=== PATIENT | male | born 1955 | race Caucasian/White ===

== ENCOUNTER 2022-02-06 08:40 | Outpatient (CLI) | payer MEDICARE, BC, SELFPAY ==
--- NOTE | ~2022-02-06 | PE_ITS ---
EXAMINATION: PET skull to mid thigh DATE: 02/06/2022 10:18 INDICATION: Abnormal finding of lung field. TECHNIQUE: Blood glucose level was 129 mg/dL. 6.556 mCi of 18-fluorodeoxyglucose (18-FDG) was adminis tered i.v. Low dose computed tomography (CT) images were acquired from the base of the brain to the p roximal thighs for attenuation correction and anatomic localization. Positron emission tomography (PE T) images were acquired in the same distribution beginning 50 minutes after injection. Images includi ng fused PET/CT images were reconstructed in axial, coronal, and sagittal planes. Automated exposure control technique was employed. The dose-length product was 1156.69mGy-cm. COMPARISON: None FINDINGS: Head/neck: There is symmetric increased activity in the oral cavity and ocular muscles without CT correlate, lik adrian physiologic. Bilateral severe multilevel cervical facet osteoarthritis with linear increased upta ke extending along the left C4-C5 facet joint where there are erosive changes on both sides of the yoav int space No pathologically enlarged cervical lymphadenopathy or suspicious foci of increased FDG upt elena in the visualized head or neck. Chest: 8 x 5 mm subpleural nodule at the anterior right apex without discernible FDG activity. There is a se cond 12 x 9 mm subpleural nodule at the posterior basilar segment of the right lower lobe which is al so without discernible FDG activity. Borderline heart size. No pericardial effusion. Thoracic aorta i s normal in caliber. No pathologically enlarged or FDG avid thoracic lymphadenopathy. No suspicious l ytic, blastic or FDG avid bone lesions. Abdomen/pelvis/proximal thighs: Physiologic renal accumulation and excretion of FDG activity in the kidneys, bladder and along portio ns of ureters. Bilateral low-attenuation renal cysts, the largest on the right measuring up to 6.1 cm and the largest on the left measuring up to 2.3 cm. Normal degree and heterogenous pattern of increa sed uptake throughout the liver without radiologic correlate or dominant FDG avid lesion. The gallbla dder, pancreas, spleen and bilateral adrenal glands are normal. Mild uptake scattered throughout the bowels without radiologic correlate, also likely physiologic. Moderate scattered colonic diverticulos is without adjacent inflammatory change to suggest diverticulitis. Small fat-containing umbilical her toño. Prostatomegaly measuring 5.2 x 4.2 cm. No other abnormal foci of increased FDG uptake or patholo gically enlarged lymphadenopathy in the abdomen, pelvis or proximal thighs. Posterior spinal fusion w ith bilateral vertical tiago and pedicle screw fixation extending from L2 through S1 on the right and t hrough L5 with additional more caudal iliac screw on the left. There is anterior fusion at L2-L3 and with interbody fusion device at L3-L4. There are associated laminectomies at L3-L5. Bone graft harves t site along the right posterior iliac spine. Mild left and moderate right hip osteoarthritis. No florina picious lytic, blastic or FDG avid bone lesions. IMPRESSION: 1. No evident FDG activity associated with a couple subpleural nodules measuring 8 x 5 mm the right a pex and 12 x 9 mm in the right lower lobe. While reassuring would recommend 12 month follow-up low-do se noncontrast chest CT. Provided history suggest that there has been prior outside imaging which carlyn uld be obtained comparison with follow-up imaging given the small amount of respiratory motion limiti ng position of measurement on the current study. 2. No other FDG avid lesions suspicious for malignancy/metastatic disease. Line 3. Prostatomegaly. 4. Diverticulosis. 5. Likely inflammatory mild FDG uptake associated with severe osteoarthritis with erosive changes at the left C4-C5 facet joint. Reviewed, dictated and finalized at location A. Samanta
[2022-02-06 09:01] LABS: Glucose Point of Care 129 mg/dl (65-105)
== END 2022-02-06 08:41 | disposition home or self-care (01) ==
PROVIDERS: PCP Internal Medicine; Visit Provider Internal Medicine
DX: R91.1 Solitary pulmonary nodule (principal); N40.0 Benign prostatic hyperplasia without lower urinary tract symptoms; K57.90 Diverticulosis of intestine, part unspecified, without perforation or abscess without bleeding
CPT/HCPCS: 78815; A9552

== ENCOUNTER 2023-07-30 11:22 | Outpatient (CLI) | payer MEDICARE, BC, SELFPAY ==
--- NOTE | ~2023-07-30 | US_ITS ---
Duplex Sonography of the right extremity: Indication: Swelling Findings: Sagittal and transverse B-mode images as well as color-flow imaging were performed on the r ight femoral and popliteal veins. B-mode examination was done without and with compression in the tr ansverse plane. There is good visualization of the common femoral, proximal profunda femoral, superf icial femoral, greater saphenous, and popliteal veins Normal color flow and compressibility/waveforms identified in the right common femoral vein, right pr ofunda femoral vein, and right superficial femoral vein. There is thrombosis of the right popliteal vein which is noncompressible with absence of flow. The do se propagates distally into the gastrocnemius, posterior tibial, and peroneal veins. Impression: DVT involving the right popliteal vein, with distal propagation into the gastrocnemius, posterior tib ial, and peroneal veins. Reviewed, dictated and finalized at location . [employer] F[employer]GG Impression: DVT involving the right popliteal vein, with distal propagation into the gastro cnemius, posterior tibial, and peroneal veins.
== END 2023-07-30 11:23 | disposition home or self-care (01) ==
PROVIDERS: PCP Internal Medicine; Visit Provider Orthopaedic Surgery
DX: R60.0 Localized edema (principal); I82.431 Acute embolism and thrombosis of right popliteal vein; I82.461 Acute embolism and thrombosis of right calf muscular vein; I82.441 Acute embolism and thrombosis of right tibial vein; I82.451 Acute embolism and thrombosis of right peroneal vein
CPT/HCPCS: 93971

== ENCOUNTER 2023-07-30 12:28 | Emergency (ER) | payer MEDICARE, BC, SELFPAY ==
[2023-07-30 12:29] VITALS: BP 144/89; PULSE 99; RESP 17; TEMP 36.7; O2SAT 96
[2023-07-30 12:58] LABS: Basophils Absolute Auto 0.1 K/mm3 (0.0-0.1); Basophils Percent Auto 0.8 % (0.2-1.2); Eosinophils Absolute Auto 0.2 K/mm3 (0-0.3); Eosinophils Percent Auto 1.8 % (0-4.4); Hematocrit 47.5 % (42.0-52.0); Hemoglobin 15.5 g/dL (14.0-18.0); Immature Granulocyte Absolute 0.08 K/mm3 (0.00-0.031); Immature Granulocyte Percent A 0.9 % (0-0.5); Lymphocytes Absolute Auto 2.01 K/mm3 (0.9-3.2); Lymphocytes Percent Auto 22.3 % (18.3-44.2); Mean Corpuscular HGB Conc 32.6 g/dl (32-36); Mean Corpuscular Hemoglobin 29.6 pg (26-34); Mean Corpuscular Volume 90.8 fl (80-100); Mean Platelet Volume 9.7 fl (7.4-10.4); Monocytes Absolute Auto 0.8 K/mm3 (0.1-0.6); Monocytes Percent Auto 9.1 % (2.6-8.5); Neutrophils Absolute Auto 5.9 K/mm3 (1.3-6.7); Neutrophils Percent Auto 65.1 % (45.5-73.1); Platelet Count Result 221 k/mm3 (150-375); Red Blood Count 5.23 M/mm3 (4.6-6.20); Red Cell Distribution Width 13.9 % (11.5-14.5)
[2023-07-30 13:07] LABS: Alanine Aminotransferase 27 U/L (6-50); Albumin Level 4.5 g/dL (3.5-5.1); Alkaline Phosphatase 76 U/L (38-126); Anion Gap 8 mmol/L (8-16); Aspartate Amino Transferase 24 U/L (17-59); Bilirubin,Total 0.6 mg/dL (0.2-1.3); Blood Urea Nitrogen 15 mg/dL (9-20); Calcium 9.1 mg/dL (8.4-10.2); Carbon Dioxide 25 mmol/L (22-30); Chloride 104 mmol/L (98-107); Estimated CRCL calculation 103 ml/min; Estimated Glomerular Filt Rate > 60; Glucose 112 mg/dL (65-110); Potassium 4.1 mmol/L (3.4-5.0); Sodium 137 mmol/L (137-145)
[2023-07-30 13:10] LABS: INR 0.8; Prothrombin Time 11.7 Seconds (11.1-14.7)
[2023-07-30 13:11] LABS: Partial Thromboplastin Time 28.8 SECONDS (22.3-36.8)
--- NOTE | 2023-07-30 14:24 | ED.EXTPRO ---
HPI - Extremity Problem General Chief complaint: Extremity Problem,Nontraumatic Stated complaint: dvt right leg Time Seen by Provider: 07/30/23 14:00 History of Present Illness HPI Narrative: Patient is a 60-year-old male who presents ER with diagnosis of DVT. He has been having swelling in his right leg and pain in his calf for 1 and half weeks. He started physical therapy today for chronic knee issues. No chest pain or shortness of breath. No hemoptysis. No dark black stools. No history of malignancy. Related Data Allergies Allergy/AdvReac Type Severity Reaction Status Date / Time No Known Allergies Allergy Verified 07/30/23 14:18 Review of Systems Cardiovascular: Cardiovascular: Reports no additional cardiovascular complaints Respiratory: Respiratory: Reports no additional respiratory complaints Musculoskeletal: Musculoskeletal: Denies arthralgias and Denies joint swelling Comments: Right calf pain and swelling Neurologic: Reports system reviewed and no additional complaints, except as documented PMFSH Past Medical History Medical History (Updated 07/30/23 @ 14:28 by Torsten Hager MD) BPH (benign prostatic hyperplasia) Diabetes Hyperlipidemia Hypertension Surgical History Surgical History (Updated 07/30/23 @ 14:27 by Torsten Hager MD) H/O arthroscopic knee surgery Exam Narrative: GENERAL: Well-appearing, well-nourished, and in no acute distress. HEAD: Normocephalic, atraumatic. CHEST: Clear to auscultation. No respiratory distress. HEART: Regular rate and rhythm. N Normal peripheral pulses. EXTREMITIES: Normal range of motion. Right lower extremity swelling below the knee of the right leg compared to left. 1+ edema. SKIN: Warm, dry, no rash. NEURO: Alert and oriented x3. PSYCH: Normal mood and affect. Course Course Emergency Course: Discussed bleeding precautions and trauma precautions were being on Xarelto. Discussed case with patient's PCP in you like the patient to receive a 10 day supply and he will provide him with additional medication prescriptions as required. Patient aware of treatment plan. Discharged home. Vital Signs Vital signs: Vital Signs Temperature 98.1 F 07/30/23 12:29 Pulse Rate 99 07/30/23 12:29 Respiratory Rate 17 07/30/23 12:29 Blood Pressure 144/89 H 07/30/23 12:29 Pulse Oximetry 96 07/30/23 12:29 Oxygen Delivery Room Air 07/30/23 12:29 Temperature 98.1 F 07/30/23 12:29 Pulse Rate 99 07/30/23 12:29 Respiratory Rate 17 07/30/23 12:29 Blood Pressure 144/89 H 07/30/23 12:29 Pulse Oximetry 96 07/30/23 12:29 Oxygen Delivery Room Air 07/30/23 12:29 MDM - Extremity (Nontraumatic) Lab Data 07/30/23 12:52 07/30/23 12:52 Labs: Lab Results 07/30/23 Range/Units 12:52 WBC 9.0 (4.5-10.0) K/mm3 RBC 5.23 (4.6-6.20) M/mm3 Hgb 15.5 (14.0-18.0) g/dL Hct 47.5 (42.0-52.0) % MCV 90.8 (80-100) fl MCH 29.6 (26-34) pg MCHC 32.6 (32-36) g/dl RDW 13.9 (11.5-14.5) % Plt Count 221 (150-375) k/mm3 MPV 9.7 (7.4-10.4) fl Immature Gran % (Auto) 0.9 H (0-0.5) % Neut % (Auto) 65.1 (45.5-73.1) % Lymph % (Auto) 22.3 (18.3-44.2) % [place] % (Auto) 9.1 H (2.6-8.5) % Eos % (Auto) 1.8 (0-4.4) % Baso % (Auto) 0.8 (0.2-1.2) % Lymph # (Auto) 2.01 (0.9-3.2) K/mm3 [place] # (Auto) 0.8 H (0.1-0.6) K/mm3 Eos # (Auto) 0.2 (0-0.3) K/mm3 Baso # (Auto) 0.1 (0.0-0.1) K/mm3 Abs Immat Gran (auto) 0.08 H (0.00-0.031) K/mm3 Absolute Neuts (auto) 5.9 (1.3-6.7) K/mm3 Absolute Nucleated RBC 0.0 (0.0-0.012) K/mm3 Nucleated RBC % 0.0 (0.0-0.2) % PT 11.7 (11.1-14.7) Seconds INR 0.8 APTT 28.8 (22.3-36.8) SECONDS Sodium 137 (137-145) mmol/L Potassium 4.1 (3.4-5.0) mmol/L Chloride 104 (98-107) mmol/L Carbon Dioxide 25 (22-30) mmol/L Anion Gap 8 (8-16) mmol/L BUN 15 (9-20) mg/dL Creatinine 0.70 (0.7-1.3) mg/dL
[2023-07-30 14:42] VITALS: BP 158/100; PULSE 96; RESP 19; O2SAT 96
== END 2023-07-30 14:43 | disposition home or self-care (01) ==
PROVIDERS: Emergency Provider Emergency Medicine; PCP Internal Medicine
DX: I82.401 Acute embolism and thrombosis of unspecified deep veins of right lower extremity (principal); N40.0 Benign prostatic hyperplasia without lower urinary tract symptoms; E11.9 Type 2 diabetes mellitus without complications; E78.5 Hyperlipidemia, unspecified; I10 Essential (primary) hypertension
CPT/HCPCS: 36415; 80053; 85025; 85610; 85730; 93971; 99283

== ENCOUNTER 2023-12-18 08:50 | Outpatient (CLI) | payer MEDICARE, BC, SELFPAY ==
--- NOTE | ~2023-12-18 | US_ITS ---
EXAMINATION: US venous doppler LE RT DATE: 12/18/2023 09:52 INDICATION: Deep vein thrombosis of right lower extremity. TECHNIQUE: Grayscale ultrasound images without and with compression and Doppler ultrasound images of the right lower extremity veins were obtained. COMPARISON: Ultrasound 07/30/2023 FINDINGS: The visualized portions of right common femoral vein, profunda (deep) femoral vein, femoral vein, pop liteal vein, peroneal veins, posterior tibial veins, and greater saphenous vein outflow are patent. T here is a large Mauricio's cyst. IMPRESSION: 1. No deep venous thrombosis. 2. Large right Mauricio's cyst. Reviewed, dictated and finalized at location A.
== END 2023-12-18 08:51 | disposition home or self-care (01) ==
PROVIDERS: PCP Internal Medicine; Visit Provider Internal Medicine
DX: M71.21 Synovial cyst of popliteal space [Baker], right knee (principal); I82.401 Acute embolism and thrombosis of unspecified deep veins of right lower extremity
CPT/HCPCS: 93971

== ENCOUNTER 2024-09-16 08:59 | Outpatient (CLI) | payer MEDICARE, BC, SELFPAY ==
--- NOTE | ~2024-09-16 | XR_ITS ---
EXAMINATION: XR cervical spine 4-5V DATE: 09/16/2024 09:28 INDICATION: Neck pain. TECHNIQUE: 5 views of cervical spine including flexion and extension views were obtained. COMPARISON: None. FINDINGS: There is 7 degrees levocurvature of cervicothoracic spine. There is hypomobility of upper c ervical spine. Vertebral body heights are normal. There is mildly decreased disc height at C3-C4 and moderately decreased disc height at C5-C6 and C6-C7. There is multilevel facet joint osteoarthritis, severe on the right at C2-C3 and on the left at C3-C4 and C4-C5. No central canal stenosis or prevert ebral soft tissue swelling. IMPRESSION: 1. Moderate cervical spondylosis. Reviewed, dictated and finalized at location A. WIRE BUILDER
--- OUTSIDE RECORDS SUMMARY | 2024-09-16 09:23 | XMS_ITS | Clinical Summary ---
Author Organization [facility] Address [address] [place] [address] Phone Care Team Providers Care Braider Operator Name Role Phone Robel Prasad MD Primary Care Provider [phone] Allergies No known active allergies Social History Tobacco Use Types Packs/Day Years Used Date Smoking Tobacco: Never Assessed Sex and Gender Information Value Date Recorded Sex Assigned at Not on file Legal Sex Male 8:10 PM CDT Gender Identity Not on file Sexual Orientation Not on file Last Filed Vital Signs Vital Sign Reading Time Taken Comments Blood Pressure - - Pulse - - Temperature - - Respiratory Rate - - Oxygen Saturation - - Inhaled Oxygen Concentration - - Weight 103 kg (227 lb) 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 Height 177.8 cm (5' 10 ) 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 Body Mass Index 32.57 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 Plan of Treatment Health Maintenance Due Date Last Done Comments Hepatitis C Virus (HCV) Screening 1955 TdaP Immunization 1955 Colonoscopy 02/03/2000 Colorectal Cancer Screening 02/03/2000 Cologuard 2005 Immunochemical Fecal Occult Blood 2005 Pneumococcal Immunization (5 0+ years) (1 of 1 - PCV) 2005 Zoster Immunization (1 of 2) 2005 PSA Discussion 2010 Influenza Immunization (#1) 2024 SARS-COV-2 Immunization (2023- season) 2024 Respiratory Syncytial Virus (RSV) Immunization (Adult) (1 - 1-dose 75+ series) 2030 Hepatitis B Immunization Aged Out No longer eligible based on patient's age to complete this topic Meningococcal Immunization (ACWY) Aged Out No longer eligible based on patient's age to complete this topic Rotavirus Immunization Aged Out No lo nger eligible based on patient's age to complete this topic Insurance [facility] [place] MEDIC[facility] Care Teams Braider Operator Relationship Specialty Start Date End Date Robel Prasad MD PCP - General Internal Medicine 07/22/16
--- OUTSIDE RECORDS SUMMARY | 2024-09-16 09:23 | XMS_ITS | Encounter Summary ---
Author Organization [facility] Address [address] [place] [address] Phone Care Team Providers Care Plant Attendant Or Assistant Operator Name Role Phone Jose Rodriguez MD Primary Care Provider [phone] Reason for Visit * Reason Comments Med Refill Encounter Details Date Type Department Care Team (Late st Contact Info) Description 04/22/2021 Refill [facility], [address] [place] [address] Vimal Peacock DO [address] [facility] [address] [place] [address] Social History Tobacco Use Types Packs/Day Years Used Date Smoking Tobacco: Never Alcohol Use Standard Drinks/Week Comments No 0 (1 standard drink = 0.6 oz pur e alcohol) Sex and Gender Information Value Date Recorded Sex Assigned at Not on file Legal Sex Male 2:49 PM EDT Gender Identity Not on file Sexual Orientation Not on file documented as of this encounter Plan of Treatment Upcoming Encounters Date Type Department Care Team (Late st Contact Info) Description 09/20/2024 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
--- OUTSIDE RECORDS SUMMARY | 2024-09-16 09:24 | XMS_ITS | CONTINUITY OF CARE DOCUMENT ---
Author Name ryan, ryan Address Unknown Organization [facility] Address [address] [place] [address] Phone [phone] Care Team Providers Care Protocol Manager Name Role Phone Emil SCHMIDT, Franko Unavailable KATINA CARRILLO MD Unavailable KATINA CARRILLO MD Unavailable PROBLEMS Condition Status Date Provider Notes CHEST PAIN-ABNL STRESS TEST 10/17 NL CATH 11/17 active ? Franko Stein MD Hypercholesterolemia, mixed active Aster Gr uenenfelder BACK PAIN active Franko Stein MD Increased blood lead level active Franko bernabe MD Obesity active Franko Stein MD Abdominal aortic aneurysm - 2.9cm, 09/2022 active aSúl Baptiste Cardiology examination completed 5 - Franko Stein MD Cardiology examination active Saúl Baptiste DVT active Franko Stein MD PREOPERATIVE CARDIOVASCULAR EXAMINATION completed - Franko Stein MD HTN-10/17 CATH EF 60 NO CAD active ? Delio valenzuela RN ENCOUNTERS Date Type Provider Location Encounter Diag nosis - In-person encounter Office Visit Franko Stein MD [facility] Cardiology examination - In-person encounter Office Visit Franko Stein MD [facility] DVT - In-person encounter Office Visit Franko Stein MD [facility] Abdominal aortic aneurysm - 2.9cm, ardiology examination - In-person encounter Office Visit Franko Stein MD [facility] - In-person encounter Office Visit Franko Stein MD [facility] - In-person encounter Office Visit Franko Stein MD [facility] - In-person encounter Office Visit Franko Stein MD [facility] - In-person encounter Office Visit Franko Stein MD [facility] Abdominal aortic aneurysm - 2.9cm, 09/2022 - In-person encounter Office Visit Franko Stein MD [facility] Obesity - In-person encounter Office Visit Franko Stein MD [facility] - In-person encounter Office Visit Franko Stein MD [facility] - In-person encounter Office Visit Franko Stein MD [facility] BACK PAINIncreased blood lead level - In-person encounter Office Visit Franko Stein MD [facility] - In-person encounter Office Visit Franko Stein MD [facility] PREOPERATIVE CARDIOVASCULAR EXAMINATION - In-person encounter Office Visit Franko Stein MD [facility] - In-person encounter Office Visit Franko Stein MD [facility] CHEST PAIN-ABNL STRESS TEST 3/10 NL CATH 11/17 - In-person encounter Office Visit Franko Stein MD [facility] - In-person encounter Office Visit Franko Stein MD [facility] CHEST PAIN-ABNL STRESS TEST 3/10 NL CATH 11/17HTN-10/17 CATH EF 60 NO CADHypercholesterolemi a, mixed VITAL SIGNS Date Observation Value Provider Body Mass Index (Ratio) 33.14 kg/m2 Andrea Stein MD oxygen saturation, oximetry 96 % Carrie Ram pulse rate 81 /min Carrie Ram blood pressure, cuff size regular Raj barksdale Ram blood pressure, diastolic 98 mm[Hg] Ta shamir [facility] blood pressure, systolic 148 mm[Hg] Tab letha Ram weight E&M 231 [lb_av] Carrie Ram respiratory rate E&M 12 /min Carrie Ram height E&M 70 [in_i] Carrie [facility] Body Mass Index (Ratio) 32.85 kg/m2 Andrea Stein MD blood pressure, cuff size regular [facility] blood pressure, diastolic 85 mm[Hg] [facility] blood pressure, systolic 135 mm[Hg] [facility] pulse rate 92 /min Ricki y oxygen saturation, oximetry 96 % Ricki respiratory rate E&M 12 /min Ricki weight E&M 229 [lb_av] Ricki y height E&M 70 [in_i] Ricki y Body Mass Index (Ratio) 33.00 kg/m2 Andrea Stein MD blood pressure, diastolic 100 mm[Hg] Aydin Dooley blood pressure, systolic 157 mm[Hg] [facility] harmony Dooley oxygen saturation, oximetry 97 % Mere Dooley pulse rate 78 /min Mere Dooley respiratory rate E&M 20 /min Mere Dooley blood pressure, cuff size regular faisal Dooley weight E&M 230 [lb_av] Mere Dooley height E&M 70 [in_i] Mere Dooley Body Mass Index (Ratio) 33.86 kg/m2 Andrea Stein MD blood pressure, diastolic 113 mm[Hg] Ri hitesh Bean blood pressure, systolic 164 mm[Hg] Aramis moshe Bean oxygen saturation, oximetry 97 % Rosalind Bean respiratory rate E&M 16 /min Ricardo Bean pulse rate 80 /min Rosalind Mo son weight E&M 236 [lb_av] Rosalind Mo son blood pressure, cuff size large Ri hitesh Bean height E&M 70 [in_i] Rosalind gu Body Mass Index (Ratio) 34.29 kg/m2 Andrea Stein MD blood pressure, diastolic 95 mm[Hg] Ca therine Hardin blood pressure, systolic 165 mm[Hg] Cat herine Keegan oxygen saturation, oximetry 98 % Danyell Hardin pulse rate 78 /min Danyell Hardin respiratory rate E&M 14 /min Catheri ne Hardin weight E&M 239 [lb_av] Danyell Hardin blood pressure, cuff size regular Ca therine Keegan height E&M 70 [in_i] Danyell Hardin Body Mass Index (Ratio) 33.43 kg/m2 Andrea Stein MD blood pressure, cuff size regular Sa ra Perez blood pressure, diastolic 107 mm[Hg] Sa ra Perez blood pressure, systolic 184 mm[Hg] Barak a Perez oxygen saturation, oximetry 96 % Thelma Perez respiratory rate E&M 18 /min Thelma Si ms pulse rate 92 /min Thelma Perez weight E&M 233 [lb_av] Thelma Perez height E&M 70 [in_i] Thelma Perez Body Mass Index (Ratio) 34.00 kg/m2 Andrea Stein MD blood pressure, cuff size large Ke rri Gruenenfelder blood pressure, diastolic 80 mm[Hg] Ke rri Gruenenfelder blood pressure, systolic 150 mm[Hg] Ker ri Gruenenfelder oxygen saturation, oximetry 98 % Aster Gruenenfelder respiratory rate E&M 16 /min Aster G ruenenfelder pulse rate 85 /min Aster Gruenenfe lder weight E&M 237 [lb_av] Aster Gruenenfe lder height E&M 70 [in_i] Aster Gruenenfe er Body Mass Index (Ratio) 34.15 kg/m2 Andrea Stein MD blood pressure, cuff size large Ke rri Gruenenfelder blood pressure, diastolic 100 mm[Hg] Ke rri Gruenenfelder blood pressure, systolic 162 mm[Hg] Ker ri Gruenenfelder oxygen saturation, oximetry 98 % Aster Gruenenfelder respiratory rate E&M 16 /min Aster G ruenenfelder pulse rate 98 /min Aster Gruenenfe lder weight E&M 238 [lb_av] Aster Gruenenfe lder height E&M 70 [in_i] Aster Gruenenfe lder Body Mass Index (Ratio) 33.57 kg/m2 Dulce Maria Aguilar respiratory rate E&M 18 /min Oralia Gutierrez blood pressure, diastolic 101 mm[Hg] Cy kylee Gutierrez blood pressure, systolic 158 mm[Hg] Steffany Gutierrez blood pressure, cuff size regular Cy kylee Gutierrez pulse rate 77 /min Oralia mac oxygen saturation, oximetry 97 % Oralia Gutierrez weight E&M 234 [lb_av] Oralia Velazco l height E&M 70 [in_i] Oralia Bustamantebel l Body Mass Index (Ratio) 34.58 kg/m2 Andrea Stein MD blood pressure, diastolic 100 mm[Hg] [facility], systolic 160 mm[Hg] Vanita collazo [place] oxygen saturation, oximetry 98 % [facility] E&M 16 /min [facility] pulse rate 105 /min [facility] weight E&M 241 [lb_av] [place] Jung height E&M 70 [in_i] [place] Jung Body Mass Index (Ratio) 33.57 kg/m2 Andrea Stein MD blood pressure, cuff size large Ke rri Adamneelroy blood pressure, diastolic 90 mm[Hg] Ke rri Kirit blood pressure, systolic 140 mm[Hg] Ferny ri Kirit oxygen saturation, oximetry 97 % Aster Kirit respiratory rate E&M 20 /min Aster G ruenenfshmuel pulse rate 92 /min Aster Michelle lder weight E&M 234 [lb_av] Aster Gruenenfe lder height E&M 70 [in_i] Aster Kevinuenenfe lder Body Mass Index (Ratio) 34.00 kg/m2 Andrea Stein MD blood pressure, cuff size large Ke rri Adamnepippaaakasher blood pressure, diastolic 100 mm[Hg] Ke rri Kevinuenenfelder blood pressure, systolic 162 mm[Hg] Ferny kang Kirit oxygen saturation, oximetry 98 % Aster Brownyadielpippashmuel respiratory rate E&M 18 /min Aster G savannahnfshmuel pulse rate 101 /min Aster Adamsavagee lder weight E&M 237 [lb_av] Aster Grrickinenfe lder height E&M 70 [in_i] Aster Kevinrickinenfe lder blood pressure, diastolic 99 mm[Hg] Me cassie Mandel blood pressure, systolic 174 mm[Hg] Eunice juan Mandel pulse rate 84 /min Asuncion Mandel oxygen saturation, oximetry 97 % Asuncion Mandel respiratory rate E&M 15 /min Asuncion Mandel Body Mass Index (Ratio) 34.72 kg/m2 Bibiana ssa Mandel weight E&M 242 [lb_av] Asuncion Mandel Body Mass Index (Ratio) 34.43 kg/m2 Krissy sylvester Kirit blood pressure, diastolic 91 mm[Hg] Ke rrnga Kirit blood pressure, systolic 150 mm[Hg] Ferny kang [facility]irit pulse rate 106 /min Aster Geoffe lder oxygen saturation, oximetry 98 % Aster Kirit respiratory rate E&M 16 /min Aster Linares neyda weight E&M 240 [lb_av] Aster Kevinuenenfe lder height E&M 70 [in_i] Aster Kevinuenenfe lder blood pressure, diastolic 98 mm[Hg] Me cassie Mandel blood pressure, systolic 149 mm[Hg] Eunice juan Mandel pulse rate 82 /min Asuncion Mandel oxygen saturation, oximetry 98 % Asuncion Mandel respiratory rate E&M 14 /min Asuncion Mandel weight E&M 241 [lb_av] Asuncion Mandel blood pressure, diastolic, left arm 91 mm [Hg] Allyson Pal blood pressure, systolic, left arm 11 mm[ Hg] Allyson Pal blood pressure, diastolic, right arm 71 m m[Hg] Allyson Pal blood pressure, systolic, right arm 127 m m[Hg] Allyson Pal blood pressure, diastolic 71 mm[Hg] Dorsey blood pressure, systolic 127 mm[Hg] Ron Pal pulse rate 107 /min Allyson Pal oxygen saturation, oximetry 97 % Allyson Pal respiratory rate E&M 16 /min Allyson Pal weight E&M 234 [lb_av] Allyson Pal blood pressure, diastolic, right arm 72 m m[Hg] Eric [place] blood pressure, systolic, right arm 113 m m[Hg] Eric [place] blood pressure, diastolic 72 mm[Hg] Jaz davis [place] blood pressure, systolic 113 mm[Hg] Luis Armando tolentino [place] pulse rate 77 /min Eric [place] oxygen saturation, oximetry 97 % Eric [place] respiratory rate E&M 16 /min Eric [place] weight E&M 224 [lb_av] Eric Trevinoacop blood pressure, diastolic 101 mm[Hg] Luigi Campos RN blood pressure, systolic 155 mm[Hg] Delio Campos RN pulse rate 94 /min Delio Campos RN oxygen saturation, oximetry 99 % Delio Campos RN respiratory rate E&M 18 /min Delio silvas RN weight E&M 230 [lb_av] Delio Beth RN blood pressure, diastolic 100 mm[Hg] Narinder Umana blood pressure, systolic 152 mm[Hg] Bob danuta Dong ALLERGIES Allergy Name Onset Date Reaction Criticality Status SEASONAL Low Criticality active RESULTS Date Observation Value Provider Reference Range Interpretation Location triglyceride, serum, fasting 203 mg/dL [facility] HDL cholesterol, serum 32 mg/dL [facility] lipoprotein, beta, serum, point, quantitative, calculated 119 mg/dL [facility] cholesterol, serum 192 mg/dL [facility] alanine aminotransferase (SGPT), serum 29 1/L [facility] aspartate aminotransferase (SGOT), serum 19 1/L [facility] blood glucose, random 110 mg/dL [facility] creatinine, serum 0.84 mg/dL [facility] urea nitrogen, blood 13 mg/dL [facility] potassium, serum 4.2 mmol/L [facility] sodium, serum 142 mmol/L [facility] international normalized ratio (INR) 1.0 [facility] prothrombin time (patient) 9.6 s [facility] anion gap, serum 12 [facility] globulins, serum, total 3.7 g/dL [facility] albumin/globulin ratio, serum 1.6 [facility] protein, total, serum 7.0 g/dL [facility] albumin, serum 4.3 g/dL [facility] bilirubin, serum, total 0.9 mg/dL [facility] alkaline phosphatase, serum 68 1/L [facility] alanine aminotransferase (SGPT), serum 32 1/L [facility] aspartate aminotransferase (SGOT), serum 18 1/L [facility] calcium, serum 10.0 mg/dL [facility] blood glucose, fasting 105 mg/dL [facility] creatinine, serum 1.0 mg/dL [facility] urea nitrogen, blood 16 mg/dL [facility] carbon dioxide, serum, total 29 mmol/L [facility] chloride, serum 105 mmol/L [facility] potassium, serum 4.4 mmol/L [facility] sodium, serum 142 mmol/L [facility] platelet count 258 10*3/uL [facility] red blood cell distribution width 12.7 % Symone Pineda mean corpuscular hemoglobin concentration, RBC 34.1 g/dL Symone Pineda mean corpuscular hemoglobin, RBC 30.5 pg [facility] mean corpuscular volume, RBC 89.6 fL [facility] hematocrit, blood 46.0 % [facility] hemoglobin, blood 15.7 g/dL [facility] erythrocyte (RBC) count 5.13 10*6/mm3 [facility] monocytes as percent of blood leukocytes 7.3 % [facility] lymphocytes as percent of blood leukocytes 25.3 % [facility] leukocyte count, blood 10.0 10*3/mm3 Symone Pineda HISTORY OF MEDICATION USE Medication Status Instructions Dates Provider Indications Com ments nifedipine 90 mg tablet extended release active Take 1 tablet by mouth once daily Saúl Baptiste losartan-hydroc hlorothiazide 100-12.5 mg tablet active Take 1 tablet by mouth once a day Saúl Baptiste Vascepa 1 gram capsule active Saúl Baptiste Xarelto 20 mg tablet completed TAKE 1 TABLET BY MOUTH EVERY DAY - Saúl Baptiste nifedipine 90 mg tablet extended release completed Take 1 tablet by mouth once a day - Saúl Baptiste Ozempic 0.25 mg or 0.5 mg(2 mg/1.5 mL) pen injector completed - Saúl Baptiste tamsulosin 0.4 mg capsule active Danyell Keegan carvedilol 25 mg tablet active Danyell Hardin nifedipine 90 mg tablet extended release completed Take 1 tablet by mouth once daily - Aster Beth rosuvastatin 40 mg tablet active Take 1 tablet by mouth once daily Ricki Elaine tramadol 50 mg tablet completed as needed - Saúl Baptiste nifedipine 90 mg tablet extended release completed 1 tablet once a day - Renetta Spaulding VITAMIN C CAPSULE active once a day Aster Beth metformin 500 mg tablet extended release 24hr active Take 1 tablet twice a day Oralia Gutierrez TAMSULOSIN HCL 0.4 MG ORAL CAPSULE completed take 1 tab twice a day - Aster Beth loratadine 10 mg tablet active Take 1 tablet once a day [facility], 30 days supply, Prescribed by KATINA CARRILLO, Filled 12/14/2018 omeprazole 20 mg capsule,delayed release(DR/EC) active Take 1 capsule by mouth once a day as needed [facility] #90, 90 days supply, Prescribed by KATINA CARRILLO, Filled 01/09/2019 AMLODIPINE BESYLATE 10 MG ORAL TABLET completed take 1 tab dialy - [facility] METFORMIN HCL 500 MG ORAL TABLET completed take one pill twice a day - Samson Jung Coreg 25 mg tablet completed 1 tablet twice a day - Saúl Baptiste losartan 100 mg tablet completed Take 1 tablet once a day - Saúl Baptiste VITAMIN D (ERGOCALCIFEROL ) 15407 UNIT ORAL CAPSULE completed take once a week for 8 weeks - Aster Beth Crestor 40 mg tablet completed 1 tablet once a day - Cassie Jeff fluticasone propionate 50 mcg/actuation spray,suspensio n completed once a day - Saúl Baptiste CHLOR - TRIMETON completed take one pill a day as needed - Aster Beth VITAMIN D CAPS active Take 1 once a day Aster Beth finasteride 5 mg tablet active once a day Asuncion Mandel Flomax 0.4 mg capsule completed 2 tablet once a day - Saúl Baptiste IMITREX TABLET completed as needed 50mg for migrains - Samson Jung TRAMADOL HCL TABLET completed 50mg twice daily - Aster Beth NEURONTIN CAPSULE completed 300mg twice daily - Samson Jung NIASPAN 500 MG ORAL TABLET EXTENDED RELEASE completed ONE TAB. AT BEDTIME - Dispense as written - Franko Stein MD QUINAPRIL HCL 20 MG ORAL TABLET completed ONE TAB. DAILY - Franko Stein MD VERAPAMIL HCL ER 360 MG ORAL CAPSULE EXTENDED RELEASE 24 HOUR completed ONE TAB. DAILY - Aster Beth GEMFIBROZIL 600 MG ORAL TABLET completed ONE TAB TWICE DAILY - Asuncion Mandel VITAMIN C TABS completed - Aster Beth Fish Oil 340-1,000 mg capsule completed 2 tablet twice a day - Saúl Baptiste SOCIAL HISTORY Date Observation Value Provider drug use none Saúl Baptiste alcohol use no Saúl Baptiste smoking status Never smoker Saúl Baptiste drug use none Saúl Baptiste alcohol use no Saúl Baptiste smoking status Never smoker aSúl Baptiste smoking status Never smoker Mere Dooley social history reviewed E&M revi ewed - no changes required Saúl Baptiste social history E&M Marital Statu s: L amelia with family/friends E thnicity: Smoking History: P atient is a former smoker. Franko Stein MD physical exercise, f requency, days per week no Rosalind Bean caffeine use, averag e drinks per day yes Rosalind Bean number of years as a smoker 25 a Rosalind Bean smoking history, tot al pack/day 2 Rosalind Bean cigarette use yes Rosalind Kohli rson smoking status Former smoker Rosalind mendoza social history reviewed E&M revi ewed - no changes required Franko Stein MD social history E&M Marital Statu s: L amelia with family/friends E thnicity: Smoking History: P atient is a former smoker. Saúl Baptiste social history reviewed E&M revi ewed - no changes required Saúl Baptiste physical exercise, f requency, days per week no Danyell Keegan caffeine use, averag e drinks per day yes Danyell Keegan number of years as a smoker 25 a Danyell Hardin smoking history, tot al pack/day 2 Danyell Keegan cigarette use yes Danyell Hardin smoking status Former smoker Danyell Ot is social history reviewed E&M revi ewed - no changes required Saúl Baptiste social history E&M Marital Statu s: L amelia with family/friends E thnicity: Smoking History: P atient is a former smoker. Cassie Aguilar social history reviewed E&M revi ewed - no changes required Cassie Aguilar physical exercise, f requency, days per week no Aster Beth caffeine use, averag e drinks per day yes Aster Beth number of years as a smoker 25 a Aster Beth smoking history, tot al pack/day 2 Aster Beth cigarette use yes Aster mi smoking status Former smoker Aster abbasi social history reviewed E&M revi ewed - no changes required Kodak Baker physical exercise, f requency, days per week no Aster Beth caffeine use, averag e drinks per day yes Aster Beth number of years as a smoker 25 a Aster Beth smoking history, tot al pack/day 2 Aster Beth cigarette use yes Aster mi smoking status Former smoker Aster abbasi social history E&M Marital Statu s: Dionne cisneros with family/friends E thnicity: Smoking History: Stephany mcfarland is a former smoker. Cassie Aguilar social history reviewed E&M revi ewed - no changes required Cassie Aguilar physical exercise, f requency, days per week no Oralia Gutierrez caffeine use, averag e drinks per day yes Oralia Gutierrez number of years as a smoker 25 a Oralia Gutierrez smoking history, tot al pack/day 2 Oralia Gutierrez cigarette use yes Oralia almaraz smoking status Former smoker Oralia griffin social history reviewed E&M revi ewed - no changes required Franko Stein MD social history E&M Marital Statu s: Dionne cisneros with family/friends E thnicity: Smoking History: Stephany mcfarland is a former smoker. Franko Stein MD physical exercise, f requency, days per week no Samson Jung alcohol use, average drinks per day none [place] [facility] alcohol use no Samson Jung caffeine use, averag e drinks per day yes Samson Jung drug use none [place] [facility] number of years as a smoker 25 a Samson Jung smoking history, tot al pack/day 2 Samson Jung cigarette use yes [place] Jung smoking status Former smoker [facility] number of grandchildren Franko Stein MD T sam Stein MD social history reviewed E&M revi ewed - no changes required Franko Stein MD physical exercise, f requency, days per week no Aster Gruenenfelder alcohol use, average drinks per day none Aster Gruenenfelder alcohol use no Aster Gruenenfe lder caffeine use, averag e drinks per day yes Aster Gruenenfelder drug use none Aster Gruenenfe lder number of years as a smoker 25 a Aster Gruenepippaelder smoking history, tot al pack/day 2 Aster Gruenenfelder cigarette use yes Aster Gruenenf elder smoking status Former smoker Aster Gruene nfelder social history reviewed E&M revi ewed - no changes required Franko Stein MD physical exercise, f requency, days per week no Aster Gruenenfelder alcohol use, average drinks per day none Aster Gruenenfelder alcohol use no Aster Gruenenfe lder caffeine use, averag e drinks per day yes Aster Gruenenfelder drug use none Aster Geoffe lder number of years as a smoker 25 a Aster Luceroer smoking history, tot al pack/day 2 Aster Luceroer cigarette use yes Aster Tellez elder smoking status Former smoker Aster Cosme nfelder social history reviewed E&M revi ewed - no changes required Franko Stein MD physical exercise, f requency, days per week no [facility] alcohol use, average drinks per day none [facility] alcohol use no [facility] caffeine use, averag e drinks per day yes [facility] drug use none [facility] number of years as a smoker 25 a Asuncion Mandel smoking history, tot al pack/day 2 Asuncion Mandel cigarette use yes Asuncion Mandel smoking status Former smoker [facility] Dhruv iglesias social history reviewed E&M revi ewed - no changes required Franko Stein MD alcohol use no Aster Martinez lder number of years as a smoker 25 a Aster Beth smoking history, tot al pack/day 2 Aster Geoffaakasher cigarette use yes Aster Geoff elder smoking status Former smoker Aster Cosme nfelder drug use none Franko Stein MD social history reviewed E&M reviewed rFanko Stein MD smoking status former smoker Asuncion Barnettedd nn social history reviewed E&M reviewed Delio Campos RN social history reviewed E&M reviewed Delio Campos RN social history E&M Marital Statu s: L amelia with family/friends E thnicity: Delio Campos RN social history reviewed E&M reviewed Delio Campos RN physical exercise, f requency, days per week no [employer] caffeine use, averag e drinks per day yes [employer] alcohol use, average drinks per day none [employer] number of years as a smoker 10 years or m ore [employer] smoking status Quit [employer]Log smoking status quit Sam Umana FUNCTIONAL STATUS Date Observation Value Provider periodic limb movement index absent (0) Mike Carbajal MD MENTAL STATUS Date Observation Value Provider assessment of judgme nt and insight E&M Alert and oriented to time, place and person. Mood and affect are normal. Franko Stein MD assessment of judgme nt and insight E&M Alert and oriented to time, place and person. Mood and affect are normal. Delio Campos RN assessment of judgme nt and insight E&M Alert and oriented to time, place and person. Mood and affect are normal. Delio Campos RN assessment of judgme nt and insight E&M Alert and oriented to time, place and person. Mood and affect are normal. Delio Campos RN FAMILY HISTORY Family Member Condition Father Negative FH of Coron michael Artery Disease Mother Negative FH of Coron michael Artery Disease Mother Family History of Hy pertension: Mother Family History of Di abetes: INSURANCE PROVIDERS Payer name Policy type / Coverage type [facility] ID [place] Medicare [id number] [facility] [id number] ADVANCE DIRECTIVES Name Date DISCUSSED - NO DECISION MADE TREATMENT PLAN Date Name Performer [id number],SSaúl i [id number],Saúl Valenzuela i [id number],Saúl Valenzuela i [id number],SSaúl i [id number],Saúl Valenzuela i [id number],Saúl Valenzuela i [id number],B, [facility] [id number],S, [facility] i [id number],S, [facility] i [id number],S, [facility] [id number],S, [facility] [id number],S, [facility] i [id number],S, [facility] [id number],S, [facility] [id number],B, [facility] Cardiology [facility] Cardiology [facility] Cardiology: H is updated medication list for this problem includes: Nifedipine 90 Mg Tablet Extended Release (Nifedipine) ..... Take 1 tablet by mouth once a day Carvedilol 25 Mg Tablet (Carvedilol) [facility] Cardiology: B P today: 148/98 P rior BP: 135/85 (08/18/2023) Prior 10 Yr Risk Heart Disease: Not enough information (01/02/2009) Labs Reviewed: C reat: 0.84 (08/05/2013) Chol: 192 (08/05/2013) HDL: 32 (08/05/2013) LDL: 119 (08/05/2013) T (08/05/2013) His updated medication list for this problem includes: Nifedipine 90 Mg Tablet Extended Release (Nifedipine) ..... Take 1 tablet by mouth once a day Carvedilol 25 Mg Tablet (Carvedilol) Losartan 100 Mg Tablet (Losartan) ..... Take 1 tablet once a day [facility] Cardiology [facility] Cardiology: H is updated medication list for this problem includes: Rosuvastatin 40 Mg Tablet (Rosuvastatin) ..... Take 1 tablet by mouth once daily [facility] Card[facility] Card[facility] Cardiology [facility] Cardiology [facility] Cardiology [facility] Cardiology [facility] Cardiology [facility] Cardiology [facility] Cardiology [facility] Cardiology [facility] Cardiology [facility] Cardiology [facility] Cardiology [facility] Cardiology [facility] Cardiology [facility] Cardiology [facility] Cardiology [facility]health Franko Stein MD Telehealth Franko Stein MD Telehealth Franko Stein MD Cardiology Follow up Franko sanchez MD Cardiology Follow up Franko sanchez MD Cardiology Follow up Franko sanchez MD Cardiology Follow up Franko sanchez MD Telehealth Franko Stein MD Telehealth Franko Stein MD Telehealth Franko Stein MD Telehealth Franko Stein MD Cardiology - Follow up Franko bernabe MD Cardiology - Follow up Franko bernabe MD Cardiology - Follow up Franko bernabe MD Cardiology - Follow up:will schedule repat ultrasound in a year Franko Stein MD Cardiology follow up Franko sanchez MD Cardiology follow up Franko sanchez MD Cardiology follow up Franko sanchez MD Cardiology follow up Franko sanchez MD Cardiology Franko Stein MD Cardiology Franko Stein MD Cardiology Franko Stein MD Cardiology Franko Stein MD Cardiology Follow up Franko sanchez MD Cardiology Follow up Franko sanchez MD Cardiology Follow up Franko sanchez MD Cardiology Follow up Franko sanchez MD Cardiology Follow up Franko sanchez MD Cardiology Follow up Franko sanchez MD Cardiology Follow up : H is updated medication list for this problem includes: Crestor 20 Mg Oral Tabs (Rosuvastatin calcium) ..... Take one pill a day Franko Stein MD Cardiology Follow up Franko sanchez MD Cardiology Follow up : T he following medications were removed from the medication list: Quinapril Hcl 20 Mg Tabs (Quinapril hcl) ..... One tab. daily His updated medication list for this problem includes: Hyzaar 100-12.5 Mg Oral Tabs (Losartan potassium-hctz) ..... Po daily Verapamil Hcl Cr 360 Mg Cp24 (Verapamil hcl) ..... One tab. daily Franko Stein MD Cardiology Franko Stein MD Cardiology Franko Stein MD Cardiology Franko Stein MD follow up: H is updated medication list for this problem includes: Verapamil Hcl Cr 240 Mg Tbcr (Verapamil hcl) ..... One tab. daily Quinapril Hcl 20 Mg Tabs (Quinapril hcl) ..... One tab. daily BP today: 127/71 P rior BP: 113/72 (11/13/2009) Prior 10 Yr Risk Heart Disease: Not enough information (01/02/2009) Labs Reviewed: C reat: 1.0 (10/18/2009) Franko Stein MD follow up: H is updated medication list for this problem includes: Gemfibrozil 600 Mg Tabs (Gemfibrozil) ..... One tab twice daily Niaspan 500 Mg Tbcr (Niacin (antihyperlipidemic)) ..... One tab. at bedtime - dispense as written BP today: 127/71 Prior BP: 113/72 (11/13/2009) Franko Stein MD follow up: H is updated medication list for this problem includes: Verapamil Hcl Cr 240 Mg Tbcr (Verapamil hcl) ..... One tab. daily Quinapril Hcl 20 Mg Tabs (Quinapril hcl) ..... One tab. daily BP today: 127/71 Prior BP: 113/72 (11/13/2009) S tress Test: Normal-no evidence of ischemia by ST analysis G ood functional capacity. Normotensive response to exercise N ormal exercise stress EKG. [facility] (01/02/2009) N uclear Stress Findings: 1. Regadenoson mediated myocardial perfusion study 2 . Normal left ventricular systolic function with a calculated ejection fraction of 56%. 3 . Myocardial scintigraphy demonstrates small reversible inferior wall defect consistent with ischemia. GC (10/25/2009) C ardiac Cath: LV systolic function EF 60%. No MR. No , RCA is the dominant vessel and is free of stenosis. LAD, circumflex and left main are free of stenosis. CH (11/01/2009) H gb: 15.7 (10/18/2009) HCT: 46.0 (10/18/2009) RBC: 5.13 (10/18/2009) WBC: 10.0 (10/18/2009) B UN: 16 (10/18/2009) Creat: 1.0 (10/18/2009) Glucose: 105 (10/18/2009) N a+: 142 (10/18/2009) K+: 4.4 (10/18/2009) Cl: 105 (10/18/2009) PT: 9.6 (10/31/2009) INR: 1.0 (10/31/2009) Orders: E KG ([id number]) Franko Stein MD Follow-up s/p cath: H is updated medication list for this problem includes: Verapamil Hcl Cr 240 Mg Tbcr (Verapamil hcl) ..... One tab. daily Quinapril Hcl 20 Mg Tabs (Quinapril hcl) ..... One tab. daily BP today: 113/72 Prior BP: 155/101 (10/29/2009) S tress Test: Normal-no evidence of ischemia by ST analysis G ood functional capacity. Normotensive response to exercise N ormal exercise stress EKG. [facility] (01/02/2009) N uclear Stress Findings: 1. Regadenoson mediated myocardial perfusion study 2 . Normal left ventricular systolic function with a calculated ejection fraction of 56%. 3 . Myocardial scintigraphy demonstrates small reversible inferior wall defect consistent with ischemia. GC (10/25/2009) C ardiac Cath: LV systolic function EF 60%. No MR. No , RCA is the dominant vessel and is free of stenosis. LAD, circumflex and left main are free of stenosis. CH (11/01/2009) H gb: 15.7 (10/18/2009) HCT: 46.0 (10/18/2009) RBC: 5.13 (10/18/2009) WBC: 10.0 (10/18/2009) B UN: 16 (10/18/2009) Creat: 1.0 (10/18/2009) Glucose: 105 (10/18/2009) N a+: 142 (10/18/2009) K+: 4.4 (10/18/2009) Cl: 105 (10/18/2009) PT: 9.6 (10/31/2009) INR: 1.0 (10/31/2009) Franko Stein MD Follow-up s/p cath: H is updated medication list for this problem includes: Verapamil Hcl Cr 240 Mg Tbcr (Verapamil hcl) ..... One tab. daily Quinapril Hcl 20 Mg Tabs (Quinapril hcl) ..... One tab. daily BP today: 113/72 P rior BP: 155/101 (10/29/2009) Prior 10 Yr Risk Heart Disease: Not enough information (01/02/2009) Labs Reviewed: C reat: 1.0 (10/18/2009) Franko Stein MD Follow-up s/p cath: H is updated medication list for this problem includes: Gemfibrozil 600 Mg Tabs (Gemfibrozil) ..... One tab twice daily Niaspan 500 Mg Tbcr (Niacin (antihyperlipidemic)) ..... One tab. at bedtime - dispense as written BP today: 113/72 Prior BP: 155/101 (10/29/2009) Franko Stein MD Follow-up s/p cath: H is updated medication list for this problem includes: Verapamil Hcl Cr 240 Mg Tbcr (Verapamil hcl) ..... One tab. daily Quinapril Hcl 20 Mg Tabs (Quinapril hcl) ..... One tab. daily BP today: 113/72 Prior BP: 155/101 (10/29/2009) S tress Test: Normal-no evidence of ischemia by ST analysis G ood functional capacity. Normotensive response to exercise N ormal exercise stress EKG. [facility] (01/02/2009) N uclear Stress Findings: 1. Regadenoson mediated myocardial perfusion study 2 . Normal left ventricular systolic function with a calculated ejection fraction of 56%. 3 . Myocardial scintigraphy demonstrates small reversible inferior wall defect consistent with ischemia. GC (10/25/2009) C ardiac Cath: LV systolic function EF 60%. No MR. No , RCA is the dominant vessel and is free of stenosis. LAD, circumflex and left main are free of stenosis. CH (11/01/2009) H gb: 15.7 (10/18/2009) HCT: 46.0 (10/18/2009) RBC: 5.13 (10/18/2009) WBC: 10.0 (10/18/2009) B UN: 16 (10/18/2009) Creat: 1.0 (10/18/2009) Glucose: 105 (10/18/2009) N a+: 142 (10/18/2009) K+: 4.4 (10/18/2009) Cl: 105 (10/18/2009) PT: 9.6 (10/31/2009) INR: 1.0 (10/31/2009) Franko Stein MD Date Name Complete Echo Aorta Duplex Ultraso und CT Angio Chest (Aort a) Cardiac Cath - HISTORY OF PROCEDURES Procedure Date Procedure Name Provider Procedure Notes S tatus Complex e/m visit add on Franko Stein MD completed EKG Franko Stein MD completed EKG Franko Stein MD completed EKG Franko Stein MD completed EKG Franko Stein MD completed EKG Franko Stein MD completed EKG Franko Stein MD completed SNOMED-CT: 86362827 Physical Exam, Performed: Pulse Exam of Foot Franko Stein MD completed EKG Franko Stein MD completed SNOMED-CT: [id number] Current Medications Documented Franko Stein MD completed SNOMED-CT: 80670801 Physical Exam, Performed: Pulse Exam of Foot Franko Stein MD completed SNOMED-CT: [id number] Current Medications Documented Franko Stein MD completed EKG Franko Stein MD completed EKG Franko Stein MD completed EKG Franko Stein MD completed
--- OUTSIDE RECORDS SUMMARY | 2024-09-16 09:24 | XMS_ITS | Clinical Summary ---
Author Organization [facility] Address [address] [place] [address] Care Team Providers Care Drafter Topographical Name Role Phone Will Rodriguez MD Primary Care Provide r Allergies Active Allergy Reactions Criticality Noted Date Comments Hydromorphone Vomiting Reaction: VOMITING, Nsaids (Non-Steroidal Anti-Inflammatory Drug) Other (See comments) Reaction: GI, Medications chlorthalidone 25 mg tablet 06/09/2017 Active finasteride (PROSCAR) 5 mg tablet 07/27/2017 Active losartan (COZAAR) 100 mg tablet 06/09/2017 Activ e traMADol (ULTRAM) 50 mg tablet 07/01/2017 Active tamsulosin (FLOMAX) 0.4 mg capsule,extended release 24hr 08/16/2017 Active rosuvastatin (CRESTOR) 20 mg tablet 07/27/2017 Active amLODIPine (NORVASC) 10 mg tablet 07/01/2017 Active verapamil ER (VERELAN) 360 mg 24 hr capsule 06/08/2017 Activ e SUMAtriptan (IMITREX) 100 mg tabletIndications: Migraine 07/29/2017 Active Active Problems Problem Noted Date Diagnosed Date s/p L4-S1 posterior spinal fusion 08/26/2017 Surgical History Surgery Date Site/Laterality Comments BACK SURGERY HERNIA REPAIR 80's KNEE SURGERY 08/10/2012 - 08/09/2013 Left Social History Tobacco Use Types Packs/Day Years Used Date Smoking Tobacco: Former Smokeless Tobacco: Never Personal Safety Answer Date Recorded Getting School Help Needed Not on file 10/22 Sex and Gender Information Value Date Recorded Sex Assigned at Not on file Legal Sex Male 8:43 PM 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[employer]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[employer] Gender Identity Not on file Sexual Orientation Not on file Obstetrics History Last Filed Vital Signs Vital Sign Reading Time Taken Comments Blood Pressure 118/72 08/26/2017 8:30 AM 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 Pulse 69 11/13/2016 12:00 PM CDT Temperature - - Respiratory Rate - - Oxygen Saturation 96% 11/13/2016 12:00 PM CDT Inhaled Oxygen Concentration - - Weight 101.2 kg (223 lb) 08/26/2017 8:30 AM 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 Height 177.8 cm (5' 10 ) 08/26/2017 8:30 AM 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 Body Mass Index 32 08/26/2017 8:30 AM 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 Plan of Treatment Health Maintenance Due Date Last Done Comments Colon Cancer Screening-Colonoscopy 1955 Depression Screening 1955 Fall Risk Assessment 1955 Hepatitis C Screening 1955 Prostate Cancer Screening-PSA 1955 Hepatitis B Screening 1973 Zoster Vaccine (2 of 3) 09/15/2014 07/21/2014 DTaP/Tdap/Td Vaccine (1 - Tdap) 08/11/2016 7 Abdominal Aortic Aneurysm (A AA) Screen 02/03/2020 Well Visit 65+ 02/03/2020 Covid-19 Vaccine (3 - 2023-2 5 season) 2024 04/01/2021, 03/04/2021 Influenza Vaccine (#1) 2024 0, 07/11/2019, 06/16/2018, Additional history exists Pneumococcal vaccine 65+ Completed 04/08/2021, 03/10 Insurance MEDICARE [employer] Care Teams Drafter Topographical Relationship Specialty Start Date End Date Will Rodriguez MD [address] [id number] PCP - General 05/11/17
--- OUTSIDE RECORDS SUMMARY | 2024-09-16 09:24 | XMS_ITS | Encounter Summary ---
Author Organization [facility] Address [address] 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
--- OUTSIDE RECORDS SUMMARY | 2024-09-16 09:24 | XMS_ITS | Referral Summary ---
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 Gender Identity Not on file Sexual Orientation Not on file Last Filed Vital Signs Vital Sign Reading Time Taken Comments Blood Pressure 118/72 08/26/2017 8:30 AM BEAD PREPARER Pulse 69 11/13/2016 12:00 PM CDT Temperature - - Respiratory Rate - - Oxygen Saturation 96% 11/13/2016 12:00 PM CDT Inhaled Oxygen Concentration - - Weight 101.2 kg (223 lb) 08/26/2017 8:30 AM BEAD PREPARER Height 177.8 cm (5' 10 ) 08/26/2017 8:30 AM BEAD PREPARER Body Mass Index 32 08/26/2017 8:30 AM BEAD PREPARER Plan of Treatment Not on file Insurance MEDICARE [facility] Care Teams Terrapin Fisher Relationship Specialty Start Date End Date Will Rodriguez MD [address] [id number] PCP - General 05/11/17
--- OUTSIDE RECORDS SUMMARY | 2024-09-16 09:24 | XMS_ITS | Data Portability ---
Author Organization [facility], Main Office Address [address] [place] [address] Care Team Providers Care Real Estate Sales Associate Name Role Phone KATINA RODRIGUEZ Primary Care Provider [phone] KATINA RODRIGUEZ Referring Provider FRANKO STEIN Tack Welder CAT VAZQUEZ Operations Administrative Assistant [phone] ZORAN PELAYO Civilian Technician Assessment Encounter Date Assessment Date Assessment LastModified by Organization Details LastModified Time 02/22/2024 02/22/2024 Assessment: Nicotine smoke: 2 ppd [id number] = 20 pack years Dyspnea Right pulmonary nodules Asbestos exposure Plan: The following were reviewed and explained to the patient: primary care/referral note Chest CT 10/18/21 6 mm RUL nodule, 11 mm RLL nodule PET/CT 03/08/22 8 x 5 mm RUL nodule and 12 x 9 mm RLL nodule with no FDG activity Chest CT 12/15/23 9 mm RLL nodule, 3 mm RLL nodule Differential diagnoses for pulmonary nodule: 1. malignant tumor 2. benign tumor 3. inflammatory processes 4. infectious process (viral, atypical bacterial, fungal, atypical mycobacterial) The Fleischner Society pulmonary nodule recommendations below pertain to the follow-up and management of indeterminate pulmonary nodules detected incidentally on CT and are published by the Fleischner Society. The guideline does not apply to lung cancer screening, patients younger than 35 years, or patients with a history of primary cancer or immunosuppression. These recommendations reflect the 2017 revision 4, which supersedes prior versions published in 2005 and 2013. Multiple solid nodules <6 mm (<100 mm3) *low-risk patients: no routine follow-up required *high-risk patients: optional CT at 12 months Multiple solid nodules >6 mm (>100 mm3) *low-risk patients: CT at 3-6 months, then consider CT at 18-24 months *high-risk patients: CT at 3-6 months, then CT at 18-[address] 06/2024. Dyspnea/Pulm nodules workup will be done as follows: Respiratory allergen panel for [facility] Serum IgE Serum total IgG, IgG1, IgG2, IgG3, IgG4 Hshqo-3-ovatuwzilx n phenotype and level TB stimulated gamma interferon B-type natriuretic peptide (BNP) Eosinophil count Hypersensitivity pneumonitis profile ANCA MERCEDES NOEMY levels RF CCP SSA SSB Scl 70 Centromere B Yoav-1 Myositis panel Complete PFT Advised to continue not to smoke. Adherence to therapy is advocated. Nonadherence may lead to treatment failure, further progression of the condition, and other complications. Hospitals admissions are often the result of individuals not taking prescription medications accurately. Alternatively, greater adherence to medication regimens have shown to lower rates of hospitalization and decrease total medical costs in patients with chronic medical conditions. Advocated influenza vaccination annually and pneumonia vaccination LANDON. Advocated weight loss through diet and exercise. Patient's ideal body weight according to height and gender is up to 165 lbs. Encouraged patient to adjust caloric intake to maintain/achieve ideal body weight, emphasizing on fruits, vegetables, whole grains, and fat-free or low-fat products. These include lean meats, poultry, fish, beans, eggs, and nuts and foods that are low in saturated fats, trans-fats, cholesterol, salt (sodium), and glycemic index. Stressed the importance of regular exercise up to the patient's capacity limits. In this case, we recommend 20 min daily walking, 2 days a week of resistance training. Patient to monitor BP daily and bring records to PCP for further management. Follow-up: 1 week after PFT Not available 02/22/2024 11:25:50 03/23/2024 03/23/2024 02/05/2022: A1C 6.5 Urine micro alb 24.6 CBC: WNL CMP: Gluc 108, glob 2.0, TP WNL Chol 89, TG 193, HDL 37, LDL 13 12/01/2022: PSA 2.60 A1C 6.6 Urine micro alb 33.6 Gluc 126, glob 2.5L HDL 39 12/15/2023: BLL 26.4<- 17.2 07/16/2023 A1C 6.0 TG 423 03/21/2024: BLL 21.0 Chol 216, TG 715 Gluc 150H A1C 6.6 40 minutes spent with the patient john Not available 03/23/2024 10:18:31 05/30/2024 05/30/2024 Assessment: Nicotine smoke: 2 ppd [id number] = 20 pack years Hypogammaglobuline ivett Right pulmonary nodules Asbestos exposure Plan: The following were reviewed and explained to the patient: Chest CT 10/18/21 6 mm RUL nodule, 11 mm RLL nodule PET/CT 03/08/22 8 x 5 mm RUL nodule and 12 x 9 mm RLL nodule with no FDG activity Chest CT 12/15/23 9 mm RLL nodule, 3 mm RLL nodule Lab data 02/22/24 low IgG3 PFT 05/09/24 nl FEV1/FVC, FEV1 3.23 L (98%), BD 50 mL = 2%, TLC 7.01 L (107%), RV 2.66 L (105%), DLCO 77%, DLCO/VA 89% Patient may need gammaglobulin infusions during times of infection. Differential diagnoses for pulmonary nodule: 1. malignant tumor 2. benign tumor 3. inflammatory processes 4. infectious process (viral, atypical bacterial, fungal, atypical mycobacterial) The Fleischner Society pulmonary nodule recommendations below pertain to the follow-up and management of indeterminate pulmonary nodules detected incidentally on CT and are published by the Fleischner Society. The guideline does not apply to lung cancer screening, patients younger than 35 years, or patients with a history of primary cancer or immunosuppression. These recommendations reflect the 2017 revision 4, which supersedes prior versions published in 2005 and 2013. Multiple solid nodules <6 mm (<100 mm3) *low-risk patients: no routine follow-up required *high-risk patients: optional CT at 12 months Multiple solid nodules >6 mm (>100 mm3) *low-risk patients: CT at 3-6 months, then consider CT at 18-24 months *high-risk patients: CT at 3-6 months, then CT at 18-24 months Dyspnea/Pulm nodules workup will be done as follows: Methacholine challenge testing Chest CT 06/2024 Advised to continue not to smoke. Adherence to therapy is advocated. Nonadherence may lead to treatment failure, further progression of the condition, and other complications. Hospitals admissions are often the result of individuals not taking prescription medications accurately. Alternatively, greater adherence to medication regimens have shown to lower rates of hospitalization and decrease total medical costs in patients with chronic medical conditions. Advocated influenza vaccination annually and pneumonia vaccination LANDON. Advocated weight loss through diet and exercise. Patient's ideal body weight according to height and gender is up to 165 lbs. Encouraged patient to adjust caloric intake to maintain/achieve ideal body weight, emphasizing on fruits, vegetables, whole grains, and fat-free or low-fat products. These include lean meats, poultry, fish, beans, eggs, and nuts and foods that are low in saturated fats, trans-fats, cholesterol, salt (sodium), and glycemic index. Stressed the importance of regular exercise up to the patient's capacity limits. In this case, we recommend 20 min daily walking, 2 days a week of resistance training. Patient to monitor BP daily and bring records to PCP for further management. Follow-up: 1 week after methacholine challenge testing and chest CT Not available 05/30/2024 10:31:40 07/25/2024 07/25/2024 02/05/2022: A1C 6.5 Urine micro alb 24.6 CBC: WNL CMP: Gluc 108, glob 2.0, TP WNL Chol 89, TG 193, HDL 37, LDL 13 12/01/2022: PSA 2.60 A1C 6.6 Urine micro alb 33.6 Gluc 126, glob 2.5L HDL 39 12/15/2023: BLL 26.4<- 17.2 07/16/2023 A1C 6.0 TG 423 03/21/2024: BLL 21.0 Chol 216, TG 715 Gluc 150H A1C 6.6 07/20/2024: BLL 14.4<- 21 03/21/2024 A1C 7.5 Gluc 156 TG 210 40 minutes spent with the patient, labs updated, chart updated [email or web address] [email or web address] Not available 07/25/2024 11:27:50 08/17/2024 08/17/2024 Assessment: Nicotine smoke: 2 ppd 5453-6917 = 20 pack years Hypogammaglobuline ivett Right pulmonary nodules Asbestos exposure [id number] Plan: The following were reviewed and explained to the patient: Chest CT 10/18/21 6 mm RUL nodule, 11 mm RLL nodule PET/CT 03/08/22 8 x 5 mm RUL nodule and 12 x 9 mm RLL nodule with no FDG activity Chest CT 12/15/23 9 mm RLL nodule, 3 mm RLL nodule Chest CT 07/06/24 stable 9 mm RLL nodule, 3 mm RLL nodule and 3 mm RIGOBERTO nodule Lab data 02/22/24 low IgG3 PFT 05/09/24 nl FEV1/FVC, FEV1 3.23 L (98%), BD 50 mL = 2%, TLC 7.01 L (107%), RV 2.66 L (105%), DLCO 77%, DLCO/VA 89% Patient may need gammaglobulin infusions during times of infection. Differential diagnoses for pulmonary nodule: 1. malignant tumor 2. benign tumor 3. inflammatory processes 4. infectious process (viral, atypical bacterial, fungal, atypical mycobacterial) The Fleischner Society pulmonary nodule recommendations below pertain to the follow-up and management of indeterminate pulmonary nodules detected incidentally on CT and are published by the Fleischner Society. The guideline does not apply to lung cancer screening, patients younger than 35 years, or patients with a history of primary cancer or immunosuppression. These recommendations reflect the 2017 revision 4, which supersedes prior versions published in 2005 and 2013. Multiple solid nodules <6 mm (<100 mm3) *low-risk patients: no routine follow-up required *high-risk patients: optional CT at 12 months Multiple solid nodules >6 mm (>100 mm3) *low-risk patients: CT at 3-6 months, then consider CT at 18-24 months *high-risk patients: CT at 3-6 months, then CT at 18-[address] 07/2025 Advised to continue not to smoke. Adherence to therapy is advocated. Nonadherence may lead to treatment failure, further progression of the condition, and other complications. Hospitals admissions are often the result of individuals not taking prescription medications accurately. Alternatively, greater adherence to medication regimens have shown to lower rates of hospitalization and decrease total medical costs in patients with chronic medical conditions. Advocated influenza vaccination annually and pneumonia vaccination LANDON. Advocated weight loss through diet and exercise. Patient's ideal body weight according to height and gender is up to 165 lbs. Encouraged patient to adjust caloric intake to maintain/achieve ideal body weight, emphasizing on fruits, vegetables, whole grains, and fat-free or low-fat products. These include lean meats, poultry, fish, beans, eggs, and nuts and foods that are low in saturated fats, trans-fats, cholesterol, salt (sodium), and glycemic index. Stressed the importance of regular exercise up to the patient's capacity limits. In this case, we recommend 20 min daily walking, 2 days a week of resistance training. Patient to monitor BP daily and bring records to PCP for further management. Follow-up: 1 year, August 2025 Not available 08/17/2024 10:59:30 Plan of Treatment Reminders Order Date Submit Date Provider Last Modified By Organization Details Last Modified Time Details Appointments Any 2024 09:15A Luis Angel yusuf MD Not available Not available Not available Follow Up 2025 07:30A Luis Angel Pelayo MD Not available Not available Not available Lab alpha-1 -antitr ypsin (aat) phenoty pe, serum 2023 024 [email or web address] 2 [facility], [address] [place], [address], 07/20/2024 12:51:26 BNP (B-type natriur etic peptide ), serum or plasma 2023 024 ALICE [facility], [address] [place], [address], 02/22/2024 17:30:33 ige, total, serum 2023 024 [email or web address] 2 [facility], [address] [place], [address], 07/20/2024 12:51:26 tb (Luis Angel tubercwilbur frazier), ifn-vel ma patricia, blood 2023 024 2 [facility], [address] [place], [address], 07/20/2024 12:51:26 eosinop hil count, manual, blood (OBS) 2023 024 [email or web address] 2 [facility], [address] [place], [address], 07/20/2024 12:51:26 igg subclas ses 1+2+3+4 , serum 2023 024 [email or web address] 2 [facility], [address] [place], [address], 07/20/2024 12:51:26 respira tory allerge n panel - [facility] a 2023 024 [email or web address] 2 [facility], [address] [place], [address], 07/20/2024 12:51:27 respira tory allerge n panel - [facility] b 2023 024 [email or web address] 2 [facility], [address] [place], [address], 07/20/2024 12:51:27 hyperse nsitivi ty pneumon itis profile , serum 2023 024 2 [facility], [address] [place], [address], 07/20/2024 12:51:27 anca panel, serum 2023 024 2 [facility], [address] [place], [address], 07/20/2024 12:51:27 MERCEDES (antinu clear antibod ies) screen, serum 2023 024 2 [facility], [address] [place], [address], 07/20/2024 12:51:27 NOEMY (angiot ensin-c onverti ng enzyme) , serum 2023 024 [email or web address] 2 [facility], [address] [place], [address], 07/20/2024 12:51:27 rf (rheuma toid factor) , serum 2023 024 ALICE [facility], [address] [place], [address], 02/22/2024 17:30:33 ccp (cyclic citrull inated peptide ) iga+igg , serum 2023 024 [email or web address] 2 [facility], [address] [place], [address], 07/20/2024 12:51:28 ssa Ab, serum 2023 024 2 [facility], [address] [place], [address], 07/20/2024 12:51:28 ssa Ab, serum 2023 024 [email or web address] 2 [facility], [address] [place], [address], 07/20/2024 12:51:28 yoav-1 Ab, serum 2023 024 [email or web address] 2 [facility], [address] [place], [address], 07/20/2024 12:51:28 centrom ere B Ab, serum 2023 024 [email or web address] 2 [facility], [address] [place], [address], 07/20/2024 12:51:28 sclerod eyad (SCL-70 ) autoant ibodies , serum 2023 024 [email or web address] 2 [facility], [address] [place], [address], 07/20/2024 12:51:28 myositi s autoant ibody panel, serum or plasma [email or web address] [facility], [address] [place], [address], 07/20/2024 12:51:29 histopl asma Ab, serum 2023 024 [email or web address] 2 [facility], [address] [place], [address], 07/20/2024 12:51:29 Blastom yces dermati tidis Ab, qual ID, serum [address] [facility], [address] [place], [address], 07/20/2024 12:51:29 coccidi oides Ab, serum [address] - Outpatient Lab, [address] [place], [address], 07/20/2024 12:51:29 lead, blood 2023 024 [email or web address] Not available 03/23/2024 10:48:53 lipid panel, serum 2023 024 ALICE Not available 03/25/2024 11:21:12 CMP, serum or plasma 2023 024 ALICE Not available 03/25/2024 11:21:11 CBC w/ auto diff 2023 024 ALICE Not available 03/25/2024 11:21:10 TSH + free T4, serum 2023 024 [email or web address] Not available 03/23/2024 10:48:54 PSA, serum or plasma 2023 024 [email or web address] [facility], [address] [place], [address], 04/28/2024 12:47:40 noninva sive colorec lynne cancer DNA + occult blood screeni ng, QL, stool 2023 024 ALICE [facility] (Cologuard Orders Only), [address], [address], [place], [address], 04/27/2024 10:03:20 microal bumin, urine 2023 024 ALICE Not available 03/25/2024 11:21:12 glycohe moglobi n, total, blood 2023 024 ALICE Not available 03/25/2024 11:21:11 lipid panel, serum 2023 024 Not available 07/25/2024 11:38:48 CMP, serum or plasma 2023 024 [email or web address] Not available 07/25/2024 11:38:49 CBC w/ auto diff 2023 024 [email or web address] Not available 07/25/2024 11:38:49 TSH + free T4, serum 2023 024 Not available 07/25/2024 11:38:49 microal bumin, urine 2023 024 [email or web address] Not available 07/25/2024 11:38:49 glycohe moglobi n, total, blood 2023 024 [email or web address] Not available 07/25/2024 11:38:50 Referral cardiol ogist referra l 2023 024 [place], [address], [address], [place], [address], 03/23/2024 10:51:[address] referra l 2023 024 [email or web address] Con Redding MD, [address] [facility] [address], [place], [address], 05/19/2024 08:54:40 nephrol ogist referra l 2023 024 [place], [address], [address], [place], [address], 03/23/2024 10:50:19 gastroe nterolo gist referra l 2023 024 MANFRED Vazquez MD, [address], [address], [place], [address], 03/23/2024 10:50:33 pulmono logist referra l 2023 024 [email or web address] Pelayo MD, [address] [place], [address], 04/21/2024 15:01:25 podiatr ist referra l 2023 024 ALICE Encarnacion DPM, [address] [facility], [address], [place], [address], 03/25/2024 14:46:[address] referra l - Please call patient to schedul e. 2023 024 MANFRED Redding MD, [address], [address], [place], [address], 08/02/2024 13:50:28 nephrol ogist referra l - Please call patient to schedul e. 2023 024 [place], [address], [address], [place], [address], 08/02/2024 14:05:21 gastroe nterolo gist referra l 2023 024 [email or web address] Cat Vazquez MD, [address], [address], [place], [address], 07/25/2024 18:25:36 pain managem ent referra l - Please call patient to schedul e. 2023 024 ALICE [facility], [address], [address], [place], [address], 08/29/2024 13:10:33 hand surgeon referra l - Please call patient to schedul e. 2023 024 MANFRED Torres MD, [address], [address], [place], [address], 08/02/2024 13:35:18 cardiol ogist referra l 2023 024 [email or web address] [place], [address] [facility], [address], [place], [address], 07/25/2024 18:25:35 pulmono logist referra l 2023 024 Zoran Pelayo MD, [address] [place], [address], 07/25/2024 18:25:37 podiatr ist referra l - Please call patient to schedul e. 2023 024 ALICE Kodak Encarnacion DPLuis Angel, [address] [facility], [address], [place], [address], 08/18/2024 10:49:06 Procedures upper endosco py procedu re (EGD) (PROC) 2023 024 [email or web address] Geoff Tyler MD, [address], [address], [place], [address], 04/21/2024 16:09:04 upper endosco py procedu re (EGD) (PROC) 2023 024 [email or web address] Geoff Tyler MD, [address], [address], [place], [address], 07/25/2024 18:24:51 Surgeries None recorde d. Imaging CT, chest, w/o contras t 2023 024 [facility] (Imaging), [address], [place], [address], 03/23/2024 10:55:29 CT, chest, w/o contras t - Please call patient to schedul e.Due on or around 0[address] ([facility]), [address] [place], [address], 07/04/2024 17:44:50 CT, chest, w/o contras t - Please call patient to schedul e.Due on or around 5 2024 025 juan c Not available 08/17/2024 14:34:43 Medication Orders rosuvas tatin 40 mg tablet 2023 024 [facility] [place], [address], 03/23/2024 10:48:23 Vascepa 1 gram capsule 2023 024 [facility], [address] [place], [address], 03/23/2024 10:48:24 Patient TargetsNo targets recorded. Patient Instructions Encounter Date Encounter Id Patient Instructions Last Modified By Organization Details Last Modified Time 02/22/2024 [id number] complete PFT w/ post bronchodilator spirometry* ALICE Not available 05/30/2024 09:26:27 03/23/2024 [id number] dementia rating scale-2* [email or web address] Not available 03/23/2024 11:22:33 alcohol misuse* [email or web address] 2 Not available 03/23/2024 18:01:59 depression screening* [email or web address] 2 Not available 03/23/2024 18:01:59 multi-dimensiona l health assessment questionnaire* [email or web address] Not available 03/23/2024 11:21:59 advance care planning: care instructions jaylon Doyle Not available 03/23/2024 18:01:59 advance directiv es: care instructions jaylon 2 Not available 03/23/2024 18:01:59 [place] Advance Directives jaylon 2 Not available 03/23/2024 18:01:59 Personalized Hea lt Plan and Screening Recommendations Advance Directives - Do you have one? No You have indicated that you are capable of preparing your advance care directive Advance Directives - Do we have your advance directive on file in your health record? Primary Prevention/Interven tion (prevents or decreases the chance of common diseases from occurring) Smoking Risk: Non Smoker Alcohol Misuse Screening: Negative Weight: Appropriate Overwei ght continue your current weight loss efforts try to lose 5% of your body weight try to lose 10% of your body weight Physical activity: Appropriate physical activity minimum of 10-20 minutes of activity that causes mild breathlessness/day minimum of 20-30 minutes activity that causes mild breathlessness/day Nutrition: Good Average Refer to attached handout Heart-Healthy Diet: After Your Visit Fall Risk (screened today): Low Refer to attached handout Preventing Falls: After your Visit Vaccines Pneumococcal: Ordered Recommended today Recommended today, but you have declined Influenza: Your next one in the fall of this year Chronic Disease Risks Stroke: Low Risk Heart Attack: Low risk Intermediate Risk Clogging of the Arteries: Low risk Intermediate Risk Diabetes: Low Risk I have no recommendations Secondary Prevention/Interven tion (detects treatable diseases before they may cause symptoms, disability, or ) Prostate Cancer Screening: Colon Cancer Screening: Colonoscopy Date Screening Last Performed:Ordered Eye Disease Screening: Ordered Recommended today Dementia Risk: Low I have no recommendations Depression Screening: Negative [email or web address] Not available 03/23/2024 11:29:48 05/30/2024 [id number] methacholine challenge* - Please call patient to schedule. KING [id number]. [email or web address] Not available 07/04/2024 17:45:39 Reason for Referral Tack Welder Referral for Ab dominal aortic aneurysm Referring Physician: Katina Rodriguez, Internal Medicine, Encounter Date: 03/23/2024 Nail Mill Worker Referral for Le ad screening Referring Physician: Alia Caro Medicine, Encounter Date: 03/23/2024 Government Teacher Referral for Type 2 diabetes mellitus without complication Referring Physician: Alia Caro Medicine, Encounter Date: 03/23/2024 Operations Administrative Assistant Referral for Steatosis of liver Referring Physician: Alia Caro Medicine, Encounter Date: 03/23/2024 Urologist Referral for Benig n prostatic hyperplasia without outflow obstruction Referring Physician: Alia Caro Medicine, Encounter Date: 03/23/2024 Civilian Technician Referral for E xposure to asbestos Referring Physician: lAia Caro, Encounter Date: 03/23/2024 Tack Welder Referral for Ab dominal aortic aneurysm Referring Physician: Alia Caro Medicine, Encounter Date: 07/25/2024 Nail Mill Worker Referral for Le ad screening Please call patient to schedule. Referring Physician: Alia Caro, Encounter Date: 07/25/2024 Government Teacher Referral for Type 2 diabetes mellitus without complication Please call patient to schedule. Referring Physician: Alia Caro, Encounter Date: 07/25/2024 Operations Administrative Assistant Referral for Steatosis of liver Referring Physician: Alia Caro Medicine, Encounter Date: 07/25/2024 Urologist Referral for Benig n prostatic hyperplasia without outflow obstruction Please call patient to schedule. Referring Physician: Alia Caro, Encounter Date: 07/25/2024 Civilian Technician Referral for E xposure to asbestos Referring Physician: Alia Caro, Encounter Date: 07/25/2024 Hand Surgeon Referral for Pa in in right hand Please call patient to schedule. Referring Physician: Katina Rodriguez, Internal Medicine, Encounter Date: 07/25/2024 Pain Management Referral for Chronic pain Please call patient to schedule. Referring Physician: Katina Rodriguez, Internal Medicine, Encounter Date: 07/25/2024 Results Created Date Observation Date Name Description Value Unit Range Abnormal Flag Note LastModifiedBy Organization Detail LastModifiedTime 03/21/20 24 03/21/2024 CBC/C OMPLE TE BLD COUNT W/DIF F white blood cells 7.1 x10'3 /uL 4.2-10 .8 Not Available [facility] (Lab) [address] [place], [address], 03/21/2024 14:07:51 03/21/20 24 03/21/2024 CBC/C OMPLE TE BLD COUNT W/DIF F red blood cells 4.84 x10'6 /uL 4.10-5 .80 Not Available [facility] (Lab) [address] [place], [address], 03/21/2024 14:07:51 03/21/20 24 03/21/2024 CBC/C OMPLE TE BLD COUNT W/DIF F hemoglobin 15.1 g/dL 13.2-1 7.0 Not Available [facility] (Lab) [address] [place], [address], 03/21/2024 14:07:51 03/21/20 24 03/21/2024 CBC/C OMPLE TE BLD COUNT W/DIF F hematocrit 43.1 % 39.3-5 0.0 Not Available [facility] (Lab) [address] [place], [address], 03/21/2024 14:07:51 03/21/20 24 03/21/2024 CBC/C OMPLE TE BLD COUNT W/DIF F mean red cell volume 89.0 fL 80.0-9 7.0 Not Available [facility] (Lab) [address] [place], [address], 03/21/2024 14:07:51 03/21/20 24 03/21/2024 CBC/C OMPLE TE BLD COUNT W/DIF F mean red cell hemoglobin 31.2 pg 27.0-3 3.0 Not Available [facility] (Lab) [address] [place], [address], 03/21/2024 14:07:51 03/21/20 24 03/21/2024 CBC/C OMPLE TE BLD COUNT W/DIF F mean RBC HGB concentratio n 35.0 g/dL 31.0-3 6.0 Not Available [facility] (Lab) [address] [place], [address], 03/21/2024 14:07:51 03/21/20 24 03/21/2024 CBC/C OMPLE TE BLD COUNT W/DIF F red cell distribution width 13.2 % 11.8-1 5.5 Not Available [facility] (Lab) [address] [place], [address], 03/21/2024 14:07:51 03/21/20 24 03/21/2024 CBC/C OMPLE TE BLD COUNT W/DIF F platelets 245 x10'3 /uL 150-40 0 Not Available [facility] (Lab) [address] [place], [address], 03/21/2024 14:07:51 03/21/20 24 03/21/2024 CBC/C OMPLE TE BLD COUNT W/DIF F mean platelet volume 10.9 fL 9.0-12 .4 Not Available [facility] (Lab) [address] [place], [address], 03/21/2024 14:07:51 03/21/20 24 03/21/2024 CBC/C OMPLE TE BLD COUNT W/DIF F neutrophils 64.0 % 39.0-7 2.0 Not Available [facility] (Lab) [address] [place], [address], 03/21/2024 14:07:51 03/21/20 24 03/21/2024 CBC/C OMPLE TE BLD COUNT W/DIF F lymphocytes 23.2 % 16.0-4 7.0 Not Available [facility] (Lab) [address] [place], [address], 03/21/2024 14:07:51 03/21/20 24 03/21/2024 CBC/C OMPLE TE BLD COUNT W/DIF F monocytes 9.3 % 5.0-12 .0 Not Available [facility] (Lab) [address] [place], [address], 03/21/2024 14:07:51 03/21/20 24 03/21/2024 CBC/C OMPLE TE BLD COUNT W/DIF F eosinophils 1.7 % 1.0-7. 0 Not Available [facility] (Lab) [address] [place], [address], 03/21/2024 14:07:51 03/21/20 24 03/21/2024 CBC/C OMPLE TE BLD COUNT W/DIF F basophils 0.7 % 0.0-2. 0 Not Available [facility] (Lab) [address] [place], [address], 03/21/2024 14:07:51 03/21/20 24 03/21/2024 CBC/C OMPLE TE BLD COUNT W/DIF F immature granulocytes 1.1 % 0.00-0 .50 high Not Available [facility] (Lab) [address] [place], [address], 03/21/2024 14:07:51 03/21/20 24 03/21/2024 CBC/C OMPLE TE BLD COUNT W/DIF F neutrophils, absolute count 4.54 x10'3 /uL 1.5-8. 0 Not Available [facility] (Lab) [address] [place], [address], 03/21/2024 14:07:51 03/21/20 24 03/21/2024 CBC/C OMPLE TE BLD COUNT W/DIF F lymphocytes, absolute count 1.65 x10'3 /uL 1.07-3 .43 Not Available [facility] (Lab) [address] [place], [address], 03/21/2024 14:07:51 03/21/20 24 03/21/2024 CBC/C OMPLE TE BLD COUNT W/DIF F monocytes, absolute count 0.66 x10'3 /uL 0.29-0 .99 Not Available [facility] (Lab) [address] [place], [address], 03/21/2024 14:07:51 03/21/20 24 03/21/2024 CBC/C OMPLE TE BLD COUNT W/DIF F eosinophils, absolute count 0.12 x10'3 /uL 0.02-0 .53 Not Available [facility] (Lab) [address] [place], [address], 03/21/2024 14:07:51 03/21/20 24 03/21/2024 CBC/C OMPLE TE BLD COUNT W/DIF F basophils, absolute count 0.05 x10'3 /uL 0.01-0 .08 Not Available [facility] (Lab) [address] [place], [address], 03/21/2024 14:07:51 03/21/20 24 03/21/2024 CBC/C OMPLE TE BLD COUNT W/DIF F immature granulocytes ,absolute 0.08 x10'3 /uL 0.00-0 .05 high Not Available [facility] (Lab) [address] [place], [address], 03/21/2024 14:07:51 03/21/20 24 03/21/2024 CBC/C OMPLE TE BLD COUNT W/DIF F nucleated red blood cells 0.0 % -0 Not Available [facility] (Lab) [address] [place], [address], 03/21/2024 14:07:51 03/21/20 24 03/21/2024 CBC/C OMPLE TE BLD COUNT W/DIF F NRBC# 0.00 x10'3 /uL Not Available [facility] (Lab) [address] [place], [address], 03/21/2024 14:07:51 03/21/20 24 03/21/2024 HEMOG LOBIN A1C HA1C 6.6 % 4.0-6. 0 high Diabe arie Scree junior Crite jeffy: <5.7% Consi stent with absen ce of diabe arie 5.7-6 .4% Consi stent with incre ased risk for diabe arie (pred iabet es) >OR=6 .5% Consi stent with diabe arie REFER ENCE: Diabe arie Care 2016, 39(Carpenter ppl.1 ):s13 -s22 Not Available [facility] (Lab) [address] [place], [address], 03/21/2024 14:38:09 03/21/20 24 03/21/2024 LIPID PANEL cholesterol 216 mg/dL 140-19 9 high NIH SHANNAN NSUS RECOM MENDA TION FOR BLAYNE STERO L: ADULT CHILD LOW RISK: <200 <170 BORDE RLINE : <200- 239 ----- HIGH RISK: >240 >200 Not Available [facility] (Lab) [address] [place], [address], 03/21/2024 19:43:03 03/21/20 24 03/21/2024 LIPID PANEL triglyceride s 715 mg/dL 0-150 high NIH SHANNAN NSUS REPOR T RECOM MENDA TION FOR TRIGL YCERI SERGIO: ADULT CHILD LOW RISK: <150 ----- BODER LINE: 150-1 99 ----- HIGH RISK: >200 ----- Not Available [facility] (Lab) [address] [place], [address], 03/21/2024 19:43:03 03/21/20 24 03/21/2024 LIPID PANEL HDL cholesterol 30 mg/dL 40- low Not Available [facility] (Lab) [address] [place], [address], 03/21/2024 19:43:03 03/21/20 24 03/21/2024 COMPR EHENS DIAMOND METAB OLIC PANEL sodium 137 mmol/ L 137-14 5 Not Available [facility] (Lab) [address] [place], [address], 03/21/2024 19:25:51 03/21/20 24 03/21/2024 COMPR EHENS DIAMOND METAB OLIC PANEL potassium 3.8 mmol/ L 3.5-5. 1 Not Available [facility] (Lab) [address] [place], [address], 03/21/2024 19:25:51 03/21/20 24 03/21/2024 COMPR EHENS DIAMOND METAB OLIC PANEL chloride 106 mmol/ L 98-107 Not Available [facility] (Lab) [address] [place], [address], 03/21/2024 19:25:51 03/21/20 24 03/21/2024 COMPR EHENS DIAMOND METAB OLIC PANEL carbon dioxide 29 mmol/ L 22-30 Not Available [facility] (Lab) [address] [place], [address], 03/21/2024 19:25:51 03/21/20 24 03/21/2024 COMPR EHENS DIAMOND METAB OLIC PANEL anion gap 5.8 mmol/ L 14-22 low Not Available [facility] (Lab) [address] [place], [address], 03/21/2024 19:25:51 03/21/20 24 03/21/2024 COMPR EHENS DIAMOND METAB OLIC PANEL glucose 150 mg/dL 70-99 high Not Available [facility] (Lab) [address] [place], [address], 03/21/2024 19:25:51 03/21/20 24 03/21/2024 COMPR EHENS DIAMOND METAB OLIC PANEL BUN 15 mg/dL 8-19 Not Available [facility] (Lab) [address] [place], [address], 03/21/2024 19:25:51 03/21/20 24 03/21/2024 COMPR EHENS DIAMOND METAB OLIC PANEL creatinine 0.85 mg/dL 0.66-1 .25 Not Available [facility] (Lab) [address] [place], [address], 03/21/2024 19:25:51 03/21/20 24 03/21/2024 COMPR EHENS DIAMOND METAB OLIC PANEL GFR >60 Refer ence Range : [place] ge GFR Healt hy Adult : >60 mL/mi n/1.7 3 m2 Chron ic Kidne y Disea se: 15-60 mL/mi n/1.7 3 m2 Kidne y Failu re: <15/m L/min /1.73 m2 www.n iddk. nih.g ov The MDRD study equat ion has not been valid ated in child genoveva <18 years of age; pregn ant women ; the elder ly >85 years of age; or in some racia l or ethni c subgr oups, such as Hispa nics. Outsi de the valid ated rodrigo eters , estim ated GFR is less accur ate, requi ring clini sumaya judgm ent on a case- by-ca se basis . Clini sumaya inter preta tion for other races and ages must be made by the clini syed. The MDRD study equat ion has not been valid ated for the evalu ation of serum creat inine relat ed to nutri jonas l statu s or medic ation usage . For perso ns <18 years of age, a pedia tric GFR calcu bon is avail able on the [facility] websi te: https ://driss nur.o john/pr ofess ional s/kdo qi/gf r_cal culat or Not Available [facility] (Lab) [address] [place], [address], 03/21/2024 19:25:51 03/21/20 24 03/21/2024 COMPR EHENS DIAMOND METAB OLIC PANEL alkaline phosphatase 77 U/L 38-126 Not Available [facility] (Lab) [address] [place], [address], 03/21/2024 19:25:51 03/21/20 24 03/21/2024 COMPR EHENS DIAMOND METAB OLIC PANEL alanine aminotransfe rase 25 U/L 0-50 Not Available [facility] (Lab) [address] [place], [address], 03/21/2024 19:25:51 03/21/20 24 03/21/2024 COMPR EHENS DIAMOND METAB OLIC PANEL aspartate aminotransfe rase 24 U/L 15-46 Not Available [facility] (Lab) [address] [place], [address], 03/21/2024 19:25:51 03/21/20 24 03/21/2024 COMPR EHENS DIAMOND METAB OLIC PANEL bilirubin, total 0.60 mg/dL 0.20-1 .30 Not Available [facility] (Lab) [address] [place], [address], 03/21/2024 19:25:51 03/21/20 24 03/21/2024 COMPR EHENS DIAMOND METAB OLIC PANEL calcium 9.6 mg/dL 8.4-10 .2 Not Available [facility] (Lab) [address] [place], [address], 03/21/2024 19:25:51 03/21/20 24 03/21/2024 COMPR EHENS DIAMOND METAB OLIC PANEL total protein 6.8 g/dL 6.3-8. 2 Not Available [facility] (Lab) [address] [place], [address], 03/21/2024 19:25:51 03/21/20 24 03/21/2024 COMPR EHENS DIAMOND METAB OLIC PANEL albumin 4.1 g/dL 3.0-4. 4 Not Available [facility] (Lab) [address] [facility], [address], 03/21/2024 19:25:51 03/21/20 24 03/21/2024 COMPR EHENS DIAMOND METAB OLIC PANEL globulin 2.7 g/dL 2.6-4. 2 Not Available [facility] (Lab) [address] [place], [address], 03/21/2024 19:25:51 03/21/20 24 03/21/2024 COMPR EHENS DIAMOND METAB OLIC PANEL A/G ratio 1.5 ratio 1.0-2. 0 Not Available [facility] (Lab) [address] [place], [address], 03/21/2024 19:25:51 03/21/20 24 03/21/2024 MICRO ALBUM IN RANDO M URINE microalbumin , urine <6.0 mg/L 0.0-16 .6 Not Available [facility] (Lab) [address] [place], [address], 03/21/2024 20:14:00 03/21/20 24 03/21/2024 T4 FREE free T4 1.05 NG/dL 0.78-2 .19 Not Available [facility] (Lab) [address] [place], [address], 03/21/2024 21:51:56 03/21/20 24 03/21/2024 TSH thyroid-stim ulating hormone 0.835 uIU/m L 0.465- 4.680 Not Available [facility] (Lab) [address] [place], [address], 03/21/2024 22:12:58 03/21/20 24 03/23/2024 LEAD, BLOOD (ADUL T) lead, blood (adult) 21.0 ug/dL 0.0-3. 4 high Test( s) 96075 1-Nola d, Blood (Adul t) was devel oped and its perfo rmanc e ofe cteri stics deter mined by [facility]. It has not been clear ed or appro estela by the Food and Drug Admin istra tion. Testi ng perfo rmed by Induc david y coupl ed plasm a/Mas s Spect romet ry. [place] ified by repea t joelle sis Joelle sis by wilian hernandez y coupl ed plasm a/mas s spect romet ry (ICP/ MS) Envir onmen lynne Expos ure: WHO Recom menda tion <5.0 Occup ation al Expos ure: OSHA Lead Std 40.0 KIMBERLY 30.0 . Detec tion Limit = 1.0 Perfo rmed at: - [facility] [address] [id number] Lab Direc tor: Ramakrishna tony PhD, Phone : [phone] Not Available [facility] (Lab) [address] [place], [address], 03/23/2024 08:21:14 04/21/20 24 04/21/2024 COLOG UARD cologuard result reportable NEGATI VE negati ve normal NEGAT DIAMOND TEST RESUL T. A negat diamond Colog uard resul t indic ates a low likel ihood that a color ectal cance r (CRC) or advan damián adeno ma (alvaro omato us polyp s with more advan damián pre-m align ant featu res) is prese nt. The chanc e that a perso n with a negat diamond Colog uard test has a color ectal cance r is less than 1 in 1500 (nega tive predi ctive value >99.9 %) or has an advan damián adeno ma is less than 5.3% (nega tive predi ctive value 94.7% ). These data are based on a prosp ectiv e cross -sect ional study of 10,00 0 indiv idual s at [place] risk for color ectal cance r who were scree rocío with both Colog uard and colon oscop y. (Kirstene hailey Louis et al, N Engl J Med 2014; 370(1 4):12 86-12 97) The latesha l value (refe rence range ) for this assay is negat diamond. COLOG UARD RE-SC REEJONATHAN ARMENDARIZ RECOM MENDA TION: Perio dic color ectal cance r scree junior is an impor tant part of preve ntive healt hcare for asymp tomat ic indiv idual s at [place] risk for color ectal cance r. Follo wing a negat diamond Colog uard resul t, the Ameri can Cance r Socie ty and U.S. Multi -Soci ety Task Force scree junior guide lines recom mend a Colog uard re-sc jolie armendariz inter zo of 3 years . Refer ences : Ameri can Cance r Socie ty Guide line for Color ectal Cance r Scree junior: https ://driss w.can cer.o rg/ca ncer/ colon -rect al-ca ncer/ detec tion- diagn osis- stagi ng/ac s-rec ommen datio ns.ht ml.; Mo CHUN, Brandi marquez CR, Gustavo GRACIA, Color ectal Cance r Scree junior: Recom menda tions for Physi cians and Patie nts from the U.S. Multi -Soci ety Task Force on Color ectal Cance r Scree junior , Am J Gastr oente rolog y 2017; 112:1 016-1 030. TEST DESCR IPTIO N: [place] site algor ithmi c joelle sis of stool DNA-b iomar kers with hemog lobin immun oassa y. Quant itati ve value s of indiv idual bioma rkers are not repor table and are not assoc iated with indiv idual bioma rker resul t refer ence range s. Colog uard is inten ded for color ectal cance r scree junior of adult s of eithe r sex, 45 years or older , who are at [facility] for color ectal cance r (CRC) . Colog uard has been appro estela for use by the U.S. FDA. The perfo rmanc e of Colog uard was estab lishe d in a cross secti onal study of [facility] adult s aged 50-84 . Colog uard perfo rmanc e in patie nts ages 45 to 49 years was estim ated by sub-g roup joelle sis of near- age group s. Colon oscop ies perfo rmed for a posit diamond resul t may find as the most clini gladys signi fican t lesescobar n: color ectal cance r [4.0% ], advan damián adeno ma (incl uding sessi le ivonne el polyp s great er than or equal to 1cm diame ter) [20%] or non- advan damián adeno ma [31%] ; or no color ectal neopl bruce [45%] . These estim ates are deriv ed from a prosp ectiv e cross -sect ional scree junior study of 10,00 0 indiv idual s at [facility] risk for color ectal cance r who were scree rocío with both Colog uard and colon oscop y. (Aspen Swain al, N Engl J Med 2014; 370(1 4):12 86-12 97.) Colog uard may produ ce a false negat diamond or false posit diamond resul t (no color ectal cance r or preca ncero us polyp prese nt at colon oscop y follo w up). A negat diamond Colog uard test resul t does not guara ntee the absen ce of CRC or advan damián adeno ma (pre- cance r). The curre nt Colog uard scree junior inter zo is every 3 years . (Barrie White r Socie ty and U.S. Multi -Soci ety Task Force ). Colog uard perfo rmanc e data in a 10,00 0 patie nt pivot al study using colon oscop y as the refer ence metho d can be acces sed at the follo wing locat ion: www.e xactl abs.c om/re sults . Addit ional descr iptio n of the Colog uard test proce ss, warni ngs and preca ution s can be found at www.c ologu romain.c om. Not Available [facility] (Cologuard Orders Only) [address], [place], [address], 04/27/2024 10:03:20 05/30/20 24 05/09/2024 compl ete PFT w/ post [facility] hodil ator bertha metry * No observ ation record ed. [facility] [address] [place], [address], 05/30/2024 12:17:47 06/14/20 24 06/14/2024 injec tion, hip, fluor o fermin nce (PROC ) No observ ation record ed. [address], [place], [address], 08/16/2024 14:04:44 07/06/20 24 07/06/2024 CT, chest , w/o contr ast No observ ation record ed. [address] [place], [address], 07/06/2024 12:09:52 09/15/19 25 XR, hand, 3 or more view [facility] [address] [place] [address] Patien t Name: RIOS SALDAÑA Dionne Truong Access ion #: [id number] Sex: M : 1954 5 Locati on: RA1 Attend ing Physic eyal: KHALIDA KEVIN Orderi ng Physic eyal: KEVIN TORRES Exam Date: 09/15/19 8:15 AM Exam Name: XR HAND LT 3V Admitt ing Diagno sis(es ): RADIOL OGY REPORT - FINAL EXAM: XR HAND LT 3V HISTOR Y: pain 69-yea r-old male with left hand pain and swelli ng, histor y of arthri tis, no known injury . COMPAR BRUNO: Radiog raphs dated 2022. TECHNI QUE: Three views of the left hand were perfor med. FINDIN GS: No acute fractu re or disloc ation are identi fied about the left hand. There is joint space narrow ing of the 2nd and 3rd MCP joints ,, with small margin al osteop hytes and subcho ndral cystic change s presen t. IMPRES VALERIE: Page 1 of 2 [facility] Patien t Name: RIOS SALDAÑA Access ion #: [id number] Sex: M : 1954 5 Exam Date: 09/15/19 8:15 AM Exam Name: XR HAND LT 3V Admitt ing Diagno sis(es ): 1. No acute fractu re of the left hand. 2. Arthri tic change s of the left 2nd and 3rd MCP joints , simila r to that seen on radiog raphs dated 2022. Create d and electr onical ly signed by: Barney dowd MD Signed Date: 09/15/19 3:54 PM (CT) Dictat ed by: Barney dowd MD (CT) (CT) Page 2 of 2 [facility] (Imaging) [address] [place], [address], 09/15/2024 16:56:32 09/15/19 25 09/15/2024 imagi ng/di agnos tic resul t No observ ation record ed. [facility] [address] [place], [address], 09/15/2024 16:58:40 Result Notes None recorded. Problems Name Problem SNOMED Code Status Onset Date Resolution Date Notes Provider Name and Address Organization Details Recorded Time Steatosis of liver 230848013 Active 2022 Not Available [facility] 3 16:00:48 Migraine 52797415 Active 2022 Not Available [facility] 3 16:00:48 Osteoarth ritis 979119989 Active 2022 GERALD Velez, [facility] 3 08:51:02 Hypertrig lyceridem ia 579834287 Active 2022 Kailee rain, [facility] 3 12:22:11 Deep venous thrombosi s of lower extremity 827125236 Active 2023 Katina puga MD [address] [place], [address] , [facility] 4 10:18:39 Gastroeso phageal reflux disease without esophagit is 173986927 Active 2023 Katina puga MD [address], [place], [address] , [facility] 4 10:21:15 Multiple nodules of lung 767957274 Active 2023 Zoran Pelayo MD [address], [place], [address] , [facility] 4 10:17:39 Upper respirato ry infection 37865098 Active 2024 Katina puga MD [address], [place], [address] , [facility] 5 14:03:41 Bilateral plantar fasciitis 89974961852 794751 Active 2019 Not Available [facility] 3 16:00:48 Benign prostatic hyperplas ia 037693262 Active Not Available [facility] 3 16:00:48 Vitamin D deficienc y 50810137 Active Not Available [facility] 3 16:00:48 Onychomyc osis 605834500 Active Not Available [facility] 3 16:00:48 Streptoco ccal sore throat 22399649 Completed Not Available [facility] 3 04:51:21 Onychogry phosis 37037745 Active Not Available [facility] 3 16:00:48 Essential hypertens ion 15778062 Active Not Available [facility] 3 16:00:48 Foot-drop 4166161 Active Not Available [facility] 3 16:00:48 Diabetes mellitus 86437295 Active Not Available [facility] 3 16:00:48 Notes:Medical History: [place] el lead levels Migraine headaches Bilateral hearing loss/tinnitus Rhinitis Eosinophils 60/uL IgE 17 IU/mL Hypogammaglobulinemia (IgG3) AAT PiMM 119 mg% Right pulmonary nodules Asbestos exposure Hypertension EF 55% Mixed hyperlipidemia T2DM MARY 2.9 cm AAA Hepatic steatosis Diverticulosis Bilateral renal cysts BPH Vit D deficiency Cervical OA Right bilateral meniscal tears Right knee OA Right Mauricio's cyst Right leg DVT on Xarelto Left index and long fingers MCP OA Foot drop Bilateral plantar fasciitis Onychomycosis Onychogryposis Procedure History: Right inguinal herniorrhaphy 1995 Lumbar laminectomy 1997 Lumbar fusions 1999, 2017 Left knee total arthroplasties 2011, 2012 Right 2nd-3rd fingers implants 2021 Right knee arthroscopy 2022 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 Procedures Surgical History Date Name Laterality Status Provider Name and Address Organization Details Recorded Time 03/23/20 24 Medicare Wellness CPT Code, subsequent completed Ha Connors LPN [facility] 03/23/2024 10:40:22 03/23/20 24 Advanced Care Planning completed Ha Connors LPN [facility] 03/23/2024 12:34:05 01/13/20 23 Medicare Wellness CPT Code, subsequent completed Farhana Li RN [facility] 01/12/2023 09:40:59 08/07/20 22 Carpal tunnel surgery completed Thelma Verdugo MA [facility] 01/12/2023 09:26:57 03/05/20 17 Colonoscopy with biopsy completed Not Available [facility] 10/08/2022 04:42:31 Cataract Surgery completed Not Available [facility] 10/08/2022 04:42:31 repair of meniscus completed GERALD Riley [facility] 07/13/2023 09:28:16 Imaging Results Imaging Date Name Status LastModified by Organization Details LastModified Time 05/09/2024 complete PFT w/ post bronchodilator spirometry* completed [address] [place], [address], 05/30/2024 12:17:47 06/14/2024 injection, hip, fluoro guidance (PROC) active [address], [place], [address], 08/16/2024 14:04:44 07/06/2024 CT, chest, w/o contrast completed [address] [place], [address], 07/06/2024 12:09:52 09/15/2024 XR, hand, 3 or more view active INTERFACE [facility] (Imaging) [address] [place], [address], 09/15/2024 16:56:32 09/15/2024 imaging/diagnostic result active [facility] [address] [place], [address], 09/15/2024 16:58:40 Procedure Notes None recorded. Medical Equipment None Reported. Allergies Allergen ID Allergen Name Allergen Category Reaction Reaction Severity Criticality Documentation Date Start Date Code Code System Note Provider Name and Address Organization Details Recorded Time 46242 No known allergy (situatio n) Not available Not available Not available Not available 03/23/2024 86490 6003 SNOMED Cici rain [employer] [facility] 12:28:39 No known drug allergies Medications Name Sig Start Date Stop Date Status Note LastModified by Organization Details LastModified Time cyclobenz aprine 10 mg tablet Take 1 tablet every day by oral route as needed for 30 days. active Not Available Not Available No t Available amoxicill in 500 mg capsule Take 1 capsule 3 times a day by oral route for 10 days. 06/16 completed Not Available Not Available Not Available metformin 500 mg tablet TAKE 1 TABLET BY MOUTH TWICE DAILY active Not Available Not Available No t Available carvedilo l 25 mg tablet TAKE 1 TABLET BY MOUTH TWICE DAILY active Not Available Not Available No t Available carvedilo l 6.25 mg tablet 04/28 completed Not Available Not Available Not Available prednison e 10 mg tablet 10/24 completed Not Available Not Available Not Available gabapenti n 600 mg tablet Take 1 tablet twice a day by oral route for 90 days. 10/24 completed Not Available Not Available Not Available cefuroxim e axetil 250 mg tablet Take 1 tablet every 12 hours by oral route. active Not Available Not Available No t Available carvedilo l 12.5 mg tablet 1 TAB 2 times daily 07/27 completed Not Available Not Available Not Available verapamil ER 360 mg 24 hr capsule,e xtended release Take 1 capsule every day by oral route for 90 days. 10/24 completed Not Available Not Available Not Available azithromy jose 250 mg tablet uud 10/24 completed Not Available Not Available Not Available alprazola m 1 mg tablet 12/15 completed Not Available Not Available Not Available nifedipin e ER 90 mg tablet,ex tended release TAKE 1 TABLET BY MOUTH ONCE DAILY active Not Available Not Available No t Available tizanidin e 4 mg tablet 12/15 completed Not Available Not Available Not Available sumatript an 100 mg tablet 02/07 completed Not Available Not Available Not Available hydrocodo ne 5 mg-acetam inophen 325 mg tablet TAKE 1 TABLET BY MOUTH EVERY 4 HOURS 05/15 completed Not Available Not Available Not Available bupivacai ne HCl 0.5 % (5 mg/mL) injection solution Take 2 mg by injectio n route. 02/12 completed Not Available Not Available Not Available prednison e 20 mg tablet 02/07 completed Not Available Not Available Not Available niacin ER 500 mg tablet,ex tended release 24 hr TAKE ONE TABLET BY MOUTH EVERY DAY. TAKE ONE ASPIRIN 30 MINUTES PRIOR TO TAKING MEDICATI ON 10/24 completed Not Available Not Available Not Available sumatript an 50 mg tablet Take by oral route. 02/13 completed Not Available Not Available Not Available chlorthal idone 25 mg tablet 04/28 completed Taken off by Dr Peacock Not Available Not Available Not Available amlodipin e 5 mg tablet Take 1 tablet every day by oral route. 07/27 completed Not Available Not Available Not Available ciproflox acin 500 mg tablet Take 1 tablet(s ) every 12 hours by oral route starting one day before the procedur e 02/07 completed Not Available Not Available Not Available sulfameth oxazole 800 mg-trimet hoprim 160 mg tablet 10/24 completed Not Available Not Available Not Available hydrocodo ne 10 mg-acetam inophen 325 mg tablet 02/07 completed Not Available Not Available Not Available tramadol 50 mg tablet TAKE 1 TABLET BY MOUTH EVERY 6 HOURS NEEDED FOR PAIN active Not Available Not Available No t Available ciclopiro x 8 % topical solution APPLY TO THE AFFECTED AREA(S) BY TOPICAL ROUTE ONCE DAILY PREFERAB LY AT BEDTIME OR 8 HOURS BEFORE WASHING 10/24 completed Not Available Not Available Not Available meloxicam 7.5 mg tablet Take 1 tablet every day by oral route as needed for 30 days. 07/29 completed Not Available Not Available Not Available nifedipin e ER 60 mg tablet,ex tended release 24 hr Take 1 tablet every day by oral route. 12/28 completed Not Available Not Available Not Available tamsulosi n 0.4 mg capsule Take 2 capsules by mouth once daily 2023 active Not Available Not Available Not Avai lable Kenalog 10 mg/mL suspensio n for injection in office 07/13 completed [facility]: [phone] 4-20 Not Available Not Available Not Available baclofen 10 mg tablet Take 1 tablet twice a day by oral route as directed . 04/20 completed Not Available Not Available Not Available amlodipin e 10 mg tablet Take 1 tablet by mouth once daily 12/28 completed Not Available Not Available Not Available gemfibroz il 600 mg tablet TAKE ONE TABLET BY MOUTH TWICE DAILY 10/24 completed Not Available Not Available Not Available Tylenol 500 mg tablet Take 1 tablet as needed by oral route. 04/24 completed Takes one every am and one every pm Not Available Not Available Not Available hydrocodo ne 7.5 mg-acetam inophen 325 mg tablet TAKE 1 TABLET BY MOUTH EVERY 6 HOURS NEEDED FOR PAIN (MODERAT E (4-6 ON SCALE) 11/13 completed Not Available Not Available Not Available cephalexi n 500 mg capsule TAKE 1 CAPSULE BY MOUTH EVERY 6 HOURS 07/13 completed Not Available Not Available Not Available hydrocodo ne 7.5 mg-acetam inophen 750 mg tablet active Not Available Not Available Not Available lidocaine 5 % topical patch 10/19 completed Not Available Not Available Not Available butalbita l-aspirin -caffeine 50 mg-325 mg-40 mg capsule 12/15 completed Not Available Not Available Not Available gabapenti n 300 mg capsule 04/07 completed Not Available Not Available Not Available omeprazol e 20 mg capsule,d elayed release TAKE 1 CAPSULE BY MOUTH ONCE DAILY NEEDED 2023 active Not Available Not Available Not Avai lable verapamil ER (SR) 240 mg tablet,ex tended release TAKE ONE TABLET BY MOUTH ONCE DAILY 06/05 completed increase dose Not Available Not Available Not Available quinapril 20 mg tablet TAKE ONE TABLET BY MOUTH ONCE DAILY active Not Available Not Available No t Available hydrochlo rothiazid e 25 mg tablet 04/[address] Peacock took him off this Not Available Not Available Not Available gabapenti n 100 mg capsule active Not Available Not Available Not Available Valium 10 mg tablet Take 1 tablet(s ) one hour before procedur e active Not Available Not Available No t Available methylpre dnisolone 4 mg tablets in a dose pack TAKE BY MOUTH DIRECTED ON INSIDE OF PACKAGE 02/21 completed Not Available Not Available Not Available Vitamin D2 1,250 mcg (50,000 unit) capsule Take 1 capsule every week by oral route. 04/28 completed Not Available Not Available Not Available celecoxib 100 mg capsule TAKE 1 CAPSULE BY MOUTH ONCE DAILY BEGIN TAKING AFTER MEDROL DOSE ANOOP IS COMPLETE D 03/23 completed abd pain Not Available Not Available Not Available nifedipin e ER 60 mg tablet,ex tended release 12/28 completed Not Available Not Available Not Available cefdinir 300 mg capsule active Not Available Not Available Not Available losartan 100 mg tablet TAKE 1 TABLET BY MOUTH AT NIGHT 07/25 completed Not Available Not Available Not Available fluticaso ne propionat e 50 mcg/actua tion nasal spray,[place] pension USE 1 TO 2 SPRAY(S) IN EACH NOSTRIL ONCE DAILY NEEDED 07/31 completed Not Available Not Available Not Available metformin ER 500 mg tablet,ex tended release 24 hr Take 1 tablet twice a day by oral route for 90 days. 03/23 completed not on ER Not Available Not Available Not Available finasteri de 5 mg tablet TAKE 1 TABLET BY MOUTH ONCE DAILY active Not Available Not Available No t Available loratadin e 10 mg tablet TAKE 1 TABLET BY MOUTH ONCE DAILY NEEDED active Not Available Not Available No t Available amoxicill in 875 mg-potass ium clavulana te 125 mg tablet TAKE 1 TABLET BY MOUTH EVERY 12 HOURS active Not Available Not Available No t Available oxycodone 5 mg tablet 12/15 completed Not Available Not Available Not Available rosuvasta tin 20 mg tablet TAKE 1 TABLET BY MOUTH ONCE DAILY active Not Available Not Available No t Available rosuvasta tin 40 mg tablet TAKE 1 TABLET BY MOUTH ONCE DAILY active Not Available Not Available No t Available fenofibra te 160 mg tablet TAKE 1 TABLET BY MOUTH ONCE DAILY active Not Available Not Available No t Available losartan 100 mg-hydroc hlorothia zide 12.5 mg tablet TAKE 1 TABLET BY MOUTH ONCE DAILY active Not Available Not Available No t Available Vitamin C active Not Available Not Brittany ilable Not Available Fish Oil 1 cap daily 07/23 completed Not Available Not Available Not Available Vitamin D active Not Available Not Brittany ilable Not Available Glucosami ne bid 07/28 completed Not Available Not Available Not Available nifedipin e 90mg daily 01/[address] Stein [facility] Not Available Not Available Not Available Chlor-Tri meton 06/16 completed Not Available Not Available Not Available lidocaine (PF) 10 mg/mL (1 %) injection solution In office injectio n administ ered by the provider 02/12 completed [facility]: [id number] 6-17 Not Available Not Available Not Available fenofibra te nanocryst allized 48 mg tablet TAKE 1 TABLET BY MOUTH ONCE DAILY FOR 90 DAYS active Not Available Not Available No t Available fenofibra te nanocryst allized 145 mg tablet TAKE 1 TABLET BY MOUTH ONCE DAILY active Not Available Not Available No t Available Zipsor 25 mg capsule Take 1 capsule twice a day by oral route as needed for 30 days. active Not Available Not Available No t Available Suprep Bowel Prep Kit 17.5 gram-3.13 gram-1.6 gram oral solution 04/20 completed Not Available Not Available Not Available ropivacai ne (PF) 5 mg/mL (0.5 %) injection solution in office 07/13 completed [facility] [id number] 11-08 Not Available Not Available Not Available Xarelto 15 mg tablet Take 1 tablet twice a day by oral route for 21 days. 08/26 completed Not Available Not Available Not Available Xarelto 20 mg tablet TAKE 1 TABLET BY MOUTH ONCE DAILY 03/23 completed Not Available Not Available Not Available Vitamin D2 01/12 completed Not Available Not Available Not Available Vascepa 1 gram capsule TAKE 2 CAPSULES BY MOUTH TWICE DAILY active Not Available Not Available No t Available potassium chloride ER 20 mEq tablet,ex tended release Take 1 tablet every day by oral route for 90 days. active Not Available Not Available No t Available Afluria (PF) 45 mcg (15 mcg x 3)/0.5 mL IM syringe active Not Available Not Available Not Available Fish Oil 1,000 mg (120 mg-180 mg) capsule Take 3 capsules every day by oral route. 07/31 completed Not Available Not Available Not Available Fluarix Quad (PF) 60 mcg (15 mcg x 4)/0.5 mL IM syringe 04/20 completed Not Available Not Available Not Available Ozempic 0.25 mg or 0.5 mg (2 mg/1.5 mL) subcutane ous pen injector INJECT 0.5 MG SUBCUTAN EOUSLY ONCE A WEEK 07/13 completed Not Available Not Available Not Available Fluzone Quad (PF) 60 mcg (15 mcg x 4)/0.5 mL IM syringe active Not Available Not Available Not Available Fluzone High-Dose Quad (PF) 240 mcg/0.7 mL IM syringe active Not Available Not Available Not Available Ozempic 0.25 mg or 0.5 mg (2 mg/3 mL) subcutane ous pen injector INJECT 1/2 (ONE-OMAR F) MG SUBCUTAN EOUSLY ONCE A WEEK 12/20 completed GI distress Not Available Not Available Not Available Vitals Date Recorded Body height Body mass index (BMI) Body weight Body temperature Heart rate Oxygen saturation Oxygen saturation in Arterial blood by Pulse oximetry Systolic blood pressure Diastolic blood pressure Provider Name and Address Organization Details Last Updated DateTime 4 172.72 cm 34.7 kg/m2 168107. 06 g 98.1 [degF] 95 /min 97 % 97 % 124 mm[Hg] 80 mm[Hg] Jimmie Loya CMA [employer] [facility] 4 10:57:28 Date Recorded Heart rate Respiratory rate Provider N marquise and Address Organization Details Last Updated DateTime 02/22/2024 95 /min 15 /min Zoran Pelayo MD [address] [facility] [address], [place], [address], [facility] 02/22/2024 11:34:53 Date Recorded Body height Body mass index (BMI) Body weight Body temperature Heart rate Systolic blood pressure Diastolic blood pressure Provider Name and Address Organization Details Last Updated DateTime 4 172.72 cm 34.5 kg/m2 109872. 47 g 97.7 [degF] 90 /min 122 mm[Hg] 60 mm[Hg] [facility] [employer] 4 10:13:02 Date Recorded Pain severity - 0-10 verbal numeric rating [Score] - Reported Provider Name and Address Organization Details Last Updated DateTime 03/23/2024 6 Ha Connors LPN [employer] 03/23/2024 10:40:51 Date Recorded Body height Body mass index (BMI) Body weight Body temperature Heart rate Oxygen saturation Oxygen saturation in Arterial blood by Pulse oximetry Systolic blood pressure Diastolic blood pressure Provider Name and Address Organization Details Last Updated DateTime 4 172.72 cm 35.1 kg/m2 595352. 84 g 97.9 [degF] 79 /min 97 % 97 % 128 mm[Hg] 74 mm[Hg] Thelma Verdugo MA [place] [employer] [facility] 4 09:59:39 Date Recorded Body height Body mass index (BMI) Body weight Body temperature Heart rate Systolic blood pressure Diastolic blood pressure Provider Name and Address Organization Details Last Updated DateTime 4 172.72 cm 35 kg/m2 876309. 25 g 97.6 [degF] 78 /min 126 mm[Hg] 80 mm[Hg] GERALD Riley [facility] 4 10:51:42 Date Recorded Body height Body mass index (BMI) Body weight Body temperature Heart rate Oxygen saturation Oxygen saturation in Arterial blood by Pulse oximetry Systolic blood pressure Diastolic blood pressure Provider Name and Address Organization Details Last Updated DateTime 5 172.72 cm 36.3 kg/m2 044859. 58 g 97.3 [degF] 83 /min 98 % 98 % 138 mm[Hg] 78 mm[Hg] Jo Stover MA [facility] 5 10:44:55 Date Recorded Heart rate Respiratory rate Provider Saba marquise and Address Organization Details Last Updated DateTime 08/17/2024 83 /min 14 /min Zoran Pelayo MD [address] [place] [address], [address], [place] [employer] [facility] 08/17/2024 10:57:59 Social History Question Answer Notes LastModified by Organization Details LastModified Time Tobacco Smoking Status Former Smoker GERALD Riley null, [facility] 07/13/2023 09:19:25 Do You Have An Advance Directive? No Patient Given Informati on. 03/23/24 [email or web address] Information not available 03/23/2024 What Is Your Level Of Alcohol Consumption? None [id number] Information not available 10/08/2022 Do You Wear A Helmet When Biking? No Does Not Bike [email or web address] Information not available 03/23/2024 Are You Blind Or Do You Have Difficulty Seeing? No Information not available 07/13/2023 Is Blood Transfusion Acceptable In An Emergency? Yes [email or web address] Information not available 03/23/2024 What Is Your Level Of Caffeine Consumption? Moderate 2 Cups Daily [id number] Information not available 10/08/2022 In The 14 Days Before Symptom Onset, Have You Had Close Contact With A Laboratory-confi rmed COVID-19 While That Case Was Ill? No Information not available 07/13/2023 In The 14 Days Before Symptom Onset, Have You Had Close Contact With A Person Who Is Under Investigation For COVID-19 While That Person Was Ill? No Information not available 07/13/2023 Are You Currently Employed? No [email or web address] Information not available 03/23/2024 Are You Deaf Or Do You Have Serious Difficulty Hearing? No Information not available 07/13/2023 What Type Of Diet Are You Following? REGULAR [id number] Information not available 10/08/2022 What Is The Highest Grade Or Level Of School You Have Completed Or The Highest Degree You Have Received? [id number] [email or web address] Information not available 03/23/2024 Do You Have An Electrostatic Air Filter? No Information not available 05/30/2024 What Is Your Occupation? Retired Information not available 07/13/2023 How Many Days Of Moderate To Strenuous Exercise, Like A Brisk Walk, Did You Do In The Last 7 Days? 5 Walks 2 Miles Daily [email or web address] Information not available 03/23/2024 On Those Days That You Engage In Moderate To Strenuous Exercise, How Many Minutes, On Average, Do You Exercise? 58 Information not available 03/23/2024 Have You Been Exposed To Chemicals Or Toxins? No Not That Aware Of Information not available 08/17/2024 Have There Been Any Changes To Your Family Or Social Situation? No Information not available 07/13/2023 What Is The Fluoride Status Of Your Home? Unknown Information not available 07/13/2023 When Did You Quit Smoking? 16+yearssincelastc igarette Information not available 07/13/2023 Are There Any Guns Present In Your Home? Yes Information not available 07/13/2023 Do You Have A Humidifier? No Information not available 05/30/2024 Do You Use Insect Repellent Routinely? Yes Information not available 07/13/2023 Where Do You Live? SingleLevelHouse Information not available 07/13/2023 Presence Of Domestic Violence No [email or web address] Information not available 01/12/2023 Guns Present In The Home? Yes [email or web address] Information not available 03/23/2024 Are You Able To Care For Yourself? Yes Information not available 01/12/2023 Are You Blind Or Do Yo Have Difficulty Seeing? No Information not available 01/12/2023 Are You Deaf Or Do You Have Serious Difficulty Hearing? Yes Hard Of Hearing In Both Ears Information not available 01/12/2023 General Stress Level? Low Information not available 01/12/2023 Live Alone Of With Others? Alone [email or web address] Information not available 01/12/2023 Do You Have A Medical Power Of Resident Inspector? No Information not available 07/13/2023 Do You Have Moisture Problems In Your Home? No Information not available 05/30/2024 What Was The Date Of Your Most Recent Tobacco Screening? 08/17/2024 Information not available 08/17/2024 How Many Children Do You Have? 0 [email or web address] Information not available 03/23/2024 What Is Your Current Pack Years? 10-19packyears Information not available 07/13/2023 Do You Have Any Pets? Yes Dog [email or web address] Information not available 03/23/2024 What Is Your Relationship Status? Information not available 03/23/2024 Do You Use Your Seat Belt Or Car Seat Routinely? Yes Information not available 07/13/2023 Are You Sexually Active? No [email or web address] Information not available 03/23/2024 Do You Have Smoke And Carbon Monoxide Detectors In Your Home? Yes Information not available 07/13/2023 At What Age Did You Start Smoking Tobacco? 14 Information not available 07/13/2023 Are You Passively Exposed To Smoke? No Information not available 07/13/2023 Are There Any Smokers In Your House? No Information not available 07/13/2023 What Types Of Sporting Activities Do You Participate In? None Information not available 07/13/2023 Do You Feel Stressed (tense, Restless, Nervous, Or Anxious, Or Unable To Sleep At Night)? [id number] Information not available 07/13/2023 Do You Use Any Illicit Or Recreational Drugs? No Information not available 07/13/2023 Do You Use Sunscreen Routinely? No Information not available 07/13/2023 Has Tobacco Cessation Counseling Been Provided? No N/A Information not available 07/13/2023 How Many Years Have You Smoked Tobacco? 12 Information not available 07/13/2023 Have You Recently Traveled Abroad? No Information not available 07/13/2023 Do You Have Any Dietary Restrictions? No Information not available 07/13/2023 Do You Or Have You Ever Used Any Other Forms Of Tobacco Or Nicotine? Yes Information not available 07/25/2024 Sex: Male Functional Status Question Answer Note LastModified by Organizat ion Details LastModified Time Do you have difficulty walking or climbing stairs? Yes hip and knee pain [email or web address] Information not available 03/23/2024 Do you have transportation difficulties? No Information not available 07/13/2023 Are you able to walk? YESWOREST uses cane at times [email or web address] Information not available 03/23/2024 Do you have difficulty doing errands alone? No Information not available 07/13/2023 Are you able to care for yourself? Yes Information n ot available 07/13/2023 Do you have difficulty dressing or bathing? No Information not available 07/13/2023 What is your exercise level? Occasional Information not available 03/23/2024 Mental Status Question Answer Note LastModified by Organization D etails LastModified Time Do you have difficulty concentrating, remembering or making decisions? No Information no t available 07/13/2023 Family History Relationship Description Onset Age of this Age Resolved Age Notes LastModified by Organization Details LastModified Time Mother Diabetes mellitus [id number] Not available 10/08/2022 04:42:33 Mother Hypertensive disorder [id number] Not available 10/08/2022 04:42:33 Father Felty's syndrome [email or web address] Not available 07/25 10:14:44 Paternal Grandfather Rheumatoid arthritis [email or web address] Not available 07/25 10:14:44 Paternal Grandmother Myocardial infarction Not available 02/21 11:27:12 Paternal Uncle Rheumatoid arthritis [email or web address] Not available 07/25 10:14:44 Paternal Aunt Myocardial infarction Not available 02/21 11:27:54 Mother Lupus erythematosu s [email or web address] Not available 07/25 10:14:44 Medical History Condition Response ARTHRITIS Y USE OF BLOOD THINNERS Y DIABETES, TYPE Y BLOOD CLOTS Y HYPERTENSION Y Immunizations Vaccine Type Date Status Note Provider Nam e and Address Organization Details Recorded Time Influenza, high-dose, quadrivalent, PF 0 completed Marycruz Mattson RMA null, [facility] [employer] [facility] 03/23/2024 10:08:54 COVID-19, mRNA, LNP-S, PF, 100 mcg/0.5mL dose or 50 mcg/0.25mL dose 1 completed Marycruz Mattson RMA null, [facility] [employer] [facility] 03/23/2024 10:08:54 Influenza, split virus, trivalent, PF 7 completed Marycruz Mattson RMA null, [facility] [employer] [facility] 03/23/2024 10:08:54 Influenza, split virus, trivalent, PF 5 completed Marycruz Mattson RMA null, [facility] [employer] [facility] 03/23/2024 10:08:54 Influenza, split virus, quadrivalent, PF 9 completed Marycruz Mattson RMA null, [facility] [employer] [facility] 03/23/2024 10:08:54 Influenza, high-dose, quadrivalent, PF 3 completed Marycruz Mattson RMA null, [facility] [employer] [facility] 07/25/2024 10:48:34 Influenza, high-dose, trivalent, PF 4 completed Marycruz Mattson RMA null, [facility] 07/25/2024 10:49:23 Influenza, split virus, trivalent, preservative 6 completed Marycruz Mattson RMA null, [facility] 03/23/2024 10:08:54 COVID-19, mRNA, LNP-S, PF, 100 mcg/0.5mL dose or 50 mcg/0.25mL dose 1 completed Marycruz Damianham RMA null, [facility] 03/23/2024 10:08:54 COVID-19, mRNA, LNP-S, PF, 100 mcg/0.5mL dose or 50 mcg/0.25mL dose 1 completed Marycruz Mattson RMA null, [facility] 03/23/2024 10:08:54 Influenza, split virus, quadrivalent, preservative 9 completed Marycruz Mattson RMA null, [facility] 03/23/2024 10:08:54 tetanus toxoid, adsorbed 7 completed Not Available [facility] 02/04/2023 16:00:51 Influenza, split virus, trivalent, preservative 5 completed Marycruz Mattson RMA null, [facility] 03/23/2024 10:08:54 Influenza, high-dose, trivalent, PF 0 completed Marycruz Mattson RMA null, [facility] 03/23/2024 10:08:54 influenza, unspecified formulation 7 completed Marycruz Mattson RMA null, [facility] 03/23/2024 10:08:54 varicella 5 completed Not Available [facility] 02/04/2023 16:00:51 Influenza, high-dose, trivalent, PF 5 completed Marycruz Mattson RMA null, [facility] 03/23/2024 10:08:54 Influenza, split virus, trivalent, preservative 3 completed Not Available [facility] 02/04/2023 16:00:51 Influenza, high-dose, quadrivalent, PF 2 completed Not Available [facility] 02/04/2023 16:00:51 pneumococcal polysaccharide PPV23 1 completed Not Available [facility] 02/04/2023 16:00:51 Pneumococcal conjugate PCV 13 0 completed GERALD Riley, [employer] [facility] 03/23/2024 10:08:54 Influenza, split virus, quadrivalent, PF 8 completed Not Available [facility] 02/04/2023 16:00:51 Influenza, split virus, quadrivalent, PF 6 completed Not Available [facility] 02/04/2023 16:00:51 zoster live 4 completed Not Available [facility] 02/04/2023 16:00:51 Influenza, split virus, trivalent, preservative 4 completed GERALD Riley, [facility] 03/23/2024 10:08:54 Past Encounters Encounter ID Performer Location Encounter Start Date Encounter Closed Date Diagnosis/Indication Diagnosis SNOMED-CT Code Diagnosis ICD10 Code Diagnosis Note [id number] [facility] [place] [address] [place] [address] 11/26/2020 00:00:00 11/26/2020 18:26:54 [id number] [facility] [place] [address] [place] [address] 11/27/2020 00:00:00 11/27/2020 12:48:14 [id number] [facility] [place] [address] [place] [address] 01/09/2021 00:00:00 01/09/2021 14:01:46 [id number] [facility] [place] [address] [place] [address] 01/21/2021 00:00:00 01/21/2021 10:19:17 [id number] [facility] [place] [address] , [place] [address] 04/08/2021 00:00:00 04/08/2021 17:34:53 [id number] [facility] [place] [address] [place] [address] 04/09/2021 00:00:00 04/09/2021 15:22:11 [id number] [facility] [place] [address] [place] [address] 08/13/2021 00:00:00 08/13/2021 10:04:57 [id number] [facility] [place] [address] [place] [address] y , [place] [address] 10/09/2021 00:00:00 10/09/2021 10:16:41 [id number] [facility] [place] [address] [place] [address] 11/12/2021 00:00:00 11/12/2021 09:28:57 [id number] [facility] [place] [address] [place] [address] y , [place] [address] 02/12/2022 00:00:00 02/14/2022 16:35:01 [id number] [facility] [place] [address] [place] [address] 02/12/2022 00:00:00 02/12/2022 14:59:05 [id number] [facility] [place] [address] [place] [address] 04/30/2022 00:00:00 04/30/2022 17:28:04 [id number] [facility] [place] [address] [place] [address] y , [place] [address] 07/07/2022 00:00:00 07/07/2022 10:03:14 [id number] [facility] [place] [address] [place] [address] 07/29/2022 00:00:00 07/29/2022 16:49:23 [id number] [facility] [place] [address] [place] [address] 08/19/2022 00:00:00 08/19/2022 15:36:28 [id number] [facility] [place] [address] [place] [address] 08/26/2022 00:00:00 08/26/2022 17:31:21 [id number] [facility] [place] [address] [place] [address] 09/09/2022 00:00:00 09/09/2022 17:11:25 [id number] [facility] [place] [address] [place] [address] 10/07/2022 00:00:00 10/07/2022 17:20:52 [id number] DAVID Sun [facility] [place] [id number] [place] [address] 11/13/2022 08:55:05 11/13/2022 09:36:05 Pain of right knee joint [id number] 41418 M25.561 [id number] DAVID Alcazar [facility] [place] [address] [place] [address] 12/09/2022 15:18:35 12/09/2022 16:31:33 Pain in right hand 7128333469 00621 M79.641 Localized, primary osteoarthritis of the hand 589903739 M19.049 [id number] MD LISA [facility] Internal Med Deidra velazquez [address] [facility] [place] [address] 01/12/2023 09:20:12 01/12/2023 10:00:35 Screening - NAD 561205458 Z13.9 C-scope: Dr Abdirahman maldonado 03/05/17, next in 3-5 years, he states that Gi told him that it is now due in 2 yearsOrder ed 07/23/2020 , and he did call Dr Rodas and will arrange for his c-scope12/2022: He states that he is to schedule this himself as he has to arrange for a ride UTD flu shotTDap 2017UTD zoster 07/21/14, get shingrixPC V #13 03/19/2020 , #23 04/08/2021 UTD on COVID 19 vaccine RTC 4 monthsWith labsEr if any life threatenin g symptomshe did agree with the plan Type 2 jay betes mellitus without complication 425729231 E11.9 Does well On metformin 500mg bidOn ozempic Needs to see eye MDGet labs Essential hypertension 67786644 I10 On coreg 25mg bidOn losartan 100mg dailyOn nifedipine ER 60mg dailyGet labs Hyperlipidemia 03739561 E78.5 On rosuvastat in 40mg dailyGet labs Pain in right hand 58935 28834 63719 M79.641 OV 11/26/2020 :Has seen Dr Juarez take tylenol, NSAIDs, or celebrexHa s taken tramadol in the past, will renew, and he will see Dr Torres OV 01/09/2021 :S/p injection by DAVID Reardon on 11/27/2020 Does well OV 04/08/2021 :Has an apt with Dr Torres on 04/24/2021 Berthay need surgery OV 10/09/2021 :Jc HERNANDEZ 08/13/2021 , s/p injection, next apt 11/12/2021 OV 02/11/2022 :Sees Dr Torres, now may have to do surgery OV 07/07/2022 :On tramadolDr Torres 04/30/2022 , next 07/29/2022 OV 01/12/2023 :S/p injection with Allan HERNANDEZ 12/09/2022 , f/u Dr Torres 03/10/2023 Ex-cigarette smoker 4976 33992 Z87.891 Quit 17 years ago US AAA 08/06/2020 : Border line AAA [facility] Dr Conroy 09/24/2020 , f/u in 3 months US AAA 07/24/2021 : Neg Abdominal aortic aneurysm 479037870 I71.[address] Stein [facility] cardiology , last 02/11/2022 Proteinuria 32608694 R80 .[address] Peacock Steatosis of liver 1007 K76.0 Get labs and US liver Solitary n odule of lung 250331945 R91.1 CT chest: 10/18/[address]: 02/06/2022 : Neg, rec: [address] chest s per radiologis t Benign pro static hyperplasia without outflow obstruction 327938033 N40.[address] Walters, urologyOn finasterid e Migraine 00953038 G43.90 9 Used to be on sumatripta n, not taken since 3 years, but feels that he has a migraine headache d/t his URI, will renew Lead screening 01270263 Z13.88 Get lab, but states that Dr Peacock does also check this Adult heal th examination 219214064 Z00.00 Screening for disorder 001528362 Z13.9 Pain of bi lateral knee joints 9251456945 [address] Myers for R knee pain, s/p injection, now is to get a MRI as per his history 01/12/2023 Addendum: 03/02/2023 :Is to get knee scope done by Dr Griffin cleared for surgery by Dr Stein [facility] on 03/02/2023 , he is also cleared for surgery and will remain a moderate risk [id number] MD ANH GuzmánMilagros [facility] [place] [address] [place] [address] 02/13/2023 09:23:00 02/16/2023 12:24:39 Pain of right knee joint 2852625681 41090 M25.561 [id number] DAVID Sun [facility] [place] [address] [place] [address] 03/11/2023 08:49:09 03/11/2023 09:34:20 Osteoarthritis 197956206 M19.049 [id number] [facility] [place] [address] [place] [address] 04/03/2023 11:18:57 04/03/2023 13:29:18 Postoperative visit 161497740 Z09 [id number] DAVID Sun [facility] [place] [address] [place] [address] 05/15/2023 08:45:33 05/15/2023 09:34:56 Pain of left knee joint 2827801238 74871 M25.667 [id number] Katina puga MD [facility] Deidra velazquez [address] [facility] [place] [address] 07/13/2023 09:18:17 07/13/2023 09:58:39 Screening - NAD 630236099 Z13.9 C-scope: Dr Gary n 03/05/17, next in 3-5 years, he states that Gi told him that it is now due in 2 yearsOrder ed 07/23/2020 , and he did call Dr Rodas and will arrange for his c-scope12/2022: He states that he is to schedule this himself as he has to arrange for a rideReferr ed again 07/13/2023 UTD flu shotTDap 2017UTD zoster 07/21/14, get shingrixPC V #13 03/19/2020 , #23 04/08/2021 UTD on COVID 19 vaccineCan do RSV vaccine RTC 4 monthsWith labsEr if any life threatenin g symptomshe did agree with the plan Type 2 jay betes mellitus without complication 569548258 E11.9 Does well On metformin 500mg bidOn ozempic Needs to see eye MDGet labs Essential hypertension 14846256 I10 ECHO 02/26/2023 : EF 55% Dr Stein [facility] On coreg 25mg bidOn losartan 100mg dailyOn nifedipine ER 60mg dailyGet labs Hyperlipidemia 77938782 E78.5 On rosuvastat in 40mg dailyGet labs Pain in right hand 22651 71248 63712 M79.641 OV 11/26/2020 :Has seen Dr BellCannot take tylenol, NSAIDs, or celebrexHa s taken tramadol in the past, will renew, and he will see Dr Torres OV 01/09/2021 :S/p injection by DAVID Reardon on 11/27/2020 Does well OV 04/08/2021 :Has an apt with Dr Torres on 04/24/2021 Mahy need surgery OV 10/09/2021 :Jc HERNANDEZ 08/13/2021 , s/p injection, next apt 11/12/2021 OV 02/11/2022 :Sees Dr Torres, now may have to do surgery OV 07/07/2022 :On tramadolDr Torres 04/30/2022 , next 07/29/2022 OV 01/12/2023 :S/p injection with Allan HERNANDEZ 12/09/2022 , f/u Dr Torres 03/10/2023 OV 07/13/2023 : Seen by ortho, states that he will make the apt with Dr Torres again himself, 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[place] now Ex-cigarette smoker 2810 54711 Z87.891 Quit 17 years ago AAA 08/06/2020 : Border line AAA [facility] Dr Conroy 09/24/2020 , f/u in 3 months US AAA 07/24/2021 : Neg Abdominal aortic aneurysm 648686608 I71.[address] Stein [facility] cardiology , last 02/11/2022 Proteinuria 00903073 R80 .[address] Peacock Steatosis of liver 1007 K76.0 Get labs and US liver Solitary n odule of lung 302079749 R91.1 CT chest: 10/18/[address]: 02/06/2022 : Neg, rec: [address] chest s per radiologis t Benign pro static hyperplasia without outflow obstruction 108596061 N40.[address] Walters, urologyOn finasterid Chani flomax Migraine 29906495 G43.90 9 Used to be on sumatripta n, not taken since 3 years, but feels that he has a migraine headache d/t his URI, will renew Lead screening 95476768 Z13.88 Get lab, but states that Dr Peacock does also check this Pain of bi lateral knee joints 0832970767 [address] Myers for R knee pain, s/p injection, now is to get a MRI as per his history 01/12/2023 Addendum: 03/02/2023 :Is to get knee scope done by Dr Griffin cleared for surgery by Dr Stein [facility] on 03/02/2023 , he is also cleared for surgery and will remain a moderate risk Joshua HERNANDEZ 05/15/2023 , s/p kenalog Screening for malignant neoplasm of colon 223349891 Z12.11 [id number] Luke Myers MD [facility] [place] [address] [place] [address] 07/31/2023 08:54:01 08/07/2023 11:35:30 Osteoarthritis of right knee joint 9504792816 22414 M17.11 [id number] Katina puga MD [facility] [address] [facility], [facility] [address] [place] [address] 08/26/2023 09:59:27 08/26/2023 10:45:30 Deep venous thrombosis of lower extremity 440724331 I82.[address] [facility] [address] Stein 08/18/2023 , f/u in 6 months, continue with xarelto 20mg daily, will get US prior to next apt in 3 months Hyperlipidemia 72476197 E78.5 On rosuvastat in 40mg dailyWill stop the vascepa as he is on AVOS [facility] [id number] Katina puga MD [facility] [address] [facility] , [place] [address] 12/21/2023 09:53:39 12/21/2023 10:38:52 Deep venous thrombosis of lower extremity 105777236 I82.[address] [facility] [address] Stein 08/18/2023 , f/u in 6 monthsOn xarelto US DVT 12/18/2023 : Neg, Bakers CystCan stop the xarelto once 6 months done at the end or 01/2024 Hyperlipidemia 03989120 E78.5 On rosuvastat in 40mg dailyNot on vascepa, d/t his being on Xarelto, will restart once he stops the xareltoGet labs Screening - NAD 89041493 3 Z13.9 C-scope: Dr Abdirahman maldonado 03/05/17, next in 3-5 years, he states that Gi told him that it is now due in 2 yearsOrder ed 07/23/2020 , and he did call Dr Rodas and will arrange for his c-scope12/2022: He states that he is to schedule this himself as he has to arrange for a rideReferr ed again 07/13/2023 UTD flu shotTDap 2017UTD zoster 07/21/14, get shingrixPC V #13 03/19/2020 , #23 04/08/2021 UTD on COVID 19 vaccineCan do RSV vaccine RTC 4 monthsWith labsEr if any life threatenin g symptomshe did agree with the plan Type 2 jay betes mellitus without complication 660091714 E11.9 Does well On metformin 500mg bidOn ozempic Needs to see eye MDGet labs Essential hypertension 62619779 I10 ECHO 02/26/2023 : EF 55% Dr Stein [facility] On coreg 25mg bidOn losartan 100mg dailyOn nifedipine ER 60mg dailyGet labs Pain in right hand 65186 43949 97609 M79.641 OV 11/26/2020 :Has seen Dr Juarze take tylenol, NSAIDs, or celebrexHa s taken tramadol in the past, will renew, and he will see Dr Torres OV 01/09/2021 :S/p injection by DAVID Reardon on 11/27/2020 Does well OV 04/08/2021 :Has an apt with Dr Torres on 04/24/2021 Berthay need surgery OV 10/09/2021 :Jc HERNANDEZ 08/13/2021 , s/p injection, next apt 11/12/2021 OV 02/11/2022 :Sees Dr Torres, now may have to do surgery OV 07/07/2022 :On tramadolDr Torres 04/30/2022 , next 07/29/2022 OV 01/12/2023 :S/p injection with Allan HERNANDEZ 12/09/2022 , f/u Dr Torres 03/10/2023 OV 07/13/2023 : Seen by ortho, states that he will make the apt with Dr Torres again himself, 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[place] now OV 12/21/2023 : Keep apt with hand surgery Ex-cigarette smoker 3430 18605 Z87.891 Quit 17 years ago AAA 08/06/2020 : Border line AAA [facility] Dr Conroy AAA 07/24/2021 : Neg Abdominal aortic aneurysm 814693503 I71.[address] Stein [facility] cardiology Proteinuria 18795126 R80 .[address] Peacock Steatosis of liver 1007 K76.0 US Liver 12/16/2023 : hepatic steatosis, hepatomega lyNeeds to see GI Solitary n odule of lung 467655307 R91.1 CT chest: 10/18/[address]: 02/06/2022 : Neg, rec: [address] chest s per radiologis tCT Chest: 12/15/2023 : 2 new RLL nodules, CT chest in 6 months, CAD Benign pro static hyperplasia without outflow obstruction 911617673 N40.[address] Walters, urologyOn finasterid Chani flomax Migraine 61511743 G43.90 9 Used to be on sumatripta n, not taken since 3 years, but feels that he has a migraine headache d/t his URI, will renew Lead screening 52939828 Z13.88 Get lab, but states that Dr Peacock does also check thisRefer to Dr Peacock Pain of bi lateral knee joints 3327583253 [address] Myers for R knee pain, s/p injection, now is to get a MRI as per his history 01/12/2023 Addendum: 03/02/2023 :Is to get knee scope done by Dr Griffin cleared for surgery by Dr Stein [facility] on 03/02/2023 , he is also cleared for surgery and will remain a moderate risk Joshua HERNANDEZ 05/15/2023 , s/p Vernell Myers 07/31/2023 ,next apt 05/20/2024 Screening for malignant neoplasm of colon 647962508 Z12.11 Exposure to asbestos 699 332277 Z77.090 Exposure was 20 years ago, will refer to Dr Pelayo pulmonary [id number] Zoran Pelayo MD [facility] Pulmonolo gy [place] [address] [facility], [facility] [address] [place] [address] 02/22/2024 10:46:34 02/22/2024 16:07:53 Dyspnea on exertion 51535203 R06.09 J98.4 D89.9 T78.40XA [id number] Katina puga MD [facility] Internal Med Deidra llnoemí [address] [facility] , [facility] [place] [address] 03/23/2024 10:04:28 03/23/2024 10:49:11 Deep venous thrombosis of lower extremity 612164109 I82.[address] Stein 08/18/2023 , f/u in 6 monthsOn xarelto US DVT 12/18/2023 : Neg, Bakers CystCan stop the xarelto once 6 months done at the end or 01/2024 Not on xarelto 03/23/2024 Hyperlipidemia 77727688 E78.5 On rosuvastat in 40mg dailyNot on vascepa, d/t his being on Xarelto, will restart once he stops the xareltoGet labs OV 03/23/2024 :Was not taking any medsWill restart on rosuvastat in40mg dailyWill restart on vascepa 1gm 2 caps bid Screening - NAD 15360893 3 Z13.9 C-scope: Dr Gary n 03/05/17, next in 3-5 years, he states that Gi told him that it is now due in 2 yearsOrder ed 07/23/2020 , and he did call Dr Rodas and will arrange for his c-scope12/2022: He states that he is to schedule this himself as he has to arrange for a rideReferr ed again 07/13/2023 UTD flu shotTDap 2017UTD zoster 07/21/14, get shingrixPC V #13 03/19/2020 , #23 04/08/2021 UTD on COVID 19 vaccineCan do RSV vaccine RTC 4 monthsWith labsEr if any life threatenin g symptomshe did agree with the plan Type 2 jay betes mellitus without complication 638073678 E11.9 Does well On metformin 500mg bidOn ozempic Needs to see eye MDGet labs Essential hypertension 41209133 I10 ECHO 02/26/2023 : EF 55% Dr Stein [facility] On coreg 25mg bidOn losartan-H CTZ 100-12.5mg dailyOn nifedipine ER 60mg dailyGet labs Dr Stein [facility] 02/16/2024 : Started on losartan-H CTZ and f/u in 6 months Pain in right hand 96736 55235 55680 M79.641 OV 11/26/2020 :Has seen Dr Juarez take tylenol, NSAIDs, or celebrexHa s taken tramadol in the past, will renew, and he will see Dr Torres OV 01/09/2021 :S/p injection by DAVID Reardon on 11/27/2020 Does well OV 04/08/2021 :Has an apt with Dr Torres on 04/24/2021 Mahy need surgery OV 10/09/2021 :Jc HERNANDEZ 08/13/2021 , s/p injection, next apt 11/12/2021 OV 02/11/2022 :Sees Dr Torres, now may have to do surgery OV 07/07/2022 :On tramadolDr Torres 04/30/2022 , next 07/29/2022 OV 01/12/2023 :S/p injection with Allan HERNANDEZ 12/09/2022 , f/u Dr Torres 03/10/2023 OV 07/13/2023 : Seen by ortho, states that he will make the apt with Dr Torres again himself, 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[place] now OV 12/21/2023 : Keep apt with hand surgery OV 03/23/2024 : See Dr Torres Ex-cigarette smoker 2810 82607 Z87.891 Quit 17 years ago AAA 08/06/2020 : Border line AAA [facility] Dr Conroy AAA 07/24/2021 : Neg Abdominal aortic aneurysm 667471209 I71.[address] Stein [facility] cardiology Proteinuria 41250122 R80 .[address] Peacock Steatosis of liver 61000 1007 K76.0 US Liver 12/16/2023 : hepatic steatosis, hepatomega lyNeeds to see GI Solitary n odule of lung 041825076 R91.1 CT chest: 10/18/[address]: 02/06/2022 : Neg, rec: [address] chest s per radiologis tCT Chest: 12/15/2023 : 2 new RLL nodules, CT chest in 6 months, CAD Benign pro static hyperplasia without outflow obstruction 622512972 N40.[address] Walters, urologyOn finasterid Chani flomax Migraine 28883373 G43.90 9 Used to be on sumatripta n, not taken since 3 years, but feels that he has a migraine headache d/t his URI, will renew Lead screening 20134589 Z13.88 Get lab, but states that Dr Peacock does also check thisRefer to Dr Peacock Pain of bi lateral knee joints 2768397300 [address] Myers for R knee pain, s/p injection, now is to get a MRI as per his history 01/12/2023 Addendum: 03/02/2023 :Is to get knee scope done by Dr Griffin cleared for surgery by Dr Stein [facility] on 03/02/2023 , he is also cleared for surgery and will remain a moderate risk Joshua Bhagat PA 05/15/2023 , s/p Vernell Myers 07/31/2023 ,next apt 05/20/2024 Screening for malignant neoplasm of colon 120775490 Z12.11 Exposure to asbestos 699 610070 Z77.090 Exposure was 20 years ago, will refer to Dr Pelayo pulmonary Gastroesop hageal reflux disease without esophagitis 093461115 K21.9 On omeprazole 20mg daily as neededGet EGD done Screening for malignant neoplasm of prostate 626375406 Z12.5 Adult heal th examination 719716906 Z00.00 Screening for disorder 240856150 Z13.9 Advance di rective discussed with patient 926252231 Z71.89 [id number] Zoran Pelayo MD [facility] Pulmonolo gy [address], [facility] [address] [place] [address] 05/30/2024 09:32:13 05/31/2024 15:27:46 Dyspnea on exertion 83524325 R06.09 J98.4 D89.9 T78.40XA Multiple n odules of lung 455791062 R91.8 [id number] Katina puga MD [facility] Kyree velazquez [address] [place] [address] [address] [place] [address] 07/25/2024 10:13:39 07/25/2024 11:38:59 Deep venous thrombosis of lower extremity 408398565 I82.[address] Stein 08/18/2023 , f/u in 6 monthsOn xarelto US DVT 12/18/2023 : Neg, Bakers CystCan stop the xarelto once 6 months done at the end or 01/2024 Not on xarelto 03/23/2024 Hyperlipidemia 60854649 E78.5 On rosuvastat in 40mg dailyNot on vascepa, d/t his being on Xarelto, will restart once he stops the xareltoGet labs OV 03/23/2024 :Was not taking any medsWill restart on rosuvastat in40mg dailyWill restart on vascepa 1gm 2 caps bid OV 07/25/2024 :On rosuvastat in 40mg dailyOn vascepaMor e diet and exercise and repeat the labs Screening - NAD 29176327 3 Z13.9 C-scope: Dr Abdirahman maldonado 03/05/17, next in 3-5 years, he states that Gi told him that it is now due in 2 yearsOrder ed 07/23/2020 , and he did call Dr Rodas and will arrange for his c-scope12/2022: He states that he is to schedule this himself as he has to arrange for a rideReferr ed again 07/13/2023 Cologuard 04/21/2024 : Negative UTD flu shotTDap 2017UTD zoster 07/21/14, get shingrixPC V #13 03/19/2020 , #23 04/08/2021 UTD on COVID 19 vaccineCan do RSV vaccine RTC 4 monthsWith labsEr if any life threatenin g symptomshe did agree with the plan Type 2 jay betes mellitus without complication 544330228 E11.9 Does well On metformin 500mg bidOn ozempic Needs to see eye MDGet labs Essential hypertension 13120967 I10 ECHO 02/26/2023 : EF 55% Dr Stein [facility] On coreg 25mg bidOn losartan-H CTZ 100-12.5mg dailyOn nifedipine ER 60mg dailyGet labs Dr Stein [facility] 02/16/2024 : Started on losartan-H CTZ and f/u in 6 months Pain in right hand 78818 50756 94242 M79.641 OV 11/26/2020 :Has seen Dr Cruznot take tylenol, NSAIDs, or celebrexHa s taken tramadol in the past, will renew, and he will see Dr Torres OV 01/09/2021 :S/p injection by DAVID Reardon on 11/27/2020 Does well OV 04/08/2021 :Has an apt with Dr Torres on 04/24/2021 Mahy need surgery OV 10/09/2021 :Jc HERNANDEZ 08/13/2021 , s/p injection, next apt 11/12/2021 OV 02/11/2022 :Sees Dr Torres, now may have to do surgery OV 07/07/2022 :On tramadolDr Torres 04/30/2022 , next 07/29/2022 OV 01/12/2023 :S/p injection with Allan HERNANDEZ 12/09/2022 , f/u Dr Torres 03/10/2023 OV 07/13/2023 : Seen by ortho, states that he will make the apt with Dr Torres again himself, 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[place] now OV 12/21/2023 : Keep apt with hand surgery OV 03/23/2024 : See Dr Torres OV 07/25/2024 :Referred to Dr Torres Ex-cigarette smoker 2810 15053 Z87.891 Quit 17 years ago AAA 08/06/2020 : Border line AAA [facility] Dr Conroy AAA 07/24/2021 : Neg CT chest 07/06/2024 : Dr Pelayo Abdominal aortic aneurysm 545584041 I71.[address] Stein [facility] cardiology Proteinuria 43390422 R80 .[address] Peacock Steatosis of liver 1007 K76.0 US Liver 12/16/2023 : hepatic steatosis, hepatomega lyNeeds to see GI Solitary n odule of lung 778496093 R91.1 CT chest: 10/18/[address]: 02/06/2022 : Neg, rec: [address] chest s per radiologis tCT Chest: 12/15/2023 : 2 new RLL nodules, CT chest in 6 months, CADCt Chest: 07/06/2024 Benign pro static hyperplasia without outflow obstruction 490693736 N40.[address] Walters, urologyOn finasterid Chani flomax Migraine 35114965 G43.90 9 Used to be on sumatripta n, not taken since 3 years, but feels that he has a migraine headache d/t his URI, will renew Lead screening 17910377 Z13.88 Get lab, but states that Dr Peacock does also check thisRefer to Dr Peacock Pain of bi lateral knee joints 1244768658 [address] Myers for R knee pain, s/p injection, now is to get a MRI as per his history 01/12/2023 Addendum: 03/02/2023 :Is to get knee scope done by Dr Griffin cleared for surgery by Dr Stein [facility] on 03/02/2023 , he is also cleared for surgery and will remain a moderate risk Joshua HERNANDEZ 05/15/2023 , s/p Vernell Myers Exposure to asbestos 699 150368 Z77.090 Exposure was 20 years ago, will refer to Dr Pelayo pulmonary Gastroesop hageal reflux disease without esophagitis 515811703 K21.9 On omeprazole 20mg daily as neededGet EGD done Chronic pain 66243740 G8 9.29 Has R hip pain, sees Dr Webster jostin hand pain, sees Dr Doherty also noted neck painNo weakness in UE or LE, no loss of bowel or bladder controlTak es PRN tramadolWi ll refer to [facility] [id number] Zoran Pelayo MD [facility] Pulmonolo gy [place] [id number] [address] [address] 08/17/2024 10:35:11 08/17/2024 14:34:43 Multiple nodules of lung 379628817 R91.8 Health Concerns Section Related Observation LastModified by Organization Detai ls LastModified Time None Recorded Concern Status LastModified by Organization Details LastModified Time None Recorded Advance Directives Directive N: Patient given information . 03/23/24 Payers Encounter Date Sequence Insurance Name Policy Number Policy Ty Covered Member ID Ty Member ID Guarantor Name 02/22/2024 1 [place] Terry Dionne Nakita [id number] Terry Truong Nakita 02/22/2024 2 [place] [id number] Terry Saldaña [id number] Terry Saldaña 03/23/2024 1 [place] Saldaña [id number] Terry Dionne Nakita 03/23/2024 2 [place] [id number] Terry Saldaña [id number] Terry Saldaña 05/30/2024 1 [place] Saldaña [id number] Terry Dionne [place] 05/30/2024 2 [place] 33D Terry Saldaña [id number] Terry Saldaña 07/25/2024 1 [place] Saldaña [id number] 6 Terry Dionne [place] 07/25/2024 2 [place] 33D Terry Saldaña [id number] Terry Saldaña 08/17/2024 1 [place] Terry Saldaña [id number] 6 Terry Dionne [place] 08/17/2024 2 [place] 33D Terry Saldaña [id number] Terry Saldaña Notes Date Note Type Note Provider Name and Address Organization Details Recorded Time 02/22/2024 text/html Primary care/Ref erring provider: Katina Rodriguez MD Patient is here to go over shortness of breath evaluation/management. Initial development of shortness of breath: 2020 Duration of shortness of breath: 3 years Condition of shortness of breath: stable Timing of shortness of breath: none Frequency: up to 1 time a week Limits activities: yes Aggravating factors: walking up a steep hill, spring and summer Alleviating factors: rest Modified [employer] [place] (mMRC) Dyspnea Scale - Grade 1 Grade 0 I only get breathless with strenuous exercise . Grade 1 I get short of breath when hurrying on the level or walking up a slight hill . Grade 2 I walk slower than people of the same age on the level because of breathlessness or have to stop for breath when walking at my own pace on the level . Grade 3 I stop for breath after walking about 100 yards or after a few minutes on the level . Grade 4 I am too breathless to leave the house or I am breathless when dressing . Treatment history:None Other symptoms: Drooling: no Dysarthria: no Neck pain: no Odynophagia: no Dysphagia: no Weak mastication: no Facial weakness: no Nasal speech: no Protruding tongue: no Productive cough: no Wheezing: no Chest tightness: yes Orthopnea: no Frequent throat clearing or swallowing: no Palpitations: no Heartburn: no Edema: no Environmental exposures: Nicotine smoke: 2 ppd 9749-8102 = 20 pack years Mclean: no Dye: no Dust mites: yes Mold: no Damp basement: no Wood burning stove: no Animal dander: dog Cockroaches: no Pollen: yes Arsenic: no Asbestos: 8808-7208 Beryllium: no Cadmium: no Chromium: no Mcculloch smoke: no Diesel fumes: no Nickel: no Silica: no Soot: no EPWORTH SLEEPINESS SCALE (ESS) CHANCE OF DOZING SCORE 0 = would never doze 1 = slight chance of dozing 2 = moderate chance of dozing 3 = high chance of dozing SITUATION AND CHANCE OF DOZING Sitting and reading - 1 Watching television - 1 Sitting inactive in a public place (e.g. a theater or meeting) - 0 As a passenger in a car for an hour without a break - 0 Lying down to rest in the afternoon when circumstances permit - 1 Sitting and talking to someone - 0 Sitting quietly after lunch without alcohol - 2 In a car, while stopped for a few minutes in the traffic - 0 TOTAL SCORE 5 Subjectively, patient has a slight chance of dozing. Zoran Pelayo MD [address] [place] [address], [facility] [address], [place], [address], [place] [facility] 02/22/2024 11:35:27 03/23/2024 text/html 03/16/17CV: Here with c/o LBPHasNo N/T or weakness in the hand, legs, no B/B sxHe did have a tree fall, in 04/26, and he dragging it and noted some LBP, he did see Dr Manning, and got xrays and was told that his fusion was doing goodHe still has the rib pain, and was told that his back was good by the Dr Manning and was told to follow up hereFeels that the pain is now in the R rib area and the R spinal area, hurts with getting up in the AM and also bumpy car rides, he states that the pain is a 7-8/10, pain is throbbing and feels that when he twists he hurts, other beverly he feels 'great'OV 07/01/17:Here to discuss his BP and his LBP, feels that he is doing well with the tramadol and the flexerill, and is now willing to do PT04/20/17HTNDMII?LBP/ neuropathyBPH:Becca Tata for his follow up, did do the labsOV 07/29/17:Here for his follow up, he did do the labs on 07/27/17, feels that he is doing well, his thoracic pain is betterOV 10/19/17:Here for his 3 months follow upHe states that he feels 'great', all his dizzy spells have resolvedHe has not yet done the labsOV 04/28/18:Here for his 3 month follow upHe has not done the labsNo more apts with Dr Arzola is doing really wellOV 07/28/18:Here for his routine aptHe did his labs on 07/15/18 and is here to review theseOV 09/15/18:ACV:Has a chronic cough, since 'jacquelin'Clear sputum, no bloodNo fevers or chillsNo chest pain, SOB, wheezingNo rash+ve sinus congestionNo rash, no joint painACV: 10/13/18:Here with sinus and nasal congestion+ve cough clear mucusNo fevers no chills,No nausea or vomitingNo chest pain, some SOBNo blood in sputum or thru noseNo rashOV 02/07/19:Here for his routine aptHe states that he is doing really well, he is very active, and in fact walks and works out 2-3 miles a dayHe states that he did not do the labs, he states that he did see his urologistOV 07/27/19:Here for his routine aptHe states that he is doing well, he did do the labs on 07/15/18 and there are no new labs notedHe does have some hip pain, he denies any remote or acute trauma, no N/T or weaknessHe is able to weight bearOV 08/31/2019:Here for his routine aptHe feels really wellHe did do the labs and is here to review theseOV 11/16/2019:telephone visit, and he did agree for this visitHe feels well at this timeNo recent labs notedHis ROS is negativeOV 03/19/2020;Here for his routine aptHe did do the labsHe also has a lesion on the L forearm and wants to discuss his hand pain, noted to have STS on the MCP joints but states that the framing and hanging is goodHe would also like to do his BLL again OV 07/23/2020:Here for his routine aptHe feels well, he does want to do the labs and has already been to Dr Torres and has had shots in the handOV 11/26/2020:Here for his routine aptHe feels wellHe has seen orthoOV 11/26/2020:Here for his routine aptHe feels wellHe did see Dr Marycarmen ROSSHe also did see Dr Torres on 08/07/2020 and did get shots but still has the hand pain, there was some discussion with Dr Torres and him about doing surgery, but he has decided to hold off on thisOV 01/09/2021:Here for his diabetic teaching, labs obtained revealed A1C of 8.3 on 11/22/2020He is doing well otherwiseHe did see Jena HERNANDEZ orthoOV 04/08/2021:Here for his routine aptHe is doing well, but continues to have pain in the R handHe did do the labsHe is here for his MWV alsoOV 10/09/2021:Here for his routine aptHe has done well, now c/o cough, hx of smokingHe did do the labs on 08/08/2021OV 02/12/2022:Here for his routine aptHe feels well, does have more pain in the R hand and is pursuing a surgical option sometime this year, he did see VANDANA and also did do the labsOV 07/07/2022:Here for his f/u apt, no new labs, he did do the PET CT scanHere with sinus and nasal congestion+ve cough clear mucusNo fevers no chills,No nausea or vomitingNo chest pain, some SOBNo blood in sputum or thru noseNo rash OV 01/12/2023:Here for his routine apt and MWV, he feels well, he did do the labs OV 07/13/2023: Here for his f/u apt, he is doing very well today, no new labs and he has not yet done the c-scope OV 08/26/2023: Here for his post Er visit and now diagnosed with a DVT, is doing well today, is on blood thinner xarelto and is tolerating this very well, states that he sat in a deer stand for 4 hours and got the swelling in the R LE, he also has seen Dr Myers for his R knee pain and was seen by PT who noted his R calf was swollen and sent him to the ER OV 12/21/2023: Here for his routine apt, he did do the labs and is very eager to know the report, also would like to know the report for his US liver and CT chest, 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 Initial development of shortness of breath: uration of shortness of breath: 3 yearsCondition of shortness of breath: stableTiming of shortness of breath: noneFrequency: up to 1 time a weekLimits activities: yesAggravating factors: walking up a steep hill, spring and summerAlleviating factors: rest Modified Medical Research [place] (mMRC) Dyspnea Scale - Grade 1Grade 0 I only get breathless with strenuous exercise .Grade 1 I get short of breath when hurrying on the level or walking up a slight hill .Grade 2 I walk slower than people of the same age on the level because of breathlessness or have to stop for breath when walking at my own pace on the level .Grade 3 I stop for breath after walking about 100 yards or after a few minutes on the level .Grade 4 I am too breathless to leave the house or I am breathless when dressing . Treatment history:None Other symptoms:Drooling: noDysarthria: noNeck pain: noOdynophagia: noDysphagia: noWeak mastication: noFacial weakness: noNasal speech: noProtruding tongue: noProductive cough: noWheezing: noChest tightness: yesOrthopnea: noFrequent throat clearing or swallowing: noPalpitations: noHeartburn: noEdema: no Environmental exposures:Nicotine smoke: 2 ppd 5989-4570 = 20 pack yearsPaint: noDye: noDust mites: yesMold: noDamp basement: noWood burning stove: noAnimal dander: dogCockroaches: noPollen: yesArsenic: noAsbestos: 1974-1996Beryllium: noCadmium: noChromium: noCoal smoke: noDiesel fumes: noNickel: noSilica: noSoot: no EPWORTH SLEEPINESS SCALE (ESS) CHANCE OF DOZING SCORE0 = would never doze1 = slight chance of dozing2 = moderate chance of dozing3 = high chance of dozing SITUATION AND CHANCE OF DOZINGSitting and reading - 1Watching television - 1Sitting inactive in a public place (e.g. a theater or meeting) - 0As a passenger in a car for an hour without a break - 0Lying down to rest in the afternoon when circumstances permit - 2Sitting and talking to someone - 0Sitting quietly after lunch without alcohol - 1In a car, while stopped for a few minutes in the traffic - 0TOTAL SCORE 5Subjectively, patient has a slight chance of dozing. Zoran Pelayo MD [address] [place], [place] [address], [address], [place], [address], [place] [facility] 05/30/2024 10:32:17 07/25/2024 text/html 03/16/17CV: Here with c/o LBPHasNo N/T or weakness in the hand, legs, no B/B sxHe did have a tree fall, in 04/26, and he dragging it and noted some LBP, he did see Dr Manning, and got xrays and was told that his fusion was doing goodHe still has the rib pain, and was told that his back was good by the Dr Manning and was told to follow up hereFeels that the pain is now in the R rib area and the R spinal area, hurts with getting up in the AM and also bumpy car rides, he states that the pain is a 7-8/10, pain is throbbing and feels that when he twists he hurts, other beverly he feels 'great'OV 07/01/17:Here to discuss his BP and his LBP, feels that he is doing well with the tramadol and the flexerill, and is now willing to do PT04/20/17HTNDMII?LBP/ neuropathyBPH:Becca Tata for his follow up, did do the labsOV 07/29/17:Here for his follow up, he did do the labs on 07/27/17, feels that he is doing well, his thoracic pain is betterOV 10/19/17:Here for his 3 months follow upHe states that he feels 'great', all his dizzy spells have resolvedHe has not yet done the labsOV 04/28/18:Here for his 3 month follow upHe has not done the labsNo more apts with Dr PeacockHe is doing really wellOV 07/28/18:Here for his routine aptHe did his labs on 07/15/18 and is here to review theseOV 09/15/18:ACV:Has a chronic cough, since 'jacquelin'Clear sputum, no bloodNo fevers or chillsNo chest pain, SOB, wheezingNo rash+ve sinus congestionNo rash, no joint painACV: 10/13/18:Here with sinus and nasal congestion+ve cough clear mucusNo fevers no chills,No nausea or vomitingNo chest pain, some SOBNo blood in sputum or thru noseNo rashOV 02/07/19:Here for his routine aptHe states that he is doing really well, he is very active, and in fact walks and works out 2-3 miles a dayHe states that he did not do the labs, he states that he did see his urologistOV 07/27/19:Here for his routine aptHe states that he is doing well, he did do the labs on 07/15/18 and there are no new labs notedHe does have some hip pain, he denies any remote or acute trauma, no N/T or weaknessHe is able to weight bearOV 08/31/2019:Here for his routine aptHe feels really wellHe did do the labs and is here to review theseOV 11/16/2019:telephone visit, and he did agree for this visitHe feels well at this timeNo recent labs notedHis ROS is negativeOV 03/19/2020;Here for his routine aptHe did do the labsHe also has a lesion on the L forearm and wants to discuss his hand pain, noted to have STS on the MCP joints but states that the framing and hanging is goodHe would also like to do his BLL again OV 07/23/2020:Here for his routine aptHe feels well, he does want to do the labs and has already been to Dr Torres and has had shots in the handOV 11/26/2020:Here for his routine aptHe feels wellHe has seen orthoOV 11/26/2020:Here for his routine aptHe feels wellHe did see Dr Marycarmen ROSSHe also did see Dr Torres on 08/07/2020 and did get shots but still has the hand pain, there was some discussion with Dr Torres and him about doing surgery, but he has decided to hold off on thisOV 01/09/2021:Here for his diabetic teaching, labs obtained revealed A1C of 8.3 on 11/22/2020He is doing well otherwiseHe did see Jena HERNANDEZ orthoOV 04/08/2021:Here for his routine aptHe is doing well, but continues to have pain in the R handHe did do the labsHe is here for his MWV alsoOV 10/09/2021:Here for his routine aptHe has done well, now c/o cough, hx of smokingHe did do the labs on 08/08/2021OV 02/12/2022:Here for his routine aptHe feels well, does have more pain in the R hand and is pursuing a surgical option sometime this year, he did see [facility] and also did do the labsOV 07/07/2022:Here for his f/u apt, no new labs, he did do the PET CT scanHere with sinus and nasal congestion+ve cough clear mucusNo fevers no chills,No nausea or vomitingNo chest pain, some SOBNo blood in sputum or thru noseNo rash OV 01/12/2023:Here for his routine apt and MWV, he feels well, he did do the labs OV 07/13/2023: Here for his f/u apt, he is doing very well today, no new labs and he has not yet done the c-scope OV 08/26/2023: Here for his post Er visit and now diagnosed with a DVT, is doing well today, is on blood thinner xarelto and is tolerating this very well, states that he sat in a deer stand for 4 hours and got the swelling in the R LE, he also has seen Dr Myers for his R knee pain and was seen by PT who noted his R calf was swollen and sent him to the ER OV 12/21/2023: Here for his routine apt, he did do the labs and is very eager to know the report, also would like to know the report for his US liver and CT chest, 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 and the ventilation is not very good especially in the winter months OV 03/23/2024: Here for his f/u apt, and also here for his MWV, he is doing well today, he did do the labs OV 07/25/2024: Here for his f/u apt, he is doing well today, did do the labs, now wants a referral to pain management Katina Rodriguez MD [address] [place] [address], [facility] [address], [place], [address], [place] [facility] [employer] [facility] 07/28/2024 09:22:08/17/2024 text/html Primary care/Ref erring provider: Katina Rodriguez MD Patient is here to go over his chest CT as part of his shortness of breath evaluation/management. Initial development of shortness of breath: uration of shortness of breath: 4 yearsCondition of shortness of breath: stableTiming of shortness of breath: noneFrequency: up to 1 time a weekLimits activities: yesAggravating factors: walking up a steep hill, spring and summerAlleviating factors: rest Modified Medical Research [place] (mMRC) Dyspnea Scale - Grade 1Grade 0 I only get breathless with strenuous exercise .Grade 1 I get short of breath when hurrying on the level or walking up a slight hill .Grade 2 I walk slower than people of the same age on the level because of breathlessness or have to stop for breath when walking at my own pace on the level .Grade 3 I stop for breath after walking about 100 yards or after a few minutes on the level .Grade 4 I am too breathless to leave the house or I am breathless when dressing . Treatment history:None Other symptoms:Drooling: noDysarthria: noNeck pain: noOdynophagia: noDysphagia: noWeak mastication: noFacial weakness: noNasal speech: noProtruding tongue: noProductive cough: noWheezing: noChest tightness: yesOrthopnea: noFrequent throat clearing or swallowing: noPalpitations: noHeartburn: noEdema: no Environmental exposures:Nicotine smoke: 2 ppd 8237-8576 = 20 pack yearsPaint: noDye: noDust mites: yesMold: noDamp basement: noWood burning stove: noAnimal dander: dogCockroaches: noPollen: yesArsenic: noAsbestos: 1974-1997Beryllium: noCadmium: noChromium: noCoal smoke: noDiesel fumes: noNickel: noSilica: noSoot: no EPWORTH SLEEPINESS SCALE (ESS) CHANCE OF DOZING SCORE0 = would never doze1 = slight chance of dozing2 = moderate chance of dozing3 = high chance of dozing SITUATION AND CHANCE OF DOZINGSitting and reading - 2Watching television - 0Sitting inactive in a public place (e.g. a theater or meeting) - 0As a passenger in a car for an hour without a break - 0Lying down to rest in the afternoon when circumstances permit - 2Sitting and talking to someone - 0Sitting quietly after lunch without alcohol - 2In a car, while stopped for a few minutes in the traffic - 0TOTAL SCORE 6Subjectively, patient has a slight chance of dozing. Zoran Pelayo MD [address] [place] [address], [facility] [address], [place], [address], [facility] 08/17/2024 11:23:53
--- OUTSIDE RECORDS SUMMARY | 2024-09-16 09:24 | XMS_ITS | Clinical Summary ---
Author Organization [employer] [facility] Address [address] [facility] [address] [place] [address] Phone Care Team Providers Care Pattern Molder Name Role Phone Jose Rodriguez MD Primary Care Provider [phone] Medications carvedilol (COREG) 12.5 MG tablet Comments: Filled Date: Nov 26 2018 8:53AM Patient Notes: TAKE 1 TABLET BY MOUTH TWICE DAILY 06/03/2018 Active tamsulosin (FLOMAX) 0.4 MG 24 hr capsule Comments: Filled Date: May 17 2020 10:27AM Patient Notes: TAKE 2 CAPSULES BY MOUTH ONCE DAILY AT NIGHT Duration: 90 05/17/2020 Active losartan (COZAAR) 100 MG tablet Take 1 tablet (100 mg total) by mouth 1 (one) time each day 90 tablet 01/17/2021 Active metFORMIN (GLUMETZA) 500 MG 24 hr tablet Take 1 tablet (500 mg total) by mouth in the morning and 1 tablet (500 mg total) in the evening. Do not crush, chew, or split.. 180 tablet 1 12/02/2022 Active Encounters Date Type Department Care Team Description 09/12/2024 Documentation Only [place] [email or web address] [address] [address] Vimal Peacock DO 08/05/2024 Documentation Only [place] [facility] [address] [address] Vimal Peacock DO from Last 3 Months Social History Tobacco Use Types Packs/Day Years [...] Sign Reading Time Taken Comments Blood Pressure 120/62 04/12/2024 12:52 PM CDT Pulse 89 04/12/2024 12:52 PM CDT Temperature 36.1 C (97 F) 04/12/2024 12:52 PM CDT Respiratory Rate 18 04/12/2024 12:52 PM CDT Oxygen Saturation 98% 04/12/2024 12:52 PM CDT Inhaled Oxygen Concentration - - Weight 104 kg (230 lb) 04/12/2024 12:52 PM CDT Height 177.8 cm (5' 10 ) 03/13/2020 12:00 PM CDT Body Mass Index 33 03/13/2020 12:00 PM CDT Plan of Treatment Upcoming Encounters Date Type Department Care Team (Late st Contact Info) Description 09/20/2024 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 Office Visit [facility], [facility] [address] [facility] [address] [place] [address] Vimal Peacock DO [address] [facility] [address] [place] [address] Health Maintenance Due Date Last Done Comments Colorectal Cancer Screening: Annual FOBT 02/03/2004 Colorectal Cancer Screening: Sigmoidoscopy 02/03/2004 Hepatitis B Vaccine (1 of 3 - Risk 3-dose series) 2015 Diabetes: Hemoglobin A1C 07/17/2022 Diabetes: Ophthalmology Exam 07/17/2022 Diabetes: Pedal Pulse Checked 07/17/2022 Diabetes: Sensory Foot Exam 07/17/2022 Diabetes: Visual Foot Exam 07/17/2022 Colorectal Cancer Screening: Colonoscopy 03/05/2027 03/05/2017 Pneumococcal Vaccine: 65+ Years Completed , 03/19/2020 Influenza Vaccine Completed 07/04/2024, , 07/11/2019, Additional history exists Insurance [facility] MEDICARE Care Teams Pattern Molder Relationship Specialty Start Date End Date Jose Rodriguez MD [address] [facility], [address] [place] [address] PCP - General Internal Medicine 07/07/22
== END 2024-09-16 09:00 | disposition home or self-care (01) ==
PROVIDERS: PCP Internal Medicine; Visit Provider Physician Assistant
DX: M47.812 Spondylosis without myelopathy or radiculopathy, cervical region (principal)
CPT/HCPCS: 72050

== ENCOUNTER 2024-09-17 07:40 | Outpatient (CLI) | payer MEDICARE, BC, SELFPAY ==
--- NOTE | ~2024-09-17 | MR_ITS ---
EXAMINATION: MR lumbar spine wo con DATE: 09/17/2024 08:23 INDICATION: Lumbar postlaminectomy syndrome. TECHNIQUE: Magnetic resonance imaging (MRI) of the lumbar spine was performed without intravenous con trast. COMPARISON: None FINDINGS: There is 3 mm retrolisthesis of L2 on L3, L3 on L4, and L4 on L5. There is anterior and pos terior fusion from L2 to S1 with pedicle screws. There is an interbody device at L3-L4. There is mild chronic anterior wedging of T12 and L1 vertebral bodies. Other intervertebral disc heights are latesha l. The distal spinal cord signal intensity is normal. The conus medullaris is at T12-L1. The followin g disc levels are specifically discussed: L1-L2: The disc does not extend beyond the endplate margin. There is mild bilateral facet joint osteo arthritis. There is no neural foraminal stenosis. There is no central canal stenosis. L2-L3: The disc is bulging. There is mild right and moderate left facet joint hypertrophy. There is m ild bilateral neural foraminal stenosis. There is no central canal stenosis. There is posterior decom pression. L3-L4: There is a left foraminal protrusion. There is no facet joint hypertrophy. There is mild left neural foraminal stenosis. There is no central canal stenosis. There is posterior decompression. L4-L5: There is mild bilateral facet joint hypertrophy. There is mild bilateral neural foraminal sten osis. There is no central canal stenosis. There is posterior decompression. L5-S1: The disc is bulging. There is mild bilateral facet joint osteoarthritis. There is mild bilater al neural foraminal stenosis. There is mild central canal stenosis. There is posterior decompression. IMPRESSION: 1. Mild lumbar spondylosis. 2. Anterior and posterior fusion from L2 to S1. Reviewed, dictated and finalized at location A. GING COGNITIVE ENGINEER
--- OUTSIDE RECORDS SUMMARY | 2024-09-17 07:44 | XMS_ITS | Encounter Summary ---
Author Organization [employer] [facility] Address [address] [place] [address] Phone Care Team Providers Care Brand Activation Manager Name Role Phone Jose Rodriguez MD Primary Care Provider [phone] Reason for Visit * Reason Comments Med Refill Encounter Details Date Type Department Care Team (Late st Contact Info) Description 04/22/2021 Refill [place] [facility], [address] [place] [address] Vimal Peacock DO [address] [facility] [address] [place] [address] Social History Tobacco Use Types [...] st Contact Info) Description 09/20/2024 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
--- OUTSIDE RECORDS SUMMARY | 2024-09-17 07:44 | XMS_ITS | Clinical Summary ---
Author Organization [facility] Address [address] [place] [address] Phone Care Team Providers Care Aerospace Mechanic Name Role Phone Robel Prasad MD Primary Care Provider [phone] Allergies No known active allergies Social History [...] 103 kg (227 lb) 07/24/2016 8:19 AM QA TESTER Height 177.8 cm (5' 10 ) 07/24/2016 8:19 AM QA TESTER Body Mass Index 32.57 07/24/2016 8:19 AM QA TESTER Plan of Treatment Health Maintenance Due Date [...] patient's age to complete this topic Insurance [facility] MEDICARE Care Teams Aerospace Mechanic Relationship Specialty Start Date End Date Robel Prasad MD PCP - General Internal Medicine 07/22/16
--- OUTSIDE RECORDS SUMMARY | 2024-09-17 07:44 | XMS_ITS | Clinical Summary ---
Author Organization [employer] [facility] Address [address] [facility] [address] [place] [address] Phone Care Team Providers Care Car Wash Attendant Automatic Name Role Phone Jose Rodriguez MD Primary Care Provider [phone] Medications carvedilol (COREG) 12.5 MG tablet Comments: [...] Department Care Team Description 09/12/2024 Documentation Only [place] [facility] [facility] [address] [address] Vimal Peacock DO 08/05/2024 Documentation Only [place] [facility] [address] [address] Vimal Peacock DO from Last [...] st Contact Info) Description 09/20/2024 3: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
--- OUTSIDE RECORDS SUMMARY | 2024-09-17 07:44 | XMS_ITS | Referral Summary ---
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 Gender Identity Not on file Sexual Orientation Not on file Last Filed Vital Signs Vital Sign Reading Time Taken Comments Blood Pressure 118/72 08/26/2017 8:30 AM TRUCK GUARD Pulse 69 11/13/2016 12:00 PM CDT Temperature - - Respiratory Rate - - Oxygen Saturation 96% 11/13/2016 12:00 PM CDT Inhaled Oxygen Concentration - - Weight 101.2 kg (223 lb) 08/26/2017 8:30 AM TRUCK GUARD Height 177.8 cm (5' 10 ) 08/26/2017 8:30 AM TRUCK GUARD Body Mass Index 32 08/26/2017 8:30 AM TRUCK GUARD Plan of Treatment Not on file Insurance MEDICARE [facility] [place] Care Teams Sales Enablement Manager Relationship Specialty Start Date End Date Will Rodriguez MD [address] [id number] PCP - General 05/11/17
--- OUTSIDE RECORDS SUMMARY | 2024-09-17 07:44 | XMS_ITS | Encounter Summary ---
Author Organization [employer] [facility] Address [address] [facility] [place] [address] Phone Care Team Providers Care School Child Care Attendant Name Role Phone Jose Rodriguez MD Primary Care Provider [phone] Reason for Visit * Reason Comments Med Refill Encounter Details Date Type Department Care Team (Late st Contact Info) Description 04/25/2021 Refill [facility], [address] [place] [address] Vimal Peacock DO [address] [facility] 1 [place] [address] Social History Tobacco Use Types [...] st Contact Info) Description 09/20/2024 3:15 PM GLUER Office Visit [facility] [address] [facility] [address] [place] [address] Vimal Peacock DO [address] [facility] 1 [place] [address] documented as of this encounter Visit Diagnoses Not on filedocumented in this encounter Care Teams School Child Care Attendant Relationship Specialty [place] [address] [place] [address], [address] [place] [address] PCP - General Internal Medicine 07/07/22 documented as of this encounter
--- OUTSIDE RECORDS SUMMARY | 2024-09-17 07:44 | XMS_ITS | CONTINUITY OF CARE DOCUMENT ---
Author Name ryan, ryan Address Unknown Organization [facility] Address [address] [place] [address] Phone [phone] Care Team Providers Care Manager Of Global Name Role Phone Emil SCHMIDT, Franko Unavailable LORENA SCHMIDT, KATINA Unavailable [phone] LORENA SCHMIDT, KATINA Unavailable PROBLEMS Condition Status Date Provider Notes CHEST PAIN-ABNL STRESS TEST 10/17 NL CATH 11/17 active ? Franko Stein MD HTN-10/17 CATH EF 60 NO CAD active ? Delio valenzuela RN Hypercholesterolemia, mixed active Aster vincent PREOPERATIVE CARDIOVASCULAR EXAMINATION completed - Franko Stein MD BACK PAIN active Franko Stein MD Increased blood lead level active Franko bernabe MD Obesity active Franko Stein MD Abdominal aortic aneurysm - 2.9cm, 09/2022 active Saúl Baptiste Cardiology examination completed 5 - Franko Stein MD DVT active Franko Stein MD Cardiology examination active Saúl Baptiste ENCOUNTERS Date Type Provider Location Encounter Diag nosis - In-person encounter Office Visit Franko Stein MD [facility] Cardiology examination - In-person encounter Office Visit Franko Stein MD [facility] DVT - In-person encounter Office Visit Franko Stein MD [facility] Abdominal aortic aneurysm - 2.9cm, ardiology examination - In-person encounter Office Visit Franko Stein MD [facility] - In-person encounter Office Visit Franko Stein MD [facility] - In-person encounter Office Visit Franko Stein MD [facility] - In-person encounter Office Visit Franko Stein MD [facility] - In-person encounter Office Visit Franko Stein MD [facility] Abdominal aortic aneurysm - 2.9cm, 09/2022 - In-person encounter Office Visit Franko Stein MD [facility] Obesity - In-person encounter Office Visit Franko Stein MD [facility] - In-person encounter Office Visit Franko Stein MD [facility] - In-person encounter Office Visit Franko Stein MD [facility] BACK PAINIncreased blood lead level - In-person encounter Office Visit Franko Stein MD [facility] - In-person encounter Office Visit Franko Stein MD [facility] PREOPERATIVE CARDIOVASCULAR EXAMINATION - In-person encounter Office Visit Franko Stein MD [facility] - In-person encounter Office Visit Franko Stein MD [facility] CHEST PAIN-ABNL STRESS TEST 3/10 NL CATH 11/17 - In-person encounter Office Visit Franko Stein MD [facility] - In-person encounter Office Visit Franko Stein MD [facility] CHEST PAIN-ABNL STRESS TEST 3/10 NL CATH 11/17HTN-10/17 CATH EF 60 NO CADHypercholesterolemi a, mixed VITAL SIGNS Date Observation Value Provider Body Mass Index (Ratio) 33.14 kg/m2 Andrea Stein MD oxygen saturation, oximetry 96 % Carrie Ram pulse rate 81 /min Carrie Ram blood pressure, cuff size regular Raj barksdale Ram blood pressure, diastolic 98 mm[Hg] Ta shamir Asbury blood pressure, systolic 148 mm[Hg] Tab letha Ram weight E&M 231 [lb_av] Carrie Ram respiratory rate E&M 12 /min Carrie Ram height E&M 70 [in_i] Carrie Asbury Body Mass Index (Ratio) 32.85 kg/m2 Andrea Stein MD blood pressure, cuff size regular [facility] blood pressure, diastolic 85 mm[Hg] [facility], systolic 135 mm[Hg] [facility] pulse rate 92 /min Ricki y oxygen saturation, oximetry 96 % Ricki respiratory rate E&M 12 /min Ricki weight E&M 229 [lb_av] Ricki y height E&M 70 [in_i] Ricki y Body Mass Index (Ratio) 33.00 kg/m2 Andrea Stein MD blood pressure, diastolic 100 mm[Hg] Aydin Dooley blood pressure, systolic 157 mm[Hg] [facility] harmony Dooley oxygen saturation, oximetry 97 % Mere Dooley pulse rate 78 /min Mere Dooley respiratory rate E&M 20 /min Mere Dooley blood pressure, cuff size regular faisal Dooley weight E&M 230 [lb_av] Mere Dooley height E&M 70 [in_i] eMre Dooley Body Mass Index (Ratio) 33.86 kg/m2 [...] blood pressure, diastolic 95 mm[Hg] Ca therine [place] blood pressure, systolic 165 mm[Hg] Cat herine Keegan oxygen saturation, oximetry 98 % Danyell [place] pulse rate 78 /min Danyell [place] respiratory rate E&M 14 /min Catheri ne [employer] weight E&M 239 [lb_av] Danyell [employer] blood pressure, cuff size regular Ca therine Keegan height E&M 70 [in_i] Danyell [place] Body Mass Index (Ratio) 33.43 kg/m2 Andrea [...] MD blood pressure, diastolic 100 mm[Hg] [facility] blood pressure, systolic 160 mm[Hg] Vanita collazo [place] oxygen saturation, oximetry 98 % [facility] respiratory rate E&M 16 /min [facility] pulse rate 105 /min [facility] weight E&M 241 [lb_av] Liberal Jung height E&M 70 [in_i] Liberal Jung Body Mass Index (Ratio) 33.57 kg/m2 [...] Interpretation Location triglyceride, serum, fasting 203 mg/dL [facility] HDL cholesterol, serum 32 mg/dL [facility] lipoprotein, beta, serum, point, quantitative, calculated 119 mg/dL [facility] cholesterol, serum 192 mg/dL [facility] alanine aminotransferase (SGPT), serum 29 1/L [facility] aspartate aminotransferase (SGOT), serum 19 1/L [facility] blood glucose, random 110 mg/dL [facility] creatinine, serum 0.84 mg/dL [facility] urea nitrogen, blood 13 mg/dL [facility] potassium, serum 4.2 mmol/L [facility] sodium, serum 142 mmol/L [facility] international normalized ratio (INR) 1.0 [facility] prothrombin time (patient) 9.6 s [facility] anion gap, serum 12 [facility] globulins, serum, total 3.7 g/dL [facility] albumin/globulin ratio, serum 1.6 [facility] protein, total, serum 7.0 g/dL [facility] albumin, serum 4.3 g/dL [facility] bilirubin, serum, total 0.9 mg/dL [facility] alkaline phosphatase, serum 68 1/L [facility] alanine aminotransferase (SGPT), serum 32 1/L [facility] aspartate aminotransferase (SGOT), serum 18 1/L [facility] calcium, serum 10.0 mg/dL [facility] blood glucose, fasting 105 mg/dL [facility] creatinine, serum 1.0 mg/dL [facility] urea nitrogen, blood 16 mg/dL [facility] carbon dioxide, serum, total 29 mmol/L [facility] chloride, serum 105 mmol/L [facility] potassium, serum 4.4 mmol/L [facility] sodium, serum 142 mmol/L [facility] platelet count 258 10*3/uL [facility] red blood cell distribution width 12.7 % Symone Pineda mean corpuscular hemoglobin concentration, RBC 34.1 g/dL Symone Pineda mean corpuscular hemoglobin, RBC 30.5 [address] [facility] mean corpuscular volume, RBC 89.6 fL [facility] hematocrit, blood 46.0 % [facility] hemoglobin, blood 15.7 g/dL [facility] erythrocyte (RBC) count 5.13 10*6/mm3 [facility] monocytes as percent of blood leukocytes 7.3 % [facility] lymphocytes as percent of blood leukocytes 25.3 % [facility] leukocyte count, blood 10.0 10*3/mm3 Symone [...] Keegan carvedilol 25 mg tablet active Danyell [facility] [place] nifedipine 90 mg tablet extended release completed [...] - Saúl Baptiste VITAMIN D (ERGOCALCIFEROL ) 78875 UNIT ORAL CAPSULE completed take once a [...] 2 tablet twice a day - Saúl Batpiste SOCIAL HISTORY Date Observation Value Provider drug use none Saúl Baptiste alcohol use no Saúl Baptiste smoking status Never smoker Saúl Baptiste drug use none Saúl Baptiste alcohol use no Saúl Baptiste smoking status Never smoker Saúl Baptiste smoking status Never smoker Mere Dooley [...] years as a smoker 25 a Danyell [employer] smoking history, tot al pack/day 2 Danyell Keegan cigarette use yes Danyell [employer] smoking status Former smoker Danyell Ot is [...] alcohol use, average drinks per day none Liberal Jung alcohol use no Samson Jung caffeine use, averag e drinks per day yes Samson Jung drug use none Liberal Jung number of years as a smoker 25 a Samson Jung smoking history, tot al pack/day 2 Samson Jung cigarette use yes Liberal Jung smoking status Former smoker [facility] number of grandchildren Franko Stein MD [...] f requency, days per week no [facility] alcohol use, average drinks per day none [facility] alcohol use no [facility] caffeine use, averag e drinks per day yes [facility] drug use none [facility] number of years as a smoker 25 [...] Stein MD social history reviewed E&M reviewed Franko Stein MD smoking status former smoker Asuncion [...] Payer name Policy type / Coverage type [facility] ID [place] MED[place] Medicare [id number] [facility] [id number] ADVANCE DIRECTIVES Name Date DISCUSSED - NO DECISION MADE TREATMENT PLAN Date Name Performer [id number],SSaúl i [id number],Saúl Valenzuela i [id number],Saúl Valenzuela i [id number],SSaúl i [id number],Saúl Valenzuela i [id number],Saúl Valenzuela i [id number],B, [facility] [id number],S, [facility] i [id number],S, [facility] i [id number],S, [facility] [id number],S, [facility] [id number],S, [facility] i [id number],S, [facility] [id number],S, [facility] [id number],B, [facility] Cardiology [facility] Cardiology [facility] Cardiology: H is updated medication list for this problem includes: Nifedipine 90 Mg Tablet Extended Release (Nifedipine) ..... Take 1 tablet by mouth once a day Carvedilol 25 Mg Tablet (Carvedilol) [facility] Cardiology: B P today: 148/98 [...] ..... Take 1 tablet once a day [facility] Cardiology [facility] Cardiology: H is updated medication [...] MD Telehealth Franko Stein MD Telehealth Franko Stien MD Cardiology - Follow up Franko redd MD Cardiology - Follow up Franko bernabe [...] Follow up Franko sanchez MD Cardiology Follow u p : T he following medications were removed [...] to exercise N ormal exercise stress EKG. [facility] (01/02/2009) N uclear Stress Findings: 1. Regadenoson [...] (10/31/2009) INR: 1.0 (10/31/2009) Orders: E KG ([id number]) Franko Stein MD Follow-up s/p cath: H [...] to exercise N ormal exercise stress EKG. [facility] (01/02/2009) N uclear Stress Findings: 1. Regadenoson [...] to exercise N ormal exercise stress EKG. [facility] (01/02/2009) N uclear Stress Findings: 1. Regadenoson [...] completed EKG Franko Stein MD completed SNOMED-CT: 53643021 Physical Exam, Performed: Pulse Exam of Foot Franko Stein MD completed EKG Franko Stein MD completed SNOMED-CT: 271443156 [id number] Current Medications Documented Franko Stein MD completed SNOMED-CT: 65100405 Physical Exam, Performed: Pulse Exam of Foot Franko Stein MD completed SNOMED-CT: 972105970 [id number] Current Medications Documented Franko Stein MD completed EKG Franko Stein MD completed EKG Franko Stein MD completed EKG Franko Stein MD completed
--- OUTSIDE RECORDS SUMMARY | 2024-09-17 07:44 | XMS_ITS | Clinical Summary ---
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 Gender Identity Not on file Sexual Orientation Not on file Obstetrics History Last Filed Vital Signs Vital Sign Reading Time Taken Comments Blood Pressure 118/72 08/26/2017 8:30 AM THERMOMETER PRODUCTION WORKER Pulse 69 11/13/2016 12:00 PM CDT Temperature - - Respiratory Rate - - Oxygen Saturation 96% 11/13/2016 12:00 PM CDT Inhaled Oxygen Concentration - - Weight 101.2 kg (223 lb) 08/26/2017 8:30 AM 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
== END 2024-09-17 07:41 | disposition home or self-care (01) ==
PROVIDERS: PCP Internal Medicine; Visit Provider Physician Assistant
DX: M96.1 Postlaminectomy syndrome, not elsewhere classified (principal); M47.896 Other spondylosis, lumbar region
CPT/HCPCS: 72148

== ENCOUNTER 2025-04-24 13:53 | Outpatient (CLI) | payer MEDICARE, BC, SELFPAY ==
--- OUTSIDE RECORDS SUMMARY | 2025-04-24 05:17 | XMS_ITS | Continuity of Care Document ---
Author Organization [facility] Address [address] [place] [address] Phone Care Team Providers Care Railcar Mechanic Name Role Phone Emil SCHMIDT, FACC, Franko Unavailable Unavailab le Allergies, Adverse Reactions, Alerts Substance Reaction Status Criticality pollen extracts Unknown(moderate) Active No Info rmation Medications Medication Instructions Dosage Effective Dates (start - stop) Status Comments nifedipine ER 90 mg tablet,extended release 24 hr take 1 tablet by oral route every day 90 MG - Active clonidine 0.1 mg/24 hr weekly transdermal patch - Active meloxicam 7.5 mg tablet - Ac tive tramadol 50 mg tablet - Acti ve finasteride 5 mg tablet - Ac tive duloxetine 30 mg capsule,delayed release TAKE 1 CAPSULE BY MOUTH TWICE DAILY - Active methylprednisolone 4 mg tablets in a dose pack TAKE BY MOUTH DIRECTED ON INSIDE OF PACKAGE - Active indapamide 2.5 mg tablet - A ctive olmesartan 40 mg tablet TAKE 1 TABLET BY MOUTH ONCE DAILY AT NIGHT - Active Vascepa 1 gram capsule - Act faviola carvedilol 25 mg tablet TAKE 1 TABLET BY MOUTH TWICE DAILY - Active rosuvastatin 40 mg tablet TAKE 1 TABLET BY MOUTH ONCE DAILY - Active omeprazole 20 mg capsule,delayed release TAKE 1 CAPSULE BY MOUTH ONCE DAILY NEEDED Dima-26-2025 - Active tamsulosin 0.4 mg capsule - Active metformin 1,000 mg tablet TAKE 1 TABLET BY MOUTH TWICE DAILY WITH MORNING MEAL AND WITH EVENING MEAL - Active metformin 500 mg tablet TAKE 1 TABLET BY MOUTH TWICE DAILY - Active acetaminophen 300 mg-codeine 30 mg tablet TAKE 1 TABLET BY MOUTH EVERY 6 HOURS - Active amoxicillin 875 mg-potassium clavulanate 125 mg tablet TAKE 1 TABLET BY MOUTH EVERY 12 HOURS - Active losartan 100 mg-hydrochlorothiazide 12.5 mg tablet TAKE 1 TABLET BY MOUTH ONCE DAILY - Active losartan 100 mg tablet TAKE 1 TABLET BY MOUTH AT NIGHT - Active Advance Directives Directive Yes / No Effective Date File Name No Information Encounters Encounter Description Practice Location Reason(s) For Visit Diagnoses Date Provider Providers Copied on Encounter [facility], [address] [place] [address], [id number] , tel: [phone] [facility] [place] No Information Emil Abdul. [address] [place], [place], [id number] , [place]. tel: [phone] [facility], [address] [place] [address], [id number] , tel: [phone] [facility] [place] No Information 5 Emil Abdul. [address] [place], [place], [id number] , . tel: [phone] [facility], [address] [place] [address], [id number] , tel: [phone] [facility] [place] Vein thrombosisAortic aneurysm of unspecified site, without ruptureMixed hyperlipidemiaEssent ial (primary) hypertensionChest pain, unspecified Emil Abdul. [facility] [place], [place], [id number] , . tel: [phone] Family History Family Member Type Diagnosis Age At Onset No Information Payers Payer name Insurance type Covered alliance party ID Authoriza tion(s) No Information Social History Type Description Quantity Date Captured Comments Sex Male Smoking Status No Information Chief Complaint And Reason For Visit No Information Reason For Referral Reason For Referral No Information Plan Of Treatment Date Type Action Status Appointment Terry Mace History Of Present Illness Encounter Date Complaint History Of Prese nt Illness No Information Functional Status Date Functional Assessmen t No Information Instructions Date Instruction Additional Infor mation No Information Assessments Type Assessment Date No Information Patient Care Teams Name Effective Dates (start - stop) Status Members No Information
--- NOTE | 2025-04-24 15:15 | ECG_ITS ---
Test Date: 2025-04-24 15:36:24 Measurements Intervals [place] Rate: 65 P: 34 IL: 184 QRS: -38 QRSD: 106 T: 8 QT: 400 QTc: 416 Interpretive Statements SINUS RHYTHM MARKED LEFT AXIS DEVIATION [QRS AXIS < -30] NONSPECIFIC T-WAVE ABNORMALITY ABNORMAL ECG Electronically Signed On 04-25-2025 08:04:50 CDT by Jefferson Simon M.D.
[2025-04-24 15:49] LABS: Hematocrit 34.9 % (42.0-52.0); Hemoglobin 11.5 g/dL (14.0-18.0); Immature Granulocyte Percent A 0.9 % (0-0.5); Lymphocytes Absolute Auto 2.12 K/mm3 (0.9-3.2); Mean Corpuscular HGB Conc 33.0 g/dl (32-36); Mean Corpuscular Hemoglobin 29.2 pg (26-34); Mean Corpuscular Volume 88.6 fl (80-100); Nucleated Red Blood Cells Absolute Auto 0.000 K/mm3 (0.0-0.012); Nucleated Red Blood Cells Perc 0.0 % (0.0-0.2); Platelet Count Result 236 k/mm3 (150-375); Red Blood Count 3.94 M/mm3 (4.6-6.20); White Blood Count 9.6 K/mm3 (4.5-10.0)
[2025-04-24 16:00] LABS: Hemoglobin A1C 7.6 % (<5.7)
[2025-04-24 16:04] LABS: Albumin Level 4.2 g/dL (3.5-5.1); Anion Gap 7 mmol/L (4-12); Blood Urea Nitrogen 24 mg/dL (9-20); Calcium 8.8 mg/dL (8.4-10.2); Carbon Dioxide 31 mmol/L (22-30); Chloride 101 mmol/L (98-107); Estimated Glomerular Filt Rate 44; Glucose 123 mg/dL (65-110); Potassium 3.7 mmol/L (3.4-5.0); Sodium 139 mmol/L (137-145)
--- OUTSIDE RECORDS SUMMARY | 2025-04-24 16:39 | XMS_ITS | Encounter Summary ---
Author Organization [facility] [facility] Address [address] [facility] [place] [address] Phone Care Team Providers Care Swimming Professor Name Role Phone Jose Rodriguez MD Primary Care Provider [phone] Reason for Visit * Reason Comments Med Refill Encounter Details Date Type Department Care Team (Late st Contact Info) Description 04/22/2021 Refill [facility], [address] [place] [address] Vimal Peacock DO [address] [facility] 1 [place] [address] Social History Tobacco Use Types [...] Care Team (Late st Contact Info) Description 06/06/2025 2:15 PM CDT Office Visit [facility], [facility] [address] [facility] 15 [place] [address] Vimal Peacock DO [address] [facility] 1 [place] [address] documented as of this encounter Visit Diagnoses Not on filedocumented in this encounter Care Teams Swimming Professor Relationship Specialty Start Date End Date Jose Rodriguez MD [address] [facility], [address] [place] [address] PCP - General Internal Medicine 07/07/22 documented as of this encounter
--- OUTSIDE RECORDS SUMMARY | 2025-04-24 16:39 | XMS_ITS | Clinical Summary ---
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 Gender Identity Not on file Sexual Orientation Not on file Obstetrics History Last Filed Vital Signs Vital Sign Reading Time Taken Comments Blood Pressure 118/72 08/26/2017 8:30 AM DIE REAMER Pulse 69 11/13/2016 12:00 PM CDT Temperature - - Respiratory Rate - - Oxygen Saturation 96% 11/13/2016 12:00 PM CDT Inhaled Oxygen Concentration - - Weight 101.2 kg (223 lb) 08/26/2017 8:30 AM DIE REAMER Height 177.8 cm (5' 10) 08/26/2017 8:30 AM DIE REAMER Body Mass Index 32 08/26/2017 8:30 AM DIE REAMER Plan of Treatment Health Maintenance Due Date Last Done Comments Colon Cancer Screening-Colonoscopy 1955 Depression Screening 1955 Fall Risk Assessment 1955 Hepatitis C Screening 1955 Hepatitis B Screening 1973 Zoster Vaccine (2 of 3) 09/15/2014 07/21/2014 DTaP/Tdap/Td Vaccine (1 - Tdap) 08/11/2016 7 Abdominal Aortic Aneurysm (A AA) Screen 02/03/2020 Well Visit 65+ 02/03/2020 Covid-19 Vaccine (3 - 2024-2 6 season) 2025 04/01/2021, 03/04/2021 Influenza Vaccine (#1) 2025 , 05/09/2020, 07/11/2019, Additional history exists Pneumococcal vaccine 65+ Completed 04/08/2021, 03/10 Insurance MEDICARE ANTH TRADITIONAL Care Teams Thoracic Surgeon Relationship Specialty Start Date End Date Will Rodriguez MD [address] [facility] 15 [place] [address] PCP - General 05/11/17
--- OUTSIDE RECORDS SUMMARY | 2025-04-24 16:39 | XMS_ITS | Encounter Summary ---
Author Organization [employer] [facility] Address [address] [facility] [place] [address] Phone Care Team Providers Care Box Stamper Name Role Phone Jose Rodriguez MD Primary Care Provider [phone] Reason for Visit * Reason Comments Med Refill Encounter Details Date Type Department Care Team (Late st Contact Info) Description 04/25/2021 Refill [facility], [address] [place] [address] Vimal Peacock DO [address] [facility] 1 [place] [address] Social History Tobacco Use Types [...] Description 06/06/2025 2:15 PM CDT Office Visit [facility] [address] [facility] 15 [place] [address] Vimal Peacock DO [address] [facility] 1 [place] [address] documented as of this encounter Visit Diagnoses Not on filedocumented in this encounter Care Teams Box Stamper Relationship Specialty Start Date End Date Jose Rodriguez MD [address] [facility], [address] [place] [address] PCP - General Internal Medicine 07/07/22 documented as of this encounter
--- OUTSIDE RECORDS SUMMARY | 2025-04-24 16:39 | XMS_ITS | Clinical Summary ---
Author Organization [facility] Address [address] [address] Phone Care Team Providers Care Trial Attorney Name Role Phone Jose Rodriguez MD Primary Care Provider [phone] Medications carvedilol (COREG) 12.5 MG tablet Comments: Filled Date: Nov 26 2018 8:53AM Patient Notes: TAKE 1 TABLET BY MOUTH TWICE DAILY 06/03/20 18 Active tamsulosin (FLOMAX) 0.4 MG 24 hr capsule Comments: Filled Date: May 17 2020 10:27AM Patient Notes: TAKE 2 CAPSULES BY MOUTH ONCE DAILY AT NIGHT Duration: 90 05/17/20 20 Active losartan (COZAAR) 100 MG tablet Take 1 tablet (100 mg total) by mouth 1 (one) time each day 90 tablet 01/18/20 21 Active metFORMIN (GLUMETZA) 500 MG 24 hr tablet Take 1 tablet (500 mg total) by mouth in the morning and 1 tablet (500 mg total) in the evening. Do not crush, chew, or split.. 180 tablet 1 12/03/19 23 Active metFORMIN (GLUCOPHAGE) 1000 MG tablet Take 1 tablet (1,000 mg total) by mouth in the morning and 1 tablet (1,000 mg total) in the evening. Take with meals. 180 tablet 1 02/01/20 25 026 Active indapamide (LOZOL) 2.5 MG tablet TAKE 1 TABLET BY MOUTH ONCE DAILY IN THE MORNING 90 tablet 03/14/20 25 Active olmesartan (BENICAR) 40 MG tablet TAKE 1 TABLET BY MOUTH ONCE DAILY AT NIGHT 90 tablet 03/14/20 25 Active cloNIDine 0.1 MG/24HR patch weekly APPLY 1 PATCH TOPICALLY ONCE A WEEK 12 patch 04/17/20 25 Active cloNIDine 0.1 MG/24HR patch weekly Place 0.1 mg on the skin per week 12 patch 1 11/02/19 25 025 Discontinued Active Problems Problem Noted Date Diagnosed Date Essential hypertension 11/01/2024 Encounters Date Type Department Care Team Description 04/16/2025 Refill [facility], [facility] [address] [place] [address] Vimal Peacock, 03/13/2025 Refill [facility] [address] [phone] Vimal Peacock, 01/31/2025 2:00 PM CDT Office Visit [employer] [facility] [address] [phone] Vimal Peacock, DO Chronic kidney disease, stage 2 (mild) (Primary Dx); Benign prostatic hyperplasia; 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>; Hypertensive chronic kidney disease; Type 2 diabetes mellitus with diabetic chronic kidney disease (HCC); Pure hypercholesterolemia, not otherwise specified; Secondary hyperparathyroidism (HCC) 01/31/2025 Refill [employer] [facility], [facility] [address] [phone] Beronica Mckinley CMA from Last 3 Months Social History Tobacco [...] Sign Reading Time Taken Comments Blood Pressure 122/60 01/31/2025 2:10 PM CDT Pulse 90 01/31/2025 2:10 PM CDT Temperature 36.1 C (97 F) 09/20/2024 3:10 PM [employer] ARCHIT[employer] Respiratory Rate 18 01/31/2025 2:10 PM CDT Oxygen Saturation 95% 01/31/2025 2:10 PM CDT Inhaled Oxygen Concentration - - Weight 99.8 kg (220 lb) 01/31/2025 2:10 PM CDT Height 177.8 cm (5' 10) 01/31/2025 2:10 PM CDT Body Mass Index 31.57 01/31/2025 2:10 PM CDT Plan of Treatment Upcoming Encounters Date Type Department Care Team (Late st Contact Info) Description 06/06/2025 2:15 PM CDT Office Visit [facility], [facility] [address] [facility] 15 [place] [address] Vimal Peacock, [address] [facility] 1 [place] [address] Health Maintenance Due Date Last Done Comments Colorectal Cancer Screening: Annual FOBT 02/03/2004 Colorectal Cancer Screening: Sigmoidoscopy 02/03/2004 Hepatitis B Vaccine (1 of 3 - Risk 3-dose series) 2015 Diabetes: Hemoglobin A1C 07/17/2022 Diabetes: Ophthalmology Exam 07/17/2022 Diabetes: Pedal Pulse Checked 07/17/2022 Diabetes: Sensory Foot Exam 07/17/2022 Diabetes: Visual Foot Exam 07/17/2022 Influenza Vaccine (#1) 2025 4, 05/09/2020, 07/11/2019, Additional history exists Colorectal Cancer Screening: Colonoscopy 03/05/2027 03/05/2017 Pneumococcal Vaccine: 50+ Years Completed 1, 03/19/2020 Pneumococcal Vaccine: Peds ( 0 to 5 Years) and At-Risk Patients (6 to 49 Years) Discontinued 04/08/2021, 03/19/2020 Insurance [facility] Medicare Care Teams Trial Attorney Relationship Specialty Start Date End Date Jose Rodrigeuz MD [address] [facility], [address] [place] [address] PCP - General Internal Medicine 07/07/22
--- OUTSIDE RECORDS SUMMARY | 2025-04-24 16:39 | XMS_ITS | Clinical Summary ---
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 Plan of Treatment Health Maintenance Due Date Last Done Comments Hepatitis C Virus (HCV) Screening 1955 TdaP Immunization 1955 Cologuard 02/03/2000 Colonoscopy 02/03/2000 Colorectal Cancer Screening 02/03/2000 Immunochemical Fecal Occult Blood 02/03/2000 Pneumococcal Immunization (5 0+ years) (1 of 1 - PCV) 2005 Zoster Immunization (1 of 2) 2005 SARS-COV-2 Immunization (1 - 2023- season) 2024 Influenza Immunization (#1) 2025 Respiratory Syncytial Virus (RSV) Immunization (Adult) (1 - 1-dose 75+ series) 2030 Hepatitis B Immunization Aged Out No longer eligible based on patient's age to complete this topic Human Papillomavirus (HPV) Immunization Aged Out No longer eligible b ased on patient's age to complete this topic Meningococcal Immunization (ACWY) Aged Out No longer eligible based on patient's age to complete this topic Rotavirus Immunization Aged Out No lo nger eligible based on patient's age to complete this topic Insurance [facility] MEDICARE Care Teams Application Internship Relationship Specialty Start Date End Date Robel Prasad MD PCP - General Internal Medicine 07/22/16
== END 2025-04-24 13:54 | disposition home or self-care (01) ==
LOC: ANHSURGERY 13:57
PROVIDERS: PCP Internal Medicine; Visit Provider Orthopaedic Surgery
DX: Z01.818 Encounter for other preprocedural examination (principal); M16.12 Unilateral primary osteoarthritis, left hip; R94.31 Abnormal electrocardiogram [ECG] [EKG]
CPT/HCPCS: 80048; 80307; 82040; 83036; 85025; 87081; 93005

== ENCOUNTER 2025-06-15 00:24 | Day surgery (SDC) | payer MEDICARE, BC, SELFPAY ==
[2025-04-24 14:22] VITALS: BP 131/78; PULSE 73; RESP 16; TEMP 36.9; O2SAT 97; BMI 34.0
--- NOTE | 2025-04-24 14:52 | PC.NURSE ---
Addendum entered by Tram Hernandez RN 04/26/25 10:44: Patient instructed not to remove clonidine patch prior to surgery (per instructions from Dr. Hill). Pt verbalizes understanding. Original Note: Report to the Outpatient Waiting Room, entrance under the green pavilion located off [facility], at time __6:00AM___ on date __05/15/25___. Planned Procedure Time: __7:30AM____.? Time changes happen often and if your time is changed the preop area will call you the afternoon before. - You and your visitor will be asked to self-screen and do not enter if you have any COVID symptoms. Please call surgeon if you need to reschedule. - A mask is optional within the hospital at this time. Patients may have clear liquids (water, carbonated beverages, clear teas, apple juice) until 3 hours prior to surgery (4:30AM) with a maximum of 20 ounces. - No food from midnight until time of surgery and no smoking, or chewing tobacco (or any form of nicotine). No chewing gum, candy or mints. Take only the following medications with a SIP of water on the morning of surgery: __CARVEDILOL, DULOXETINE. MAY TAKE TRAMADOL NEEDED FOR PAIN DO NOT STOP ANY OF YOUR OTHER PRESCRIPTION MEDICATIONS PRIOR TO SURGERY EXCEPT THE FOLLOWING Hold all vitamins and supplements for 3 days per anesthesiologist.- LAST DOSE 05/11/25 Medications to discontinue per physician __HOLD MELOXICAM(ALL NSAIDS) AND VASCEPA 7 DAYS PRE-OP Date to take last dose 05/07/25 Please no make-up, nail french, hairspray, perfume, deodorant, or body powder the day of surgery.? No jewelry (including any body piercings) or valuables the day of surgery, leave them at home.? Please take a shower or bath the night before, or the morning of, surgery with an antibacterial soap.? Wear comfortable, loose fitting clothing.? - Jewelry must be removed prior to entering the operating room.? Rings and piercings that are not removed may be cut off. - The hospital will not accept responsibility for valuables.? - Please leave all valuables, including medications, at home the day of surgery. If you are going home after surgery, a licensed ross carrier driver must drive you home.? - NO public transportation without another adult if you receive anesthesia. - We recommend that an adult stay with you for 24 hours following discharge. - We also recommend that you do not drive, make important decision, drink alcoholic beverages, or take any drugs that were not prescribed by your health care provider for at least 24 hours after your discharge time. Follow any additional instructions given to you from your surgeon. Telephone instructions given to ____PATIENT and asked if any additional questions and then verbalized understanding. Patient advised to call surgeon office or pre surgery nurse liaison [phone] if any additional questions.
--- OUTSIDE RECORDS SUMMARY | 2025-06-08 03:52 | XMS_ITS | Continuity of Care Document ---
Author Organization [facility] Address [address] [place] [address] Phone Care Team Providers Care Nurse Auditor Name Role Phone Emil SCHMIDT, FACC, Franko [...] mg/24 hr weekly transdermal patch - Active tramadol 50 mg tablet - Acti ve finasteride 5 mg tablet - Ac tive duloxetine 30 mg capsule,delayed release TAKE 1 CAPSULE BY MOUTH TWICE DAILY - Active indapamide 2.5 mg tablet - Active olmesartan 40 mg tablet TAKE 1 TABLET BY MOUTH ONCE DAILY AT NIGHT - Active Vascepa 1 gram capsule - Act faviola carvedilol 25 mg tablet TAKE 1 TABLET BY MOUTH TWICE DAILY - Active rosuvastatin 40 mg tablet TAKE 1 TABLET BY MOUTH ONCE DAILY - Active omeprazole 20 mg capsule,delayed release TAKE 1 CAPSULE BY MOUTH ONCE DAILY NEEDED - Active tamsulosin 0.4 mg capsule - Active metformin 1,000 mg tablet TAKE 1 TABLET BY MOUTH TWICE DAILY WITH MORNING MEAL AND WITH EVENING MEAL - Active acetaminophen 300 mg-codeine 30 mg tablet TAKE 1 TABLET BY MOUTH EVERY 6 HOURS - Active Procedures Procedure Date NTRPROF PH1/NTRNET/EHR OFFICE/OUTPATIENT VISIT, EST Advance Directives Directive Yes / No Effective Date File Name No Information Encounters Encounter Description Practice Location Reason(s) For Visit Diagnoses Date Provider Providers Copied on Encounter NTRPROF PH1/NTRNET/E HR [facility], [address] [place] [address], [id number] , tel: [phone] [facility] Worship Encounter for preprocedural cardiovascular exam 5 Emil Abdul. [facility] [address], [place], [place], [id number] , . tel: [phone] Referring Provider: Franko Stein, [address], [place], [address] . tel:[phone] OFFICE/OUTPA TIENT VISIT, EST [facility], [address] [place] [address], [id number] , tel: [phone] [facility] [place] follow up (chief complaint) Body mass index [BMI] 34.0-34.9, adultEssential (primary) hypertensionAortic aneurysm of unspecified site, without ruptureChest pain, unspecifiedHx of DVT 5 Emil Abdul. [address], [place], [place], [id number] , . tel: [phone] Referring Provider: Franko Stein, [address], [place], [address] . tel:[phone] [facility], [address] [place] [address], [id number] , tel: [phone] [facility] [place] No Information 5 Emil Abdul. [facility] [address], [place], [place], [id number] , . tel: [phone] [facility], [address] [place] [address], [id number] , tel: [phone] [facility] No Information Emil Abdul. [address], [place], [place], [id number] , . tel: [phone] [facility], [address] [place], [place], [id number] , tel: [phone] [facility] [place] Vein thrombosisAortic aneurysm of unspecified site, without ruptureMixed hyperlipidemiaEssent ial (primary) hypertensionChest pain, unspecified 5 Emil Abdul. [address], [place], [place], [id number] , [place]. tel: [phone] Family History Family Member Type Diagnosis Age At Onset No Information Payers Payer name Insurance type Covered republican ID Authorkeyaa stashoracio(s) [place] MED[place] CI [id number] [facility] CI [id number] Social History Type Description Quantity Date Captured Comments Alcohol Use Details Unknown Caffeine Use Details Unknown Tobacco Use Status No Information Smoking Status No Information Sex Male Chief Complaint And Reason For Visit No Information Reason For Referral Reason For Referral No Information Plan Of Treatment Date Type Action Status Goal Dietary manageme nt education, guidance, and counseling completed Appointment Terry Mace BOOKED History Of Present Illness Encounter Date Complaint History Of Prese nt Illness follow up Functional Status Date Functional Assessmen t No Information Instructions Date Instruction Additional Infor mation Dietary management e ducation, guidance, and counseling Related to Body mass index [BMI] 34.0-34.9, adult Assessments Type Assessment Date No Information Patient Care Teams Name Effective Dates (start - stop) Status Members No Information
[2025-06-08 10:44] VITALS: BMI 32.8
--- NOTE | 2025-06-08 10:50 | PC.NURSE ---
[facility] has started construction of its new state of the art ER which will open Spring 2026. With this, we anticipate parking may be a challenge for some our surgical patients and families. Parking spaces are limited but are available for all Surgical, obstetrics, and ER patients sharing this lot. If you arrive and find you are having a hard time finding a parking space, please note that we understand the challenges, please drive around the hospital and park near Hospital Entrance 1. When you enter this entrance, you can ask a volunteer to direct or take you back to the surgical waiting area to check in. We appreciate everyone?s understanding of these expected challenges while we build for your future. Report to the Outpatient Waiting Room, entrance under the green pavilion located off [address], at time ___8:30AM___ on date ___06/15/25____. Planned Procedure Time: __10:30AM____.? Time changes happen often and if your time is changed the preop area will call you the afternoon before. - You and your visitor will be asked to self-screen and do not enter if you have any COVID symptoms. Please call surgeon if you need to reschedule. - A mask is optional within the hospital at this time. Patients may have clear liquids (water, carbonated beverages, clear teas, apple juice) until 3 hours prior to surgery (7:30AM) with a maximum of 20 ounces. - No food from midnight until time of surgery and no smoking, or chewing tobacco (or any form of nicotine). No chewing gum, candy or mints. Take only the following medications with a SIP of water on the morning of surgery: ___CARVEDILOL, DULOXETINE. MAY TAKE TRAMADOL NEEDED FOR PAIN. LEAVE CLONIDINE PATCH IN PLACE FOR SURGERY, PER DR LUIS. DO NOT STOP ANY OF YOUR OTHER PRESCRIPTION MEDICATIONS PRIOR TO SURGERY EXCEPT THE FOLLOWING Hold all vitamins and supplements for 3 days per anesthesiologist. LAST DOSE 06/11/25 Medications to discontinue per physician __HOLD VASCEPA 7 DAYS PRE- OP PER DR WORKMAN/PER PATIENT Date to take last dose 06/07/25 Please no make-up, nail citizen of [place], hairspray, perfume, deodorant, or body powder the day of surgery.? No jewelry (including any body piercings) or valuables the day of surgery, leave them at home.? Please take a shower or bath the night before, or the morning of, surgery with an antibacterial soap.? Wear comfortable, loose fitting clothing.? - Jewelry must be removed prior to entering the operating room.? Rings and piercings that are not removed may be cut off. - The hospital will not accept responsibility for valuables.? - Please leave all valuables, including medications, at home the day of surgery. If you are going home after surgery, a licensed driver engineer must drive you home.? - NO public transportation without another adult if you receive anesthesia. - We recommend that an adult stay with you for 24 hours following discharge. - We also recommend that you do not drive, make important decision, drink alcoholic beverages, or take any drugs that were not prescribed by your health care provider for at least 24 hours after your discharge time. Follow any additional instructions given to you from your surgeon. Telephone instructions given to ___PATIENT and asked if any additional questions and then verbalized understanding. Patient advised to call surgeon office or pre surgery nurse liaison [phone] if any additional questions.
--- NOTE | 2025-06-14 16:34 | PM.IMHP ---
H&P: HPI History of Present Illness Date/Time: 06/14/25 16:34 Chief Complaint: Left hip DJD Narrative: 70-year-old male who presents today for left anterior total hip arthroplasty. Patient has been having symptoms for over a year. At that time patient had [id number] osteoarthritis of the hip. He underwent cortisone injection in June of 2024 and did get some good relief. Patient has been seeing pain management for his low back. He has had surgery and continues to have symptoms. They did another injection in the left hip in January of this year. Patient has had continued symptoms of pain in the left groin particular with weight-bearing as well as range of motion. Symptoms are daily and rather severe. Patient has had progression of the osteoarthritis in the hip to the point now read as moderately severe. He was started on low-dose meloxicam 7.5 mg however this caused his creatinine did elevate. Medication was stopped and creatinine returned to normal. Patient this point is fairly miserable with pain emanating from his hip. He feels he is ready proceed with total hip arthroplasty at this point rather than continue nonsurgical treatment. Review of Systems Review of Systems: All systems reviewed & are unremarkable except as noted in HPI and below PMFSH Past Medical History Medical History History of DVT (deep vein thrombosis) Diabetes Hyperlipidemia Hypertension BPH (benign prostatic hyperplasia) Surgical History Surgical History History of hand surgery History of inguinal hernia repair lower right History of total left knee replacement History of lumbosacral spine surgery H/O arthroscopic knee surgery left Family History Family History Father , Felty's syndrome. No problems noted. Mother , Failure to thrive. No problems noted. Sibling Hypertension Hyperlipidemia Social History Social History (Updated 04/20/25 @ 14:35 by Jazmine Jenkins [facility]) Smoking packs per day: 2 Smoking cigarettes per day: 40.0 Years smoked: 20 Smoking pack-years: 40.00 Smoking status: Former smoker Tobacco type: cigarettes Second hand tobacco smoke exposure: Yes Smoking end date: 02/08/80 Alcohol intake: former Alcohol use details: SOMEWHAT HEAVY DRINKER PRIOR TO 1997 Substance use: never Substance use type: does not use Do You Feel Safe in your Home?: Yes Lack of Transportation: No Lack of Food: Never True Current Housing: I Have Housing Concerned About Future Housing: No Difficulty Paying Gas/Electric Bills: No Difficulty Paying for Meds: No Currently Unemployed: No Education: Trade/Vocational Certificate Difficulty w/ Childcare or Family Care: No Living arrangements: alone Additional living arrangements comments: Occupation/Education: retired 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 Gender identity (if verbalized by the patient): Male Spiritual care concerns: No Meds Home Medications and Allergies Home Medications ?Medication ?Instructions ?Recorded ?Confirmed ?Type finasteride 5 mg tablet 5 mg PO DAILY 12/25/23 06/08/25 History nifedipine 90 mg tablet,extended 90 mg PO DAILY 12/25/23 06/08/25 History release tamsulosin 0.4 mg capsule 0.4 mg PO BID 12/25/23 06/08/25 History icosapent ethyl 1 gram capsule 2 g PO BID 02/15/24 06/08/25 History (Vascepa) carvedilol 25 mg tablet 25 mg PO Q12H 03/25/24 06/08/25 History omeprazole 20 mg capsule,delayed 20 mg PO DAILY 03/25/24 06/08/25 History release tramadol 50 mg tablet 50 mg PO Q8H PRN pain #40 tabs 05/02/24 06/08/25 Rx acetaminophen 500 mg tablet 1,000 mg PO Q6H PRN pain 04/24/25 06/08/25 History (Acetaminophen Extra Strength) ascorbic acid (vitamin C) 1,000 mg 1 g PO DAILY 04/24/25 06/08/25 History capsule chlorpheniramine maleate 4 mg 4 mg PO Q12H PRN allergy symptoms 04/24/25 06/08/25 History tablet (Allergy-Time) cholecalciferol (vitamin D3) 50 2,000 unit PO ONCE 04/24/25 06/08/25 History mcg (2,000 unit) capsule clonidine 0.1 mg/24 hr weekly 1 patch topical WEEKLY 04/24/25 06/08/25 History transdermal patch duloxetine 30 mg capsule,delayed 30 mg PO BID 04/24/25 06/08/25 History release indapamide 2.5 mg tablet 2.5 mg PO QAM 04/24/25 06/08/25 History olmesartan 40 mg tablet 40 mg PO QAM 04/24/25 06/08/25 History rosuvastatin 40 mg tablet 40 mg PO DAILY 04/24/25 06/08/25 History magnesium oxide 400 mg PO BID 06/08/25 06/08/25 History metformin 1,000 mg tablet 1,000 mg PO BID 06/08/25 06/08/25 History Allergies Allergy/AdvReac Type Severity Reaction Status Date / Time No Known Allergies Allergy Verified 06/08/25 10:42 Exam Narrative: 70-year-old male he is 5 ft 8 and 220 lb BMI is 32.9. He walks with a prominent limp. He complains pain in the knee and with weight-bearing. Skin around the hip and groin crease are normal. His left hip flexes to 110 which causes anterior groin pain and lateral hip pain. He lacks 10? from neutral for internal rotation which causes moderately severe groin pain. External rotation to 45? which causes no discomfort. Stinchfield maneuver caused moderately severe anterior groin pain. He has a normal abduction strength in lateral position. Mild tenderness over the greater trochanter. No edema in either lower extremity. 2+ dorsalis pedis pulse palpable. Normal sensation left lower extremity. Resp: Auscultation: clear to auscultation bilaterally Cardio: Rate: regular rate Rhythm: regular rhythm Assessment and Plan Assessment and plan (1) Primary osteoarthritis of left hip: Code(s): M16.12 - Unilateral primary osteoarthritis, left hip Status: Acute Plan 7-year-old male who has moderately severe osteoarthritis left hip with severe daily symptoms. At this point patient is ready to proceed with total hip arthroplasty rather continue nonsurgical treatment. Surgical procedures well as risks and complications were discussed in detail and all questions were answered. Patient has seen cardiology and has been cleared without additional testing. He will see his primary care doctor for pre-surgical clearance. His nasal swab was negative. Hemoglobin A1c was 7.6. Hemoglobin 12.6 platelets are 270. Creatinine 0.99.
[2025-06-15] VITALS (12 sets, daily range): BP systolic 90–126; BP diastolic 52–81; PULSE 76–113; RESP 12–20; TEMP 35.8–36.3; O2SAT 93–100
--- NOTE | ~2025-06-15 | XR_ITS ---
EXAM/PROCEDURE: XR hip LT 1V w AP pelvis HISTORY: LEFT TOTAL HIP ARTHROPLASTY ANTERIOR APPROACH, POST-OP COMPARISON: 04/20/2025 TECHNIQUE: Left hip and AP pelvis FINDINGS: Left total hip arthroplasty hardware appears in good position with no gross acute complication. IMPRESSION: Status post left hip arthroplasty. Bones and hardware appear in good alignment. Reviewed, dictated and finalized at location A. GER LANDSCAPE
--- NOTE | ~2025-06-15 | XR_ITS ---
EXAMINATION: X-ray surgery or focal no charge INDICATION: Left total hip arthroplasty. COMPARISON: March 14 TECHNIQUE: 1 fluoroscopic images of the left hip were obtained during total hip arthroplasty. Fluoroscopy exposure time was 41 seconds. Air Kerma 14.04 mGy. DAP 0.3712 mGym2. FINDINGS/IMPRESSION: No radiologist was present or involved at the time of the procedure. Static images were submitted for interpretation. A single image with underpenetration demonstrates placement of total hip arthroplasty. Fluoroscopic documentation of total hip arthroplasty. Please refer to the operative note for complete procedural details Reviewed, dictated and finalized at location A. 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
[2025-06-15] MEDS: ACETAMINOPHEN 500 MG TABLET 1000 MG PO (09:30)
[2025-06-15 09:49] LABS: Hematocrit 39.3 % (42.0-52.0); Hemoglobin 13.0 g/dL (14.0-18.0); Mean Corpuscular HGB Conc 33.1 g/dl (32-36); Mean Corpuscular Hemoglobin 28.7 pg (26-34); Mean Corpuscular Volume 86.8 fl (80-100); Platelet Count Result 266 k/mm3 (150-375); Red Blood Count 4.53 M/mm3 (4.6-6.20); White Blood Count 11.6 K/mm3 (4.5-10.0)
[2025-06-15] MEDS: VANCOMYCIN 1,500 MG/NS 500 ML 1,500 MG/500 ML BAG 250 MG IVPB (10:00)
[2025-06-15] MEDS: LACTATED RINGERS 1,000 ML 30 ML IV CONT ×2 (10:00→15:12)
[2025-06-15] MEDS: TRANEXAMIC ACID 1,000MG/ISO100 1,000 MG/100 ML BAG 200 MG IVPB (10:00)
[2025-06-15 10:07] LABS: Anion Gap 5 mmol/L (4-12); Blood Urea Nitrogen 26 mg/dL (9-20); Calcium 9.8 mg/dL (8.4-10.2); Carbon Dioxide 33 mmol/L (22-30); Chloride 98 mmol/L (98-107); Estimated CRCL calculation 60 ml/min; Estimated Glomerular Filt Rate > 60; Glucose 144 mg/dL (65-110); Potassium 4.2 mmol/L (3.4-5.0); Sodium 136 mmol/L (137-145)
--- NOTE | 2025-06-15 10:14 | WPDHPUPDATE1 ---
History and Physical Update Update Date/Time: 06/15/25 10:14 History and Physical has been reviewed, including an updated exam of the patient. There are NO changes in the patient's condition. Risks, benefits, and alternatives have been discussed and questions answered. Patient agrees to proceed with procedure.
--- NOTE | 2025-06-15 10:30 | WPDANESEPPF ---
Anes - Initial Pre Proc Eval Procedure: Operation Date: 06/15/25 10:30 Proposed Procedures p Left Total Hip Arthroplasty, Anterior Approach - Luke Myers MD Date/Time: 06/15/25 10:30 Surgeon: Luke Myers MD Pre Op Diagnosis: O A Left Hip Patient Data Age: 70 Gender: M Height: 1.73 m Weight: 94.4 kg Last Vital Signs Temp 96.9 F L 06/15/25 09:15 Pulse 83 06/15/25 09:15 Resp 18 06/15/25 09:15 BP 105/67 06/15/25 09:15 Pulse Ox 99 06/15/25 09:15 O2 Del Method Room Air 06/15/25 09:15 Allergies Allergy/AdvReac Type Severity Reaction Status Date / Time No Known Allergies Allergy Verified 06/15/25 09:52 Home Medications ?Medication ?Instructions ?Recorded ?Confirmed ?Type finasteride 5 mg tablet 5 mg PO DAILY 12/25/23 06/15/25 History nifedipine 90 mg tablet,extended 90 mg PO DAILY 12/25/23 06/15/25 History release tamsulosin 0.4 mg capsule 0.4 mg PO BID 12/25/23 06/15/25 History icosapent ethyl 1 gram capsule 2 g PO BID 02/15/24 06/15/25 History (Vascepa) carvedilol 25 mg tablet 25 mg PO Q12H 03/25/24 06/15/25 History omeprazole 20 mg capsule,delayed 20 mg PO DAILY 03/25/24 06/15/25 History release tramadol 50 mg tablet 50 mg PO Q8H PRN pain #40 tabs 05/02/24 06/15/25 Rx acetaminophen 500 mg tablet 1,000 mg PO Q6H PRN pain 04/24/25 06/15/25 History (Acetaminophen Extra Strength) ascorbic acid (vitamin C) 1,000 mg 1 g PO DAILY 04/24/25 06/15/25 History capsule chlorpheniramine maleate 4 mg 4 mg PO Q12H PRN allergy symptoms 04/24/25 06/15/25 History tablet (Allergy-Time) cholecalciferol (vitamin D3) 50 2,000 unit PO ONCE 04/24/25 06/15/25 History mcg (2,000 unit) capsule clonidine 0.1 mg/24 hr weekly 1 patch topical WEEKLY 04/24/25 06/15/25 History transdermal patch duloxetine 30 mg capsule,delayed 30 mg PO BID 04/24/25 06/15/25 History release indapamide 2.5 mg tablet 2.5 mg PO QAM 04/24/25 06/15/25 History olmesartan 40 mg tablet 40 mg PO QAM 04/24/25 06/15/25 History rosuvastatin 40 mg tablet 40 mg PO DAILY 04/24/25 06/15/25 History magnesium oxide 400 mg PO BID 06/08/25 06/15/25 History metformin 1,000 mg tablet 1,000 mg PO BID 06/08/25 06/15/25 History Laboratory Tests 06/15/25 09:42 WBC 11.6 H K/mm3 (4.5-10.0) RBC 4.53 L M/mm3 (4.6-6.20) Hgb 13.0 L g/dL (14.0-18.0) Hct 39.3 L % (42.0-52.0) MCV 86.8 fl (80-100) MCH 28.7 pg (26-34) MCHC 33.1 g/dl (32-36) RDW 14.0 % (11.5-14.5) Plt Count 266 k/mm3 (150-375) MPV 9.2 fl (7.4-10.4) Sodium 136 L mmol/L (137-145) Potassium 4.2 mmol/L (3.4-5.0) Chloride 98 mmol/L (98-107) Carbon Dioxide 33 H mmol/L (22-30) Anion Gap 5 mmol/L (4-12) BUN 26 H mg/dL (9-20) Creatinine 1.16 mg/dL (0.7-1.3) Estim Creat Clear Calc 60 ml/min Estimated GFR > 60 (59 - ) Glucose 144 H mg/dL (65-110) POC Capillary Glucose 149 H mg/dl (65-105) Calcium 9.8 mg/dL (8.4-10.2) Blood Type A Negative Antibody Screen Pending Patient hx anesthesia problems: none Family hx anesthesia problems: none Results Review: All pre-operative results and documents have been reviewed as part of the pre-operative evaluation. [facility] Past Medical History Medical History History of DVT (deep vein thrombosis) Diabetes Hyperlipidemia Hypertension BPH (benign prostatic hyperplasia) Surgical History Surgical History History of hand surgery History of inguinal hernia repair lower right History of total left knee replacement History of lumbosacral spine surgery H/O arthroscopic knee surgery left Family History Family History Father , Felty's syndrome. No problems noted. Mother , Failure to thrive. No problems noted. Sibling Hypertension Hyperlipidemia Social History Social History Smoking packs per day: 2 Smoking cigarettes per day: 40.0 Years smoked: 20 Smoking pack-years: 40.00 Smoking status: Former smoker Tobacco type: cigarettes Second hand tobacco smoke exposure: Yes Smoking end date: 02/08/80 Alcohol intake: former Alcohol use details: SOMEWHAT HEAVY DRINKER PRIOR TO 1997 Substance use: never Substance use type: does not use Do You Feel Safe in your Home?: Yes Lack of Transportation: No Lack of Food: Never True Current Housing: I Have Housing Concerned About Future Housing: No Difficulty Paying Gas/Electric Bills: No Difficulty Paying for Meds: No Currently Unemployed: No Education: Trade/Vocational Certificate Difficulty w/ Childcare or Family Care: No Living arrangements: alone Additional living arrangements comments: Occupation/Education: retired 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 ) Neurological: alert and oriented Last oral intake: >/= 8 hours ASA classification: III Emergent: no Anesthetic plan: proceed Anesthesia type and monitoring: general ETT and standard monitoring Results Review: All pre-operative results and documents have been reviewed as part of the pre-operative evaluation. HTN, hyperlipidemia, DM fsbs 144, appreciate cardio and nephro clearance. Pt denies FEMI or s/s. Informed Consent: The patient's anesthetic plan and its attendant risks and benefits were discussed with the patient/family/POA. Questions were solicited and answers provided to the satisfaction of the patient/family/POA.
[2025-06-15 11:07] LABS: Iron 43 ug/dL (49-181)
[2025-06-15 11:17] LABS: Percent Iron Saturation 15 % (20-50)
[2025-06-15] MEDS: ceFAZolin 2 GM in SODIUM CHLORIDE 0.9% IV 50 ML 100 ML IVPB ×2 (11:20→18:10)
[2025-06-15 11:49] LABS: Ferritin 329.00 ng/mL (11.1-264)
[2025-06-15] MEDS: SODIUM CHLORIDE 0.9% IV 38.7 ML, MORPHINE SULFATE INJ (*CRX) 2 MG, ROPivacaine HCL 1% 2... INFILTRATE (12:22)
[2025-06-15] MEDS: TRANEXAMIC ACID 1,000 MG/10 ML AMPUL 1000 MG IV PUSH (14:27)
[2025-06-15] MEDS: fentaNYL CITRATE INJ (*CRX) 100 MCG/2 ML VIAL 25 MCG IV PUSH ×6 (15:26→15:48)
--- NOTE | 2025-06-15 15:43 | W.PM.PROC2 ---
Procedure Note - Detailed Date of Procedure 06/15/25 Pre-op Diagnosis O A Left Hip Post-op Diagnosis Same Procedure Performed Direct anterior approach left total hip arthroplasty Surgeon Luke Myers MD [employer] [facility] Anesthesia General Description of Procedure Patient was brought to the operating room and general anesthesia was administered. He received 2 g of Ancef weight based vancomycin 1 g of TXA preoperatively. Bergman catheter was placed. The feet were padded and boots applied. SCDs applied to the calves and running during the procedure. He was transferred to the [facility] table and the left hip prepped draped usual fashion. A 10 cm longitudinal incision was made starting 3 cm lateral to the ASIS. Dissection was carried down to the fascia over the tensor fascia oliver which was exposed and longitudinally incised over the midportion of the tensor fascia oliver muscle and elevated off the anterior 1/2 the tensor fascia oliver. Interval between TFL and rectus femoris developed an crossing branches of ascending lateral femoral circumflex vessels were ligated with suture divided. Retractor was placed anteromedial to the capsule. The hip was abducted and the gluteus minimus elevated off the lateral capsule. Inverted T capsulotomy was performed a femoral neck osteotomy made according to preoperative templating. The femoral head measured 52.5 mm in diameter. Acetabulum was exposed and residual its of the labrum excised. The femoral neck cut was assessed fluoroscopically and felt to be a little bit high an additional 5 mm of femoral neck was removed this time. The acetabulum was prepared. We medialized with a 44 Reamer to the medial wall and gradually increased Reamer size to a 54 mm which gave peripheral contact anteriorly and posteriorly. Bone quality is very good. Fifty-four trial had a snug fit. We chose the 54 mm emphasis cup which was impacted at approximately 42.5? of abduction the the the and the anteversion such that the anterior rim of the shell was 2 mm under the anterior rim of the acetabulum and the posterior rim of the shell was about 4 mm proud of the posterior superior acetabular rim about 2 mm proud of posterior rim. Excellent Press-Fit was achieved full seating accomplished a single screw placed in the ilium which obtained excellent purchase per we placed the dual mobility metal liner with the 2 mm lip apex between superior and posterior superior. This was seated fully without difficulty. Leg was externally rotated extended and we broached up to a size 6 which gave a snug fit. I seated that to what I thought was the proper depth and we trialed with the high offset neck 1.5 head in the 44 mm bipolar head. We chose dual mobility in this gentleman because he had L2 to the sacrum fusion and his risk of dislocation is therefore much higher. I could see that we were only about 2 mm under the saddle and radiographically under fluoro where few mm long and it was very difficult to reduce. We calcar planed and countersunk the broach another 3 or 4 mm. We had excellent torsional stability with the size 6 broach. We trialed again with a 1.5 mm head and a this gave ample shuck the and was readily reducible and stable with a longitudinal and lateral traction and we obtained an AP pelvis view with fluoro and saw that we had equal leg lengths unchanged from preoperatively. 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 Final calcar planing was performed and again we confirmed complete torsional stability of the broach in the femur. The Actis stem size 6 high offset was chosen and fully seated with an excellent Press-Fit. No cracks in the calcar bone. His bone quality was excellent. The size 1.5 x 28 mm ceramic head was snapped into the 44 mm dual mobility polyethylene head we confirmed normal spinning of the small head in the bipolar head and this was impacted onto the clean and dried trunnion after thorough irrigation with Ancef solution hip reduced stability reconfirmed. The vertical limb of the arthrotomy was reapproximated with 2. Vicryl stitch. Local anesthetic cocktail without the Toradol was injected in the periarticular soft tissues. The fascia was closed with running 1. Vicryl. Drain was placed deep in the subcu skin closed with 2 subcutaneous Vicryl and glue. Two additional g of Ancef and 1 g of TXA given time wound closure. Cell Saver estimated EBL at 10:50 a.m. and I rounded this up to 400 EBL. Unfortunately not enough Cell Saver blood for the opportunity to transfuse any of that blood back. He was stable during the procedure and transferred to postop recovery will condition. No known complications. [facility] Billing Surgery - Charge Forward: Surgery Billing (Left total hip arthroplasty)
--- OUTSIDE RECORDS SUMMARY | 2025-06-15 15:57 | XMS_ITS | Data Portability ---
Author Organization [place] [facility], Main Office Address [address] [place] [address] Care Team Providers Care Energy Scheduler Name Role Phone KATINA RODRIGUEZ Primary Care Provider KATINA RODRIGUEZ Referring Provider SHAVONNE MUNIZ Dispute Coordinator KATIE VAZQUEZ Bottom Stainer [phone] ZORAN KENDRICK Flight Radio Officer Assessment Encounter Date Assessment Date Assessment LastModified by Organization Details LastModified Time 08/17/2024 08/17/2024 Assessment: Nicotine smoke: 2 ppd [id number] = 20 pack years Hypogammaglobuline ivett Right pulmonary nodules Asbestos exposure [id number] Plan: The following were reviewed and explained [...] year, August 2025 Not available 08/17/2024 10:59:30 10/24/2024 10/24/2024 02/05/2022: A1C 6.5 Urine micro alb 24.6 [...] 03/21/2024 A1C 7.5 Gluc 156 TG 210 10/20/2024: A1C 9.1 TG 297 40 minutes spent with the patient, labs updated, chart updated john Not available 10/23/2024 19:50:30 01/25/2025 01/25/2025 02/05/2022: A1C 6.5 Urine micro alb 24.6 [...] 03/21/2024 A1C 7.5 Gluc 156 TG 210 10/20/2024: A1C 9.1 TG 297 01/16/2025: Gluc 205, BUN 24, Alb 4.7H Urine micro alb 53.5H WBC 11.7H TG 317 Dr Peacock BLL 19.2 Not available 01/25/2025 12:30:55 05/08/2025 05/08/2025 02/05/2022: A1C 6.5 Urine micro alb 24.6 [...] 03/21/2024 A1C 7.5 Gluc 156 TG 210 10/20/2024: A1C 9.1 TG 297 01/16/2025: Gluc 205, BUN 24, Alb 4.7H Urine micro alb 53.5H WBC 11.7H TG 317 Dr Peacock BLL 19.2 Not available 05/08/2025 13:02:16 06/12/2025 06/12/2025 02/05/2022: A1C 6.5 Urine micro alb 24.6 [...] 03/21/2024 A1C 7.5 Gluc 156 TG 210 10/20/2024: A1C 9.1 TG 297 01/16/2025: Gluc 205, BUN 24, Alb 4.7H Urine micro alb 53.5H WBC 11.7H TG 317 Dr Peacock BLL 19.2 06/02/2025: A1C 6.5 Urine micro alb 29.0H Gluc 136, BUN 22 TG 231 H/H 12.8/38.1 BLL 16.9 Not available 06/04/2025 17:02:46 Plan of Treatment Reminders Order Date Submit Date Provider Last Modified By Organization Details Last Modified Time Details Appointments Follow Up 15 2025 07:30A Luis Angel Kendrick MD Not available Not available Not available Follow Up 15 2025 09:00A Luis Angel yusuf MD Not available Not available Not available Lab lipid panel, serum 2024 025 Not available 06/12/2025 12:22:37 CMP, serum or plasma 2024 025 Not available 06/12/2025 12:22:37 CBC w/ auto diff 2024 025 Not available 06/12/2025 12:22:37 TSH + free T4, serum 2024 025 Not available 06/12/2025 12:22:37 CBC w/ auto diff 2024 025 [facility] [place], [address] [place], [address], 06/12/2025 12:22:37 lead, blood 2024 025 [facility], [address] [place], [address], 06/12/2025 12:22:38 microal bumin, urine 2024 025 Not available 06/12/2025 12:22:37 glycohe moglobi n, total, blood 2024 025 Not available 06/12/2025 12:22:37 lipid panel, serum 2024 025 ALICE Not available 05/11/2025 13:34:32 CMP, serum or plasma 2024 025 ALICE Not available 06/02/2025 14:08:38 CBC w/ auto diff 2024 025 ALICE Not available 06/02/2025 13:53:54 TSH + free T4, serum 2024 025 [email or web address] Not available 05/08/2025 13:07:22 CBC w/ auto diff 2024 025 ALICE [facility], [address] [place], [address], 05/11/2025 13:32:59 lead, blood 2024 025 [email or web address] [facility] [place], [address] [place], [address], 05/08/2025 13:07:23 microal bumin, urine 2024 025 ALICE Not available 06/02/2025 15:48:31 glycohe moglobi n, total, blood 2024 025 ALICE Not available 05/11/2025 14:46:41 lipid panel, serum 2024 025 ALICE Not available 06/02/2025 14:08:22 CMP, serum or plasma 2024 025 [email or web address] Not available 01/25/2025 12:49:47 CBC w/ auto diff 2024 025 [email or web address] Not available 01/25/2025 12:49:47 TSH + free T4, serum 2024 025 [email or web address] Not available 01/25/2025 12:49:48 CBC w/ auto diff 2024 025 [email or web address] [facility], [address] [place], [address], 01/25/2025 12:50:28 microal bumin, urine 2024 025 Not available 01/25/2025 12:49:48 glycohe moglobi n, total, blood 2024 025 ALICE Not available 06/02/2025 14:10:18 lipid panel, serum 2024 025 ALICE Not available 01/16/2025 12:20:35 CMP, serum or plasma 2024 025 ALICE Not available 01/16/2025 14:02:15 CBC w/ auto diff 2024 025 ALICE Not available 01/16/2025 12:32:47 TSH + free T4, serum 2024 025 [email or web address] Not available 04/25/2025 18:00:09 microal bumin, urine 2024 025 [email or web address] Not available 04/25/2025 18:00:09 glycohe moglobi n, total, blood 2024 025 [email or web address] Not available 04/25/2025 18:00:[address] referra l 2024 025 [email or web address] Georges Charles MD, [address] [facility], [place], [address], 06/12/2025 16:18:27 hand surgeon referra l 2024 025 ATHENAMATT Not available 06/12/2025 16:26:27 pulmono logist referra l - Please call patient to schedul e an appoint ment. Thank you. 2024 025 Zoran Kendrick MD, [address] [place], [address], 06/12/2025 16:13:32 podiatr ist referra l 2024 025 ALICE Encarnacion DPM, [address] [facility], [place], [address], 06/12/2025 16:33:[address] referra l - Please call patient to schedul e an appoint ment. Thank you. 2024 025 [email or web address] Con Redding MD, [address], [place], [address], 06/12/2025 16:16:03 gastroe nterolo gist referra l - Please call patient to schedul e an appoint ment. Thank you. 2024 025 MANFRED Vazquez MD, [address], [place], [address], 05/15/2025 11:25:22 hand surgeon referra l - Please call patient to schedul e an appoint ment. Thank you. 2024 025 MANFRED Torres MD, [address] [facility], [address], [place], [address], 05/09/2025 10:05:19 pulmono logist referra l - Please call patient to schedul e an appoint ment. Thank you. 2024 025 [email or web address] Zoran Kendrick MD, [address] [place], [address], 05/15/2025 11:04:50 podiatr ist referra l - Please call patient to schedul e an appoint ment. Thank you. 2024 025 ALICE Encarnacion DPM, [address] [facility], [facility] [address], [place], [address], 05/09/2025 10:23:[address] referra l - Please call patient to schedul e an appoint ment. Thank you. 2024 025 [email or web address] Con Redding MD, [address], [place], [address], 06/12/2025 16:16:11 gastroe nterolo gist referra l - Please call patient to schedul e an appoint ment. Thank you. 2024 025 lisa Vazquez MD, [address], [place], [address], 04/27/2025 09:52:23 hand surgeon referra l - Please call patient to schedul e an appoint ment. Thank you. 2024 025 lisa Torres MD, [address] [facility], [address], [place], [address], 04/27/2025 09:52:24 cardiol ogist referra l - Please call patient to schedul e an appoint ment. Thank you. 2024 025 [place], [address], [address], 04/27/2025 09:52:09 pulmono logist referra l - Please call patient to schedul e an appoint ment. Thank you. 2024 025 lisa Kendrick MD, [address] [place], [address], 04/27/2025 09:52:24 podiatr ist referra l - Please call patient to schedul e an appoint ment. Thank you. 2024 025 lisa Encarnacion DPM, [address] [facility], [address], [place], [address], 04/27/2025 09:52:[address] referra l - Please call patient to schedul e an appoint ment. Thank you. 2024 025 lisa [place] MD, [address], [place], [address], 04/24/2025 09:52:23 gastroe nterolo gist referra l - Please call patient to schedul e an appoint ment. Thank you. 2024 025 lisa Vazquez MD, [address], [place], [address], 04/24/2025 09:52:22 pain managem ent referra l - Please call patient to schedul e an appoint ment. Thank you. 2024 025 lisa [facility], [address], [place], [address], 01/23/2025 09:45:32 hand surgeon referra l - Please call patient to schedul e an appoint ment. Thank you. 2024 025 lisa Torres MD, [address] [facility] [address], [address], [place], [address], 04/24/2025 09:52:25 cardiol ogist referra l - Please call patient to schedul e an appoint ment. Thank you. 2024 025 [place], [address] [facility], [address], [place], [address], 01/23/2025 09:44:44 pulmono logist referra l - Please call patient to schedul e an appoint ment. Thank you. 2024 025 lisa Kendrick MD, [address] [place], [address], 04/24/2025 09:52:24 podiatr ist referra l - Please call patient to schedul e an appoint ment. Thank you. 2024 025 lisa GARCIA, [address] [facility], [facility] [address], [place], [address], 04/24/2025 09:52:21 Procedures upper endosco py procedu re (EGD) (PROC) - Please call patient to schedul e an appoint ment. Thank you. 2024 025 MANFRED Vazquez MD, [address], [place], [address], 05/15/2025 11:20:30 upper endosco py procedu re (EGD) (PROC) - Please call patient to schedul e an appoint ment. Thank you. 2024 025 [email or web address] Geoff Tyler MD, [address], [place], [address], 04/27/2025 09:10:55 upper endosco py procedu re (EGD) (PROC) - Please call patient to nahed dunlap appoint ment. Thank you. 2024 025 [email or web address] Geoff Tyler MD, [address], [place], [address], 01/23/2025 09:06:51 Surgeries None recorde d. Imaging CT, chest, w/o contras t - Please call patient to schedul e. Due on or around 5 2024 025 [email or web address] Not available 08/17/2024 14:34:43 Medication Orders None recorde d. Patient TargetsNo targets recorded. Patient Instructions Encounter Date Encounter Id Patient Instructions Last Modified By Organization Details Last Modified Time 01/25/2025 [id number] diabetic eye exam* [email or web address] Not available 01/25/2025 12:49:49 Reason for Referral Dispute Coordinator Referral for Ab dominal aortic aneurysm Please call patient to schedule an appointment. Thank you. Referring Physician: Katina Rodriguez, Internal Medicine, Encounter Date: 10/24/2024 Printing Technician Referral for Type 2 diabetes mellitus without complication Please call patient to schedule an appointment. Thank you. Referring Physician: Katina Rodriguez Internal Medicine, Encounter Date: 10/24/2024 Bottom Stainer Referral for Steatotic liver disease Please call patient to schedule an appointment. Thank you. Referring Physician: Katina Rodriguez, Internal Medicine, Encounter Date: 10/24/2024 Urologist Referral for Benig n prostatic hyperplasia without outflow obstruction Please call patient to schedule an appointment. Thank you. Referring Physician: Katina Rodriguez Internal Medicine, Encounter Date: 10/24/2024 Flight Radio Officer Referral for E xposure to asbestos Please call patient to schedule an appointment. Thank you. Referring Physician: Katina Rodriguez Internal Medicine, Encounter Date: 10/24/2024 Hand Surgeon Referral for Pa in of right hand Please call patient to schedule an appointment. Thank you. Referring Physician: Katina Rodriguez Internal Medicine, Encounter Date: 10/24/2024 Pain Management Referral for Chronic pain Please call patient to schedule an appointment. Thank you. Referring Physician: Katina Rodriguez Internal Medicine, Encounter Date: 10/24/2024 Dispute Coordinator Referral for Ab dominal aortic aneurysm Please call patient to schedule an appointment. Thank you. Referring Physician: Katina Rodriguez Internal Medicine, Encounter Date: 01/25/2025 Printing Technician Referral for Type 2 diabetes mellitus without complication Please call patient to schedule an appointment. Thank you. Referring Physician: Katina Rodriguez Internal Medicine, Encounter Date: 01/25/2025 Bottom Stainer Referral for Steatotic liver disease Please call patient to schedule an appointment. Thank you. Referring Physician: Katina Rodriguez Internal Medicine, Encounter Date: 01/25/2025 Urologist Referral for Benig n prostatic hyperplasia without outflow obstruction Please call patient to schedule an appointment. Thank you. Referring Physician: Katina Rodriguez Internal Medicine, Encounter Date: 01/25/2025 Flight Radio Officer Referral for E xposure to asbestos Please call patient to schedule an appointment. Thank you. Referring Physician: Katina Rodriguez Internal Medicine, Encounter Date: 01/25/2025 Hand Surgeon Referral for Pa in of right hand Please call patient to schedule an appointment. Thank you. Referring Physician: Katina Rodriguez Internal Medicine, Encounter Date: 01/25/2025 Printing Technician Referral for Type 2 diabetes mellitus without complication Please call patient to schedule an appointment. Thank you. Referring Physician: Alia Caro Medicine, Encounter Date: 05/08/2025 Bottom Stainer Referral for Steatotic liver disease Please call patient to schedule an appointment. Thank you. Referring Physician: Katina Rodriguez Internal Medicine, Encounter Date: 05/08/2025 Urologist Referral for Benig n prostatic hyperplasia without outflow obstruction Please call patient to schedule an appointment. Thank you. Referring Physician: Katina Rodriguez Internal Medicine, Encounter Date: 05/08/2025 Flight Radio Officer Referral for E xposure to asbestos Please call patient to schedule an appointment. Thank you. Referring Physician: Katina Rodriguez Internal Medicine, Encounter Date: 05/08/2025 Hand Surgeon Referral for Pa in of right hand Please call patient to schedule an appointment. Thank you. Referring Physician: Katina Rodriguez Internal Medicine, Encounter Date: 05/08/2025 Printing Technician Referral for Type 2 diabetes mellitus without complication Referring Physician: Katina Rodriguez [facility], Encounter Date: 06/12/2025 Urologist Referral for Benig n prostatic hyperplasia without outflow obstruction Referring Physician: Katina Rodriguez Internal Medicine, Encounter Date: 06/12/2025 Flight Radio Officer Referral for E xposure to asbestos Please call patient to schedule an appointment. Thank you. Referring Physician: Katina Rodriguez [facility] Medicine, Encounter Date: 06/12/2025 Hand Surgeon Referral for Pa in of right hand Referring Physician: Katina Rodriguez [facility] Medicine, Encounter Date: 06/12/2025 Results Created Date Observation Date Name Description Value Unit Range Abnormal Flag Note LastModifiedBy Organization Detail LastModifiedTime 09/15/19 25 XR, hand, 3 or more view [facility] [address] [facility] n [facility], [place] [address] Patideon t Name: RIOS SALDAÑA Dionne Truong Access ion #: [id number] Sex: M : 1954 5 Locati on: RA1 Attend ing Physic eyal: TORRES KEVIN Orderi ng Physic eyal: TORRESKEVIN Exam Date: 09/15/19 8:15 AM Exam Name: [...] t. IMPRES VALERIE: Page 1 of [address] [facility] Patien t Name: RIOS SALDAÑA Access ion #: [id number] Sex: M : 1954 5 Exam [...] MD (CT) (CT) Page 2 of [email or web address] [place] [address] (Imaging) [address] [facility] [place], [address], 10/14/2024 11:41:55 09/15/19 25 09/15/2024 imagi ng/di agnos tic resul t No observ ation record ed. [facility] [address] [place], [address], 09/15/2024 16:58:40 09/16/19 25 09/16/2024 imagi ng/di agnos tic resul t No observ ation record ed. [address] [address], [place], [address], 09/16/2024 15:51:24 09/17/19 25 09/17/2024 imagi ng/di agnos tic resul t No observ ation record ed. [address], [place], [address], 09/17/2024 13:01:56 11/15/19 25 11/11/2024 imagi ng/di agnos tic resul t No observ ation record ed. [facility] , [place], [address], 11/14/2024 10:43:32 12/16/19 25 12/15/2024 imagi ng/di agnos tic resul t No observ ation record ed. [facility] [address] [place], [address], 12/15/2024 18:00:35 06/15/20 25 06/15/2025 imagi ng/di agnos tic resul t No observ ation record ed. [address] [address], [place], [address], 06/15/2025 16:33:52 06/15/20 25 06/15/2025 imagi ng/di agnos tic resul t No observ ation record ed. [address], [address], 06/15/2025 16:43:55 Result Notes Documentation Provider Name and Address Organization Details Recorded Time Xr, Hand, 3 Or More View : [facility] [address] [place], [place] [id number] Patient Name: KOFI SALDAÑA Sex: M : 1955 Location: [facility] Attending Physician: KEVIN TORRES Ordering Physician: KEVIN TORRES Exam Date: 09/15/2024 8:15 AM Exam Name: XR HAND LT 3V Admitting Diagnosis(es): RADIOLOGY REPORT - FINAL EXAM: XR HAND LT 3V HISTORY: pain 69-year-old male with left hand pain and swelling, history of arthritis, no known injury. COMPARISON: Radiographs dated 12/09/2022. TECHNIQUE: Three views of the left hand were performed. FINDINGS: No acute fracture or dislocation are identified about the left hand. There is joint space narrowing of the 2nd and 3rd MCP joints,, with small marginal osteophytes and subchondral cystic changes present. IMPRESSION: Page 1 of 2 [facility] Patient Name: KOFI SALDAÑA Sex: M : 1955 Exam Date: 09/15/2024 8:15 AM Exam Name: XR HAND LT 3V Admitting Diagnosis(es): 1. No acute fracture of the left hand. 2. Arthritic changes of the left 2nd and 3rd MCP joints, similar to that seen on radiographs dated 12/09/2022. Created and electronically signed by: Barney Yun MD Signed Date: 09/15/2024 3:54 PM (CT) Dictated by: Barney Yun MD (CT) (CT) Page 2 of 2 [facility] 10/14/2024 11:41:55 Problems Name Problem SNOMED Code Status Onset Date Resolution Date Notes Provider Name and Address Organization Details Recorded Time Benign prostatic hyperplas ia 155819222 Active Not Available [facility] 3 16:00:48 Vitamin D deficienc y 85322545 Active Not Available [employer] 3 16:00:48 Onychomyc osis 599221489 Active Not Available [facility] 3 16:00:48 Streptoco ccal sore throat 08012420 Completed Not Available [facility] 3 04:51:21 Onychogry phosis 82660176 Active Not Available [facility] 3 16:00:48 Essential hypertens ion 31382697 Active Katina puga MD [address], [place], [address] , [employer] [facility] [employer] [facility] 5 12:54:12 Foot-drop 5581310 Active Not Available [facility] 3 16:00:48 Diabetes mellitus 43020358 Active Not Available [facility] 3 16:00:48 Bilateral plantar fasciitis 07274927394 873675 Active 2019 Not Available [facility] 3 16:00:48 Steatotic liver disease 041288912 Active 2022 Katina puga MD [address], [place], [address] , [address] [employer] [facility] 5 12:51:18 Migraine 48691027 Active 2022 Katina puga MD [address], [place], [address] , [address] [facility] 5 12:51:18 Osteoarth ritis 397831438 Active 2022 GERALD Velez, [employer] [facility] [employer] [facility] 3 08:51:02 Hypertrig lyceridem ia 735377254 Active 2022 Kailee rain, [place] [facility] [employer] [facility] 3 12:22:11 Deep venous thrombosi s of lower extremity 426120687 Active 2023 Katina puga MD [address], [place], [address] , [place] [facility] [employer] [facility] 5 12:51:17 Gastroeso phageal reflux disease without esophagit is 909889219 Active 2023 Katina puga MD [address], [place], [address] , [facility] 5 13:06:05 Multiple nodules of lung 126550464 Active 2023 Zoran Kendrick MD [address], [place], [address] , [facility] 4 10:17:39 Upper respirato ry infection 34270357 Active 2024 Katina puga MD [address], [place], [address] , [facility] 5 14:03:41 Hyperlipi demia 97596423 Active 2024 Katina puga MD [address], [place], [address] , [facility] 5 12:52:49 Type 2 diabetes mellitus without complicat ion 265286543 Active 2024 Katina puga MD [address], [place], [address] , [facility] 5 12:53:14 Pain of right hand 84817287885 9109 Active 2024 Katina puga MD [address], [place], [address] , [facility] 5 12:51:17 Abdominal aortic aneurysm 924523064 Active 2024 Katina puga MD [address], [place], [address] , [facility] 5 12:58:27 Proteinur ia 35985532 Active 2024 Katina puga MD [address], [place], [address] , [facility] 5 12:51:18 Solitary nodule of lung 602957767 Active 2024 Katina puga MD [address], [place], [address] , [facility] 5 12:51:18 Benign prostatic hyperplas ia without outflow obstructi on 459371861 Active 2024 Katina puga MD [address], [place], [address] , [facility] 5 12:51:18 Pain of bilateral knee joints 10421735844 4104 Active 2024 Katina puga MD [address], [place], [address] , [facility] 5 12:51:18 Chronic pain 21150818 Active 2024 Katina puga MD [address], [place], [address] , [facility] 5 12:55:40 Leukocyto sis 086001330 Active 2024 Katina puga MD [address], [place], [address] , [facility] 5 12:31:13 Anemia 344534668 Active 2024 Katina puga MD [address], [place], [address] , [facility] 5 16:44:11 Pain of hip region 65530323 Active 2024 Katina puga MD [address], [place], [address] , [facility] 5 12:55:41 Blood lead level above reference range 611489141 Active 2024 Katina pgua MD [address], [place], [address] , [facility] [employer] [facility] 13:06:06 Notes:Medical History: [place] el lead levels Migraine headaches Bilateral hearing [...] Onychomycosis Onychogryposis Procedure History: Right inguinal herniorrhaphy 1994 Lumbar laminectomy 1996 Lumbar fusions 1999, 2017 Left knee total arthroplasties 2011, 2012 Right 2nd-3rd fingers implants 2021 Right knee arthroscopy 2022 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 Procedures Surgical History Date Name Laterality Status Provider Name and Address Organization Details Recorded Time 03/23/20 24 Medicare Wellness CPT Code, subsequent completed Ha Connors LPN OR [employer] [facility] 03/23/2024 10:40:22 03/23/20 24 Advanced Care Planning completed Ha Connors LPN OR [employer] [facility] 03/23/2024 12:34:05 01/13/20 23 Medicare Wellness CPT Code, subsequent completed Farhana Li RN OR [employer] [facility] [employer] [facility] 01/12/2023 09:40:59 08/07/20 22 Carpal tunnel surgery completed Thelma Verdugo MA [employer] [facility] [employer] [facility] 01/12/2023 09:26:57 03/05/20 17 Colonoscopy with biopsy completed Not Available [facility] 10/08/2022 04:42:31 Cataract Surgery completed Not Available [facility] [facility] 10/08/2022 04:42:31 repair of meniscus completed GERALD Riley OR [employer] [facility] [employer] [facility] 07/13/2023 09:28:16 Imaging Results None recorded. Procedure Notes None recorded. Medical Equipment None Reported. Allergies Allergen ID Allergen Name Allergen Category Reaction Reaction Severity Criticality Documentation Date Start Date Code Code System Note Provider Name and Address Organization Details Recorded Time 97222 No known allergy (situatio n) Not available Not available Not available Not available 03/23/2024 [id number] SNKAM Lacey null, [place] - [facility] 4 12:28:39 No known drug allergies Medications Name [...] TAKE 1 TABLET BY MOUTH TWICE DAILY 05/08 completed Not Available Not Available Not Available carvedilo l 25 mg tablet TAKE [...] completed Not Available Not Available Not Available clonidine 0.1 mg/24 hr weekly transderm al patch APPLY 1 PATCH TOPICALL Y ONCE A WEEK active Not Available Not Available No t Available verapamil ER 360 mg 24 hr capsule,e xtended release Take 1 capsule every day by oral route for 90 days. 10/24 completed Not Available Not Available Not Available azithromy jose 250 mg tablet uud 10/24 completed Not Available Not Available Not Available indapamid e 2.5 mg tablet TAKE 1 TABLET BY MOUTH ONCE DAILY IN THE MORNING active Not Available Not Available No t Available alprazola m 1 mg tablet 12/15 completed Not Available Not Available Not Available nifedipin e ER 90 mg tablet,ex tended release TAKE 1 TABLET BY MOUTH ONCE DAILY 05/08 completed Not Available Not Available Not Available tizanidin e 4 mg tablet 12/15 [...] completed Not Available Not Available Not Available acetamino phen 300 mg-codein e 30 mg tablet TAKE 1 TABLET BY MOUTH EVERY 6 HOURS 01/25 completed Not Available Not Available Not Available [...] mg tablet TAKE 1 TABLET BY MOUTH THREE TIMES DAILY active Not Available Not Available No t Available ciclopiro x 8 % topical solution APPLY TO THE AFFECTED AREA(S) BY TOPICAL ROUTE ONCE DAILY PREFERAB LY AT BEDTIME OR 8 HOURS BEFORE WASHING 10/24 completed Not Available Not Available Not Available meloxicam 7.5 mg tablet TAKE 1 TABLET BY MOUTH ONCE DAILY 05/08 completed Not Available Not Available Not Available magnesium oxide 400 mg (241.3 mg magnesium ) tablet TAKE 1 TABLET BY MOUTH IN THE MORNING AND 1 IN THE EVENING active Not Available Not Available No t Available nifedipin e ER 60 mg tablet,ex tended release 24 hr Take 1 tablet every day by oral route. 12/28 completed Not Available Not Available Not Available tamsulosi n 0.4 mg capsule TAKE 2 CAPSULES BY MOUTH ONCE DAILY active Not Available Not Available No t Available Kenalog 10 mg/mL suspensio n for injection in office 07/13 completed [facility] [place]: [phone] 11-27 Not Available Not Available Not Available nifedipin e ER 90 mg tablet,ex tended release 24 hr TAKE 1 TABLET BY MOUTH ONCE DAILY active Not Available Not Available No t Available baclofen 10 mg tablet Take 1 [...] Not Available Not Available Not Available metformin 1,000 mg tablet TAKE 1 TABLET BY MOUTH TWICE DAILY WITH MORNING MEAL AND WITH EVENING MEAL active Not Available Not Available No t Available hydrocodo ne 7.5 mg-acetam inophen 750 [...] 1 CAPSULE BY MOUTH ONCE DAILY NEEDED active Not Available Not Available No t Available verapamil ER (SR) 240 mg tablet,ex tended [...] BY MOUTH DIRECTED ON INSIDE OF PACKAGE 05/08 completed Not Available Not Available Not Available [...] 1 TABLET BY MOUTH EVERY 12 HOURS 10/24 completed Not Available Not Available Not Available oxycodone 5 mg tablet 12/15 completed Not Available Not Available Not Available olmesarta n 40 mg tablet TAKE 1 TABLET BY MOUTH ONCE DAILY AT NIGHT active Not Available Not Available No t Available rosuvasta tin 20 mg tablet TAKE 1 TABLET BY MOUTH ONCE DAILY active Not Available Not Available No t Available rosuvasta tin 40 mg tablet TAKE 1 TABLET BY MOUTH ONCE DAILY active Not Available Not Available No t Available duloxetin e 30 mg capsule,d elayed release TAKE 1 CAPSULE BY MOUTH TWICE DAILY active Not Available Not Available No t Available fenofibra te 160 mg tablet TAKE 1 TABLET BY MOUTH ONCE DAILY active Not Available Not Available No t Available losartan 100 mg-hydroc hlorothia zide 12.5 mg tablet TAKE 1 TABLET BY MOUTH ONCE DAILY 10/[address] Peacock Not Available Not Available Not Available Vitamin C active Not Available Not Brittany ilable Not Available Fish Oil 1 cap daily 07/23 completed Not Available Not Available Not Available Vitamin D active Not Available Not Brittany ilable Not Available Glucosami ne bid 07/28 completed Not Available Not Available Not Available nifedipin e 90mg daily 01/[address] Muniz [facility] Not Available Not Available Not Available Chlor-Tri meton 06/16 completed Not Available Not Available Not Available lidocaine (PF) 10 mg/mL (1 %) injection solution In office injectio n administ ered by the provider 02/12 completed [facility] [place]: [phone] Not Available Not Available Not Available fenofibra [...] %) injection solution in office 07/13 completed [facility] [place] [id number] 4- Not Available Not Available Not Available Xarelto 15 mg tablet Take 1 tablet twice a day by oral route for 21 days. 08/26 completed Not Available Not Available Not Available Xarelto 20 mg tablet TAKE 1 TABLET BY MOUTH ONCE DAILY 08/14 /2024 completed Not Available Not Available Not Available Vitamin D2 01/12 completed Not Available Not Available Not Available Vascepa 1 gram capsule TAKE 2 CAPSULES BY MOUTH TWICE DAILY active On Hold for hip surgery 06/15/25 Not Available Not Available Not Available potassium chloride ER 20 mEq tablet,ex [...] Not Available Not Available Vitals Date Recorded Heart rate Respiratory rate Provider N marquise and Address Organization Details Last Updated DateTime 08/17/2024 83 /min 14 /min Zoran Kendrick MD [address] [facility], [facility] [address], [place], [address], [place] [facility] 08/17/2024 10:57:59 Date Recorded Body height Body mass index (BMI) Body weight Body temperature Heart rate Oxygen saturation Oxygen saturation in Arterial blood by Pulse oximetry Systolic And Diastolic Provider Name and Address Organization Details Last Updated DateTime 01/08/202 5 172.72 cm 36.3 kg/m2 312639. 58 g 97.3 [degF] 83 /min 98 % 98 % 138/78 mm[Hg] Jo Stover MA [email or web address] 5 10:44:55 Date Recorded Body height Body mass index (BMI) Body weight Body temperature Heart rate Systolic And Diastolic Provider Name and Address Organization Details Last Updated DateTime 5 172.72 cm 35.9 kg/m2 779945. 8 g 98.1 [degF] 78 /min 132/68 mm[Hg] MARYCRUZ RileyGail [email or web address] 5 10:40:41 Date Recorded Body height Body mass index (BMI) Body weight Body temperature Heart rate Oxygen saturation Oxygen saturation in Arterial blood by Pulse oximetry Pain severity - 0-10 verbal numeric rating [Score] - Reported Systolic And Diastolic Provider Name and Address Organization Details Last Updated DateTime 5 172.72 cm 33.5 kg/m2 35880.3 2 g 97.7 [degF] 90 /min 97 % 97 % 8 122/78 mm[Hg] Jo Stover MA [email or web address] 5 12:13:15 Date Recorded Body height Body mass index (BMI) Body weight Body temperature Pain severity - 0-10 verbal numeric rating [Score] - Reported Heart rate Oxygen saturation Oxygen saturation in Arterial blood by Pulse oximetry Systolic And Diastolic Provider Name and Address Organization Details Last Updated DateTime 5 172.72 cm 33.1 kg/m2 72050.1 4 g 97.5 [degF] 4 79 /min 96 % 96 % 128/78 mm[Hg] Jo Stvoer MA [email or web address] 5 12:18:28 Date Recorded Body height Body mass index (BMI) Body weight Body temperature Pain severity - 0-10 verbal numeric rating [Score] - Reported Heart rate Oxygen saturation Oxygen saturation in Arterial blood by Pulse oximetry Systolic And Diastolic Provider Name and Address Organization Details Last Updated DateTime 5 172.72 cm 32.4 kg/m2 59196.1 7 g 97.7 [degF] 10 115 /min 95 % 95 % 124/70 mm[Hg] Jo Stover MA [place] [employer] [facility] 09:22:29 Social History Question Answer Notes LastModified by Organization Details LastModified Time Tobacco Smoking Status Former Smoker quit 1979 Jo Stover MA null, [employer] [facility] 05/08/2025 12:20:19 Do You Have An Advance Directive? No Patient Given Informati on. 03/23/24 [email or web address] Information not available 03/23/2024 Do You Wear A Helmet When Biking? No Does Not Bike [email or web address] Information not available 03/23/2024 Are You Blind Or Do You Have Difficulty Seeing? No Information not available 07/13/2023 Is Blood Transfusion Acceptable In An Emergency? Yes [email or web address] Information not available 03/23/2024 What Is Your Level Of Caffeine Consumption? Moderate 2 Cups Daily [id number] Information not available 10/08/2022 In The 14 [...] No Information not available 07/13/2023 Are You Deaf Or Do You Have Serious Difficulty Hearing? No Information not available 07/13/2023 What Type Of Diet Are You Following? REGULAR [id number] [id number] Information not available 10/08/2022 What Is The Highest Grade Or Level Of School You Have Completed Or The Highest Degree You Have Received? [id number] [email or web address] Information not available 03/23/2024 Do You Have An Electrostatic Air Filter? No Information not available 05/30/2024 How Many Days Of Moderate To Strenuous Exercise, Like A Brisk Walk, Did You Do In The Last 7 Days? 5 Walks 2 Miles Daily [email or web address] Information not available 03/23/2024 On Those Days That You Engage In Moderate To Strenuous Exercise, How Many Minutes, On Average, Do You Exercise? 58 [email or web address] Information not available 03/23/2024 Have There Been Any Changes To Your [...] available 07/13/2023 Presence Of Domestic Violence No [email or web address] Information not available 01/12/2023 Guns Present In The Home? Yes [email or web address] Information not available 03/23/2024 Are You Able To Care For Yourself? Yes [email or web address] Information not available 01/12/2023 Are You Blind Or Do Yo Have Difficulty Seeing? No [email or web address] Information not available 01/12/2023 Are You Deaf Or Do You Have Serious Difficulty Hearing? Yes Hard Of Hearing In Both Ears Information not available 01/12/2023 General Stress Level? Low Information not available 01/12/2023 Live Alone Of With Others? Alone Information not available 01/12/2023 Do You Have A Medical Power Of Zinc Miner? No Information not available 07/13/2023 Do You Have Moisture Problems In Your Home? No Information not available 05/30/2024 What Was The Date Of Your Most Recent Tobacco Screening? 06/12/2025 Information not available 06/12/2025 How Many Children Do You Have? 0 [email or web address] Information not available 03/23/2024 What Is Your Current Pack Years? 10-19packyears Information not available 07/13/2023 Do You Have Any Pets? Yes Dog [email or web address] Information not available 03/23/2024 What Is Your Relationship Status? [email or web address] Information not available 03/23/2024 Do You Use Your Seat Belt Or Car Seat Routinely? Yes Information not available 07/13/2023 Are You Sexually Active? No [email or web address] Information not available 03/23/2024 Do You Have Smoke And Carbon Monoxide Detectors In Your Home? Yes Information not available 07/13/2023 At What Age Did You Start Smoking Tobacco? 14 Information not available 07/13/2023 Are You Passively Exposed To Smoke? No Information not available 07/13/2023 Are There Any Smokers In Your House? No Information not available 07/13/2023 How Much Tobacco Do You Smoke? 2 PPD Information not available 05/08/2025 What Types Of Sporting Activities Do You Participate In? None Information not available 07/13/2023 Do You Use Sunscreen Routinely? No Information not available 07/13/2023 Has Tobacco Cessation Counseling Been Provided? No N/A Information not available 07/13/2023 How Many Years Have You Smoked Tobacco? 12 Information not available 07/13/2023 Have You Recently Traveled Abroad? No Information not available 07/13/2023 Do You Have Difficulty Walking Or Climbing Stairs? Yes Hip And Knee Pain [email or web address] Information not available 03/23/2024 Do You Have Any Dietary Restrictions? No Information not available 07/13/2023 Sex: Male Functional Status Question Answer Note LastModified by Organizat ion Details LastModified Time Do you use any illicit or recreational drugs? No Information not available 07/13/2023 Do you or have you ever used any other forms of tobacco or nicotine? Yes Information not available 07/25/2024 What is your level of alcohol consumption? None [id number] Information not available 10/08/2022 Are you currently employed? No Information not available 03/23/2024 Have you been exposed to chemicals or toxins? No not that aware of Information not available 08/17/2024 Do you have transportation difficulties? No Information not available 07/13/2023 Are you able to walk independently without assistance or assistive devices? YESWOREST uses cane at times [email or web address] Information not available 03/23/2024 Do you have difficulty doing errands alone? No Information not available 07/13/2023 Are you able to care for yourself independently? Yes Information not available 07/13/2023 What is your occupation? retired Information not available 07/13/2023 Do you have difficulty dressing, bathing, grooming, or toileting? No Information not available 07/13/2023 What is your exercise level? Occasional Information not available 03/23/2024 Mental Status Question Answer Note LastModified by Organizat ion Details LastModified Time Do you feel stressed (tense, restless, nervous, or anxious, or unable to sleep at night)? [id number] Information not available 07/13/2023 Do you have difficulty concentrating, remembering or making decisions? No Information no t available 07/13/2023 Family History Relationship Description Onset Age of this Age Resolved Age Notes LastModified by Organization Details LastModified Time Mother Diabetes mellitus [id number] Not available 10/08/2022 04:42:33 Mother Hypertensive disorder [id number] Not available 10/08/2022 04:42:33 Father Felty's syndrome Not available 05/08 12:04:24 Paternal Grandfather Rheumatoid arthritis [email or web address] Not available 05/08 12:04:24 Paternal Grandmother Myocardial infarction Not available 02/21 11:27:12 Paternal Uncle Rheumatoid arthritis [email or web address] Not available 05/08 12:04:24 Paternal Aunt Myocardial infarction Not available 02/21 11:27:54 Mother Lupus erythematosu s [email or web address] Not available 05/08 12:04:24 Medical History Condition Response DIABETES, TYPE Y ARTHRITIS Y USE OF BLOOD THINNERS Y BLOOD CLOTS Y HYPERTENSION Y Immunizations Vaccine Type Date Status Note Provider Pavel dowd and Address Organization Details Recorded Time Influenza, high-dose, quadrivalent, PF 0 completed GERALD Riley null, [place] [facility] [place] [facility] 03/23/2024 10:08:54 COVID-19, mRNA, LNP-S, PF, 100 mcg/0.5mL dose or 50 mcg/0.25mL dose 1 completed Marycruz Mattson RMA null, [facility] 03/23/2024 10:08:54 Influenza, split virus, trivalent, PF 7 completed Marycruz Damianham RMA null, [facility] 03/23/2024 10:08:54 Influenza, split virus, trivalent, PF 5 completed Marycruz [place], RMA null, [facility] 03/23/2024 10:08:54 Influenza, split virus, quadrivalent, PF 9 completed Marycruz Mattson RMA null, [facility] 03/23/2024 10:08:54 Influenza, high-dose, quadrivalent, PF 3 completed Marycruz Mattson RMA null, [facility] 07/25/2024 10:48:34 Influenza, high-dose, trivalent, PF 4 completed Marycruz Mattson RMA null, [facility] 07/25/2024 10:49:23 Influenza, split virus, trivalent, preservative 6 completed Marycruz Srinivasan, RMA null, [facility] 03/23/2024 10:08:54 COVID-19, mRNA, LNP-S, PF, 100 mcg/0.5mL dose or 50 mcg/0.25mL dose 1 completed Marycruz Mattson RMA null, [facility] 03/23/2024 10:08:54 COVID-19, mRNA, LNP-S, PF, 100 mcg/0.5mL dose or 50 mcg/0.25mL dose 1 completed Marycruz Mattson RMA null, [facility] 03/23/2024 10:08:54 Influenza, split virus, quadrivalent, preservative 9 completed Marycruz Mattson RMA null, [facility] 03/23/2024 10:08:54 tetanus toxoid, adsorbed 7 completed Not Available [facility] 02/04/2023 16:00:51 Influenza, split virus, trivalent, preservative 5 completed Marycruz Mattson RMA null, [facility] 03/23/2024 10:08:54 Influenza, high-dose, trivalent, PF 0 completed Marycruz Mattson RMA null, [facility] 03/23/2024 10:08:54 influenza, unspecified formulation 7 completed Marycruz Mattson RMA null, [facility] 03/23/2024 10:08:54 varicella 5 completed Not Available [facility] 02/04/2023 16:00:51 Influenza, high-dose, trivalent, PF 5 completed MARYCRUZ RileyA null, [facility] 03/23/2024 10:08:54 Influenza, split virus, trivalent, preservative 3 completed Not Available [facility] 02/04/2023 16:00:51 Influenza, high-dose, quadrivalent, PF 2 completed Not Available [facility] 02/04/2023 16:00:51 pneumococcal polysaccharide PPV23 1 completed Not Available [facility] 02/04/2023 16:00:51 Pneumococcal conjugate PCV 13 0 completed Marycruz Mattson RMA null, [facility] 03/23/2024 10:08:54 Influenza, split virus, quadrivalent, PF 8 completed Not Available [facility] 02/04/2023 16:00:51 Influenza, split virus, quadrivalent, PF 6 completed Not Available [facility] 02/04/2023 16:00:51 zoster live 4 completed Not Available [facility] 02/04/2023 16:00:51 Influenza, split virus, trivalent, preservative 4 completed Marycruz Mattson RMA null, [facility] 03/23/2024 10:08:54 Past Encounters Encounter ID Performer Location Encounter Start Date Encounter Closed Date Diagnosis/Indication Diagnosis SNOMED-CT Code Diagnosis ICD10 Code Diagnosis IMO Codes Diagnosis Note [id number] Katina puga MD [facility] Internal [facility] [place] [address] [facility] [place] [address] 11/26/2020 00:00:00 11/26/2020 18:26:54 [id number] Kevin Torres MD [facility] [place] [address] [place] [address] 11/27/2020 00:00:00 11/27/2020 12:48:14 [id number] Katina puga MD [facility] Internal [place] [address] [place] [address] [place] [address] 01/09/2021 00:00:00 01/09/2021 14:01:46 [id number] S_[facility] ic[facility] [facility] [place] [address] [place] [address] 01/21/2021 00:00:00 01/21/2021 10:19:17 [id number] Katina puga MD [facility] Internal [place] [address] [place] [address] [place] [address] 04/08/2021 00:00:00 04/08/2021 17:34:53 [id number] Kevin Torres MD [facility] [place] [address] [place] [address] 04/09/2021 00:00:00 04/09/2021 15:22:11 [id number] Kevin Torres MD [facility] [place] [address] [place] [address] 08/13/2021 00:00:00 08/13/2021 10:04:57 [id number] Katina puga MD [facility] Internal [place] [address] [facility] [place] [address] 10/09/2021 00:00:00 10/09/2021 10:16:41 [id number] Kevin Torres MD [facility] [place] [address] [place] [address] 11/12/2021 00:00:00 11/12/2021 09:28:57 [id number] Katina puga MD [facility] Internal Med [address] [place] [address] 02/12/2022 00:00:00 02/14/2022 16:35:01 [id number] Kevin Torres MD [facility] [place] [address] [place] [address] 02/12/2022 00:00:00 02/12/2022 14:59:05 [id number] Kevin Torres MD [facility] [place] [address] [place] [address] 04/30/2022 00:00:00 04/30/2022 17:28:04 [id number] Katina puga MD [facility] Internal [address] [place] [address] 07/07/2022 00:00:00 07/07/2022 10:03:14 [id number] Kevin Torres MD [facility] [place] [address] [place] [address] 07/29/2022 00:00:00 07/29/2022 16:49:23 [id number] Kevin Torres MD [facility] [place] [address] [place] [address] 08/19/2022 00:00:00 08/19/2022 15:36:28 [id number] Kevin Torres MD [facility] [place] [address] [place] [address] 08/26/2022 00:00:00 08/26/2022 17:31:21 [id number] Kevin Torres MD [facility] [place] [address] [place] [address] 09/09/2022 00:00:00 09/09/2022 17:11:25 [id number] Kevin Torres MD [facility] [place] [address] [place] [address] 10/07/2022 00:00:00 10/07/2022 17:20:52 [id number] Luke Myers MD [facility] [address] [place] [address] 11/13/2022 08:55:05 11/13/2022 09:36:05 Pain of right knee joint [id number] 67262 M25.561 [id number] Kevin Torres MD [facility] [place] [address] [place] [address] 12/09/2022 15:18:35 12/09/2022 16:31:33 Pain of right hand 9702883823 26217 M79.641 Localized, primary osteoarthritis of the hand 856216739 M19.049 [id number] Katina puga MD [facility] Internal Med [facility] [address] [place] [address] [place] [address] 01/12/2023 09:20:12 01/12/2023 10:00:35 Screening - NAD [id number] Z13.9 C-scope: Dr Gary n 03/05/17, next [...] Type 2 jay betes mellitus without complication 516352082 E11.9 Does well On metformin 500mg bidOn ozempic Needs to see eye MDGet labs Essential hypertension 72280739 I10 On coreg 25mg bidOn losartan 100mg dailyOn nifedipine ER 60mg dailyGet labs Hyperlipidemia 88735750 E78.5 On rosuvastat in 40mg dailyGet labs Pain of right hand 88739 78997 10991 M79.641 OV 11/26/2020 :Has seen Dr Juarez take tylenol, NSAIDs, or celebrexHa s taken tramadol in the past, will renew, and he will see Dr Torres OV 01/09/2021 :S/p injection by DAVID Reardon on 11/27/2020 Does well OV 04/08/2021 :Has an apt with Dr Torres on 04/24/2021 Mahy need surgery OV 10/09/2021 :Jc REDDY 08/13/2021 , s/p injection, next apt 11/12/2021 OV 02/11/2022 :Sees Dr Torres, now may have to do surgery OV 07/07/2022 :On tramadolDr Torres 04/30/2022 , next 07/29/2022 OV 01/12/2023 :S/p injection with Allan REDDY 12/09/2022 , f/u Dr Torres 03/10/2023 Ex-cigarette smoker 2810 69491 Z87.891 Quit 17 years ago [facility] 08/06/2020 : [facility] Dr Conroy 09/24/2020 , f/u in 3 months [facility] 07/24/2021 : Neg Abdominal aortic aneurysm 971195581 I71.[address] Muniz [facility] , last 02/11/2022 Proteinuria 03816879 R80 .[address] Peacock Steatotic liver disease 292223804 K76.0 Get labs and US liver Solitary n odule of lung 950364397 R91.1 CT chest: 10/18/[address]: 02/06/2022 : Neg, rec: [address] chest s per radiologis t Benign pro static hyperplasia without outflow obstruction 896108147 N40.[address] Walters, urologyOn finasterid e Migraine 96738254 G43.90 9 Used to be on sumatripta n, not taken since 3 years, but feels that he has a migraine headache d/t his URI, will renew Lead screening 08636968 Z13.88 Get lab, but states that Dr Peacock does also check this Adult heal th examination 684690298 Z00.00 Screening for disorder 829864180 Z13.9 Pain of bi lateral knee joints 9973712884 [address] Myers for R knee pain, s/p injection, now is to get a MRI as per his history 01/12/2023 Addendum: 03/02/2023 :Is to get knee scope done by Dr Griffin cleared for surgery by Dr Muniz [facility] on 03/02/2023 , he is also cleared for surgery and will remain a moderate risk [id number] Luke Myers MD [facility] [place] [address] [place] [address] 02/13/2023 09:23:00 02/16/2023 12:24:39 Pain of right knee joint [id number] 97500 M25.561 [id number] Luke Myers MD [facility] [place] [address] [place] [address] 03/11/2023 08:49:09 03/11/2023 09:34:20 Osteoarthritis 756836338 M19.049 [id number] Luke yMers MD [facility] [place] [address] [place] [address] 04/03/2023 11:18:57 04/03/2023 13:29:18 Postoperative visit [id number] Z09 [id number] Luke Myers MD [facility] [place] [address] [place] [address] 05/15/2023 08:45:33 05/15/2023 09:34:56 Pain of left knee joint 3017200493 78129 M25.423 [id number] Katina puga MD [facility] Internal Med Deidra orantes [address] [facility] [place] [address] 07/13/2023 09:18:17 07/13/2023 09:58:39 Screening - NAD 692365210 Z13.9 C-scope: Dr Abdirahman maldonado 03/05/17, next [...] Type 2 jay betes mellitus without complication 960755591 E11.9 Does well On metformin 500mg bidOn ozempic Needs to see eye MDGet labs Essential hypertension 84563968 I10 ECHO 02/26/2023 : EF 55% Dr Muniz [facility] On coreg 25mg bidOn losartan 100mg dailyOn nifedipine ER 60mg dailyGet labs Hyperlipidemia 28994487 E78.5 On rosuvastat in 40mg dailyGet labs Pain of right hand 57625 89885 65617 M79.641 OV 11/26/2020 :Has seen Dr Juarez take tylenol, NSAIDs, or celebrexHa s taken tramadol in the past, will renew, and he will see Dr Torres OV 01/09/2021 :S/p injection by DAVID Reardon on 11/27/2020 Does well OV 04/08/2021 :Has an apt with Dr Torres on 04/24/2021 Mahy need surgery OV 10/09/2021 :Jc REDDY 08/13/2021 , s/p injection, next apt 11/12/2021 OV 02/11/2022 :Sees Dr Torres, now may have to do surgery OV 07/07/2022 :On tramadolDr Torres 04/30/2022 , next 07/29/2022 OV 01/12/2023 :S/p injection with Allan REDDY 12/09/2022 , f/u Dr Torres 03/10/2023 OV 07/13/2023 : Seen by ortho, states that he will make the apt with Dr Torres again himself, 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[place], [place]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 Ex-cigarette smoker 2810 45467 Z87.891 Quit 17 years ago AAA 08/06/2020 : Border line AAA [facility] Dr Conroy 09/24/2020 , f/u in 3 months US AAA 07/24/2021 : Neg Abdominal aortic aneurysm [id number] I71.[address] Muniz [facility] cardiology , last 02/11/2022 Proteinuria 27130889 R80 .[address] Peacock Steatotic liver disease 814151448 K76.0 Get labs and US liver Solitary n odule of lung 625776080 R91.1 CT chest: 10/18/[address]: 02/06/2022 : Neg, rec: [address] chest s per radiologis t Benign pro static hyperplasia without outflow obstruction 871008600 N40.[address] Walters, urologyOn finasterid Chani flomax Migraine 85375735 G43.90 9 Used to be on sumatripta n, not taken since 3 years, but feels that he has a migraine headache d/t his URI, will renew Lead screening 54183697 Z13.88 Get lab, but states that Dr Peacock does also check this Pain of bi lateral knee joints 6286667675 [address] Myres for R knee pain, s/p injection, now is to get a MRI as per his history 01/12/2023 Addendum: 03/02/2023 :Is to get knee scope done by Dr Griffin cleared for surgery by Dr Muniz [facility] on 03/02/2023 , he is also cleared for surgery and will remain a moderate risk Joshua REDDY 05/15/2023 , s/p kenalog Screening for malignant neoplasm of colon 042272637 Z12.11 [id number] Luke Myers MD [facility] [place] [address] [place] [address] 07/31/2023 08:54:01 08/07/2023 11:35:30 Osteoarthritis of right knee joint 8719581704 44538 M17.11 [id number] Katina puga MD [facility] Internal Med [facility] [address], [facility] [address] [place] [address] 08/26/2023 09:59:27 08/26/2023 10:45:30 Deep venous thrombosis of lower extremity 868908179 I82.401 [facility] Dr Muniz 08/18/2023 , f/u in 6 months, continue with xarelto 20mg daily, will get US prior to next apt in 3 months Hyperlipidemia 29714686 E78.5 On rosuvastat in 40mg dailyWill stop the vascepa as he is on eliquisGet labs [id number] Katina puga MD [facility] [address] , [place] [address] 12/21/2023 09:53:39 12/21/2023 10:38:52 Deep venous thrombosis of lower extremity 337272421 I82.401 [facility] Dr Muniz 08/18/2023 , f/u in 6 monthsOn xarelto US DVT 12/18/2023 : Neg, Bakers CystCan stop the xarelto once 6 months done at the end or 01/2024 Hyperlipidemia 58702853 E78.5 On rosuvastat in 40mg dailyNot on vascepa, d/t his being on Xarelto, will restart once he stops the xareltoGet labs Screening - NAD 12800734 3 Z13.9 C-scope: Dr Gary n 03/05/17, [...] Type 2 jay betes mellitus without complication 012653296 E11.9 Does well On metformin 500mg bidOn ozempic Needs to see eye MDGet labs Essential hypertension 09517249 I10 ECHO 02/26/2023 : EF 55% Dr Muniz [facility] On coreg 25mg bidOn losartan 100mg dailyOn nifedipine ER 60mg dailyGet labs Pain of right hand 57872 19165 28734 M79.641 OV 11/26/2020 :Has seen Dr Cruznot take tylenol, NSAIDs, or celebrexHa s taken tramadol in the past, will renew, and he will see Dr Torres OV 01/09/2021 :S/p injection by DAVID Reardon on 11/27/2020 Does well OV 04/08/2021 :Has an apt with Dr Torres on 04/24/2021 Mahy need surgery OV 10/09/2021 :Jc REDDY 08/13/2021 , s/p injection, next apt 11/12/2021 OV 02/11/2022 :Sees Dr Torres, now may have to do surgery OV 07/07/2022 :On tramadolDr Torres 04/30/2022 , next 07/29/2022 OV 01/12/2023 :S/p injection with Allan REDDY 12/09/2022 , f/u Dr Torres 03/10/2023 OV 07/13/2023 : Seen by ortho, states that he will make the apt with Dr Torres again himself, 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[place] 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 OV 12/21/2023 : Keep apt with hand surgery Ex-cigarette smoker 2810 30614 Z87.891 Quit 17 years ago US AAA 08/06/2020 : Border line AAA HV Dr Conroy AAA 07/24/2021 : Neg Abdominal aortic aneurysm 333650820 I71.[address] Muniz [facility] cardiology Proteinuria 06616532 R80 .[address] Peacock Steatotic liver disease 823301684 K76.0 US Liver 12/16/2023 : hepatic steatosis, hepatomega lyNeeds to see GI Solitary n odule of lung 325579474 R91.1 CT chest: 10/18/[address]: 02/06/2022 : Neg, rec: [address] chest s per radiologis tCT Chest: 12/15/2023 : 2 new RLL nodules, CT chest in 6 months, CAD Benign pro static hyperplasia without outflow obstruction 266769187 N40.[address] Walters, urologyOn finasterid Chani flomax Migraine 31333181 G43.90 9 Used to be on sumatripta n, not taken since 3 years, but feels that he has a migraine headache d/t his URI, will renew Lead screening 47890035 Z13.88 Get lab, but states that Dr Peacock does also check thisRefer to Dr Peacock Pain of bi lateral knee joints 5435590582 [address] Myers for R knee pain, s/p injection, now is to get a MRI as per his history 01/12/2023 Addendum: 03/02/2023 :Is to get knee scope done by Dr Griffin cleared for surgery by Dr Muniz [facility] on 03/02/2023 , he is also cleared for surgery and will remain a moderate risk Joshua REDDY 05/15/2023 , s/p Vernell Myers 07/31/2023 ,next apt 05/20/2024 Screening for malignant neoplasm of colon 605281341 Z12.11 Exposure to asbestos 699 373774 Z77.090 Exposure was 20 years ago, will refer to Dr Kendrick pulmonary [id number] Zoran Kendrick MD [facility] [place] [address] [facility], [facility] [address] [place] [address] 02/22/2024 10:46:34 02/22/2024 16:07:53 Dyspnea on exertion 24895714 R06.09 J98.4 D89.9 T78.40XA [id number] Katina puga MD [facility] Internal Med De[facility] or[address] , [facility] [place] [address] 03/23/2024 10:04:28 03/23/2024 10:49:11 Deep venous thrombosis of lower extremity 389415469 I82.401 [facility] Dr Muniz 08/18/2023 , f/u in 6 monthsOn xarelto US DVT 12/18/2023 : NegLeninCan stop the xarelto once 6 months done at the end or 01/2024 Not on xarelto 03/23/2024 Hyperlipidemia 68111340 E78.5 On rosuvastat in 40mg dailyNot on vascepa, d/t his being on Xarelto, will restart once he stops the xareltoGet labs OV 03/23/2024 :Was not taking any medsWill restart on rosuvastat in40mg dailyWill restart on vascepa 1gm 2 caps bid Screening - NAD 10836214 3 Z13.9 C-scope: Dr Abdirahman maldonado 03/05/17, [...] Type 2 jay betes mellitus without complication 229329523 E11.9 Does well On metformin 500mg bidOn ozempic Needs to see eye MDGet labs Essential hypertension 65928578 I10 ECHO 02/26/2023 : EF 55% Dr Muniz [facility] On coreg 25mg bidOn losartan-H CTZ 100-12.5mg dailyOn nifedipine ER 60mg dailyGet labs Dr Muniz [facility] 02/16/2024 : Started on losartan-H CTZ and f/u in 6 months Pain of right hand 03537 82829 76626 M79.641 OV 11/26/2020 :Has seen Dr Juarez take tylenol, NSAIDs, or celebrexHa s taken tramadol in the past, will renew, and he will see Dr Torres OV 01/09/2021 :S/p injection by DAVID Reardon on 11/27/2020 Does well OV 04/08/2021 :Has an apt with Dr Torres on 04/24/2021 Mahy need surgery OV 10/09/2021 :Jc REDDY 08/13/2021 , s/p injection, next apt 11/12/2021 OV 02/11/2022 :Sees Dr Torres, now may have to do surgery OV 07/07/2022 :On tramadolDr Torres 04/30/2022 , next 07/29/2022 OV 01/12/2023 :S/p injection with Allan REDDY 12/09/2022 , f/u Dr Torres 03/10/2023 OV 07/13/2023 : Seen by ortho, states that he will make the apt with Dr Torres again himself, 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[place] now OV 12/21/2023 : Keep apt with hand surgery OV 03/23/2024 : See Dr Torres Ex-cigarette smoker 2810 35041 Z87.891 Quit 17 years ago AAA 08/06/2020 : Border line AAA SL Dr Conroy AAA 07/24/2021 : Neg Abdominal aortic aneurysm 809353312 I71.[address] Muniz [facility] cardiology Proteinuria 06514949 R80 .[address] Peacock Steatotic liver disease 017070940 K76.0 Liver 12/16/2023 : hepatic steatosis, hepatomega lyNeeds to see GI Solitary n odule of lung 424280754 R91.1 CT chest: 10/18/[address]: 02/06/2022 : Neg, rec: [address] chest s per radiologis tCT Chest: 12/15/2023 : 2 new RLL nodules, CT chest in 6 months, CAD Benign pro static hyperplasia without outflow obstruction 178902563 N40.[address] Walters, urologyOn finasterid Chani flomax Migraine 11258831 G43.90 9 Used to be on sumatripta n, not taken since 3 years, but feels that he has a migraine headache d/t his URI, will renew Lead screening 02363364 Z13.88 Get lab, but states that Dr Peacock does also check thisRefer to Dr Peacock Pain of bi lateral knee joints 0147911072 [address] Myers for R knee pain, s/p injection, now is to get a MRI as per his history 01/12/2023 Addendum: 03/02/2023 :Is to get knee scope done by Dr Griffin cleared for surgery by Dr Muniz [facility] on 03/02/2023 , he is also cleared for surgery and will remain a moderate risk Joshua REDDY 05/15/2023 , s/p malcolmalogDr Myers 07/31/2023 ,next apt 05/20/2024 Screening for malignant neoplasm of colon 657580449 Z12.11 Exposure to asbestos 699 810580 Z77.090 Exposure was 20 years ago, will refer to Dr Kendrick pulmonary Gastroesop hageal reflux disease without esophagitis 127396231 K21.9 On omeprazole 20mg daily as neededGet EGD done Screening for malignant neoplasm of prostate 598415982 Z12.5 Adult heal th examination 260184781 Z00.00 Screening for disorder 153943332 Z13.9 Advance di rective discussed with patient 753648765 Z71.89 [id number] Zoran Kendrick MD [facility] [address] [place] [address] 05/30/2024 09:32:13 05/31/2024 15:27:46 Dyspnea on exertion 52063370 R06.09 J98.4 D89.9 T78.40XA Multiple n odules of lung 820598665 R91.8 [id number] Katina puga MD [facility] [address] [place] [address] 07/25/2024 10:13:39 07/25/2024 11:38:59 Deep venous thrombosis of lower extremity 162641760 I82.401 [facility] Dr Muniz 08/18/2023 , f/u in 6 monthsOn xarelto US DVT 12/18/2023 : Neg, Bakers CystCan stop the xarelto once 6 months done at the end or 01/2024 Not on xarelto 03/23/2024 Hyperlipidemia 42495347 E78.5 On rosuvastat in 40mg dailyNot on vascepa, d/t his being on Xarelto, will restart once he stops the xareltoGet labs OV 03/23/2024 :Was not taking any medsWill restart on rosuvastat in40mg dailyWill restart on vascepa 1gm 2 caps bid OV 07/25/2024 :On rosuvastat in 40mg dailyOn vascepaMor e diet and exercise and repeat the labs Screening - NAD [id number] 3 Z13.9 C-scope: Dr Gary n 03/05/17, [...] Type 2 jay betes mellitus without complication 919327353 E11.9 Does well On metformin 500mg bidOn ozempic Needs to see eye MDGet labs Essential hypertension 53066726 I10 ECHO 02/26/2023 : EF 55% Dr Muniz [facility] On coreg 25mg bidOn losartan-H CTZ 100-12.5mg dailyOn nifedipine ER 60mg dailyGet labs Dr Emil ROSS 02/16/2024 : Started on losartan-H CTZ and f/u in 6 months Pain of right hand 68266 18246 66371 M79.641 OV 11/26/2020 :Has seen Dr Juarez take tylenol, NSAIDs, or celebrexHa s taken tramadol in the past, will renew, and he will see Dr Torres OV 01/09/2021 :S/p injection by DAVID Reardon on 11/27/2020 Does well OV 04/08/2021 :Has an apt with Dr Torres on 04/24/2021 Mahy need surgery OV 10/09/2021 :Jc REDDY 08/13/2021 , s/p injection, next apt 11/12/2021 OV 02/11/2022 :Sees Dr Torres, now may have to do surgery OV 07/07/2022 :On tramadolDr Torres 04/30/2022 , next 07/29/2022 OV 01/12/2023 :S/p injection with Allan REDDY 12/09/2022 , f/u Dr Torres 03/10/2023 OV 07/13/2023 : Seen by ortho, states that he will make the apt with Dr Torres again himself, 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[place] now OV 12/21/2023 : Keep apt with hand surgery OV 03/23/2024 : See Dr Torres OV 07/25/2024 :Referred to Dr Torres Ex-cigarette smoker 2810 20848 Z87.891 Quit 17 years ago AAA 08/06/2020 : Border line AAA SL Dr Conroy AAA 07/24/2021 : Neg CT chest 07/06/2024 : Dr Kendrick Abdominal aortic aneurysm 822429808 I71.[address] Muniz [facility] cardiology Proteinuria 75416070 R80 .[address] Peacock Steatotic liver disease 303536970 K76.0 Liver 12/16/2023 : hepatic steatosis, hepatomega lyNeeds to see GI Solitary n odule of lung 176637442 R91.1 CT chest: 10/18/[address]: 02/06/2022 : Neg, rec: [address] chest s per radiologis tCT Chest: 12/15/2023 : 2 new RLL nodules, CT chest in 6 months, CADCt Chest: 07/06/2024 Benign pro static hyperplasia without outflow obstruction 759329076 N40.[address] Walters, urologyOn finasterid Chani flomax Migraine 70096866 G43.90 9 Used to be on sumatripta n, not taken since 3 years, but feels that he has a migraine headache d/t his URI, will renew Lead screening 29665629 Z13.88 Get lab, but states that Dr Peacock does also check thisRefer to Dr Peacock Pain of bi lateral knee joints 6243792654 [address] Myers for R knee pain, s/p injection, now is to get a MRI as per his history 01/12/2023 Addendum: 03/02/2023 :Is to get knee scope done by Dr Griffin cleared for surgery by Dr Muniz [facility] on 03/02/2023 , he is also cleared for surgery and will remain a moderate risk Joshua REDDY 05/15/2023 , s/p Vernell Myers Exposure to asbestos 699 447677 Z77.090 Exposure was 20 years ago, will refer to Dr Kendrick pulmonary Gastroesop hageal reflux disease without esophagitis 059305787 K21.9 On omeprazole 20mg daily as neededGet EGD done Chronic pain 63841943 G8 9.29 Has R hip pain, sees Dr Webster jostin hand pain, sees Dr Doherty also noted neck painNo weakness in UE or LE, no loss of bowel or bladder controlTak es PRN tramadolWi ll refer to [facility] [id number] Zoran Kendrick MD [facility] [place] [address] [facility] [address] [place] [address] 08/17/2024 10:35:11 08/17/2024 14:34:43 Multiple nodules of lung 230216128 R91.8 [id number] Katina puga MD [facility] Primary [facility] [address] [facility] [address] [place] [address] 10/24/2024 10:15:36 10/24/2024 11:31:26 Deep venous thrombosis of lower extremity 716297075 I82.401 [facility] Dr Muniz 08/18/2023 , f/u in 6 monthsOn xarelto US DVT 12/18/2023 : NegLenin CystCan stop the xarelto once 6 months done at the end or 01/2024 Not on xarelto 03/23/2024 Hyperlipidemia 96611635 E78.5 On rosuvastat in 40mg dailyNot on vascepa, d/t his being on Xarelto, will restart once he stops the xareltoGet labs OV 03/23/2024 :Was not taking any medsWill restart on rosuvastat in40mg dailyWill restart on vascepa 1gm 2 caps bid OV 07/25/2024 :On rosuvastat in 40mg dailyOn vascepaMor e diet and exercise and repeat the labs Screening - NAD 26464440 3 Z13.9 C-scope: Dr Gary n 03/05/17, [...] Type 2 jay betes mellitus without complication 721957681 E11.9 Needs more diet and exercise! On metformin 500mg bidNot taking ozempic, can restart but has declined, states that he has been drinking a lot of sweet teaExplain ed in detail 10/24/2024 the risks for elevated glucose, he wants to repeat the labs in 3 months and see if the A1C will come down once he stops the sweet tea Needs to see eye MDGet labs Essential hypertension 51928806 I10 ECHO 02/26/2023 : EF 55% Dr Muniz [facility] On coreg 25mg bidOn losartan-H CTZ 100-12.5mg dailyOn nifedipine ER 60mg dailyGet labs Dr Emil ROSS 02/16/2024 : Started on losartan-H CTZ and f/u in 6 months Pain of right hand 28114 44339 59266 M79.641 OV 11/26/2020 :Has seen Dr Juarez take tylenol, NSAIDs, or celebrexHa s taken tramadol in the past, will renew, and he will see Dr Torres OV 01/09/2021 :S/p injection by DAVID Reardon on 11/27/2020 Does well OV 04/08/2021 :Has an apt with Dr Torres on 04/24/2021 Mahy need surgery OV 10/09/2021 :Jc REDDY 08/13/2021 , s/p injection, next apt 11/12/2021 OV 02/11/2022 :Sees Dr Torres, now may have to do surgery OV 07/07/2022 :On tramadolDr Torres 04/30/2022 , next 07/29/2022 OV 01/12/2023 :S/p injection with Allan REDDY 12/09/2022 , f/u Dr Torres 03/10/2023 OV 07/13/2023 : Seen by ortho, states that he will make the apt with Dr Torres again himself, 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[place] 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 OV 12/21/2023 : Keep apt with hand surgery OV 03/23/2024 : See Dr Torres OV 07/25/2024 :Referred to Dr Torres OV 10/24/2024 : Needs to see Dr Torres, referred again Ex-cigarette smoker 2810 59780 Z87.891 Quit 17 years ago AAA 08/06/2020 : Border line AAA SL Dr Conroy AAA 07/24/2021 : Neg CT chest 07/06/2024 : Dr Kendrick Abdominal aortic aneurysm 064352214 I71.[address] Muniz [facility] cardiology Proteinuria 60930225 R80 .[address] Peacock Steatotic liver disease 035695185 K76.0 US Liver 12/16/2023 : hepatic steatosis, hepatomega lyNeeds to see GI Solitary n odule of lung 253872382 R91.1 CT chest: 10/18/[address]: 02/06/2022 : Neg, rec: [address] chest s per radiologis tCT Chest: 12/15/2023 : 2 new RLL nodules, CT chest in 6 months, CADCt Chest: 07/06/2024 Benign pro static hyperplasia without outflow obstruction 481483688 N40.[address] Walters, urologyOn finasterid Chani flomax Migraine 21059280 G43.90 9 Used to be on sumatripta n, not taken since 3 years, but feels that he has a migraine headache d/t his URI, will renew Lead screening 06103665 Z13.88 Get lab, but states that Dr Peacock does also check thisLabs as per Dr Peacock Pain of bi lateral knee joints 6837395115 [address] Myers for R knee pain, s/p injection, now is to get a MRI as per his history 01/12/2023 Addendum: 03/02/2023 :Is to get knee scope done by Dr Griffin cleared for surgery by Dr Muniz [facility] on 03/02/2023 , he is also cleared for surgery and will remain a moderate risk Joshua REDDY 05/15/2023 , s/p malcolmalogDr Myers Exposure to asbestos 699 460386 Z77.090 Exposure was 20 years ago, will refer to Dr Kendrick pulmonary Gastroesop hageal reflux disease without esophagitis 172417270 K21.9 On omeprazole 20mg daily as neededGet EGD done Chronic pain 07670403 G8 9.29 Has R hip pain, sees Dr Webster jostin hand pain, sees Dr Doherty also noted neck painNo weakness in UE or LE, no loss of bowel or bladder controlTak es PRN tramadolWi ll refer to [facility] [id number] Katina puga MD [facility] [address] [place] [address] 01/25/2025 11:52:59 01/25/2025 12:52:00 Deep venous thrombosis of lower extremity 862156178 I82.401 [facility] Dr Muniz 08/18/2023 , f/u in 6 monthsOn xarelto US DVT 12/18/2023 : Neg, Bakers CystCan stop the xarelto once 6 months done at the end or 01/2024 Not on xarelto 03/23/2024 Hyperlipidemia 42198406 E78.5 On rosuvastat in 40mg dailyNot on vascepa, d/t his being on Xarelto, will restart once he stops the xareltoGet labs OV 03/23/2024 :Was not taking any medsWill restart on rosuvastat in40mg dailyWill restart on vascepa 1gm 2 caps bid OV 07/25/2024 :On rosuvastat in 40mg dailyOn vascepaMor e diet and exercise and repeat the labs Screening - NAD 77402506 3 Z13.9 C-scope: Dr Gary n 03/05/17, [...] Type 2 jay betes mellitus without complication 888475053 E11.9 Needs more diet and exercise! On metformin 500mg bidNot taking ozempic, can restart but has declined, states that he has been drinking a lot of sweet teaExplain ed in detail 10/24/2024 the risks for elevated glucose, he wants to repeat the labs in 3 months and see if the A1C will come down once he stops the sweet tea Needs to see eye MDGet labs Essential hypertension 30016934 I10 ECHO 02/26/2023 : EF 55% Dr Muniz [facility] On coreg 25mg bidOn losartan-H CTZ 100-12.5mg dailyOn nifedipine ER 60mg dailyGet labs Dr Emil ROSS 02/16/2024 : Started on losartan-H CTZ and f/u in 6 months Pain of right hand 45586 77881 19920 M79.641 OV 11/26/2020 :Has seen Dr Juarez take tylenol, NSAIDs, or celebrexHa s taken tramadol in the past, will renew, and he will see Dr Torres OV 01/09/2021 :S/p injection by DAVID Reardon on 11/27/2020 Does well OV 04/08/2021 :Has an apt with Dr Torres on 04/24/2021 Mahy need surgery OV 10/09/2021 : Jc REDDY 08/13/2021 , s/p injection, next apt 11/12/2021 OV 02/11/2022 :Sees Dr Torres, now may have to do surgery OV 07/07/2022 :On tramadolDr Torres 04/30/2022 , next 07/29/2022 OV 01/12/2023 :S/p injection with Allan REDDY 12/09/2022 , f/u Dr Torres 03/10/2023 OV 07/13/2023 : Seen by ortho, states that he will make the apt with Dr Torres again himself, 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[place] now OV 12/21/2023 : Keep apt with hand surgery OV 03/23/2024 : See Dr Torres OV 07/25/2024 :Referred to Dr Torres OV 10/24/2024 : Needs to see Dr Torres, referred again OV 01/25/2025 : Referred again, urged to see hand surgeon Ex-cigarette smoker 2810 91120 Z87.891 Quit 17 years ago AAA 08/06/2020 : Border line AAA SL Dr Conroy AAA 07/24/2021 : Neg CT chest 07/06/2024 : Dr Kendrick Abdominal aortic aneurysm 317315811 I71.[address] Muniz [facility]ology Proteinuria 83920513 R80 .[address] Peacock Steatotic liver disease 557990356 K76.0 US Liver 12/16/2023 : hepatic steatosis, hepatomega lyNeeds to see GI Solitary n odule of lung 276204729 R91.1 CT chest: 10/18/[address]: 02/06/2022 : Neg, rec: [address] chest s per radiologis tCT Chest: 12/15/2023 : 2 new RLL nodules, CT chest in 6 months, CADCt Chest: 07/06/2024 Benign pro static hyperplasia without outflow obstruction 314023986 N40.[address] Walters, urologyOn finasterid Chani flomax Migraine 88432369 G43.90 9 Used to be on sumatripta n, not taken since 3 years, but feels that he has a migraine headache d/t his URI, will renew Lead screening 42085673 Z13.88 Get lab, but states that Dr Peacock does also check thisLabs as per Dr Peacock Pain of bi lateral knee joints [id number] [address] Myers for R knee pain, s/p injection, now is to get a MRI as per his history 01/12/2023 Addendum: 03/02/2023 :Is to get knee scope done by Dr Griffin cleared for surgery by Dr Muniz [facility] on 03/02/2023 , he is also cleared for surgery and will remain a moderate risk Joshua REDDY 05/15/2023 , s/p Vernell Myers Exposure to asbestos 699 725555 Z77.090 Exposure was 20 years ago, will refer to Dr Kendrick pulmonary Gastroesop hageal reflux disease without esophagitis 903271538 K21.9 On omeprazole 20mg daily as neededGet EGD done Chronic pain 36651282 G8 9.29 Has R hip pain, sees Dr Webster jostin hand pain, sees Dr Doherty also noted neck painNo weakness in UE or LE, no loss of bowel or bladder controlTak es PRN tramadolWi ll refer to IPC IPC 01/19/2025 Leukocytosis 647375226 D 72.829 519667 Repeat the CBC [id number] Katina puga MD [facility] [address] [place] [address] 05/08/2025 12:04:06 05/08/2025 13:08:32 Deep venous thrombosis of lower extremity 813733538 I82.401 [facility] Dr Muniz 08/18/2023 , f/u in 6 monthsOn xarelto US DVT 12/18/2023 : Lenin Reddy CystCan stop the xarelto once 6 months done at the end or 01/2024 Not on xarelto 03/23/2024 Hyperlipidemia 98604446 E78.5 On rosuvastat in 40mg dailyOn vascepaMor e diet and exercise and repeat the labs Screening - NAD 36160092 3 Z13.9 C-scope: Dr Gary n 03/05/17, [...] Type 2 jay betes mellitus without complication 690962588 E11.9 Needs more diet and exercise! On metformin 1000mg bidNot taking ozempic, can restart but has declined, states that he has been drinking a lot of sweet teaExplain ed in detail 10/24/2024 the risks for elevated glucose, he wants to repeat the labs in 3 months and see if the A1C will come down once he stops the sweet tea Needs to see eye MDGet labs Essential hypertension 03189543 I10 ECHO 02/26/2023 : EF 55% Dr Muniz [facility] On coreg 25mg bidOn clonidineN ot on losartan-H CTZ 100-12.5mg dailyOn indapamide 2.5mg dailyOn nifedipine ER 60mg dailyOn olmesartan 40mg dailyGet labs Dr Muniz [facility] 02/16/2024 : Started on losartan-H CTZ and f/u in 6 months Pain of right hand 63240 99324 23263 M79.641 OV 11/26/2020 :Has seen Dr Juarez take tylenol, NSAIDs, or celebrexHa s taken tramadol in the past, will renew, and he will see Dr Torres OV 01/09/2021 :S/p injection by DAVID Reardon on 11/27/2020 Does well OV 04/08/2021 :Has an apt with Dr Torres on 04/24/2021 Mahy need surgery OV 10/09/2021 : Jc REDDY 08/13/2021 , s/p injection, next apt 11/12/2021 OV 02/11/2022 :Sees Dr Torres, now may have to do surgery OV 07/07/2022 :On tramadolDr Torres 04/30/2022 , next 07/29/2022 OV 01/12/2023 :S/p injection with Allan REDDY 12/09/2022 , f/u Dr Torres 03/10/2023 OV 07/13/2023 : Seen by ortho, states that he will make the apt with Dr Torres again himself, 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[place], [place] now OV 12/21/2023 : Keep apt with hand surgery OV 03/23/2024 : See Dr Torres OV 07/25/2024 :Referred to Dr Torres OV 10/24/2024 : Needs to see Dr Torres, referred again OV 01/25/2025 : Referred again, urged to see hand surgeon Ex-cigarette smoker 2810 91625 Z87.891 Quit 17 years ago AAA 08/06/2020 : Border line AAA SL Dr Conroy AAA 07/24/2021 : Neg CT chest 07/06/2024 : Dr Kendrick Abdominal aortic aneurysm [id number] I71.[address] Muniz [facility] cardiology Dr Muniz [facility] 04/25/2025 Proteinuria 62829224 R80 .[address] Peacock Steatotic liver disease 037009553 K76.0 US Liver 12/16/2023 : hepatic steatosis, hepatomega lyNeeds to see GI Solitary n odule of lung 481409947 R91.1 CT chest: 10/18/[address]: 02/06/2022 : Neg, rec: [address] chest s per radiologis tCT Chest: 12/15/2023 : 2 new RLL nodules, CT chest in 6 months, CADCt Chest: 07/06/2024 Benign pro static hyperplasia without outflow obstruction 030960088 N40.[address] Walters, urologyOn finasterid Chani flomax Migraine 33524710 G43.90 9 Used to be on sumatripta n, not taken since 3 years, but feels that he has a migraine headache d/t his URI, will renew Lead screening 31035419 Z13.88 Get lab, but states that Dr Peacock does also check thisLabs as per Dr Peacock Pain of bi lateral knee joints 9494054612 [address] Myers for R knee pain, s/p injection, now is to get a MRI as per his history 01/12/2023 Addendum: 03/02/2023 :Is to get knee scope done by Dr Griffin cleared for surgery by Dr Muniz [facility] on 03/02/2023 , he is also cleared for surgery and will remain a moderate risk Joshua REDDY 05/15/2023 , s/p Vernell Myers Exposure to asbestos 699 326170 Z77.090 Exposure was 20 years ago, will refer to Dr Kendrick pulmonary Gastroesop hageal reflux disease without esophagitis 030778554 K21.9 On omeprazole 20mg daily as neededIs to see Dr Correia GI/Dr Reddy Chronic pain 35046113 G8 9.29 Has R hip pain, sees Dr Webster jostin hand pain, sees Dr Doherty also noted neck painNo weakness in UE or LE, no loss of bowel or bladder controlTak es PRN tramadolNo w on duloxetine Benji Екатерина IPC 01/19/2025 Leukocytosis 475162574 D 72.829 293028 Repeat the CBC Pain of hip region 53309 002 M25.552 566171 Has R hip pain, sees Dr Darin frankel hand pain, sees Dr Doherty also noted neck painNo weakness in UE or LE, no loss of bowel or bladder controlTak es PRN tramadolNo w on duloxetine Benji Екатерина IPC 01/19/2025 Now is waiting for Dr Peacock to clear him for surgeryCle ared for surgery Dr Muniz [facility] Blood lead level above reference range 201420476 R78.71 155085 [id number] Katina puga MD [facility] Primary [facility] [address] [place] [address] 06/12/2025 09:15:43 06/12/2025 10:02:15 Deep venous thrombosis of lower extremity 566587123 I82.401 [facility] Dr Muniz 08/18/2023 , f/u in 6 monthsOn xarelto US DVT 12/18/2023 : Neg, Bakers CystCan stop the xarelto once 6 months done at the end or 01/2024 Not on xarelto 03/23/2024 Hyperlipidemia 23953128 E78.5 On rosuvastat in 40mg dailyOff vascepa as he is to get surgeryMor e diet and exercise and repeat the labs Screening - NAD 32430447 3 Z13.9 C-scope: Dr Gary n 03/05/17, [...] Type 2 jay betes mellitus without complication 530548457 E11.9 Needs more diet and exercise! On metformin 1000mg bidNot taking ozempic, can restart but has declined, states that he has been drinking a lot of sweet teaExplain ed in detail 10/24/2024 the risks for elevated glucose, he wants to repeat the labs in 3 months and see if the A1C will come down once he stops the sweet tea Needs to see eye MDGet labs Essential hypertension 90045308 I10 ECHO 02/26/2023 : EF 55% Dr Muniz [facility] On coreg 25mg bidOn clonidineN ot on losartan-H CTZ 100-12.5mg dailyOn indapamide 2.5mg dailyOn nifedipine ER 60mg dailyOn olmesartan 40mg dailyGet labs Dr Emil ROSS 02/16/2024 : Started on losartan-H CTZ and f/u in 6 months Pain of right hand 28249 56797 51049 M79.641 OV 11/26/2020 :Has seen Dr BellCannot take tylenol, NSAIDs, or celebrexHa s taken tramadol in the past, will renew, and he will see Dr Torres OV 01/09/2021 :S/p injection by DAVID Reardon on 11/27/2020 Does well OV 04/08/2021 :Has an apt with Dr Torres on 04/24/2021 Mahy need surgery OV 10/09/2021 : Jc REDDY 08/13/2021 , s/p injection, next apt 11/12/2021 OV 02/11/2022 :Sees Dr Torres, now may have to do surgery OV 07/07/2022 :On tramadolDr Torres 04/30/2022 , next 07/29/2022 OV 01/12/2023 :S/p injection with Allan REDDY 12/09/2022 , f/u Dr Torres 03/10/2023 OV 07/13/2023 : Seen by ortho, states that he will make the apt with Dr Torres again himself, 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[place], [place] 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 OV 12/21/2023 : Keep apt with hand surgery OV 03/23/2024 : See Dr Torres OV 07/25/2024 :Referred to Dr Torres OV 10/24/2024 : Needs to see Dr Torres, referred again OV 01/25/2025 : Referred again, urged to see hand surgeon OV 06/12/2025 : Again referred but he does want to wait till after his surgery Ex-cigarette smoker 2810 38383 Z87.891 Quit 17 years ago AAA 08/06/2020 : Border line AAA SL Dr Conroy US AAA 07/24/2021 : Neg CT chest 07/06/2024 : Dr Mireille Kendrick 08/17/2025 Abdominal aortic aneurysm 738599103 I71.[address] Muniz SL cardiology Dr Muniz DAVID 04/25/2025 Proteinuria 18174516 R80 .[address] Peacock Steatotic liver disease 244967798 K76.0 US Liver 12/16/2023 : hepatic steatosis, hepatomega lyNeeds to see GI Dr Vazquez 05/17/2025 EGD 05/26/2025 Solitary n odule of lung 341497791 R91.1 CT chest: 10/18/[address]: 02/06/2022 : Neg, rec: [address] chest s per radiologis tCT Chest: 12/15/2023 : 2 new RLL nodules, CT chest in 6 months, CADCt Chest: 07/06/2024 Benign pro static hyperplasia without outflow obstruction 814319521 N40.[address] Walters, urologyOn finasterid Chani flomax Migraine 92172050 G43.90 9 Used to be on sumatripta n, not taken since 3 years, but feels that he has a migraine headache d/t his URI, will renew Lead screening 14877548 Z13.88 Get lab, but states that Dr Peacock does also check thisLabs as per Dr Peacock Pain of bi lateral knee joints 7478798258 [address] Myers for R knee pain, s/p injection, now is to get a MRI as per his history 01/12/2023 Addendum: 03/02/2023 :Is to get knee scope done by Dr Griffin cleared for surgery by Dr Muniz [facility] on 03/02/2023 , he is also cleared for surgery and will remain a moderate risk Joshua REDDY 05/15/2023 , s/p Vernell Myers Exposure to asbestos 699 958750 Z77.090 Exposure was 20 years ago, will refer to Dr Kendrick pulmonary Gastroesop hageal reflux disease without esophagitis 031234038 K21.9 On omeprazole 20mg daily as neededIs to see Dr Correia GI/Dr Reddy Chronic pain 89232962 G8 9.29 Has R hip pain, sees Dr Webster jostin hand pain, sees Dr Doherty also noted neck painNo weakness in UE or LE, no loss of bowel or bladder controlTak es PRN tramadolNo w on duloxetine Benji Екатерина IPC 01/19/2025 Leukocytosis 654743531 D 72.829 784120 Repeat the CBC Pain of hip region 78122 002 M25.552 165182 Has R hip pain, sees Dr Webster jostin hand pain, sees Dr Doherty also noted neck painNo weakness in UE or LE, no loss of bowel or bladder controlTak es PRN tramadolNo w on duloxetine Benji Екатерина IPC 01/19/2025 Now is waiting for Dr Peacock to clear him for surgeryCle ared for surgery Dr Muniz [facility] Now cleared by Dr Peacock and VANDANA 06/15/2025 Blood lead level above reference range 461361574 R78.71 809522 Health Concerns Section Related Observation LastModified by Organization Detai ls LastModified Time None Recorded Concern Status LastModified by Organization Details LastModified Time None Recorded Advance Directives Directive N: Patient given information . 03/23/24 Payers Insurance Date Sequence Insurance Name Policy Number Policy Ty Covered Member ID Ty Member ID Guarantor Name 06/10/2025 1 [place] Kofi Saldaña [id number] Kofi Saldaña 06/10/2025 2 [place] 33D Kofi Saldaña [id number] Kofi Saldaña 06/10/2025 [employer] - DMEPOS ASSIGNED (MEDICARE [facility]) Kofi Saldaña [id number] Kofi Saldaña Notes Date Note Type Note Provider Name and Address Organization Details Recorded Time 08/17/2024 text/html Primary care/Referring provider: Katina Rodriguez MD Patient is here [...] and summerAlleviating factors: rest Modified [employer] (mMRC) Dyspnea Scale - Grade 1Grade 0 [...] noEdema: no Environmental exposures:Nicotine smoke: 2 ppd 1452-2885 = 20 pack yearsPaint: noDye: noDust mites: [...] has a slight chance of dozing. Zoran Kendrick MD [address] [place] [address] [address], [place], [address], [place] [facility] 08/17/2024 11:23:53 10/24/2024 text/html 03/16/17CV: Here with c/o LBPHasNo N/T [...] the MCP joints but states that the midwife is goodHe would also like to do [...] is doing well otherwiseHe did see Jena REDDY orthoOV 04/08/2021:Here for his routine aptHe is [...] now wants a referral to pain management OV 10/24/2024: Here for his f/u apt, he is doing very well today and he has done his labs also for Dr Ayush Rodriguez MD [address] [facility], [address], [place], [address], [facility] [employer] 10/24/2024 17:52:16 01/25/2025 text/html 03/16/17CV: Here with c/o LBPHasNo N/T [...] and is now willing to do PT04/20/17HTNDMII?LBP/ neuropathyBPH:Migraine Tata for his follow up, did do [...] the MCP joints but states that the midwife is goodHe would also like to do [...] is doing well otherwiseHe did see Jena REDDY orthoOV 04/08/2021:Here for his routine aptHe is [...] now wants a referral to pain management OV 10/24/2024: Here for his f/u apt, he is doing very well today and he has done his labs also for Dr Peacock OV 01/25/2025: Here for his f/u apt, he is doing well, he did do the labs Katina Rodriguez MD [address] [place] [address], [facility] [address], [place], [address], [place] [facility] 01/25/2025 18:56:10 05/08/2025 text/html 03/16/17CV: Here with c/o LBPHasNo N/T [...] the MCP joints but states that the midwife is goodHe would also like to do [...] is doing well otherwiseHe did see Jena REDDY orthoOV 04/08/2021:Here for his routine aptHe is [...] now wants a referral to pain management OV 10/24/2024: Here for his f/u apt, he is doing very well today and he has done his labs also for Dr Peacock OV 01/25/2025: Here for his f/u apt, he is doing well, he did do the labs OV 05/08/2025: Here to discuss his pre op clearance for his L hip surgery by Dr Gardiner is cleared for surgery by Dr Muniz [facility] but now has to do labs for Dr Peacock, he also has to get his EGD done as Dr Myers worries about a bleeding ulcer and he would need to be on blood thinnersHe continues to c/o L hip pain Katina Rodriguez MD [address] [facility], [facility] [address], [place], [address], [facility] [employer] 05/09/2025 19:02:45 06/12/2025 text/html 03/16/17CV: Here with c/o LBPHasNo N/T [...] is now willing to do PT04/20/17HTNDMII?LBP/ neuropathyBPH:Becca Payton for his follow up, did do the [...] the MCP joints but states that the midwife is goodHe would also like to do [...] is doing well otherwiseHe did see Jena REDDY orthoOV 04/08/2021:Here for his routine aptHe is [...] now wants a referral to pain management OV 10/24/2024: Here for his f/u apt, he is doing very well today and he has done his labs also for Dr Peacock OV 01/25/2025: Here for his f/u apt, he is doing well, he did do the labs OV 05/08/2025: Here to discuss his pre op clearance for his L hip surgery by Dr Gardiner is cleared for surgery by Dr Muniz [facility] but now has to do labs for Dr Peacock, he also has to get his EGD done as Dr Myers worries about a bleeding ulcer and he would need to be on blood thinnersHe continues to c/o L hip pain OV 06/12/2025: Here for his f/u apt, he is now scheduled to get surgery for the L hip, he did do the labs Katina oRdriguez MD [address] [place] [address], [address], [place], [address], [place] [facility] 06/12/2025 10:01:32
--- OUTSIDE RECORDS SUMMARY | 2025-06-15 15:58 | XMS_ITS | Encounter Summary ---
Author Organization [employer] [facility] Address [address] [facility] [place] [address] Phone Care Team Providers Care Dissolver Operator Name Role Phone Jose Rodriguez MD Primary Care Provider [phone] [phone] Reason for Visit * Reason Comments Med Refill Encounter Details Date Type Department Care Team (Late st Contact Info) Description 04/25/2021 Refill [facility], [address] [place] [address] Vimal Peacock DO [address] [facility] [address] [place] [address] Social History Tobacco Use Types [...] Care Team (Late st Contact Info) Description 09/12/2025 2:15 PM TIE LAYER Office Visit [facility] [address] [facility] [address] [place] [address] Vimal Peacock DO [address] [facility] 1 [place] [address] documented as of this encounter Visit Diagnoses Not on filedocumented in this encounter Care Teams Dissolver Operator Relationship Specialty [place] [address] [place] [address], [address] [place] [address] PCP - General Internal Medicine 07/07/22 documented as of this encounter
--- OUTSIDE RECORDS SUMMARY | 2025-06-15 15:58 | XMS_ITS | Clinical Summary ---
Author Organization [facility] Address [address] [address] Phone Care Team Providers Care Communicable Disease Specialist Name Role Phone Jose Rodriguez MD Primary Care Provider [phone] [phone] Medications carvedilol (COREG) 12.5 MG tablet Comments: [...] 180 tablet 1 02/01/20 25 026 Active cloNIDine 0.1 MG/24HR patch weekly APPLY 1 PATCH TOPICALLY ONCE A WEEK 12 patch 04/17/20 25 Active magnesium oxide (MAG-OX) 400 MG tablet Take 1 tablet (400 mg total) by mouth in the morning and 1 tablet (400 mg total) in the evening. 180 tablet 1 06/06/20 Active olmesartan (BENICAR) 40 MG tablet TAKE 1 TABLET BY MOUTH ONCE DAILY AT NIGHT 90 tablet 06/07/20 Active indapamide (LOZOL) 2.5 MG tablet TAKE 1 TABLET BY MOUTH ONCE DAILY IN THE MORNING 90 tablet 06/07/20 Active indapamide (LOZOL) 2.5 MG tablet TAKE 1 TABLET BY MOUTH ONCE DAILY IN THE MORNING 90 tablet 03/14/20 25 025 Discontinued olmesartan (BENICAR) 40 MG tablet TAKE 1 TABLET BY MOUTH ONCE DAILY AT NIGHT 90 tablet 03/14/20 025 Discontinued magnesium oxide (MAG-OX) 400 MG tablet Take 400 mg by mouth in the morning and 400 mg in the evening. 025 Discontinued(Re order (does not appear on AVS)) Active Problems Problem Noted Date Diagnosed Date Essential hypertension 11/01/2024 Encounters Date Type Department Care Team Description 06/07/[address] [facility] [address] [address] Vimal Peacock DO 06/06/2025 2:15 PM CDT Office Visit 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 [address] [address] Lori Gonzalez CMA 06/05/2025 Documentation Only [facility], [address] [phone] Vimal Peacock DO 06/05/2025 Documentation Only [facility] [address] [place], [place] [address], [place] [address] Vimal Peaocck, DO 06/02/2025 Documentation Only [facility] [address] [place], [place] [address], [place] [address] Vimal Peacock, DO 06/02/2025 Documentation Only [facility] [address] [place] [address] Vimal Peacock, DO 05/15/2025 Documentation Only [facility] [address] [place] [address] Vimal Peacock, DO 05/12/2025 Documentation Only [facility] [address] [place] [address] Vimal Peacock, DO 05/11/2025 Documentation Only [facility] [address] [place] [address] Vimal Peacock, DO 05/11/2025 Documentation Only [facility] [address] [place] [address] Vimal Peacock, DO 05/11/2025 Documentation Only [facility] [address] [place] [address] Vimal Peacock, DO 05/11/2025 Documentation Only [facility] [address] [place] [address], [place] [address] Vimal Peacock, DO 05/11/2025 Documentation Only [facility] [address] [place] [address] [address] [place] [address] Vilma Moran 04/26/2025 Documentation Only [facility] [address] [place] [address], [place] [address] PeacockVimal gutierrez DO 04/16/2025 Refill [facility] [address] [facility] 15 [place] [address] Vimal Peacock DO from Last 3 Months [...] Sign Reading Time Taken Comments Blood Pressure 126/80 06/06/2025 2:39 PM CDT Pulse 94 06/06/2025 2:39 PM CDT Temperature 36.1 C (97 F) 06/06/2025 2:39 PM CDT Respiratory Rate 18 06/06/2025 2:39 PM CDT Oxygen Saturation 96% 06/06/2025 2:39 PM CDT Inhaled Oxygen Concentration - - Weight 97.1 kg (214 lb) 06/06/2025 2:39 PM CDT Height 177.8 cm (5' 10) 01/31/2025 2:10 PM CDT Body Mass Index 30.71 01/31/2025 2:10 PM CDT Plan of Treatment Upcoming Encounters Date Type Department Care Team (Late st Contact Info) Description 09/12/2025 2:15 PM GAS WELDER Office Visit [facility] [address] [facility] 15 [place] [address] Vimal Peacock DO [address] [address] Health Maintenance Due Date Last Done Comments [...] to 49 Years) Discontinued 04/08/2021, 03/19/2020 Insurance [facility] Medicare Care Teams Communicable Disease Specialist Relationship Specialty Start Date End Date Jose Rodriguez MD [address] [facility], [address] [place] [address] PCP - General Internal Medicine 07/07/22
--- OUTSIDE RECORDS SUMMARY | 2025-06-15 15:58 | XMS_ITS | Clinical Summary ---
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 Gender Identity Not on file Sexual Orientation Not on file Last Filed Vital Signs Vital Sign Reading Time Taken Comments Blood Pressure 118/72 08/26/2017 8:30 AM QUENCHER OPERATOR Pulse 69 11/13/2016 12:00 PM CDT Temperature - - Respiratory Rate - - Oxygen Saturation 96% 11/13/2016 12:00 PM CDT Inhaled Oxygen Concentration - - Weight 101.2 kg (223 lb) 08/26/2017 8:30 AM QUENCHER OPERATOR Height 177.8 cm (5' 10) 08/26/2017 8:30 AM QUENCHER OPERATOR Body Mass Index 32 08/26/2017 8:30 AM QUENCHER OPERATOR Plan of Treatment Health Maintenance Due Date [...] 03/10 Insurance MEDICARE [employer] Care Teams Client Success Director Relationship Specialty Start Date End Date Will Rodriguez MD [address] [address] PCP - General 05/11/17
--- OUTSIDE RECORDS SUMMARY | 2025-06-15 15:58 | XMS_ITS | Encounter Summary ---
Author Organization [employer] [facility] Address [address] [facility] [place] [address] Phone Care Team Providers Care Garage Door Service Technician Name Role Phone Jose Rodriguez MD Primary Care Provider [phone] [phone] Reason for Visit * Reason Comments Med Refill Encounter Details Date Type Department Care Team (Late st Contact Info) Description 04/22/2021 Refill [facility], [address] [place] [address] Vimal Peacock DO [address] [facility] 1 [place] [address] Social History Tobacco Use Types [...] st Contact Info) Description 09/12/2025 2:15 PM ACCOUNT MANAGER EDUCATION Office Visit [facility] [address] [facility] 15 [place] [address] Vimal Peacock DO [address] [facility] 1 [place] [address] documented as of this encounter Visit Diagnoses Not on filedocumented in this encounter Care Teams Garage Door Service Technician Relationship Specialty [place] [address] [place] [address], [address] [place] [address] PCP - General Internal Medicine 07/07/22 documented as of this encounter
--- OUTSIDE RECORDS SUMMARY | 2025-06-15 15:58 | XMS_ITS | Clinical Summary ---
Author Organization [facility] Address [address] [place] [address] Phone Care Team Providers Care Hand Expansion Envelope Maker Name Role Phone Robel Prasad MD Primary Care Provider [phone] Allergies No known active allergies Social History [...] 103 kg (227 lb) 07/24/2016 8:19 AM COMPLIANCE MGR Height 177.8 cm (5' 10) 07/24/2016 8:19 AM COMPLIANCE MGR Body Mass Index 32.57 07/24/2016 8:19 AM COMPLIANCE MGR Plan of Treatment Health Maintenance Due Date Last Done Comments Hepatitis C Virus (HCV) Screening 1955 TdaP Immunization 1955 Cologuard 02/03/2000 Colonoscopy 02/03/2000 Colorectal Cancer Screening 02/03/2000 Immunochemical Fecal Occult Blood 02/03/2000 Pneumococcal Immunization (5 0+ years) (1 of 1 - PCV) 2005 Zoster Immunization (1 of 2) 2005 Influenza Immunization (#1) 2025 SARS-COV-2 Immunization ( - season) 2025 Respiratory Syncytial Virus (RSV) Immunization (Adult) [...] patient's age to complete this topic Insurance [facility] MEDICARE Care Teams Hand Expansion Envelope Maker Relationship Specialty Start Date End Date Robel Prasad MD PCP - General Internal Medicine 07/22/16
--- NOTE | 2025-06-15 16:24 | ADMGEN ---
This patient, Terry Mace, was admitted to 3 [facility] Surg Room 301-01. Patient/family oriented to hospital policies and general routines including ID bracelet, bed and alarms, visiting hours, pain management, procedures, bathroom and other care routines, personal items, smoking policy, room service/diet, and visiting hours. Information on how to activate the Rapid Response Team has been discussed. Patient/Family are encouraged to report perceived risks to care and to ask questions if they do not understand what they are told or what they should do.
[2025-06-15] MEDS: ACETAMINOPHEN 500 MG TABLET PO ×2 (16:41→23:18)
[2025-06-15] MEDS: oxyCODONE HCL (*CRX) 5 MG TAB IR PO ×3 (16:41→21:39)
[2025-06-15] MEDS: MAGNESIUM OXIDE 400 MG TABLET PO (17:38)
[2025-06-15] MEDS: SENNA/DOCUSATE SODIUM TABLET 2 TAB PO (17:38)
[2025-06-15] MEDS: TAMSULOSIN HCL 0.4 MG CAPSULE PO (17:39)
[2025-06-15] MEDS: MORPHINE SULFATE (*CRX) 4 MG/ML INJ 2 MG IV PUSH ×2 (17:40→23:19)
[2025-06-15] MEDS: IRON SUCROSE COMPLEX 400 MG in SODIUM CHLORIDE 0.9% IV 250 ML 108 MG IVPB (21:38)
[2025-06-15] MEDS: PANTOPRAZOLE 40 MG TABLET PO (21:39)
--- NOTE | 2025-06-15 21:46 | PM.IMCN ---
Assessment and Plan Assessment and plan (1) Primary osteoarthritis of left hip: Code(s): M16.12 - Unilateral primary osteoarthritis, left hip Status: Acute Assessment and Plan: Left bipolar hip replacement completed 06/15/25 PT/OT consulted (2) Iron deficiency: Code(s): E61.1 - Iron deficiency Status: Acute Assessment and Plan: Iron level and Iron %saturation low Moderate (400 mL) EBL during surgery Hospitalist consult for iron deficiency Ordered Venofer 400 mg IV x 1 VTE prophylaxis per Orthopedics, recommend compliance due to past history of DVT (3) Diabetes: Code(s): E11.9 - Type 2 diabetes mellitus without complications Status: Acute Assessment and Plan: Recent outpatient lab showed A1c 7.6 FSBS rising throughout day of surgery Continue metformin, add low dose SSI during hospital stay with meals Carb consistent diet (4) Hypertension: Code(s): I10 - Essential (primary) hypertension Status: Acute Assessment and Plan: Noted, continue home medications (5) Hyperlipidemia: Code(s): E78.5 - Hyperlipidemia, unspecified Status: Acute Assessment and Plan: Noted history, continue home medications (6) History of DVT (deep vein thrombosis): Code(s): Z86.718 - Personal history of other venous thrombosis and embolism Status: Acute Assessment and Plan: Noted history, agree with Eliquis 2.5 mg BID per Orthopedics Consider 5 mg BID if risk of bleeding controlled ?? Plan Recommend outpatient iron 325 mg daily with Vitamin C 250 mg daily taken at the same time on an empty stomach. Recommend stool softeners if any problems with constipation. HPI Date of Consult Consult date: 06/15/25 Requesting Physician: Luke Myers MD Primary Care Provider: Jose Rodriguez, Consult Narrative Narrative: Terry Mace is a 70 year old male who underwent hip replacement surgery on 06/15/25. Patient has a past medical history including Type 2 DM on metformin, HTN, HLD, osteoarthritis, GERD and discovery of iron deficiency. Patient had a moderate amount of EBL (400 mL) during surgery but not enough to auto-transfuse from [employer]ver. Iron and iron %saturation were noted to be low today and Hospitalist service was asked to consult. Recent labs also shows Hemoglobin A1c of 7.6 and fingerstick glucose noted to be over 250 before bed. Low dose SSI will be added. Review of records also shows past history of DVT. Orthopedics has continued home medications and is managing pain medications and DVT prophylaxis. Surgical drain in place. Patient reports past history of iron deficiency first noted when he had right knee replaced about 9 years ago. He stopped taking iron supplements after surgery and forgot about it until labs were repeated yesterday and showed low iron count again. Patient had EGD before he could have surgery to see if he had GI bleeding from meloxicam use. Reddy's esophagus was diagnosed but no signs of active bleeding per patient report. He also notes a Vitamin D deficiency for which he does take supplementation. Review of Systems Review of Systems: All systems reviewed & are unremarkable except as noted in HPI and below PMFSH Past Medical History Medical History History of DVT (deep vein thrombosis) Diabetes Hyperlipidemia Hypertension BPH (benign prostatic hyperplasia) Surgical History Surgical History History of hand surgery History of inguinal hernia repair lower right History of total left knee replacement History of lumbosacral spine surgery H/O arthroscopic knee surgery left Family History Family History Father , Felty's syndrome. No problems noted. Mother , Failure to thrive. No problems noted. Sibling Hypertension Hyperlipidemia Social History Social History Smoking packs per day: 2 Smoking cigarettes per day: 40.0 Years smoked: 20 Smoking pack-years: 40.00 Smoking status: Former smoker Second hand tobacco smoke exposure: Yes Alcohol intake: never Alcohol use details: SOMEWHAT HEAVY DRINKER PRIOR TO 1997 Substance use: never Substance use type: does not use Do You Feel Safe in your Home?: Yes Lack of Transportation: No Lack of Food: Never True Current Housing: I Have Housing Concerned About Future Housing: No Difficulty Paying Gas/Electric Bills: No Difficulty Paying for Meds: No Currently Unemployed: No Education: Trade/Vocational Certificate Difficulty w/ Childcare or Family Care: No Living arrangements: alone Additional living arrangements comments: Occupation/Education: retired 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 Gender identity (if verbalized by the patient): Male Spiritual care concerns: No Meds Home Medications and Allergies Home Medications ?Medication ?Instructions ?Recorded ?Confirmed ?Type finasteride 5 mg tablet 5 mg PO DAILY 12/25/23 06/15/25 History nifedipine 90 mg tablet,extended 90 mg PO DAILY 12/25/23 06/15/25 History release tamsulosin 0.4 mg capsule 0.4 mg PO BID 12/25/23 06/15/25 History icosapent ethyl 1 gram capsule 2 g PO BID 02/15/24 06/15/25 History (Vascepa) carvedilol 25 mg tablet 25 mg PO Q12H 03/25/24 06/15/25 History omeprazole 20 mg capsule,delayed 20 mg PO BID 03/25/24 06/15/25 History release tramadol 50 mg tablet 50 mg PO Q8H PRN pain #40 tabs 05/02/24 06/15/25 Rx acetaminophen 500 mg tablet 1,000 mg PO Q6H PRN pain 04/24/25 06/15/25 History (Acetaminophen Extra Strength) ascorbic acid (vitamin C) 1,000 mg 1 g PO DAILY 04/24/25 06/15/25 History capsule chlorpheniramine maleate 4 mg 4 mg PO Q12H PRN allergy symptoms 04/24/25 06/15/25 History tablet (Allergy-Time) cholecalciferol (vitamin D3) 50 2,000 unit PO ONCE 04/24/25 06/15/25 History mcg (2,000 unit) capsule clonidine 0.1 mg/24 hr weekly 1 patch topical WEEKLY 04/24/25 06/15/25 History transdermal patch duloxetine 30 mg capsule,delayed 30 mg PO BID 04/24/25 06/15/25 History release indapamide 2.5 mg tablet 2.5 mg PO QAM 04/24/25 06/15/25 History olmesartan 40 mg tablet 40 mg PO QAM 04/24/25 06/15/25 History rosuvastatin 40 mg tablet 40 mg PO DAILY 04/24/25 06/15/25 History magnesium oxide 400 mg PO BID 06/08/25 06/15/25 History metformin 1,000 mg tablet 1,000 mg PO BID 06/08/25 06/15/25 History Allergies Allergy/AdvReac Type Severity Reaction Status Date / Time meloxicam Allergy ABNORMAL Verified 06/15/25 16:24 LABS Vital Signs Vital Signs - 24 hr 06/15/25 09:15 06/15/25 15:12 06/15/25 15:25 Temperature 36.1 C L 36.3 C L Pulse Rate 83 85 85 Respiratory Rate 18 14 14 Blood Pressure 105/67 115/77 90/52 L Pulse Oximetry 99 100 100 Oxygen Delivery Room Air Simple Face Mask Simple Face Mask Oxygen Flow Rate 8 8 06/15/25 15:40 06/15/25 15:55 06/15/25 16:08 Temperature Pulse Rate 78 76 77 Respiratory Rate 18 12 12 Blood Pressure 118/68 116/66 126/67 Pulse Oximetry 95 94 95 Oxygen Delivery Nasal Cannula Nasal Cannula Room Air Oxygen Flow Rate 2 2 06/15/25 16:26 06/15/25 17:18 06/15/25 17:56 Temperature 35.8 C L 36.0 C L Pulse Rate 87 91 Respiratory Rate 16 16 Blood Pressure 120/74 121/81 Pulse Oximetry 93 93 94 Oxygen Delivery Nasal Cannula Oxygen Flow Rate 2 06/15/25 20:34 06/15/25 21:38 Temperature 36.2 C L Pulse Rate 113 H 113 H Respiratory Rate 20 Blood Pressure 105/74 Pulse Oximetry 93 Oxygen Delivery Oxygen Flow Rate Exam Narrative: GENERAL: Well-appearing, well-nourished, and in no acute distress. HEAD: Normocephalic, atraumatic. ENT:? Mucous membranes moist. CHEST: Clear to auscultation.? No respiratory distress. HEART: Mildly tachycardic rate and regular rhythm. ? Normal peripheral pulses. ABDOMEN: Soft, nontender, nondistended. EXTREMITIES: Left hip surgical site dressing and drain intact SKIN: Warm dry normal color NEURO: Alert and oriented x3. PSYCH: Normal mood and affect Results Labs 06/16/25 05:27 06/15/25 09:42 Labs: Short CBC 06/15/25 Range/Units 09:42 WBC 11.6 H (4.5-10.0) K/mm3 Hgb 13.0 L (14.0-18.0) g/dL Hct 39.3 L (42.0-52.0) % Plt Count 266 (150-375) k/mm3 BMP 06/15/25 09:42 Sodium 136 L Potassium 4.2 Chloride 98 Carbon Dioxide 33 H BUN 26 H Creatinine 1.16 Glucose 144 H Calcium 9.8 Pulse Oximetry SpO2 results: 93-94% on room air Attestation: I personally reviewed and interpreted this pulse oximetry as follows: Interpretation: No need for supplemental oxygenation at this time Quality VTE Prophylaxis VTE prophylaxis: pharmacologic ordered Hospitalist MIPS Advance Care Plan I have confirmed that the patient's Advanced Care Plan is present, code status is documented, or surrogate decision maker is listed in patient medical record.: Yes Medication Reconciliation I have utilized all available resources to obtain, update and review the patients current medications (includes all prescriptions, OTC, herbals, cannabis, and nutritional supplements).: Yes
[2025-06-16 00:15] VITALS: BP 107/70; PULSE 100; RESP 16; TEMP 36.3; O2SAT 94
[2025-06-16] MEDS: oxyCODONE HCL (*CRX) 5 MG TAB IR PO ×4 (00:26→13:28)
[2025-06-16] MEDS: VANCOMYCIN HCL 1,000 MG in SODIUM CHLORIDE 0.9% IV 250 ML 250 MG IVPB ×2 (00:32→00:35)
[2025-06-16] MEDS: MORPHINE SULFATE (*CRX) 4 MG/ML INJ 2 MG IV PUSH (02:01)
[2025-06-16] MEDS: ceFAZolin 2 GM in SODIUM CHLORIDE 0.9% IV 50 ML 100 ML IVPB ×2 (02:06→12:03)
[2025-06-16 04:05] VITALS: BP 116/69; PULSE 94; RESP 20; TEMP 36.7; O2SAT 97
[2025-06-16] MEDS: ACETAMINOPHEN 500 MG TABLET PO ×2 (05:03→12:03)
[2025-06-16 06:35] LABS: Hematocrit 32.7 % (42.0-52.0); Hemoglobin 10.5 g/dL (14.0-18.0); Immature Granulocyte Percent A 0.7 % (0-0.5); Lymphocytes Absolute Auto 1.10 K/mm3 (0.9-3.2); Mean Corpuscular HGB Conc 32.1 g/dl (32-36); Mean Corpuscular Hemoglobin 28.9 pg (26-34); Mean Corpuscular Volume 90.1 fl (80-100); Nucleated Red Blood Cells Absolute Auto 0.000 K/mm3 (0.0-0.012); Nucleated Red Blood Cells Perc 0.0 % (0.0-0.2); Platelet Count Result 255 k/mm3 (150-375); Red Blood Count 3.63 M/mm3 (4.6-6.20); White Blood Count 16.3 K/mm3 (4.5-10.0)
--- NOTE | 2025-06-16 06:41 | P.PNIM_ITS ---
Progress Note: A&P Assessment and Plan (1) Primary osteoarthritis of left hip: Code(s): M16.12 - Unilateral primary osteoarthritis, left hip Status: Acute Assessment and Plan: * Left bipolar hip replacement completed 06/15/25 * PT/OT primary (2) Iron deficiency: Code(s): E61.1 - Iron deficiency Status: Acute Assessment and Plan: * Iron level and Iron %saturation low * Moderate (400 mL) EBL during surgery * Hospitalist consult for iron deficiency * Ordered Venofer 400 mg IV x 1 * VTE prophylaxis per Orthopedics, recommend compliance due to past history of DVT * Iron supplement on discharge - will instruct pt to f/u w/ primary care physician for repeat Iron studies in 3-4 weeks (3) Diabetes: Code(s): E11.9 - Type 2 diabetes mellitus without complications Status: Acute Assessment and Plan: * Recent outpatient lab showed A1c 7.6 * FSBS rising throughout day of surgery * Continue metformin, add low dose SSI during hospital stay with meals * Carb consistent diet (4) Hypertension: Code(s): I10 - Essential (primary) hypertension Status: Acute Assessment and Plan: * Noted, continue home medications (5) Hyperlipidemia: Code(s): E78.5 - Hyperlipidemia, unspecified Status: Acute Assessment and Plan: * Noted history, continue home medications (6) History of DVT (deep vein thrombosis): Code(s): Z86.718 - Personal history of other venous thrombosis and embolism Status: Acute Assessment and Plan: * Noted history, agree with Eliquis 2.5 mg BID per Orthopedics * Consider 5 mg BID if risk of bleeding controlled ?? Subjective Date/time seen: 06/16/25 06:41 Interval history: Terry Mace is a 70 year old male who underwent hip replacement surgery on 06/15/25. Patient has a past medical history including Type 2 DM on metformin, HTN, HLD, osteoarthritis, GERD and discovery of iron deficiency. 06/16/2025 Patient is resting comfortably in bed at time of exam. Dr Myers of Orthopedic was in room at time same explaining to the patient the discharge plan. Planning for discharge today. Will ensure patient has iron supplement on discharge and will instruct him to get repeat Iron studies through PCP to determine further need for iron supplementation. Review of Systems Review of Systems: All systems reviewed & are unremarkable except as noted in HPI and below Exam Narrative: GENERAL: Well-appearing, well-nourished, and in no acute distress. HEAD: Normocephalic, atraumatic. ENT:? Mucous membranes moist. CHEST: Clear to auscultation.? No respiratory distress. HEART: Mildly tachycardic rate and regular rhythm. ? Normal peripheral pulses. ABDOMEN: Soft, nontender, nondistended. EXTREMITIES: Left hip surgical site dressing and drain intact SKIN: Warm dry normal color NEURO: Alert and oriented x3. PSYCH: Normal mood and affect Objective Data Vital Signs Vital Signs: Vital Signs - 24 hr 06/15/25 09:15 06/15/25 15:12 06/15/25 15:25 Temperature 96.9 F L 97.4 F L Pulse Rate 83 85 85 Respiratory Rate 18 14 14 Blood Pressure 105/67 115/77 90/52 L Pulse Oximetry 99 100 100 Oxygen Delivery Room Air Simple Face Mask Simple Face Mask Oxygen Flow Rate 8 8 06/15/25 15:40 06/15/25 15:55 06/15/25 16:08 Temperature Pulse Rate 78 76 77 Respiratory Rate 18 12 12 Blood Pressure 118/68 116/66 126/67 Pulse Oximetry 95 94 95 Oxygen Delivery Nasal Cannula Nasal Cannula Room Air Oxygen Flow Rate 2 2 06/15/25 16:26 06/15/25 17:18 06/15/25 17:56 Temperature 96.5 F L 96.8 F L Pulse Rate 87 91 Respiratory Rate 16 16 Blood Pressure 120/74 121/81 Pulse Oximetry 93 93 94 Oxygen Delivery Nasal Cannula Oxygen Flow Rate 2 06/15/25 20:00 06/15/25 20:34 06/15/25 21:38 Temperature 97.2 F L Pulse Rate 113 H 113 H 113 H Respiratory Rate 20 20 Blood Pressure 105/74 Pulse Oximetry 93 93 Oxygen Delivery Nasal Cannula Oxygen Flow Rate 2 06/16/25 00:15 06/16/25 04:05 Temperature 97.4 F L 98.0 F Pulse Rate 100 94 Respiratory Rate 16 20 Blood Pressure 107/70 116/69 Pulse Oximetry 94 97 Oxygen Delivery Oxygen Flow Rate Intake/Output Intake/Output: Intake & Output 06/13/25 06/14/25 06/15/25 06/16/25 23:59 23:59 23:59 23:59 Intake Total 1380 Balance 1380 Meds/Results Medications: Active Medications Generic Name Dose Route Start Last Admin Trade Name Daniloq PRN Reason Stop Dose Admin Acetaminophen 500 mg 06/15/25 17:00 06/16/25 05:03 Acetaminophen 500 Mg Tablet PO 500 mg Q6H IBRAHIMA Administration Apixaban 2.5 mg 06/16/25 09:00 Apixaban 2.5 Mg Tablet PO Q12HR [facility] Ascorbic Acid 1,000 mg 06/16/25 09:00 Ascorbic Acid 500 Mg Tablet PO QAM [facility] Carvedilol 25 mg 06/15/25 21:00 06/15/25 21:38 Carvedilol 25 Mg Tablet PO 25 mg Q12H IBRAHIMA Administration Clonidine HCl 1 patch 06/20/25 09:00 Clonidine 0.1 Mg/24 Hr Patch TOPICAL Tu@0900 [facility] Dextrose 12.5 gm 06/15/25 16:11 Dextrose 50% 25 Gm/50 Ml Syringe IV PUSH PRN PRN Hypoglycemia Protocol Doxycycline Hyclate 100 mg 06/16/25 09:00 Doxycycline Hyclate 100 Mg Tablet PO 06/28/25 08:59 Q12HR [facility] Duloxetine HCl 30 mg 06/15/25 17:00 06/15/25 17:38 Duloxetine Hcl 30 Mg Capsule. PO 30 mg BID IBRAHIMA Administration Finasteride 5 mg 06/16/25 09:00 Finasteride 5 Mg Tablet PO DAILY [facility] Glucagon 1 mg 06/15/25 16:11 Glucagon For Inj 1 Mg Vial IM PRN PRN Hypoglycemia Protocol Glucose 15 gm 06/15/25 16:11 Glucose Oral Gel 15 Gm Of Glucse In 37.5 Gm Tube PO PRN PRN Hypoglycemia Protocol Dextrose 1,000 mls @ 100 mls/hr 06/15/25 16:11 Dextrose 5% 1,000 Ml IVPB PRN PRN Hypoglycemia Protocol Cefazolin Sodium 2 gm/ Sodium 50 mls @ 100 mls/hr 06/15/25 19:00 06/16/25 02:06 Chloride IVPB 06/16/25 11:29 100 mls/hr Q8H IBRAHIMA Administration Vancomycin HCl 1,000 mg/ 250 mls @ 250 mls/hr 06/16/25 00:00 06/16/25 00:35 Sodium Chloride IVPB 06/16/25 12:59 250 mls/hr Q12H IBRAHIMA Administration Insulin Aspart 2 - 5 units 06/16/25 08:00 Insulin Aspart (*Bkc) 100 Units/Ml SUB-Q TIDWM [facility] Protocol Magnesium Oxide 400 mg 06/15/25 17:00 06/15/25 17:38 Magnesium Oxide 400 Mg Tablet PO 400 mg BID IBRAHIMA Administration Metformin HCl 1,000 mg 06/15/25 17:00 06/15/25 17:38 Metformin Hcl 500 Mg Tablet PO 1,000 mg BID IBRAHIMA Administration Morphine Sulfate 2 mg 06/15/25 16:11 06/16/25 02:01 Morphine Sulfate (*Crx) 4 Mg/Ml Inj IV PUSH 2 mg Q2H PRN Administration Pain Rated 7-10 Naloxone HCl 0.1 mg 06/15/25 16:11 Naloxone Hcl 0.4 Mg/Ml Vial IV PUSH Q2M PRN Opiate Reversal Nifedipine 90 mg 06/15/25 21:00 06/15/25 21:38 Nifedipine 30 Mg Tab.Er.24 PO 90 mg HS IBRAHIMA Administration Olmesartan 40 mg 06/16/25 09:00 Olmesartan Medoxomil 20 Mg Tablet PO QAM [facility] Ondansetron HCl 4 mg 06/15/25 16:11 Ondansetron Inj 4 Mg/2 Ml Vial IV PUSH Q4H PRN Nausea And Vomiting Oxycodone HCl 5 mg 06/15/25 17:00 06/16/25 05:03 Oxycodone Hcl (*Crx) 5 Mg Tab Ir PO 5 mg Q4H IBRAHIMA Administration Oxycodone HCl 5 mg 06/15/25 16:11 06/15/25 16:41 Oxycodone Hcl (*Crx) 5 Mg Tab Ir PO 5 mg Q4H PRN Administration Pain Rated 7-10 Pantoprazole Sodium 40 mg 06/15/25 21:00 06/15/25 21:39 Pantoprazole 40 Mg Tablet PO 40 mg Q12HR IBRAHIMA Administration Polyethylene Glycol 17 gm 06/16/25 09:00 Polyethylene Glycol 3350 17 Gm Powd.Pack PO QAM [facility] Rosuvastatin Calcium 40 mg 06/16/25 09:00 Rosuvastatin 20 Mg Tablet PO DAILY [facility] Senna/Docusate Sodium 2 tab 06/15/25 17:00 06/15/25 17:38 Senna/Docusate Sodium Tablet PO 2 tab BID [facility] Administration Tamsulosin HCl 0.4 mg 06/15/25 17:00 06/15/25 17:39 Tamsulosin Hcl 0.4 Mg Capsule PO 0.4 mg BID [facility] Administration Vitamin D 2,000 mcg 06/16/25 09:00 Cholecalciferol (Vitamin D3) 125 Mcg (5,000 Units) Tablet PO DAILY [facility] Radiology Results: ITS Impressions Hip/Pelvis X-Ray 06/15/25 15:15 IMPRESSION: Status post left hip arthroplasty. Bones and hardware appear in good alignment. Labs Labs: Laboratory Results - last 24 hr 06/15/25 06/15/25 06/15/25 09:42 10:52 15:46 WBC 11.6 H RBC 4.53 L Hgb 13.0 L Hct 39.3 L MCV 86.8 MCH 28.7 MCHC 33.1 RDW 14.0 Plt Count 266 MPV 9.2 Immature Gran % (Auto) Neut % (Auto) Lymph % (Auto) Barbour % (Auto) Eos % (Auto) Baso % (Auto) Lymph # (Auto) [place]bour # (Auto) Eos # (Auto) Baso # (Auto) Abs Immat Gran (auto) Absolute Neuts (auto) Absolute Nucleated RBC Nucleated RBC % Sodium 136 L Potassium 4.2 Chloride 98 Carbon Dioxide 33 H Anion Gap 5 BUN 26 H Creatinine 1.16 Estim Creat Clear Calc 60 Estimated GFR > 60 Glucose 144 H POC Capillary Glucose 149 H 160 H Calcium 9.8 Iron 43 L TIBC 288 % Saturation 15 L Ferritin 329.00 H Blood Type A Negative Antibody Screen Negative 06/15/25 06/15/25 06/16/25 16:27 20:24 05:27 WBC 16.3 H RBC 3.63 L Hgb 10.5 L Hct 32.7 L MCV 90.1 MCH 28.9 MCHC 32.1 RDW 14.3 Plt Count 255 MPV 10.2 Immature Gran % (Auto) 0.7 H Neut % (Auto) 83.3 H Lymph % (Auto) 6.7 L Barbour % (Auto) 9.0 H Eos % (Auto) 0.1 Baso % (Auto) 0.2 Lymph # (Auto) 1.10 Barbour # (Auto) 1.5 H Eos # (Auto) 0.0 Baso # (Auto) 0.0 Abs Immat Gran (auto) 0.11 H Absolute Neuts (auto) 13.6 H Absolute Nucleated RBC 0.000 Nucleated RBC % 0.0 Sodium Potassium Chloride Carbon Dioxide Anion Gap BUN Creatinine Estim Creat Clear Calc Estimated GFR Glucose POC Capillary Glucose 188 H 258 H Calcium Iron TIBC % Saturation Ferritin Blood Type Antibody Screen Quality VTE Prophylaxis VTE prophylaxis: pharmacologic ordered
[2025-06-16 07:24] LABS: Anion Gap 7 mmol/L (4-12); Blood Urea Nitrogen 22 mg/dL (9-20); Calcium 8.5 mg/dL (8.4-10.2); Carbon Dioxide 29 mmol/L (22-30); Chloride 97 mmol/L (98-107); Estimated CRCL calculation 70 ml/min; Estimated Glomerular Filt Rate > 60; Glucose 131 mg/dL (65-110); Potassium 3.4 mmol/L (3.4-5.0); Sodium 133 mmol/L (137-145)
[2025-06-16] MEDS: OLMESARTAN MEDOXOMIL 20 MG TABLET 40 MG PO (08:49)
[2025-06-16] MEDS: ROSUVASTATIN 20 MG TABLET 40 MG PO (08:49)
[2025-06-16] MEDS: MAGNESIUM OXIDE 400 MG TABLET PO (08:49)
[2025-06-16] MEDS: SENNA/DOCUSATE SODIUM TABLET 2 TAB PO (08:49)
[2025-06-16] MEDS: ASCORBIC ACID 500 MG TABLET 1000 MG PO (08:49)
[2025-06-16] MEDS: PANTOPRAZOLE 40 MG TABLET PO (08:49)
[2025-06-16] MEDS: DOXYCYCLINE HYCLATE 100 MG TABLET PO (08:50)
[2025-06-16] MEDS: FINASTERIDE 5 MG TABLET PO (08:50)
[2025-06-16] MEDS: TAMSULOSIN HCL 0.4 MG CAPSULE PO (08:50)
[2025-06-16] MEDS: APIXABAN 2.5 MG TABLET PO (08:50)
[2025-06-16] MEDS: CHOLECALCIFEROL (VITAMIN D3) 25 MCG (1,000 UNITS) TABLET 50 MCG PO (08:50)
[2025-06-16 08:51] VITALS: PULSE 103
[2025-06-16 09:15] VITALS: O2SAT 93
[2025-06-16 09:49] VITALS: BP 98/58; PULSE 103; RESP 16; TEMP 36.4; O2SAT 94
--- NOTE | 2025-06-16 11:34 | PM.PNORT ---
Progress Note: A&P Assessment and Plan (1) Status post left hip replacement: Code(s): Z96.642 - Presence of left artificial hip joint Status: Acute Assessment and Plan: PATIENT IS POSTOP DAY 1. AFTER LEFT TOTAL HIP ARTHROPLASTY. He feels he is doing well. He has soreness in the anterior proximal thigh which is typical. He has been up walking around full weight-bearing on the left leg and is comfortable doing that. He is neurologically intact left lower extremity. Wound is dry. No significant swelling in the hip her thigh. Laboratory studies today show hemoglobin 10.5 which represents acute blood loss anemia superimposed on pre-existing anemia. Iron studies were done yesterday which showed that is iron level and iron binding capacity saturation were low in the was given a transfusion of iron yesterday postoperatively and has been started on ferrous sulfate 324 mg daily for the next month and has been given instructions to follow-up with his primary care physician in 1 month to have his iron studies repeated. His red cell indices were normal on today's and yesterday's CBC. His creatinine is further improved to 0 point 9 6 estimated creatinine clearance is now 70. His sodium is 133. I did hold his morning Indapamide. His last blood pressure at 930 was 98 systolic but patient feels asymptomatic relative this and he was up walking around this morning and went through physical therapy in the feel safe to be discharged home today. I recommended the drink plenty of water and he will monitor his blood pressure on a regular basis which he does chronically. Subjective Subjective Date/Time Seen: 06/16/25 11:34 Objective Data Vital Signs Vital Signs: Vital Signs - 24 hr 06/15/25 15:12 06/15/25 15:25 06/15/25 15:40 Temperature 36.3 C L Pulse Rate 85 85 78 Respiratory Rate 14 14 18 Blood Pressure 115/77 90/52 L 118/68 Pulse Oximetry 100 100 95 Oxygen Delivery Simple Face Mask Simple Face Mask Nasal Cannula Oxygen Flow Rate 8 8 2 06/15/25 15:55 06/15/25 16:08 06/15/25 16:26 Temperature 35.8 C L Pulse Rate 76 77 87 Respiratory Rate 12 12 16 Blood Pressure 116/66 126/67 120/74 Pulse Oximetry 94 95 93 Oxygen Delivery Nasal Cannula Room Air Oxygen Flow Rate 2 06/15/25 17:18 06/15/25 17:56 06/15/25 20:00 Temperature 36.0 C L Pulse Rate 91 113 H Respiratory Rate 16 20 Blood Pressure 121/81 Pulse Oximetry 93 94 93 Oxygen Delivery Nasal Cannula Nasal Cannula Oxygen Flow Rate 2 2 06/15/25 20:34 06/15/25 21:38 06/16/25 00:15 Temperature 36.2 C L 36.3 C L Pulse Rate 113 H 113 H 100 Respiratory Rate 20 16 Blood Pressure 105/74 107/70 Pulse Oximetry 93 94 Oxygen Delivery Oxygen Flow Rate 06/16/25 04:05 06/16/25 07:49 06/16/25 08:00 Temperature 36.7 C Pulse Rate 94 Respiratory Rate 20 Blood Pressure 116/69 Pulse Oximetry 97 Oxygen Delivery Room Air Room Air Oxygen Flow Rate 06/16/25 08:33 06/16/25 08:51 06/16/25 09:15 Temperature Pulse Rate 103 H Respiratory Rate Blood Pressure Pulse Oximetry 93 Oxygen Delivery Room Air Room Air Oxygen Flow Rate 06/16/25 09:49 Temperature 36.4 C L Pulse Rate 103 H Respiratory Rate 16 Blood Pressure 98/58 L Pulse Oximetry 94 Oxygen Delivery Oxygen Flow Rate Intake/Output Intake/Output: Intake & Output 06/13/25 06/14/25 06/15/25 06/16/25 23:59 23:59 23:59 23:59 Intake Total 1380 120 Balance 1380 120 Meds/Results Medications: Active Medications Generic Name Dose Route Start Last Admin Trade Name Daniloq PRN Reason Stop Dose Admin Acetaminophen 500 mg 06/15/25 17:00 06/16/25 05:03 Acetaminophen 500 Mg Tablet PO 500 mg Q6H IBRAHIMA Administration Apixaban 2.5 mg 06/16/25 09:00 06/16/25 08:50 Apixaban 2.5 Mg Tablet PO 2.5 mg Q12HR IBRAHIMA Administration Ascorbic Acid 1,000 mg 06/16/25 09:00 06/16/25 08:49 Ascorbic Acid 500 Mg Tablet PO 1,000 mg QAM IBRAHIMA Administration Carvedilol 25 mg 06/15/25 21:00 06/16/25 08:51 Carvedilol 25 Mg Tablet PO 25 mg Q12H IBRAHIMA Administration Clonidine HCl 1 patch 06/20/25 09:00 Clonidine 0.1 Mg/24 Hr Patch TOPICAL Tu@09 IBRAHIMA Dextrose 12.5 gm 06/15/25 16:11 Dextrose 50% 25 Gm/50 Ml Syringe IV PUSH PRN PRN Hypoglycemia Protocol Doxycycline Hyclate 100 mg 06/16/25 09:00 06/16/25 08:50 Doxycycline Hyclate 100 Mg Tablet PO 06/28/25 08:59 100 mg Q12HR IBRAHIMA Administration Duloxetine HCl 30 mg 06/15/25 17:00 06/16/25 08:49 Duloxetine Hcl 30 Mg Capsule.Dr PO 30 mg BID IBRAHIMA Administration Finasteride 5 mg 06/16/25 09:00 06/16/25 08:50 Finasteride 5 Mg Tablet PO 5 mg DAILY IBRAHIMA Administration Glucagon 1 mg 06/15/25 16:11 Glucagon For Inj 1 Mg Vial IM PRN PRN Hypoglycemia Protocol Glucose 15 gm 06/15/25 16:11 Glucose Oral Gel 15 Gm Of Glucse In 37.5 Gm Tube PO PRN PRN Hypoglycemia Protocol Dextrose 1,000 mls @ 100 mls/hr 06/15/25 16:11 Dextrose 5% 1,000 Ml IVPB PRN PRN Hypoglycemia Protocol Vancomycin HCl 1,000 mg/ 250 mls @ 250 mls/hr 06/16/25 00:00 06/16/25 00:35 Sodium Chloride IVPB 06/16/25 12:59 250 mls/hr Q12H IBRAHIMA Administration Insulin Aspart 2 - 5 units 06/16/25 08:00 06/16/25 08:51 Insulin Aspart (*Bkc) 100 Units/Ml SUB-Q Not Given TIDWM [facility] Protocol Magnesium Oxide 400 mg 06/15/25 17:00 06/16/25 08:49 Magnesium Oxide 400 Mg Tablet PO 400 mg BID IBRAHIMA Administration Metformin HCl 1,000 mg 06/15/25 17:00 06/16/25 08:50 Metformin Hcl 500 Mg Tablet PO 1,000 mg BID IBRAHIMA Administration Morphine Sulfate 2 mg 06/15/25 16:11 06/16/25 02:01 Morphine Sulfate (*Crx) 4 Mg/Ml Inj IV PUSH 2 mg Q2H PRN Administration Pain Rated 7-10 Naloxone HCl 0.1 mg 06/15/25 16:11 Naloxone Hcl 0.4 Mg/Ml Vial IV PUSH Q2M PRN Opiate Reversal Nifedipine 90 mg 06/15/25 21:00 06/15/25 21:38 Nifedipine 30 Mg Tab.Er.24 PO 90 mg HS IBRAHIMA Administration Olmesartan 40 mg 06/16/25 09:00 06/16/25 08:49 Olmesartan Medoxomil 20 Mg Tablet PO 40 mg QAM IBRAHIMA Administration Ondansetron HCl 4 mg 06/15/25 16:11 Ondansetron Inj 4 Mg/2 Ml Vial IV PUSH Q4H PRN Nausea And Vomiting Oxycodone HCl 5 mg 06/15/25 17:00 06/16/25 08:50 Oxycodone Hcl (*Crx) 5 Mg Tab Ir PO 5 mg Q4H IBRAHIMA Administration Oxycodone HCl 5 mg 06/15/25 16:11 06/15/25 16:41 Oxycodone Hcl (*Crx) 5 Mg Tab Ir PO 5 mg Q4H PRN Administration Pain Rated 7-10 Pantoprazole Sodium 40 mg 06/15/25 21:00 06/16/25 08:49 Pantoprazole 40 Mg Tablet PO 40 mg Q12HR IBRAHIMA Administration Polyethylene Glycol 17 gm 06/16/25 09:00 06/16/25 08:50 Polyethylene Glycol 3350 17 Gm Powd.Pack PO 17 gm QAM IBRAHIMA Administration Rosuvastatin Calcium 40 mg 06/16/25 09:00 06/16/25 08:49 Rosuvastatin 20 Mg Tablet PO 40 mg DAILY IBRAHIMA Administration Senna/Docusate Sodium 2 tab 06/15/25 17:00 06/16/25 08:49 Senna/Docusate Sodium Tablet PO 2 tab BID IBRAHIMA Administration Tamsulosin HCl 0.4 mg 06/15/25 17:00 06/16/25 08:50 Tamsulosin Hcl 0.4 Mg Capsule PO 0.4 mg BID IBRAHIMA Administration Vitamin D 50 mcg 06/16/25 09:00 06/16/25 08:50 Cholecalciferol (Vitamin D3) 25 Mcg (1,000 Units) Tablet PO 50 mcg DAILY IBRAHIMA Administration Radiology Results: ITS Impressions Hip/Pelvis X-Ray 06/15/25 15:15 IMPRESSION: Status post left hip arthroplasty. Bones and hardware appear in good alignment. Labs Labs: Laboratory Results - last 24 hr 06/15/25 06/15/25 06/15/25 10:52 15:46 16:27 WBC RBC Hgb Hct MCV MCH MCHC RDW Plt Count MPV Immature Gran % (Auto) Neut % (Auto) Lymph % (Auto) [place] % (Auto) Eos % (Auto) Baso % (Auto) Lymph # (Auto) [place] # (Auto) Eos # (Auto) Baso # (Auto) Abs Immat Gran (auto) Absolute Neuts (auto) Absolute Nucleated RBC Nucleated RBC % Sodium Potassium Chloride Carbon Dioxide Anion Gap BUN Creatinine Estim Creat Clear Calc Estimated GFR Glucose POC Capillary Glucose 160 H 188 H Calcium Ferritin 329.00 H 06/15/25 06/16/25 06/16/25 20:24 05:27 07:54 WBC 16.3 H RBC 3.63 L Hgb 10.5 L Hct 32.7 L MCV 90.1 MCH 28.9 MCHC 32.1 RDW 14.3 Plt Count 255 MPV 10.2 Immature Gran % (Auto) 0.7 H Neut % (Auto) 83.3 H Lymph % (Auto) 6.7 L [place] % (Auto) 9.0 H Eos % (Auto) 0.1 Baso % (Auto) 0.2 Lymph # (Auto) 1.10 [place] # (Auto) 1.5 H Eos # (Auto) 0.0 Baso # (Auto) 0.0 Abs Immat Gran (auto) 0.11 H Absolute Neuts (auto) 13.6 H Absolute Nucleated RBC 0.000 Nucleated RBC % 0.0 Sodium 133 L Potassium 3.4 Chloride 97 L Carbon Dioxide 29 Anion Gap 7 BUN 22 H Creatinine 0.96 Estim Creat Clear Calc 70 Estimated GFR > 60 Glucose 131 H POC Capillary Glucose 258 H 160 H Calcium 8.5 Ferritin
[2025-06-16] MEDS: VANCOMYCIN HCL 1,000 MG in SODIUM CHLORIDE 0.9% IV 250 ML 175 MG IVPB (12:39)
--- NOTE | 2025-06-16 14:14 | WPDANESPN ---
Anes - Prog Note Post-Op Date/Time: 06/16/25 14:14 Cardiovascular status: normal Respiratory status: normal Airway patency: baseline Mental status: baseline Post-Op hydration status: normal Vital Signs: Last Vital Signs Temp 97.5 F L 06/16/25 09:49 Pulse 103 H 06/16/25 09:49 Resp 16 06/16/25 09:49 BP 98/58 L 06/16/25 09:49 Pulse Ox 94 06/16/25 09:49 O2 Del Method Room Air 06/16/25 09:15 O2 Flow Rate 2 06/15/25 20:00 Pain Score (VAS): 0/10 I/O: Intake & Output 06/15/25 06/16/25 06/16/25 23:59 07:59 15:59 Intake Total 1330 300 140 Balance 1330 300 140 Laboratory Tests 06/16/25 05:27 06/16/25 05:27 06/15/25 06/15/25 06/15/25 15:46 16:27 20:24 WBC RBC Hgb Hct MCV MCH MCHC RDW Plt Count MPV Immature Gran % (Auto) Neut % (Auto) Lymph % (Auto) [place] % (Auto) Eos % (Auto) Baso % (Auto) Lymph # (Auto) [place] # (Auto) Eos # (Auto) Baso # (Auto) Abs Immat Gran (auto) Absolute Neuts (auto) Absolute Nucleated RBC Nucleated RBC % Sodium Potassium Chloride Carbon Dioxide Anion Gap BUN Creatinine Estim Creat Clear Calc Estimated GFR Glucose POC Capillary Glucose 160 H 188 H 258 H Calcium 06/16/25 06/16/25 05:27 07:54 WBC 16.3 H RBC 3.63 L Hgb 10.5 L Hct 32.7 L MCV 90.1 MCH 28.9 MCHC 32.1 RDW 14.3 Plt Count 255 MPV 10.2 Immature Gran % (Auto) 0.7 H Neut % (Auto) 83.3 H Lymph % (Auto) 6.7 L [place] % (Auto) 9.0 H Eos % (Auto) 0.1 Baso % (Auto) 0.2 Lymph # (Auto) 1.10 [place] # (Auto) 1.5 H Eos # (Auto) 0.0 Baso # (Auto) 0.0 Abs Immat Gran (auto) 0.11 H Absolute Neuts (auto) 13.6 H Absolute Nucleated RBC 0.000 Nucleated RBC % 0.0 Sodium 133 L Potassium 3.4 Chloride 97 L Carbon Dioxide 29 Anion Gap 7 BUN 22 H Creatinine 0.96 Estim Creat Clear Calc 70 Estimated GFR > 60 Glucose 131 H POC Capillary Glucose 160 H Calcium 8.5 Post-procedural complaints: none Patient Feedback: Patient satisfied with anesthetic care.
== END 2025-06-16 14:50 | disposition home or self-care (01) ==
LOC: ANHSURGERY 15:57 → ANH3MEDSUR 16:16
PROVIDERS: PCP Internal Medicine; Visit Provider Orthopaedic Surgery
PROC: (CPT 27130; principal; 2025-06-15 10:30)
DX: M16.12 Unilateral primary osteoarthritis, left hip (principal); E61.1 Iron deficiency; E11.9 Type 2 diabetes mellitus without complications; I10 Essential (primary) hypertension; E78.5 Hyperlipidemia, unspecified; K21.9 Gastro-esophageal reflux disease without esophagitis; Z86.718 Personal history of other venous thrombosis and embolism; Z79.84 Long term (current) use of oral hypoglycemic drugs
CPT/HCPCS: 27130; 36415; 73501; 80048; 82728; 82948; 83540; 83550; 85025; 85027; 86850; 86900; 86901; 97161; 97166; 99199; J0690; A9270; J0166; J1100; J1756; J1885; J2003; J2250; J2270; J2405; J2704; J2795; J3010; J3290; J3373; J7050; J7120

== ENCOUNTER 2025-07-12 16:01 | Outpatient (CLI) | payer MEDICARE, BC, SELFPAY ==
--- OUTSIDE RECORDS SUMMARY | 2025-06-08 03:52 | XMS_ITS | Continuity of Care Document ---
Author Organization [facility] Address [address] [place] [address] Phone Care Team Providers Care Kitchen Designer Name Role Phone Emil SCHMIDT, FACC, Franko [...] Providers Copied on Encounter NTRPROF PH1/NTRNET/E HR [facility], [address] [place] [address], [id number] , tel: [phone] [facility] Synagogue Encounter for preprocedural cardiovascular exam 5 Emil Abdul. [facility] [address], [place], [place], [id number] , . tel: [phone] Referring Provider: Franko Stein, [address], [place], [address] . tel:[phone] OFFICE/OUTPA TIENT VISIT, EST [facility], [address] [place] [address], [id number] , tel: [phone] [facility] [place] follow up (chief complaint) Body mass index [BMI] 34.0-34.9, adultEssential (primary) hypertensionAortic aneurysm of unspecified site, without ruptureChest pain, unspecifiedHx of DVT 5 Emil Abdul. [address], [place], [place], [id number] , . tel: [phone] Referring Provider: Franko Stein, [address], [place], [address] . tel:[phone] [facility], [address] [place] [address], [id number] , tel: [phone] [facility] [place] No Information 5 Emil Abdul. [facility] [address], [place], [place], [id number] , . tel: [phone] [facility], [address] [place] [address], [id number] , tel: [phone] [facility] No Information Emil Abdul. [address], [place], [place], [id number] , [place]. tel: [phone] [facility], [address] [place], [place], [id number] , tel: [phone] [facility] [place] Vein thrombosisAortic aneurysm of unspecified site, without ruptureMixed hyperlipidemiaEssent ial (primary) hypertensionChest pain, unspecified 5 Emil Abdul. [address], [place], [place], [id number] , [place]. tel: [phone] Family History Family Member Type Diagnosis Age At Onset No Information Payers Payer name Insurance type Covered alliance party ID Tabatha mcclellandhoracio(s) [place] MEDICARE PART B [id number] [facility] [id number] Social History Type Description Quantity Date Captured [...]
--- NOTE | ~2025-07-12 | US_ITS ---
EXAMINATION: US venous doppler LE , 07/12/2025 16:28 HARD METALS ENGRAVER HAND HISTORY: Z86.718 - Personal history of other venous thrombosis and... Comparison: None Technique: Porras-scale and color Doppler images were attempted of the lower saphenofemoral junction, common femoral vein,superficial femoral vein, proximal deep femoral vein, proximal deep femoral vein, popliteal vein and posterior tibial veins. Findings: Deep Venous System:Normal flow, augmentation and compressibility. No echogenic thrombus identified. The contralateral saphenofemoral junction appears unremarkable. Superficial Venous SystemNo superficial thrombophlebitis. Soft tissues: Soft tissues are unremarkable. Impression: Negative for DVT. Reviewed, dictated and finalized at location P. METALS ENGRAVER HAND Impression: Negative for DVT.
--- OUTSIDE RECORDS SUMMARY | 2025-07-12 17:04 | XMS_ITS | Continuity of Care Document ---
Author Organization [place] [facility], [facility] [place] Address [address] [place] [address] Care Team Providers Care Minute Clerk Name Role Phone JOSE RODRIGUEZ Primary Care Provider [phone] JOSE RORDIGUEZ Referring Provider SHAVONNE MUNIZ Oxygen Plant Operator KATIE VAZQUEZ Field Artillery Crewmember ZORAN KENDRICK Insurance Agent Assessment Encounter Date Assessment Date Assessment LastModified by Organization Details LastModified Time 05/08/2025 05/08/2025 02/05/2022: A1C 6.5 Urine micro [...] 11.7H TG [address] Dr Peacock BLL 19.2 [email or web address] Not available 05/08/2025 13:02:16 Plan of Treatment Reminders Order Date Submit Date Provider Last Modified By Organization Details Last Modified Time Details Appointments Follow Up 15 2025 07:30A M Zoran Kendrick MD Not available Not available Not available Follow Up 15 2025 09:00A M Jose yusuf MD Not available Not available Not available Lab lipid panel, serum 2024 025 ALICE Not available 05/11/2025 13:34:32 CMP, serum or plasma 2024 025 ALICE Not available 06/02/2025 14:08:38 CBC w/ auto diff 2024 025 ALICE Not available 06/02/2025 13:53:54 TSH + free T4, serum 2024 025 [email or web address] Not available 05/08/2025 13:07:22 CBC w/ auto diff 2024 025 [facility], [address] [place], [address], 05/11/2025 13:32:59 lead, blood [email or web address] [place] [address] Outpatient Lab, [address] [place], [address], 05/08/2025 13:07:23 microalbu min, urine 2024 025 ALICE Not available 06/02/2025 15:48:31 glycohemo globin, total, blood 2024 025 ALICE Not available 05/11/2025 14:46:41 Referral urologist referral - Please call patient to schedule an appointme nt. Thank you. 2024 025 [email or web address] Con [place] MD, [address], [place], [address], 06/12/2025 16:16:03 gastroent erologist referral - Please call patient to schedule an appointme nt. Thank you. 2024 025 MANFRED Vazquez MD, [address], [place], [address], 05/15/2025 11:25:22 hand surgeon referral - Please call patient to schedule an appointme nt. Thank you. 2024 025 MANFRED Torres MD, [address] [facility], [address], [place], [address], 05/09/2025 10:05:19 pulmonolo gist referral - Please call patient to schedule an appointme nt. Thank you. 2024 025 [email or web address] Zoran Kendrcik MD, [address] [place], [address], 05/15/2025 11:04:50 podiatris t referral - Please call patient to schedule an appointme nt. Thank you. 2024 025 ALICE GARCIAM, [address] [facility], [facility] [address], [place], [address], 05/09/2025 10:23:33 Procedures upper endoscopy procedure (EGD) (PROC) - Please call patient to schedule an appointme nt. Thank you. 2024 025 MANFRED Vazquez MD, [address], [place], [address], 05/15/2025 11:20:30 Surgeries None recorded. Imaging None recorded. Medication Orders None recorded. Patient TargetsNo targets recorded. Patient InstructionsNo instructions recorded. Reason for Referral Furniture Refinisher Referral for Type 2 diabetes mellitus without complication Please call patient to schedule an appointment. Thank you. Referring Physician: Jose Rodriguez, Internal Medicine, Encounter Date: 05/08/2025 Field Artillery Crewmember Referral for Steatotic liver disease Please call patient to schedule an appointment. Thank you. Referring Physician: Jose Rodriguez, Internal Medicine, Encounter Date: 05/08/2025 Urologist Referral for Benig n prostatic hyperplasia without outflow obstruction Please call patient to schedule an appointment. Thank you. Referring Physician: Jose Rodriguez Internal Medicine, Encounter Date: 05/08/2025 Insurance Agent Referral for E xposure to asbestos Please call patient to schedule an appointment. Thank you. Referring Physician: Jose Rodriguez Internal Medicine, Encounter Date: 05/08/2025 Hand Surgeon Referral for Pa in of right hand Please call patient to schedule an appointment. Thank you. Referring Physician: Jose Rodriguez Internal Medicine, Encounter Date: 05/08/2025 Results Created Date Observation Date Name Description Value Unit Range Abnormal Flag Note LastModifiedBy Organization Detail LastModifiedTime 06/15/2006/15/2025 imagi ng/di agnos tic resul t No observ ation record ed. [address] [facility], [place], [address], 06/15/2025 16:33:52 06/15/2006/15/2025 imagi ng/di agnos tic resul t No observ ation record ed. [address], [place], [address], 06/15/2025 16:43:55 Result Notes None recorded. Problems Name Problem SNOMED Code Status Onset Date Resolution Date Notes Provider Name and Address Organization Details Recorded Time Benign prostatic hyperplas ia 867052207 Active Not Available [facility] 3 16:00:48 Vitamin D deficienc y 78037918 Active Not Available [facility] 3 16:00:48 Onychomyc osis 017546434 Active Not Available [facility] 3 16:00:48 Streptoco ccal sore throat 78413793 Completed Not Available [facility] 3 04:51:21 Onychogry phosis 44807783 Active Not Available [facility] 3 16:00:48 Essential hypertens ion 34804061 Active Jose puga MD [address], [place], [address] , [facility] 5 12:54:12 Foot-drop 1599755 Active Not Available [facility] hospital 3 16:00:48 Diabetes mellitus 10840203 Active Not Available Critical access hospital 3 16:00:48 Bilateral plantar fasciitis 03296411793 024092 Active 2019 Not Available Critical access hospital 3 16:00:48 Steatotic liver disease 444840782 Active 2022 Jose puga MD [address], [place], [address] , [facility] 5 12:51:18 Migraine 86510418 Active 2022 Jose puga MD [address], [place], [address] , [facility] 5 12:51:18 Osteoarth ritis 953042425 Active 2022 GERALD Velez, [facility] 3 08:51:02 Hypertrig lyceridem ia 121278904 Active 2022 Kailee rain, [facility] 3 12:22:11 Deep venous thrombosi s of lower extremity 177960747 Active 2023 Jose puga MD [address], [place], [address] , [facility] 5 12:51:17 Gastroeso phageal reflux disease without esophagit is 227440176 Active 2023 Jose puga MD [address], [place], [address] , [facility] 5 13:06:05 Multiple nodules of lung 129966480 Active 2023 Zoran Kendrick MD [address], [place], [address] , [facility] 4 10:17:39 Upper respirato ry infection 32139521 Active 2024 Jose puga MD [address], [place], [address] , [facility] 5 14:03:41 Hyperlipi demia 54421164 Active 2024 Jose puga MD [address], [place], [address] , [facility] 5 12:52:49 Type 2 diabetes mellitus without complicat ion 449039819 Active 2024 Jose puga MD [address], [place], [address] , [facility] 5 12:53:14 Pain of right hand 95826579411 9109 Active 2024 Jose puga MD [address], [place], [address] , [facility] [employer] [facility] 5 12:51:17 Abdominal aortic aneurysm 952186522 Active 2024 Jose puga MD [address], [place], [address] , [facility] 5 12:58:27 Proteinur ia 69675885 Active 2024 Jose puga MD [address], [place], [address] , [facility] 5 12:51:18 Solitary nodule of lung 901245386 Active 2024 Jose puga MD [address], [place], [address] , [facility] 5 12:51:18 Benign prostatic hyperplas ia without outflow obstructi on 694782359 Active 2024 Jose puga MD [address], [place], [address] , [place] [facility] 5 12:51:18 Pain of bilateral knee joints 95565419453 4104 Active 2024 Jose puga MD [address], [place], [address] , [place] [facility] 5 12:51:18 Chronic pain 50573707 Active 2024 Jose puga MD [address], [place], [address] , [place] [facility] 5 12:55:40 Leukocyto sis 856784843 Active 2024 Jose puga MD [address], [place], [address] , [place] [facility] 5 12:31:13 Anemia 808725429 Active 2024 Jose puga MD [address], [place], [address] , [place] [facility] 5 16:44:11 Pain of hip region 64395537 Active 2024 Jose puga MD [address], [place], [address] , [place] [facility] 5 12:55:41 Blood lead level above reference range 262800220 Active 2024 Jose puga MD [address], [place], [address] , [place] [facility] 5 13:06:06 Notes:Medical History: [place] lead levels Migraine headaches Bilateral hearing [...] Right knee arthroscopy 2022 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 Procedures Surgical History Date Name Laterality Status Provider Name and Address Organization Details Recorded Time 03/23/20 24 Medicare Wellness CPT Code, subsequent completed Ha Connors LPN [facility] 03/23/2024 10:40:22 03/23/20 24 Advanced Care Planning completed Ha Connors LPN [facility] 03/23/2024 12:34:05 01/13/20 23 Medicare Wellness CPT Code, subsequent completed Farhana Li RN L[facility] 01/12/2023 09:40:59 08/07/20 22 Carpal tunnel surgery completed Thelma Verdugo MA [facility] 01/12/2023 09:26:57 03/05/20 17 Colonoscopy with biopsy completed Not Available Critical access hospital 10/08/2022 04:42:31 Cataract Surgery completed Not Available Critical access hospital 10/08/2022 04:42:31 repair of meniscus completed GERALD Riley hint [facility] 07/13/2023 09:28:16 Imaging Results None recorded. Procedure Notes None recorded. Medical Equipment None Reported. Allergies Allergen ID Allergen Name Allergen Category Reaction Reaction Severity Criticality Documentation Date Start Date Code Code System Note Provider Name and Address Organization Details Recorded Time 32415 No known allergy (situatio n) Not available Not available Not available Not available 03/23/2024 [address]37 6003 [facility] Cici rain Loudr [facility] 12:28:39 No known drug allergies Medications Name [...] mg/mL suspensio n for injection in office 10/06/ 2023 12/04 /2023 completed [facility]: 0003-049 4-20 Not Available Not Available Not Available nifedipin [...] daily 01/[address] Muniz [facility] Not Available Not Available Not Available Chlor-Tri meton 06/16 completed Not Available Not Available Not Available lidocaine (PF) 10 mg/mL (1 %) injection solution In office injectio n administ ered by the provider 02/12 completed [facility]: 0409-427 01-24 Not Available Not Available Not Available fenofibra [...] %) injection solution in office 07/13 completed [facility] 54214-77 4- Not Available Not Available Not Available [...] [Score] - Reported Heart rate Oxygen saturation Systolic And Diastolic Provider Name and Address Organization Details Last Updated DateTime 5 172.72 cm 33.1 kg/m2 65543.1 4 g 97.5 [degF] 4 79 /min 96 % 128/78 mm[Hg] Jo Stover MA [facility] 12:18:28 Social History Question Answer Notes LastModified by Organization Details LastModified Time Tobacco Smoking Status Former Smoker quit 1979 Jo Stover MA null, [facility] 05/08/2025 12:20:19 Do You Have An Advance Directive? No Patient Given Informati on. 03/23/24 [email or web address] Information not available 03/23/2024 Do You Wear A Helmet When Biking? No Does Not Bike [email or web address] Information not available 03/23/2024 Are You Blind Or Do You Have Difficulty Seeing? No Information not available 07/13/2023 Is Blood Transfusion Acceptable In An Emergency? Yes [email or web address] Information not available 03/23/2024 What Is Your Level Of Caffeine Consumption? Moderate 2 Cups Daily [id number] [id number] Information not available 10/08/2022 In The 14 [...] Of Diet Are You Following? REGULAR [id number].0301 [id number] Information not available 10/08/2022 What Is The Highest Grade Or Level Of School You Have Completed Or The Highest Degree You Have Received? BH10578-0 [email or web address] Information not available 03/23/2024 Do You Have An Electrostatic Air Filter? No Information not available 05/30/2024 How Many Days Of Moderate To Strenuous Exercise, Like A Brisk Walk, Did You Do In The Last 7 Days? 5 Walks 2 Miles Daily [email or web address] Information not available 03/23/2024 On Those Days That You Engage In Moderate To Strenuous Exercise, How Many Minutes, On Average, Do You Exercise? 58 [email or web address] Information not available 03/23/2024 Have There Been [...] available 07/13/2023 Presence Of Domestic Violence No Information not available 01/12/2023 Guns Present In The Home? Yes Information not available 03/23/2024 Are You Able To Care For Yourself? Yes Information not available 01/12/2023 Are You Blind Or Do Yo Have Difficulty Seeing? No [email or web address] Information not available 01/12/2023 Are You Deaf Or Do You Have Serious Difficulty Hearing? Yes Hard Of Hearing In Both Ears [email or web address] Information not available 01/12/2023 General Stress Level? Low [email or web address] Information not available 01/12/2023 Live Alone Of With Others? Alone [email or web address] Information not available 01/12/2023 Do You Have A Medical Power Of Tool Maintenance Worker? No Information not available 07/13/2023 Do You Have Moisture Problems In Your Home? No Information not available 05/30/2024 What Was The Date Of Your Most Recent Tobacco Screening? 06/12/2025 Information not available 06/12/2025 How Many Children Do You Have? 0 [email or web address] Information not available 03/23/2024 What Is Your Current Pack Years? 10-19packyears Information not available 07/13/2023 Do You Have Any Pets? Yes Dog [email or web address] Information not available 03/23/2024 What Is Your Relationship Status? Information not available 03/23/2024 Do You Use Your Seat Belt Or Car Seat Routinely? Yes Information not available 07/13/2023 Are You Sexually Active? No [email or web address] Information not available 03/23/2024 Do You Have [...] Climbing Stairs? Yes Hip And Knee Pain Information not available 03/23/2024 Do You Have Any Dietary Restrictions? No Information not available 07/13/2023 Sex: Male Functional Status Question Answer Note LastModified by [facility] ion Details LastModified Time Do you use any illicit or recreational drugs? No Information not available 07/13/2023 Do you or have you ever used any other forms of tobacco or nicotine? Yes Information not available 07/25/2024 What is your level of alcohol consumption? None [id number] Information not available 10/08/2022 Are you currently employed? No [email or web address] Information not available 03/23/2024 Have you been exposed to chemicals or toxins? No not that aware of Information not available 08/17/2024 Do you have transportation difficulties? No Information not available 07/13/2023 Are you able to walk independently without assistance or assistive devices? YESWOREST uses cane at times Information not available 03/23/2024 Do you have [...] anxious, or unable to sleep at night)? [id number] Information not available 07/13/2023 Do you have difficulty concentrating, remembering or making decisions? No Information no t available 07/13/2023 Family History Relationship Description Onset Age of this Age Resolved Age Notes LastModified by Organization Details LastModified Time Mother Diabetes mellitus [id number].846 [id number] Not available 10/08/2022 04:42:33 Mother Hypertensive disorder [id number].555 [id number] Not available 10/08/2022 04:42:33 Father Felty's syndrome [email or web address] Not available 05/08 12:04:24 Paternal Grandfather Rheumatoid arthritis [email or web address] Not available 05/08 12:04:24 Paternal Grandmother Myocardial infarction Not available 02/21 11:27:12 Paternal Uncle Rheumatoid arthritis [email or web address] Not available 05/08 12:04:24 Paternal Aunt Myocardial infarction Not available 02/21 11:27:54 Mother Lupus erythematosu s [email or web address] Not available 05/08 12:04:24 Medical History Condition Response ARTHRITIS Y DIABETES, TYPE Y USE OF BLOOD THINNERS Y BLOOD CLOTS Y HYPERTENSION Y Immunizations Vaccine Type Date Status Note Provider Nam e and Address Organization Details Recorded Time Influenza, high-dose, quadrivalent, PF 0 completed GERALD Riley, [facility] 03/23/2024 10:08:54 COVID-19, mRNA, LNP-S, PF, 100 mcg/0.5mL dose or 50 mcg/0.25mL dose 1 completed GERALD Riley, [facility] 03/23/2024 10:08:54 Influenza, split virus, trivalent, PF 7 completed GERALD Riley, [facility] 03/23/2024 10:08:54 Influenza, split virus, trivalent, PF 5 completed Marycruz Mattson RMA null, [facility] 03/23/2024 10:08:54 Influenza, split virus, quadrivalent, PF 9 completed Marycruz Mattson RMA null, [facility] 03/23/2024 10:08:54 Influenza, high-dose, quadrivalent, PF 3 completed Marycruz Mattson RMA null, [facility] 07/25/2024 10:48:34 Influenza, high-dose, trivalent, PF 4 completed Marycruz Mattson RMA null, [facility] 07/25/2024 10:49:23 Influenza, split virus, trivalent, preservative 6 completed MARYCRUZ RileyA null, [facility] 03/23/2024 10:08:54 COVID-19, mRNA, LNP-S, PF, 100 mcg/0.5mL dose or 50 mcg/0.25mL dose 1 completed Marycruz Mattson RMA null, [facility] 03/23/2024 10:08:54 COVID-19, mRNA, LNP-S, PF, 100 mcg/0.5mL dose or 50 mcg/0.25mL dose 1 completed Marycruz Mattson RMA null, [facility] 03/23/2024 10:08:54 Influenza, split virus, quadrivalent, preservative 9 completed Marycruz Mattson RMA null, [facility] 03/23/2024 10:08:54 tetanus toxoid, adsorbed 7 completed Not Available [facility] 02/04/2023 16:00:51 Influenza, split virus, trivalent, preservative 5 completed Marycruz Mattson RMA null, [facility] 03/23/2024 10:08:54 Influenza, high-dose, trivalent, PF 0 completed Marycruz Mattson RMA null, [facility] 03/23/2024 10:08:54 influenza, unspecified formulation 7 completed Marycruz Mattson RMA null, [facility] 03/23/2024 10:08:54 varicella 5 completed Not Available Critical access hospital 02/04/2023 16:00:51 Influenza, high-dose, trivalent, PF 5 completed Marycruz Mattson RMA null, [facility] 03/23/2024 10:08:54 Influenza, split virus, trivalent, preservative 3 completed Not Available Critical access hospital 02/04/2023 16:00:51 Influenza, high-dose, quadrivalent, PF 2 completed Not Available Critical access hospital 02/04/2023 16:00:51 pneumococcal polysaccharide PPV23 1 completed Not Available Critical access hospital 02/04/2023 16:00:51 Pneumococcal conjugate PCV 13 0 completed Marycruz Mattosn RMA null, [facility] [employer] [facility] 03/23/2024 10:08:54 Influenza, split virus, quadrivalent, PF 8 completed Not Available Critical access hospital 02/04/2023 16:00:51 Influenza, split virus, quadrivalent, PF 6 completed Not Available Critical access hospital 02/04/2023 16:00:51 zoster live 4 completed Not Available Critical access hospital 02/04/2023 16:00:51 Influenza, split virus, trivalent, preservative 4 completed Marycruz Mattson RMA null, [facility] [employer] [facility] 03/23/2024 10:08:54 Past Encounters Encounter ID Performer Location Encounter Start Date Encounter Closed Date Diagnosis/Indication Diagnosis SNOMED-CT Code Diagnosis ICD10 Code Diagnosis IMO Codes Diagnosis Note [id number] Jose puga MD [facility] [address] [facility] [place] [address] 05/08/2025 12:04:06 05/08/2025 13:08:32 Deep venous thrombosis of lower extremity 280184669 I82.[address] [facility] [address] Muniz 08/18/2023 , f/u in 6 monthsOn xarelto US DVT 12/18/2023 : Neg, Lenin CystCan stop the xarelto once 6 months done at the end or 01/2024 Not on xarelto 03/23/2024 Hyperlipidemia 75485546 E78.5 On rosuvastat in 40mg dailyOn vascepaMor e diet and exercise and repeat the labs Screening - NAD 04865858 3 Z13.9 C-scope: Dr Gary n 03/05/17, [...] Type 2 jay betes mellitus without complication 051677326 E11.9 Needs more diet and exercise! 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 OV 12/21/2023 : Keep apt with hand surgery OV 03/23/2024 : See Dr Torres OV 07/25/2024 :Referred to Dr Torres OV 10/24/2024 : Needs to see Dr Torres, referred again OV 01/25/2025 : Referred again, urged to see hand surgeon Ex-cigarette smoker 2810 56500 Z87.891 Quit 17 years ago US AAA 08/06/2020 : Border line AAA [facility] Dr Conroy US AAA 07/24/2021 : Neg CT chest 07/06/2024 : Dr Kendrick Abdominal aortic aneurysm 694038592 I71.[address] Muniz [facility] cardiology Dr Muniz HV 04/25/2025 Proteinuria 62617330 R80 .[address] Peacock Steatotic liver disease 384238637 K76.0 US Liver 12/16/2023 : hepatic steatosis, hepatomega lyNeeds to see GI Solitary n odule of lung 573577446 R91.1 CT chest: 10/18/[address]: 02/06/2022 : Neg, rec: [address] chest s per radiologis tCT Chest: 12/15/2023 : 2 new RLL nodules, CT chest in 6 months, CADCt Chest: 07/06/2024 Benign pro static hyperplasia without outflow obstruction 418522676 N40.[address] Walters, urologyOn finasterid Chani flomax Migraine 25215656 G43.90 9 Used to be on sumatripta n, not taken since 3 years, but feels that he has a migraine headache d/t his URI, will renew Lead screening 72373032 Z13.88 Get lab, but states that Dr Peacock does also check thisLabs as per Dr Peacock Pain of bi lateral knee joints 2926547641 [address] Myers for R knee pain, s/p injection, now is to get a MRI as per his history 01/12/2023 Addendum: 03/02/2023 :Is to get knee scope done by Dr Griffin cleared for surgery by Dr Muniz [facility] on 03/02/2023 , he is also cleared for surgery and will remain a moderate risk Joshua REDDY 05/15/2023 , s/p Vernell Myers Exposure to asbestos 699 929539 Z77.090 Exposure was 20 years ago, will refer to Dr Kendrick pulmonary Gastroesop hageal reflux disease without esophagitis [id number] K21.9 On omeprazole 20mg daily as neededIs to see Dr Correia GI/Dr Reddy Chronic pain [id number] G8 9.29 Has R hip pain, sees Dr Darin frankel hand pain, sees Dr Doherty also noted neck painNo weakness in UE or LE, no loss of bowel or bladder controlTak es PRN tramadolNo w on duloxetine Benji Екатерина [facility] [place] [facility] 01/19/2025 Leukocytosis [id number] D 72.829 965506 Repeat the CBC Pain of hip region 08468 002 M25.552 [id number] Has R hip pain, sees Dr Webster jostin hand pain, sees Dr Doherty also noted neck painNo weakness in UE or LE, no loss of bowel or bladder controlTak es PRN tramadolNo w on duloxetine Benji Екатерина [facility] [facility] 01/19/2025 Now is waiting for Dr Peacock to clear him for surgeryCle ared for surgery Dr Muniz [facility] Blood lead level above reference range [id number] R78.71 [id number] Health Concerns Section Related Observation LastModified by Organization Tirso colón LastModified Time None Recorded Concern Status LastModified by Organization Details LastModified Time None Recorded Payers Encounter Date Sequence Insurance Name Policy Number Policy Ty Covered Member ID Ty Member ID Guarantor Name 05/08/2025 1 [place] Terry Mace [id number] Terry Mace 05/08/2025 2 [place] [id number] Terry aMce [id number] Terry Mace Notes Date Note Type Note Provider Name and Address Organization Details Recorded Time 05/08/2025 text/html 03/16/17CV: Here with c/o LBPHasNo [...] flexerill, and is now willing to do PT04/20/17HTNDMII? LBP/neuropathyBPH: MigrainesHere for his follow up, did do the [...] labs and is here to review theseOV 11/16/2019:telepho ne visit, and he did agree for this visitHe feels well at this timeNo recent labs notedHis ROS is negativeOV 03/19/2020;Here for his routine aptHe did do the labsHe also has a lesion on the L forearm and wants to discuss his hand pain, noted to have STS on the MCP joints but states that the aviation neuropsychologist is goodHe would also like to do [...] is cleared for surgery by Dr Muniz [facility] but now has to do labs for Dr Peacock, he also has to get his EGD done as Dr Myers worries about a bleeding ulcer and he would need to be on blood thinnersHe continues to c/o L hip pain Jose Rodriguez MD [address] [place] [address] Emma, [facility] [address], [place], [address], [place] - [facility] [employer] 05/09/2025 19:02:45
--- OUTSIDE RECORDS SUMMARY | 2025-07-12 17:04 | XMS_ITS | Clinical Summary ---
Author Organization [facility] Address [address] [place] [address] Care Team Providers Care Ferry Pilot Name Role Phone Will Rodriguez MD Primary [...] on file Legal Sex Male 8:43 PM [employer]RECTIONAL CORPORAL Gender Identity Not on file Sexual Orientation Not on file Last Filed Vital Signs Vital Sign Reading Time Taken Comments Blood Pressure 118/72 08/26/2017 8:30 AM CORRECTIONAL CORPORAL Pulse 69 11/13/2016 12:00 PM CDT Temperature - - Respiratory Rate - - Oxygen Saturation 96% 11/13/2016 12:00 PM CDT Inhaled Oxygen Concentration - - Weight 101.2 kg (223 lb) 08/26/2017 8:30 AM CORRECTIONAL CORPORAL Height 177.8 cm (5' 10) 08/26/2017 8:30 AM CORRECTIONAL CORPORAL Body Mass Index 32 08/26/2017 8:30 AM CORRECTIONAL CORPORAL Plan of Treatment Health Maintenance Due Date [...] 03/10 Insurance MEDICARE ANTH TRADITIONAL Care Teams Ferry Pilot Relationship Specialty Start Date End Date Will Rodriguez MD [address] [address] PCP - General 05/11/17
--- OUTSIDE RECORDS SUMMARY | 2025-07-12 17:04 | XMS_ITS | Clinical Summary ---
Author Organization [facility] Address [address] [place] [address] Phone Care Team Providers Care It Senior Software Engineer Java Name Role Phone Robel Prasad MD Primary Care Provider [phone] Allergies No known active allergies Social History [...] 103 kg (227 lb) 07/24/2016 8:19 AM WEDDING COORDINATOR Height 177.8 cm (5' 10) 07/24/2016 8:19 AM WEDDING COORDINATOR Body Mass Index 32.57 07/24/2016 8:19 AM WEDDING COORDINATOR Plan of Treatment Health Maintenance Due Date Last Done Comments Hepatitis C Virus (HCV) Screening 1955 TdaP Immunization 1955 Cologuard 02/03/2000 Colonoscopy 02/03/2000 Colorectal Cancer Screening 02/03/2000 Immunochemical Fecal Occult Blood 02/03/2000 Pneumococcal Immunization (5 0+ years) (1 of 1 - PCV) 2005 Zoster Immunization (1 of 2) 2005 Influenza Immunization (#1) 2025 SARS-COV-2 Immunization ( - 2024- season) 2025 Respiratory Syncytial Virus (RSV) Immunization [...] patient's age to complete this topic Insurance [facility] MEDICARE Care Teams It Senior Software Engineer Java Relationship Specialty Start Date End Date Robel Prasad MD PCP - General Internal Medicine 07/22/16
== END 2025-07-12 16:02 | disposition home or self-care (01) ==
PROVIDERS: PCP Internal Medicine; Visit Provider Orthopaedic Surgery
DX: Z86.718 Personal history of other venous thrombosis and embolism (principal)
CPT/HCPCS: 93971